=== PATIENT | female | born 1945 | race Caucasian/White ===

== ENCOUNTER → 2016-06-30 | Outpatient (CLI) | payer OTHER ==
[~2016-06-30] MED LIST: ALBU1AER9 INH; ASPCH81 PO; AZIT250T4 PO; BENZ100C18 PO; CLC100X PO; CLTP PO; HYDR25TA4 PO; HYDR5SYP11 PO; LISI10TA PO; MULT-506 PO; OMEG10007 PO; SUMA50TA15 PO; VITA400C15 PO
--- NOTE | 2016-07-01 14:25 | MAMMOGRAPHY REPORT ---
BILATERAL DIGITAL SCREENING MAMMOGRAM TOMOSYNTHESIS WITH CAD: 06/30/2016 CLINICAL HISTORY: Routine screening. Patient has no complaints. TECHNIQUE: Breast tomosynthesis in addition to standard 2D mammography was performed. Current study was also evaluated with a Computer Aided Detection (CAD) system. COMPARISON: Comparison is made to exams dated: 06/18/2015 mammogram, 06/01/2014 mammogram, 05/29/2013 mammogram, 05/23/2012 mammogram, and 05/18/2011 mammogram - [facility]. BREAST COMPOSITION: There are scattered areas of fibroglandular density in both breasts. FINDINGS: The parenchymal pattern is unchanged. There are moderate vascular calcifications in the breasts. No developing mass, architectural distortion or cluster of suspicious microcalcifications is seen. IMPRESSION: ACR BI-RADS CATEGORY 2: BENIGN There is no mammographic evidence of malignancy. A 1 year screening mammogram is recommended. The p atient will receive written notification of the results. Approximately 10% of breast cancers are not detected with mammography. A negative mammographic repor t should not delay biopsy if a clinically suggestive mass is present. Dolly Simon M.D. ay/:06/30/2016 21:54:13 Director Of Physiotherapy Services: Rhett MILLER(R)(M), [facility] letter sent: Normal 1/2 BI-RADS Code: ACR BI-RADS Category 2: Benign
== END | disposition home or self-care (01) ==
LOC: C.MAMM 10:56
PROVIDERS: ATTEND Family Medicine
DX: Z12.31 Encounter for screening mammogram for malignant neoplasm of breast (principal)

== ENCOUNTER 2017-04-08 17:38 | Emergency (ER) | payer OTHER ==
[~2017-04-08] VITALS: Ht 157.5 cm; Wt 65.4 kg
[2017-04-08 17:40] VITALS: TEMP 36.6; Ht 157.5 cm; Wt 65.4 kg
[2017-04-08] MEDS ORDERED: CYCLOBENZAPRINE HCL 10 MG TAB PO STA (17:51)
[2017-04-08] MEDS ORDERED: OXYCODONE HCL IR 5 MG TAB (IMMEDIATE RELEASE) PO STA ×2 (17:51→19:25)
--- NOTE | 2017-04-08 18:37 | DIAGNOSTIC IMAGING REPORT ---
CT THORACIC SPINE WITHOUT CT DOSE: CLINICAL HISTORY: Back pain status post trauma TECHNIQUE: Helical images were acquired in the transverse plane. Sagittal and coronal reformatted images were acquired A dose lowering technique was utilized adhering to the principles of ALARA. COMPARISON STUDY: None. FINDINGS: There is a 7 mm groundglass pulmonary nodule within the right upper lobe as visualized in image #[id number]. There are no pleural effusions. There is acute fracture of the anterior inferior T10 endplate. There are no paraspinal masses. There is a minimal T6 superior endplate deformity. This is felt to be old. There is a minimal superior endplate T4 deformity. This is also felt to be old. There is a densely sclerotic 16 mm lesion within the T2 vertebra. There is mild ectasia of the ascending thoracic aorta which measures 4 cm IMPRESSION: 1. Acute fracture involving the anterior inferior T10 endplate 2. No evidence of retropulsion. No subluxations identified. 3. 16 mm sclerotic lesion within the T2 vertebra 4. 7 mm groundglass right upper lobe pulmonary nodule. 6-[address] follow-up is recommended. Please refer to below summary of Fleischner criteria recommendations for follow-up of incidental CT nodules (Jimmy Lee, Guidelines for management of small pulmonary nodules detected on CT scans: A statement from the Fleischner Society, Radiology 237: [phone].) SOLID NODULES Solitary nodule size: <6 mm * low risk patients: no follow-up needed * high risk patients: optional CT at 12 months Solitary nodule size: 6-8 mm * low risk patients: follow-up at 6-12 months, then consider further follow-up at 18-24 months * high risk patients: initial follow-up CT at 6-12 months and then at 18-24 months if no change Solitary nodule size: >8 mm * either low or high risk patients - consider follow-up CT at 3 months, and/or CT-PET, and/or biopsy Multiple nodules size: <6 mm * low risk patients: no routine follow-up * high risk patients: optional CT at 12 months Multiple nodules size: 6-8 mm * low risk patients: follow-up at 3-6 months, then consider further follow-up at 18-24 months * high risk patients: follow-up at 3-6 months, then at 18-24 months if no change Multiple nodules size: >8 mm * low risk patients: follow-up at 3-6 months, then consider further follow-up at 18-24 months * high risk patients: follow-up at 3-6 months, then at 18-24 months if no change Note: newly detected indeterminate nodule in persons 35 years of age or older. * low risk patients: minimal or absent history of smoking and/or other known risk factors * high risk patients: history of smoking or of other known risk factors (e.g. first degree relative with lung cancer, or exposure to asbestos, radon, uranium) * if a nodule up to 8 mm is partly solid or is ground glass further follow-up is required after 24 months to exclude possible slow growing adenocarcinoma (SHANKAR) SUBSOLID NODULES Solitary pure ground-glass nodule * nodule size <6 mm - no CT follow-up required * nodule size >=6 mm - follow-up CT at 6-12 months, then every 2 years until 5 years Solitary part-solid nodule * nodule size <6 mm - no CT follow-up required * nodule size >=6 mm - follow-up CT at 3-6 months. If unchanged, and solid component remains <6 mm, then annual follow-up for 5 years Multiple subsolid nodules * nodule size <6 mm - follow-up CT at 3-6 months, consider further follow-up at 2 and 4 years if stable * nodule size >=6 mm - follow-up CT at 3-6 months, subsequent management based on the most suspicious nodule(s) Electronically signed by: Neftali Costello M.D. 04/08/2017 6:36 PM Dictated Date/Time: 04/08/2017 6:29 PM
--- NOTE | 2017-04-08 18:42 | DIAGNOSTIC IMAGING REPORT ---
CT LUMBAR SPINE WITHOUT CT DOSE: 889.53 mGy.cm CLINICAL HISTORY: Low back pain status post trauma TECHNIQUE: Helical images were acquired in transverse plane. Reformatted sagittal and coronal images were reviewed. A dose lowering technique was utilized adhering to the principles of ALARA. CONTRAST: No contrast was administered COMPARISON STUDY: None. FINDINGS: L1-2 level: There is no evidence of significant disc bulge or focal herniation. There is no evidence of spinal or foraminal stenosis. L2-3 level: There is no evidence of significant disc bulge or focal herniation. There is no evidence of spinal or foraminal stenosis. L3-4 level: There is a circumferential disc bulge. There is mild spinal stenosis. There is no significant foraminal narrowing L4-5 level: There is a 5 mm triangular bony density located adjacent to the anterior superior L4 endplate. This is age-indeterminate. There is a 7 mm sclerotic lesion within the L4 vertebra. There is a mild circumferential disc bulge. There is mild triangular spinal canal narrowing. L5-S1 level: There is no evidence of significant disc bulge or focal herniation. There is no evidence of spinal or foraminal stenosis. IMPRESSION: 1. 5 mm triangular bony density located adjacent to the anterior superior L4 endplate. Although age-indeterminate, I would favor this being old. No other fractures are visualized. There are no subluxations 2. 7 mm sclerotic lesion within the L4 vertebra 3. Mild degenerative changes as described above. Electronically signed by: Neftali Costello M.D. 04/08/2017 6:41 PM Dictated Date/Time: 04/08/2017 6:36 PM
[2017-04-08] MEDS ORDERED: TRAZ50TA35 PO (18:51)
[2017-04-08] MEDS ORDERED: OXYC1TAB3 PO (19:29)
[2017-04-08] MEDS ORDERED: OXYCODONE IR HOME PACK PO ONE (19:30)
--- NOTE | 2017-04-08 19:31 | EMERGENCY ROOM VISIT NOTE ---
History First contact with patient: 17:44 Chief Complaint: BACK INJURY Stated Complaint: FALL,BACK PAIN History of Present Illness The patient is a 71 year old female who presents to the Emergency Room with complaints of mid to lower back pain. The patient states yesterday she was standing on a stool washing windows and fell backwards landing on her back on the pavement. The patient denies any chest pain or any shortness of breath. The patient denies any loss of consciousness or head injury. The patient denies any headache, neck pain. The patient denies any pain in her arms or legs. The patient denies any loss of bowel or bladder control or any saddle anesthesia. The patient denies any numbness and tingling in her lower extremities. The patient states it hurts worse when she goes from a laying to a sitting position. The patient has been taking Advil with little relief. The patient does admit to history of osteoporosis for which she is on Fosamax and calcium. Review of Systems 10 system review was performed and was negative unless stated otherwise history of present illness. Social History Smoking Status: Never Smoker Marital Status: Housing Status: lives with family Occupation Status: retired Current/Historical Medications Scheduled Aspirin (Aspirin Tab-Chewable *), 81 MG PO DAILY Calcium/Vitamin D (Caltrate 600 Plus *), 1 TAB PO DAILY Docusate Sodium (Colace), 100 MG PO DAILY Fish Oil (Winder-3), 1 CAP PO DAILY Hydrochlorothiazide (Hctz), 25 MG PO DAILY Lisinopril (Prinivil), 10 MG PO DAILY Multivitamin (Multivitamin), 1 TAB PO DAILY Tocopheryl Acet,Dl-Alpha (Vitamin E), 400 INTER.UNIT PO DAILY Scheduled PRN Trazodone Hcl (Trazodone), 50 MG PO HS PRN for Sleep Physical Exam Vital Signs Date Time Temp Pulse Resp B/P (MAP) Pulse Ox O2 Delivery O2 Flow Rate FiO2 04/08/17 17:40 36.6 68 18 177/88 97 Room Air Physical Exam GENERAL: 71-year-old white female appears in no acute distress. MENTAL STATUS: Patient is alert and oriented x3. HEAD: Atraumatic, nontender to palpation throughout. No bony abnormality noted. EYES: PERRLA. EOMs intact. NECK: Supple, no lymphadenopathy noted. No carotid bruits noted. LUNGS: Clear auscultation without wheezes rales or rhonchi. CARDIAC: Regular rate and rhythm without murmur. Pulses is full and equal throughout. CHEST WALL: Patient is nontender to palpation over the chest wall bilaterally. CERVICAL SPINE: Patient is nontender to palpation over the spinous processes in the paravertebral region. The patient has full range of motion. [employer] strength is 5 out of 5 bilateral upper extremities and symmetrical. THORACIC SPINE: Patient has no gross bony deformity noted. The patient has some mild tenderness palpation over the spinous processes of the lower thoracic region. LUMBAR SPINE: No gross bony deformity noted. The patient has mild tenderness palpation over the upper spinous processes of the lumbar region. Full range of motion with pain elicited with extension and bending. SKIN: No ecchymosis, abrasions or laceration noted throughout. Medical Decision & Procedures ER Provider Diagnostic Interpretation: CT THORACIC SPINE WITHOUT CT DOSE: CLINICAL HISTORY: Back pain status post trauma TECHNIQUE: Helical images were acquired in the transverse plane. Sagittal and coronal reformatted images were acquired A dose lowering technique was utilized adhering to the principles of ALARA. COMPARISON STUDY: None. FINDINGS: There is a 7 mm groundglass pulmonary nodule within the right upper lobe as visualized in image #[id number]. There are no pleural effusions. There is acute fracture of the anterior inferior T10 endplate. There are no paraspinal masses. There is a minimal T6 superior endplate deformity. This is felt to be old. There is a minimal superior endplate T4 deformity. This is also felt to be old. There is a densely sclerotic 16 mm lesion within the T2 vertebra. There is mild ectasia of the ascending thoracic aorta which measures 4 cm IMPRESSION: 1. Acute fracture involving the anterior inferior T10 endplate 2. No evidence of retropulsion. No subluxations identified. 3. 16 mm sclerotic lesion within the T2 vertebra 4. 7 mm groundglass right upper lobe pulmonary nodule. 6-[address] follow-up is recommended. Please refer to below summary of Fleischner criteria recommendations for follow-up of incidental CT nodules (Jimmy Lee, Guidelines for management of small pulmonary nodules detected on CT scans: A statement from the Fleischner Society, Radiology 237: [phone].) SOLID NODULES Solitary nodule size: <6 mm * low risk patients: no follow-up needed * high risk patients: optional CT at 12 months Solitary nodule size: 6-8 mm * low risk patients: follow-up at 6-12 months, then consider further follow-up at 18-24 months * high risk patients: initial follow-up CT at 6-12 months and then at 18-24 months if no change Solitary nodule size: >8 mm * either low or high risk patients - consider follow-up CT at 3 months, and/or CT-PET, and/or biopsy Multiple nodules size: <6 mm * low risk patients: no routine follow-up * high risk patients: optional CT at 12 months Multiple nodules size: 6-8 mm * low risk patients: follow-up at 3-6 months, then consider further follow-up at 18-24 months * high risk patients: follow-up at 3-6 months, then at 18-24 months if no change Multiple nodules size: >8 mm * low risk patients: follow-up at 3-6 months, then consider further follow-up at 18-24 months * high risk patients: follow-up at 3-6 months, then at 18-24 months if no change Note: newly detected indeterminate nodule in persons 35 years of age or older. * low risk patients: minimal or absent history of smoking and/or other known risk factors * high risk patients: history of smoking or of other known risk factors (e.g. first degree relative with lung cancer, or exposure to asbestos, radon, uranium) * if a nodule up to 8 mm is partly solid or is ground glass further follow-up is required after 24 months to exclude possible slow growing adenocarcinoma (SHANKAR) SUBSOLID NODULES CT LUMBAR SPINE WITHOUT CT DOSE: 889.53 mGy.cm CLINICAL HISTORY: Low back pain status post trauma TECHNIQUE: Helical images were acquired in transverse plane. Reformatted sagittal and coronal images were reviewed. A dose lowering technique was utilized adhering to the principles of ALARA. CONTRAST: No contrast was administered COMPARISON STUDY: None. FINDINGS: L1-2 level: There is no evidence of significant disc bulge or focal herniation. There is no evidence of spinal or foraminal stenosis. L2-3 level: There is no evidence of significant disc bulge or focal herniation. There is no evidence of spinal or foraminal stenosis. L3-4 level: There is a circumferential disc bulge. There is mild spinal stenosis. There is no significant foraminal narrowing L4-5 level: There is a 5 mm triangular bony density located adjacent to the anterior superior L4 endplate. This is age-indeterminate. There is a 7 mm sclerotic lesion within the L4 vertebra. There is a mild circumferential disc bulge. There is mild triangular spinal canal narrowing. L5-S1 level: There is no evidence of significant disc bulge or focal herniation. There is no evidence of spinal or foraminal stenosis. IMPRESSION: 1. 5 mm triangular bony density located adjacent to the anterior superior L4 endplate. Although age-indeterminate, I would favor this being old. No other fractures are visualized. There are no subluxations 2. 7 mm sclerotic lesion within the L4 vertebra 3. Mild degenerative changes as described above. Electronically signed by: Neftali Costello M.D. 04/08/2017 6:41 PM Medications Administered Medications (Trade) Dose Ordered Sig/Sherly Route Start Time Stop Time Status Last Admin Dose Admin Cyclobenzaprine HCl (Flexeril Tab) 10 mg NOW STAT PO 04/08/17 17:51 04/08/17 17:53 DC 04/08/17 18:05 10 MG Oxycodone HCl (Roxicodone Immediate Rel Tab) 5 mg NOW STAT PO 04/08/17 17:51 04/08/17 17:53 DC 04/08/17 18:05 5 MG ED Course The patient was evaluated. Patient's EMR was reviewed. Patient's medication list was reviewed. The patient was given OxyIR 5 mg by mouth and Flexeril [address] of the thoracic and lumbar spine was ordered interpreted by the radiologist as above with a fracture of T10 endplate. Incidental finding of a right pulmonary nodule. The patient was informed of both findings. The patient was independently evaluated by Dr. Eden who agree with treatment plan. The patient was given additional OxyIR one tablet by mouth before discharge. She was given OxyIR home pack. The patient was discharged home in stable condition. Medical Decision Differential diagnosis include fractures versus contusions versus strains of the thoracic and lumbar spine [place] Drug Monitoring Program Search Results: patient reviewed within database Medication Reconcilliation Current Medication List: was personally reviewed by me Blood Pressure Screening Patient's blood pressure: Elevated blood pressure Blood pressure disposition: Elevated BP felt to be situational Impression Primary Impression: Thoracic spine fracture Additional Impression: Pulmonary nodule, right Departure Information Dispostion Home / Self-Care Condition GOOD Prescriptions Oxycodone Immediate Rel Tab (ROXICODONE IR) 5 Mg Tab 1-2 TAB PO Q6 Y for Pain, #20 TAB Prov: Abby Norris PA-C 04/08/17 Referrals Wilfredo Dumont M.D. (PCP) Forms HOME CARE DOCUMENTATION FORM, IMPORTANT VISIT INFORMATION Patient Instructions Fractures - [facility], [facility] Additional Instructions Tylenol and/or ibuprofen as needed for pain. Take OxyIR as needed for more severe pain. Do not drive while taking the OxyIR. Recommend taking stool softeners while you're taking the OxyIR to prevent constipation. If the pain is uncontrolled on the pain medication, return to ER. Today's CAT scan revealed a pulmonary nodule in the right upper lobe. It is recommended that you follow-up with your family doctor so that he can follow-up with this finding. Problem Qualifiers Primary Impression: Thoracic spine fracture Encounter type: initial encounter Thoracic vertebra fracture level: T10 Fracture type: closed Fracture morphology: other fracture Qualified Codes: S22.078A - Other fracture of t9-t10 vertebra, initial encounter for closed fracture
[2017-04-08 19:39] VITALS: BP 165/74; PULSE 65; O2SAT 97
--- NOTE | 2017-04-16 23:05 | EMERGENCY ROOM VISIT NOTE ---
ED Visit Note First contact with patient: 17:44 I have personally evaluated this patient examined her and reviewed the pertinent labs and data. I have discussed the case with Abby Norris, the physician promotional advertising assistant and agree with the plan. Please refer to the PA note. This patient suffered mechanical fall comes in with lower thoracic back pain. On my exam, she appears comfortable but the pain seems worse with movement. She has no acute neurologic deficits and nothing to suggest cauda equina syndrome. There is no syncope or chest pain or shortness of breath or head injury. CAT scan of the thoracic and lumbar spine does show a T10 compression fracture and there is no retropulsion. She'll be treated with analgesics and follow-up with her regular doctors her encouraged to return to ER if any new problems or concerns.
== END 2017-04-08 19:40 | disposition home or self-care (01) ==
LOC: C.EDB 17:39 → C.EDC 19:40
DX: S22.078A Other fracture of T9-T10 vertebra, initial encounter for closed fracture (principal); R91.1 Solitary pulmonary nodule; W07.XXXA Fall from chair, initial encounter; Y92.9 Unspecified place or not applicable; Y93.89 Activity, other specified; Z79.82 Long term (current) use of aspirin; Z79.899 Other long term (current) drug therapy

== ENCOUNTER → 2017-07-02 | Outpatient (CLI) | payer OTHER ==
[~2017-07-02] MED LIST changes: -ALBU1AER9 INH; -AZIT250T4 PO; -BENZ100C18 PO; -HYDR5SYP11 PO; +OXYC1TAB3 PO; -SUMA50TA15 PO; +TRAZ50TA35 PO
--- NOTE | 2017-07-05 07:43 | MAMMOGRAPHY REPORT ---
BILATERAL DIGITAL SCREENING MAMMOGRAM TOMOSYNTHESIS WITH CAD: 07/02/2017 CLINICAL HISTORY: Routine screening. Patient has no complaints. TECHNIQUE: Breast tomosynthesis in addition to standard 2D mammography was performed. Current study was also evaluated with a Computer Aided Detection (CAD) system. COMPARISON: Comparison is made to exams dated: 06/30/2016 mammogram, 06/18/2015 mammogram, 06/01/2014 m ammogram, 05/29/2013 mammogram, 05/23/2012 mammogram - [facility], and 05/13/2007. BREAST COMPOSITION: There are scattered areas of fibroglandular density in both breasts. FINDINGS: There is a nodular 4 mm asymmetry seen within the left medial breast middle depth on the c c view, likely projecting superiorly on the MLO view, for which spot compression tomosynthesis views and possible breast ultrasound are recommended for further evaluation. The remainder of both breasts are stable compared to prior exams, without suspicious masses, calcific ations, or areas of architectural distortion noted. Bilateral benign vascular calcifications are aga in seen. IMPRESSION: ACR BI-RADS CATEGORY 0: INCOMPLETE EVALUATION: NEED ADDITIONAL IMAGING EVALUATION Left breast asymmetry, for which additional imaging evaluation is recommended. The patient will be c alled to schedule an appointment. Approximately 10% of breast cancers are not detected with mammography. A negative mammographic report should not delay biopsy if a clinically suggestive mass is present. Chaya Arizmendi M.D. /:07/02/2017 16:34:06 Criminal Defense Lawyer: Rosanna DUMONT)(Ariana), [facility] letter sent: Addl Imaging 0 BI-RADS Code: ACR BI-RADS Category 0: Incomplete Evaluation: Need Additional Imaging Evaluation
== END | disposition home or self-care (01) ==
LOC: C.MAMM 10:30
PROVIDERS: ATTEND Family Medicine
DX: Z12.31 Encounter for screening mammogram for malignant neoplasm of breast (principal); N64.89 Other specified disorders of breast

== ENCOUNTER → 2017-07-09 | Outpatient (CLI) | payer OTHER ==
--- NOTE | 2017-07-09 13:25 | MAMMOGRAPHY REPORT ---
UNILATERAL LEFT DIGITAL DIAGNOSTIC MAMMOGRAM TOMOSYNTHESIS AND TARGETED LEFT ULTRASOUND: 07/09/2017 CLINICAL HISTORY: Callback from screening mammogram for left breast asymmetry. TECHNIQUE: Breast tomosynthesis in addition to standard 2D mammography was performed. Spot compress ion left CC and MLO 2-D and tomosynthesis images were obtained. COMPARISON: Comparison is made to exams dated: 07/02/2017 mammogram, 06/30/2016 mammogram, 06/26/2015 m ammogram, 06/26/2015 ultrasound, 06/18/2015 mammogram, and 06/01/2014 mammogram - [facility]. BREAST COMPOSITION: There are scattered areas of fibroglandular density in the left breast. FINDINGS: Spot compression views demonstrate a persistent 5 mm mass with non-circumscribed margins w ith in the left upper inner quadrant. Targeted ultrasound was performed of the left upper inner quad rant in the region of the mammographic mass. In the left breast at 9:30 approximately 5 cm from the nipple, there is an irregular hypoechoic solid mass with non-circumscribed margins and an echogenic h isrrael, measuring 4 x 5 x 4 mm. This corresponds with the new mammographic mass and is suspicious for m alignancy. Recommend ultrasound-guided core needle biopsy for further evaluation. IMPRESSION: ACR BI-RADS CATEGORY 4: SUSPICIOUS, TARGETED ULTRASOUND ACR BI-RADS CATEGORY 4: SUSPICIO US Irregular hypoechoic 5 mm mass in the left 9:30 breast on ultrasound, which corresponds with the new mammographic mass. The mass is suspicious for malignancy and ultrasound-guided core needle biopsy is recommended for further evaluation. A phone call was made to the physician's office to confirm faxed results were received. The patient has been verbally notified of the results. She tentatively scheduled the biopsy before leaving the [facility]. Approximately 10% of breast cancers are not detected with mammography. A negative mammographic report should not delay biopsy if a clinically suggestive mass is present. Chaya Arizmendi M.D. /:07/09/2017 10:28:26 Selling Underwriter: Odalys Roberts, [facility] letter sent: Abnormal 4/5 BI-RADS Code: ACR BI-RADS Category 4: Suspicious Ultrasound BI-RADS: ACR BI-RADS Category 4: Suspici ous
== END | disposition home or self-care (01) ==
LOC: C.MAMM 09:10
PROVIDERS: ATTEND Family Medicine
DX: R92.8 Other abnormal and inconclusive findings on diagnostic imaging of breast (principal); N63.20 Unspecified lump in the left breast, unspecified quadrant

== ENCOUNTER → 2017-07-16 | Outpatient (CLI) | payer OTHER ==
--- NOTE | 2017-07-16 10:42 | Discharge Instructions ---
Discharge Instructions Procedure Procedure Date: Jul 16, 2017. Reason for visit: Left Mass. Discharge Discharge Date: Jul 16, 2017. Discharge Diagnosis: status post breast biopsy Instructions Activity Recommendations: Additional Limitations (see below) Return to School/Work: no limitations Recommended Home Diet: No Limitations Provider Instructions: ACTIVITY RECOMMENDATIONS: * No lifting, pushing, pulling or exercising the affected side for three days. RETURN TO SCHOOL/WORK: * You may return to work/school after the procedure, but do not perform any strenuous activities for 24 to 48 hours. MEDICATIONS: * Tylenol (two 325 mg) every four to six hours if needed for mild pain (if not allergic to Tylenol). DIET: * Resume previous diet. SPECIAL CARE INSTRUCTIONS: * Keep biopsy site dry for 24 hours. May shower after 24 hours, but do not soak (bathe) incision. * May remove Tegaderm (plastic patch) tomorrow AFTER showering. * Leave the steri-strips on for one week. Allow the steri-strips to fall off by themselves. If not off after one week, you may remove them. You may place a Bandaid crosswise over the strips, if desired. * Apply ice 10 minutes on and 10 minutes off as needed. * Wear a bra at bedtime to sleep more comfortably for 2-3 days. * Your referring physician should have the results after approximately 5 to 7 business days. * Call for unusual bleeding, fever, drainage, etc or if you have any questions call during normal business hours or after hours call Dr Arizmendi, . FOLLOW UP VISIT: Follow-up with Referring Physician as scheduled. Allergies Coded Allergies: Sulfa Drugs (Verified Allergy, Mild, 04/08/17) BEE STING (Verified Allergy, Unknown, unknow, 04/08/17) pt Bupropion (Verified Allergy, Unknown, unknown, 04/08/17) pt Cephalexin (Unverified Allergy, Unknown, HIVES, 04/08/17) Uncoded Allergies: PNEUMONIA VACCINE (Allergy, Unknown, unknown, 04/08/17) pt [place] Recommendations: Call your doctor if: * Temperature above 101 degrees * Pain not relieved by pain medicine ordered * There is increased drainage or redness from any incision * You have any unanswered questions or concerns. Your Doctors Instructions noted above were prepared by provider Chaya Arizmendi. Patient Signature Section: Patient Instructions Signature Page Savi Edmonds Patient (or Guardian) Signature/Date: I have read and understand the instructions given to me by my caregivers. Caregiver/RN/Doctor Signature/Date: The above-named patient and/or guardian has received patient instructions on this date. + Original Patient Signature Page (only) stays with chart. Please make copy for patient.
--- NOTE | 2017-07-19 07:38 | MAMMOGRAPHY REPORT ---
ULTRASOUND GUIDED BIOPSY LEFT BREAST: 07/16/2017 CLINICAL HISTORY: Left 9:30 breast mass. PATIENT CONSENT: The procedure, risks and benefits were discussed with the patient and informed writt en consent was obtained. A timeout was performed immediately prior to the procedure. PROCEDURE DESCRIPTION: First, ultrasound was performed of the left axillary region, which shows morph ologically normal left axillary lymph nodes without clear evidence of adenopathy. With ultrasound gu idance, aseptic technique, and lidocaine as the local anesthetic (1% lidocaine to anesthetize the ski n and 1% lidocaine with epinephrine to anesthetize the deeper tissues), the mass of concern in the le ft 9:30 breast was sampled 4 times with a 14-gauge Achieve biopsy needle. Immediately thereafter, w ith ultrasound guidance, aseptic technique, and lidocaine as the local anesthetic, a metallic localiz er clip was placed at the biopsy site. Direct pressure was applied to the site immediately post proc edure and hemostasis was achieved. Postprocedure unilateral mammograms were performed to confirm jeevan cement of the clip in the expected location of the breast mass. The patient tolerated the procedure without complication. She was given wound care instructions. The specimens were sent to pathology fo r analysis. COMPARISON: Comparison is made to exams dated: 07/09/2017 ultrasound, 07/09/2017 mammogram, 07/02/2017 mammogram, 06/30/2016 mammogram, 06/18/2015 mammogram, and 06/01/2014 mammogram - [facility]. IMPRESSION: ULTRASOUND GUIDED BIOPSY 1. Ultrasound guided core needle biopsy of the left 9:30 breast mass, with clip placement. The patie nt will receive pathology results from her referring provider. 2. No evidence of left axillary adenopathy on ultrasound. Chaya Arizmendi M.D. ah/:07/16/2017 10:43:51 Sales And Management Trainee: Rhett MILLER(R)(M), [facility]
--- NOTE | 2017-07-19 07:41 | MAMMOGRAPHY REPORT ---
UNILATERAL LEFT DIGITAL DIAGNOSTIC MAMMOGRAM TOMOSYNTHESIS: 07/16/2017 CLINICAL HISTORY: Status post left breast biopsy. TECHNIQUE: Breast tomosynthesis in addition to standard 2D mammography was performed. Postprocedura l left CC and ML tomosynthesis images including C views were obtained. COMPARISON: Comparison is made to exams dated: 07/09/2017 ultrasound, 07/09/2017 mammogram, 07/02/2017 mammogram, 06/30/2016 mammogram, 06/18/2015 mammogram, and 06/01/2014 mammogram - [facility]. BREAST COMPOSITION: There are scattered areas of fibroglandular density in the left breast. FINDINGS: A new ribbon-shaped biopsy marker clip is seen at the site of the biopsied mass in the lef t upper inner quadrant. No significant postbiopsy hematoma is seen. IMPRESSION: POST PROCEDURE IMAGING FOR MARKER PLACEMENT New biopsy marker clip status post left breast biopsy. Pathology results are pending. Approximately 10% of breast cancers are not detected with mammography. A negative mammographic report should not delay biopsy if a clinically suggestive mass is present. Chaya Arizmendi M.D. ah/:07/16/2017 11:07:21 Lumber Yard Worker: Rhett MILLER(R)(M), [facility] BI-RADS Code: Post Procedure Imaging For Marker Placement
== END | disposition home or self-care (01) ==
LOC: C.MAMM 09:54
PROVIDERS: ATTEND Family Medicine
DX: C50.912 Malignant neoplasm of unspecified site of left female breast (principal)

== ENCOUNTER → 2017-08-19 | Outpatient (CLI) | payer OTHER ==
[~2017-08-19] MED LIST changes: +GADAVIST IV PRN
--- NOTE | 2017-08-20 13:54 | MAMMOGRAPHY REPORT ---
BREAST MRI OF BOTH BREASTS : 08/19/2017 CLINICAL HISTORY: Recent ultrasound-guided biopsy of a left 930 breast mass which yielded malignancy. COMPARISON: Comparison is made to exams dated: 07/16/2017 ultrasound biopsy, 07/16/2017 mammogram, 2017 mammogram, 07/02/2017 mammogram, 06/30/2016 mammogram, and 06/26/2015 mammogram - [facility]. Technique: The patient was placed prone in a dedicated breast imaging coil. Precontrast axial T1-shantel ghted, axial T2-weighted fat saturation, and axial T1-weighted fat saturation images were obtained. After the administration of 6 mL of Gadavist IV contrast, sequential T1-weighted fat saturation image s were obtained. Subtraction images were obtained of the dynamic contrast enhanced sequences, and 3- D reformations were performed. The [employer] software was used for kinetic analysis. Findings: Right breast: There is mild background parenchymal enhancement. There are no suspicious enhancing ma sses or areas of abnormal non-mass enhancement seen within the right breast. There are small foci of enhancement seen scattered throughout the right breast, which are felt to represent background paren chymal enhancement. Left breast: There is mild background parenchymal enhancement. There is an irregular enhancing 5 x 4 mm mass within the left upper inner quadrant middle depth at approximately 10:00, which demonstrates a mixed washout and plateau kinetic pattern and is consistent with the known biopsy-proven malignanc y (series 501 image 52, series 6 image 37). Clip artifact is seen within the mass. There are isreal us small scattered foci of enhancement seen throughout the left breast, which reduces the sensitivity of the exam for the detection of small cancers. However, in the left upper inner quadrant anterior depth, approximately 1.3 cm inferior and 2.4 cm anterior to the known malignancy, there is an enhanci ng 4 mm focus is more prominent compared to the other foci and demonstrates a mixed washout and plate au kinetic pattern similar to the known malignancy (series 501 image 58 and series 6 image 33). The focus is indeterminate and second look ultrasound is recommended for further evaluation. There is no evidence of axillary adenopathy. The chest wall structures are negative. There is cardi omegaly and trace dependent bilateral pleural effusions, right greater than left. IMPRESSION: ACR BI-RADS CATEGORY 0: INCOMPLETE EVALUATION: NEED ADDITIONAL IMAGING EVALUATION 1. Enhancing 5 mm mass in the left 10:00 breast, consistent with the biopsy-proven malignancy. 2. Small 4 mm enhancing focus in the left upper inner quadrant at approximately 9:30, anterior and i nferior to the known malignancy. The focus is indeterminate and second look ultrasound is recommende d for further evaluation. If a corresponding suspicious abnormality is seen on ultrasound, ultrasoun d-guided biopsy could be performed at that time (45 minute time slot). If a corresponding abnormalit y is not seen on ultrasound, MRI guided biopsy may ultimately be needed. 3. No MRI evidence of malignancy in the right breast. 4. Cardiomegaly. Chaya Arizmendi M.D. ah/:08/19/2017 19:11:59 Liner Helper: promotional advertising assistant, [facility] letter sent: [facility] 0 BI-RADS Code: ACR BI-RADS Category 0: Incomplete Evaluation: Need Additional Imaging Evaluation
== END | disposition home or self-care (01) ==
LOC: C.MRI 10:39
PROVIDERS: ATTEND Surgery
DX: Z01.818 Encounter for other preprocedural examination (principal); Z17.0 Estrogen receptor positive status [ER+]; C50.912 Malignant neoplasm of unspecified site of left female breast; I51.7 Cardiomegaly

== ENCOUNTER → 2017-08-31 | Outpatient (CLI) | payer OTHER ==
[~2017-08-31] MED LIST changes: -GADAVIST IV PRN
--- NOTE | 2017-08-31 11:28 | Discharge Instructions ---
Discharge Instructions Procedure Procedure Date: Aug 31, 2017. Reason for visit: Second Look Us, Lt Mass, Poss Core Bx. Discharge Discharge Date: Aug 31, 2017. Discharge Diagnosis: status post breast biopsy Instructions Activity Recommendations: Additional Limitations (see below) Return to School/Work: no limitations Recommended Home Diet: No Limitations Provider Instructions: ACTIVITY RECOMMENDATIONS: * No lifting, pushing, pulling or exercising the affected side for three days. RETURN TO SCHOOL/WORK: * You may return to work/school after the procedure, but do not perform any strenuous activities for 24 to 48 hours. MEDICATIONS: * Tylenol (two 325 mg) every four to six hours if needed for mild pain (if not allergic to Tylenol). DIET: * Resume previous diet. SPECIAL CARE INSTRUCTIONS: * Keep biopsy site dry for 24 hours. May shower after 24 hours, but do not soak (bathe) incision. * May remove Tegaderm (plastic patch) tomorrow AFTER showering. * Leave the steri-strips on for one week. Allow the steri-strips to fall off by themselves. If not off after one week, you may remove them. You may place a Bandaid crosswise over the strips, if desired. * Apply ice 10 minutes on and 10 minutes off as needed. * Wear a bra at bedtime to sleep more comfortably for 2-3 days. * Your referring physician should have the results after approximately 5 to 7 business days. * Call for unusual bleeding, fever, drainage, etc or if you have any questions call during normal business hours or after hours call Dr Arizmendi, . FOLLOW UP VISIT: Follow-up with Referring Physician as scheduled. Allergies Coded Allergies: Sulfa Drugs (Verified Allergy, Mild, 04/08/17) BEE STING (Verified Allergy, Unknown, unknow, 04/08/17) pt Bupropion (Verified Allergy, Unknown, unknown, 04/08/17) pt Cephalexin (Unverified Allergy, Unknown, HIVES, 04/08/17) Uncoded Allergies: PNEUMONIA VACCINE (Allergy, Unknown, unknown, 04/08/17) pt [place] Recommendations: Call your doctor if: * Temperature above 101 degrees * Pain not relieved by pain medicine ordered * There is increased drainage or redness from any incision * You have any unanswered questions or concerns. Your Doctors Instructions noted above were prepared by provider Chaya Arizmendi. Patient Signature Section: Patient Instructions Signature Page Savi Edmonds Patient (or Guardian) Signature/Date: I have read and understand the instructions given to me by my caregivers. Caregiver/RN/Doctor Signature/Date: The above-named patient and/or guardian has received patient instructions on this date. + Original Patient Signature Page (only) stays with chart. Please make copy for patient.
--- NOTE | 2017-08-31 14:58 | MAMMOGRAPHY REPORT ---
ULTRASOUND OF LEFT BREAST: 08/31/2017 CLINICAL HISTORY: Small 4 mm enhancing focus seen within the left 930 breast on recent breast MRI, fo r which second look ultrasound was recommended. COMPARISON: Comparison is made to exams dated: 08/31/2017 ultrasound biopsy, 08/19/2017 breast MRI, 07/16 ultrasound biopsy, 07/16/2017 mammogram, 07/09/2017 ultrasound, and 07/09/2017 mammogram - [facility]. TECHNIQUE: Real-time targeted ultrasound of the left breast was performed. FINDINGS: Real-time, high-resolution targeted ultrasound was performed of the left 9:30 to 10:[address] in the region of the enhancing focus seen on breast MRI. In the left breast at 10:00, approximate ly 3 cm from the nipple, there is an isoechoic non-circumscribed solid-appearing 4 x 2 x 4 mm mass. This is located immediately adjacent to a small 4 mm cyst. This correlates with the shape, size, and location of the enhancing focus seen on breast MRI and therefore is felt to correlate with the MRI f inding. The finding is indeterminate and ultrasound-guided core needle biopsy is recommended for fur ther evaluation. IMPRESSION: ACR BI-RADS CATEGORY 4: SUSPICIOUS - FOLLOW-UP RECOMMENDED Isoechoic 4 mm mass in the left breast at 10:00, which is felt to correspond with the enhancing focus described on the recent breast MRI. The finding is indeterminate and ultrasound-guided core needle biopsy is recommended for further evaluation. The results were reviewed with the patient. The biopsy was performed immediately after the ultrasoun d exam. Chaya Arizmendi M.D. /:08/31/2017 11:55:04 Vibrator Operator: Chaya Arizmendi MD, [facility] BI-RADS Code: ACR BI-RADS Category 4: Suspicious
--- NOTE | 2017-08-31 14:58 | MAMMOGRAPHY REPORT ---
ULTRASOUND GUIDED BIOPSY LEFT BREAST: 08/31/2017 CLINICAL HISTORY: Left 10:00 breast mass, which correlates with an enhancing focus on MRI. PATIENT CONSENT: The procedure, risks and benefits were discussed with the patient and informed writt en consent was obtained. A timeout was performed immediately prior to the procedure. PROCEDURE DESCRIPTION: With ultrasound guidance, aseptic technique, and lidocaine as the local anesth etic (1% lidocaine to anesthetize the skin and 1% lidocaine with epinephrine to anesthetize the deepe r tissues), the mass of concern in the left 10:00 breast was sampled 3 times with a 14-gauge Achieve biopsy needle. Immediately thereafter, with ultrasound guidance, aseptic technique, and lidocaine as the local anesthetic, a metallic localizer clip was placed centrally in the mass. Direct pressure w as applied to the site immediately post procedure and hemostasis was achieved. Postprocedure unilate ral mammograms were performed to confirm clip placement; see separate dictation for details. The pat ient tolerated the procedure without complication. She was given wound care instructions. The specim ens were sent to pathology for analysis. COMPARISON: Comparison is made to exams dated: 08/19/2017 breast MRI, 07/16/2017 ultrasound biopsy, 2017 mammogram, 07/09/2017 ultrasound, 07/09/2017 mammogram, and 07/02/2017 mammogram - [facility]. IMPRESSION: ULTRASOUND GUIDED BIOPSY Ultrasound-guided core needle biopsy of the left 10:00 breast mass, with clip placement. The patient will receive pathology results from her referring provider. Chaya Arizmendi M.D. /:08/31/2017 11:56:39 Tunneller: Odalys Roberts, [facility]
--- NOTE | 2017-08-31 14:58 | MAMMOGRAPHY REPORT ---
UNILATERAL LEFT DIGITAL DIAGNOSTIC MAMMOGRAM TOMOSYNTHESIS: 08/31/2017 CLINICAL HISTORY: Status post left breast biopsy. TECHNIQUE: Breast tomosynthesis in addition to standard 2D mammography was performed. Postprocedura l left CC and ML 2D and tomosynthesis images were obtained. COMPARISON: Comparison is made to exams dated: 08/31/2017 ultrasound biopsy, 08/19/2017 breast MRI, 07/16 ultrasound biopsy, 07/16/2017 mammogram, 07/09/2017 ultrasound, and 07/09/2017 mammogram - [facility]. BREAST COMPOSITION: There are scattered areas of fibroglandular density in the left breast. FINDINGS: A new wing-shaped biopsy marker clip is seen at the site of the recently biopsied mass in t he left upper inner quadrant at approximately 10:00, anterior and inferior to the previously biopsied mass. The previously biopsied known malignancy is denoted by a ribbon-shaped biopsy marker clip in the left upper inner quadrant. The 2 clips are located approximately 2.6 cm apart. IMPRESSION: POST PROCEDURE IMAGING FOR MARKER PLACEMENT New wing-shaped biopsy marker clip status post ultrasound-guided biopsy of the left 10:00 breast mass . Pathology results are pending. Approximately 10% of breast cancers are not detected with mammography. A negative mammographic report should not delay biopsy if a clinically suggestive mass is present. Chaya Arizmendi M.D. /:08/31/2017 12:07:55 Etl Lead: Odalys Roberts [facility] BI-RADS Code: Post Procedure Imaging For Marker Placement
== END | disposition home or self-care (01) ==
LOC: C.MAMM 10:22
PROVIDERS: ATTEND Surgery
DX: N63.20 Unspecified lump in the left breast, unspecified quadrant (principal); N60.92 Unspecified benign mammary dysplasia of left breast

== ENCOUNTER → 2017-12-28 | Outpatient (CLI) | payer OTHER ==
[~2017-12-28] MED LIST changes: +FENT1DIS85 TOP; +FENT25DI10 TD; +OXYC-57 PO; -OXYC1TAB3 PO
--- NOTE | 2017-12-28 09:44 | DIAGNOSTIC IMAGING REPORT ---
CHEST 2 VIEWS ROUTINE CLINICAL HISTORY: S/P INTERCOSTAL NERVE BLOCK R/O PNEUMOTHORAX dyspnea COMPARISON STUDY: 06/26/2012 FINDINGS: No evidence for pneumothorax status post nerve block. The basilar atelectasis. Several compression deformities of the thoracic spine. IMPRESSION: No evidence of pneumothorax post nerve block. Small bilateral pleural effusions. The above report was generated using voice recognition software. It may contain grammatical, syntax or spelling errors. Electronically signed by: David Norris M.D. 12/28/2017 9:43 AM Dictated Date/Time: 12/28/2017 9:42 AM
== END | disposition home or self-care (01) ==
LOC: C.RADBC 08:42
PROVIDERS: ATTEND Anesthesiology
DX: Z98.890 Other specified postprocedural states (principal); J90 Pleural effusion, not elsewhere classified

== ENCOUNTER 2020-06-08 22:29 | Inpatient (IN) ==
[2020-06-08] MEDS ORDERED: ALBUTEROL HFA 8 GM INHALER INH ONE (22:50)
[2020-06-08] MEDS ORDERED: SODIUM CHLORIDE 0.9% 1000ML 500 ML IV ONE (22:56)
--- NOTE | 2020-06-08 22:56 | Emergency Department Note ---
History of Present Illness General Chief complaint: Shortness of Breath/Dyspnea Stated complaint: MUCUS IN THROAT - SOB Time Seen by Provider: 06/08/20 22:40 History of Present Illness This 74-year-old presents to the ER complaining of fever, chills, dyspnea and cough for the past day Location: Generalized Quality: Weak Severity: Moderate Duration: Today Timing: Today Context: Patient had problems breathing and came in Modifying factors: better with rest; worse with activity Patient had a family get together over the weekend. She was diagnosed with pneumonia earlier this month. She states she was feeling better from this until now. Patient complains of fever, chills, cough, congestion and dyspnea. No one else in the family is sick. Home Medications Medication Instructions Recorded Confirmed Type cyanocobalamin (vitamin B-12) 500 mcg PO QAM 06/29/19 06/08/20 History hydrochlorothiazide 25 mg PO QAM 06/29/19 06/08/20 History losartan 25 mg PO QAM 06/29/19 06/08/20 History metoprolol succinate 25 mg PO QAM 06/29/19 06/08/20 History tamoxifen 20 mg PO QAM 06/29/19 06/08/20 History famotidine [Pepcid] 40 mg PO HS #30 tab 05/24/20 06/08/20 Rx fluticasone propionate 2 spray INTRANASAL DAILY 06/08/20 06/08/20 History furosemide 20 mg PO DAILY 06/08/20 06/08/20 History Allergies Allergy/AdvReac Type Severity Reaction Status Date / Time cephalexin Allergy Intermediate HIVES Verified 06/08/20 23:00 Sulfa (Sulfonamide Allergy Mild Unknown Verified 06/08/20 23:00 Antibiotics) bee venom protein (honey bee) Allergy Unknown unknow Verified 06/08/20 23:00 bupropion Allergy Unknown unknown Verified 06/08/20 23:00 pneumococcal vaccine Allergy Unknown Unknown Verified 06/08/20 23:00 [From Pneumovax 23] Past Med/Surg History Medical History (Updated 06/09/20 @ 01:37 by Italia Friedman PA-C) Anemia Breast cancer NO CHEMO/RADIATION Hypertension Migraine HX Peptic ulcer disease HX Surgical History History of cataract surgery right History of colonoscopy History of tonsillectomy History of tooth extraction Hx of lumpectomy LEFT Family History Other No family history of adverse response to anesthesia Social History Smoking Status: Never smoker Second Hand Exposure: No; Hx Alcohol Use: No Hx Substance Use: No Preferred Language: Yemeni Communication Ability: Effective Controls Design Engineer Required: No Beliefs That Will Affect Care: None Current Living Situation: Spouse Feels Safe at Home: Yes Assistive Devices: Glasses Review of Systems A total of 10 systems reviewed and were otherwise negative Physical Exam Vital Signs Vital Signs - 24 hr 06/08/20 22:32 06/08/20 23:03 06/08/20 23:34 Temperature 37.3 C Temperature Source Temporal Artery Scan Pulse Rate 99 H 109 H Pulse Rate [Right Finger] Pulse Rate from SpO2 Sensor 112 H Respiratory Rate 24 39 H Respiratory Effort / Characteristics Labored Respiratory Depth Normal Blood Pressure 138/95 Blood Pressure [Right Arm] Blood Pressure Mean 109 Blood Pressure Mean [Right Arm] Pulse Oximetry 98 96 96 Oxygen Delivery Method Room Air Room Air Oxygen Flow Rate Sepsis Recent Fever Within 48 Hours No Sepsis New/Unexplained Change in Mental Status N/A Sepsis Action Taken by Nursing No Action Required 06/08/20 23:35 06/09/20 00:00 06/09/20 00:54 Temperature Temperature Source Pulse Rate 109 H 110 H Pulse Rate [Right Finger] Pulse Rate from SpO2 Sensor 108 H 110 H 114 H Respiratory Rate 36 H 22 Respiratory Effort / Characteristics Respiratory Depth Blood Pressure 129/101 H Blood Pressure [Right Arm] Blood Pressure Mean 117 Blood Pressure Mean [Right Arm] Pulse Oximetry 95 97 Oxygen Delivery Method Oxygen Flow Rate Sepsis Recent Fever Within 48 Hours Sepsis New/Unexplained Change in Mental Status Sepsis Action Taken by Nursing 06/09/20 00:55 06/09/20 00:57 06/09/20 01:00 Temperature Temperature Source Pulse Rate Pulse Rate [Right Finger] 108 H Pulse Rate from SpO2 Sensor 114 H 105 H Respiratory Rate 24 Respiratory Effort / Characteristics Non-Labored Respiratory Depth Normal Blood Pressure 146/98 H Blood Pressure [Right Arm] 146/98 H Blood Pressure Mean 111 Blood Pressure Mean [Right Arm] 114 Pulse Oximetry 92 96 95 Oxygen Delivery Method Nasal Cannula Oxygen Flow Rate 2 Sepsis Recent Fever Within 48 Hours Sepsis New/Unexplained Change in Mental Status Sepsis Action Taken by Nursing 06/09/20 01:05 06/09/20 01:30 06/09/20 02:00 Temperature Temperature Source Pulse Rate 121 H 117 H Pulse Rate [Right Finger] Pulse Rate from SpO2 Sensor 122 H Respiratory Rate 33 H 33 H Respiratory Effort / Characteristics Respiratory Depth Blood Pressure Blood Pressure [Right Arm] Blood Pressure Mean Blood Pressure Mean [Right Arm] Pulse Oximetry 96 100 Oxygen Delivery Method Room Air Oxygen Flow Rate 88 Sepsis Recent Fever Within 48 Hours Sepsis New/Unexplained Change in Mental Status Sepsis Action Taken by Nursing VITALS: Vitals are noted on the nurse's note and reviewed by myself. Vital signs pulse ox 98%. GENERAL: Elderly female coughing having difficulty speaking in full sentences il l-appearing SKIN: The skin was without rashes, erythema, edema, or bruising. There is no tenting of the skin. Capillary reflex less than 2 seconds. HEAD: Normocephalic atraumatic. EARS: External auditory canals clear, tympanic membranes pearly wylie without erythema or effusion bilaterally. EYES: Pupils equal round and reactive to light and accommodation. Conjunctivae without injection, sclerae without icterus. Extraocular movements intact. NOSE: Patent, turbinates without inflammation or discharge. No sinus tenderness. MOUTH: Mucous membranes mildly dry. Pharynx without erythema or exudate. Uvula midline. Airway patent. Tongue does not deviate. NECK: Supple without nuchal rigidity. No lymphadenopathy. No thyromegaly. Cervical spine is nontender. No JVD. HEART: Regular rate and rhythm LUNGS: Mild diffuse end expiratory wheezes, bibasilar rales, tachypneic. ABDOMEN: Positive bowel sounds x 4. Normal tympanic percussion. Soft, nontender, without masses or organomegaly. Morrison sign negative. No guarding or rebound tenderness. No CVA tenderness MUSCULOSKELETAL: No muscle atrophy, erythema, or edema noted. NEURO: Patient was alert and oriented to person place and time. Normal sensation to light and sharp touch. No focal neurological deficits. Course Administered Medications Discontinued Medications Albuterol (Albuterol Hfa 8 Gm Inhaler) 2 puffs INH NOW ONE Stop: 06/08/20 22:51 Last Admin: 06/08/20 23:46 Dose: 2 puffs Documented by: [id number] Sodium Chloride (Nss 1000ml) 500 mls @ 999 mls/hr IV .Q31M ONE Stop: 06/08/20 23:26 Last Infusion: 06/09/20 00:14 Dose: 0 mls/hr Documented by: [id number] Admin: 06/08/20 23:46 Dose: 999 mls/hr Documented by: [id number] Piperacillin Sod/Tazobactam Sod (Zosyn) 4.5 gm in 120 mls @ 240 mls/hr IV NOW ONE Stop: 06/09/20 00:47 Last Infusion: 06/09/20 02:01 Dose: 0 mls/hr Documented by: [id number] Admin: 06/09/20 01:06 Dose: 240 mls/hr Documented by: [id number] Lorazepam (Ativan) 0.5 mg in 1 mls @ 1 mls/min IV NOW STA Stop: 06/09/20 00:32 Last Admin: 06/09/20 00:57 Dose: 1 mls/min Documented by: [id number] Ioversol (Optiray 320 125ml) 120 ml IV ONCE ONE Stop: 06/09/20 00:57 Last Admin: 06/09/20 00:56 Dose: 120 ml Documented by: [id number] Ondansetron HCl (Ondansetron Inj 2 Mg/Ml 2 Ml Vial) 4 mg IV NOW STA Stop: 06/09/20 00:32 Last Admin: 06/09/20 00:57 Dose: 4 mg Documented by: [id number] Medical Decision Making Medical Records Attestation: I reviewed the patient's medical records. Home Medications Current Medication List: was personally reviewed by ak Laboratory Data Attestation: I reviewed the patient's lab results. Result diagrams: 06/08/20 23:29 06/08/20 23:29 Lab Results 06/08/20 06/08/20 06/08/20 Range/Units 23:25 23:25 23:29 WBC 8.43 (4.8-10.8) K/uL RBC 4.09 L (4.2-5.4) M/uL Hgb 12.7 (12.0-16.0) g/dL Hct 39.5 (37-47) % MCV 96.6 (80-100) fL MCH 31.1 (25-34) pg MCHC 32.2 (32-36) g/dL RDW Std Deviation 50.4 H (36.4-46.3) fL RDW Coeff of Tiffany 14.2 (11.5-14.5) % Plt Count 206 (130-400) K/uL MPV 11.0 H (7.4-10.4) fL Immature Gran % (Auto) 0.1 % Neut % (Auto) 73.5 % Lymph % (Auto) 17.2 % Wilbarger % (Auto) 7.6 % Eos % (Auto) 1.1 % Baso % (Auto) 0.5 % Neut # (Auto) 6.20 (1.4-6.5) K/uL Lymph # (Auto) 1.45 (1.2-3.4) K/uL Wilbarger # (Auto) 0.64 H (0.11-0.59) K/uL Eos # (Auto) 0.09 (0-0.5) K/uL Baso # (Auto) 0.04 (0-0.2) K/uL Immature Gran # (Auto) 0.01 (0.00-0.02) K/uL PT (9.0-12.0) Seconds INR (0.9-1.1) APTT (21.0-31.0) Seconds PTT Ratio D-Dimer (0-500) ug/L FEU Sodium (136-145) mmol/L Potassium (3.5-5.1) mmol/L Chloride (98-107) mmol/L Carbon Dioxide (21-32) mmol/L Anion Gap (3-11) BUN (7-18) mg/dl Creatinine (0.6-1.2) mg/dl Est Cr Clr Drug Dosing Est GFR ( Amer) Est GFR (Non-Af Amer) BUN/Creatinine Ratio (10-20) Glucose (70-99) mg/dl Lactate (0.4-2.0) mmol/L Calcium (8.5-10.1) mg/dl Magnesium (1.8-2.4) mg/dl Total Bilirubin (0.2-1) mg/dl AST (15-37) U/L ALT (12-78) U/L Alkaline Phosphatase (45-117) U/L Troponin I (0-0.045) ng/ml Total Protein (6.4-8.2) gm/dl Albumin (3.4-5.0) gm/dl Globulin (2.5-4.0) gm/dl Albumin/Globulin Ratio (0.9-2) COVID-19 [email or web address] SARS-CoV-2, RNA, NAAT NEGATIVE (NEGATIVE) 06/08/20 06/08/20 06/09/20 Range/Units 23:29 23:29 00:15 WBC (4.8-10.8) K/uL RBC (4.2-5.4) M/uL Hgb (12.0-16.0) g/dL Hct (37-47) % MCV (80-100) fL MCH (25-34) pg MCHC (32-36) g/dL RDW Std Deviation (36.4-46.3) fL RDW Coeff of Tiffany (11.5-14.5) % Plt Count (130-400) K/uL MPV (7.4-10.4) fL Immature Gran % (Auto) % Neut % (Auto) % Lymph % (Auto) % Wilbarger % (Auto) % Eos % (Auto) % Baso % (Auto) % Neut # (Auto) (1.4-6.5) K/uL Lymph # (Auto) (1.2-3.4) K/uL Wilbarger # (Auto) (0.11-0.59) K/uL Eos # (Auto) (0-0.5) K/uL Baso # (Auto) (0-0.2) K/uL Immature Gran # (Auto) (0.00-0.02) K/uL PT 10.7 (9.0-12.0) Seconds INR 1.0 (0.9-1.1) APTT 33.0 H (21.0-31.0) Seconds PTT Ratio 1.2 D-Dimer 1100 H* (0-500) ug/L FEU Sodium 143 (136-145) mmol/L Potassium 3.7 (3.5-5.1) mmol/L Chloride 113 H (98-107) mmol/L Carbon Dioxide 24 (21-32) mmol/L Anion Gap 7.0 (3-11) BUN 17 (7-18) mg/dl Creatinine 0.86 (0.6-1.2) mg/dl Est Cr Clr Drug Dosing Not Reportable Est GFR ( Amer) 76.6 Est GFR (Non-Af Amer) 66.1 BUN/Creatinine Ratio 20.0 (10-20) Glucose 116 H (70-99) mg/dl Lactate 1.1 (0.4-2.0) mmol/L Calcium 7.8 L (8.5-10.1) mg/dl Magnesium 2.2 (1.8-2.4) mg/dl Total Bilirubin 0.3 (0.2-1) mg/dl AST 15 (15-37) U/L ALT 25 (12-78) U/L Alkaline Phosphatase 55 (45-117) U/L Troponin I 0.030 (0-0.045) ng/ml Total Protein 6.0 L (6.4-8.2) gm/dl Albumin 2.9 L (3.4-5.0) gm/dl Globulin 3.1 (2.5-4.0) gm/dl Albumin/Globulin Ratio 0.9 (0.9-2) COVID-19 Eval Order SARS-CoV-2, RNA, NAAT (NEGATIVE) Imaging Data Attestation: I personally reviewed and interpreted this imaging study as follows: MDM Narrative Prior records/ancillary studies reviewed and summarized above. Nursing notes reviewed. The patient's history was concerning for fever, chills, cough, congestion, weakness. Differential diagnosis: Etiologies such as Covid, pneumonia, metabolic, infection, hypo/hyperglycemia, electrolyte abnormalities, cardiac sources, intracerebral event, toxicologic, neurologic, as well as others were entertained. Physical examination: As above. ER treatment provided: IV Lock An order was placed for continuous cardiac monitoring. The monitor shows a rate of 60-1 10 with a sinus rhythm. Albuterol, IV fluids, Zosyn, oxygen On reassessment the patient felt better. Diagnostics interpretation by me: ECG: Ordered for weakness EKG: Normal sinus, occasional PAC, poor baseline. Impression sinus tachycardia with occasional PAC interpreted by myself. I think arrhythmia is unlikely. EKG shows normal sinus rhythm with no interval abnormalities such as QT prolongation or WPW. There are no findings to suggest Brugada syndrome. Cardiac monitoring in the emergency department reveals no tachycardic or bradycardic dysrhythmia. Hypertrophic cardiomyopathy was considered but there are no clear historical elements pointing toward this. EKG is not suggestive. The QRS voltage is not extremely large and there are no suggestive Q waves. The labs revealed negative Covid No worrisome leukocytosis Blood cultures pending Imaging studies: Chest x-ray concerning for possible bilateral pneumonia pleural effusions my interpretation. CTA CHEST: Moderate bilateral pleural effusion. Apical mild interstitial edema. Mild mediastinal and hilar lymph nodes. Moderate to massive cardiomegaly involving the left atrium and enlarged left ventricle. Negative for pulmonary embolism. Left lower lobe pulsation artifact with limited visualization of the lower lobe pulmonary arteries. Multilevel compression deformities of mid to lower thoracic vertebral bodies sclerotic lesions in the upper, lower thoracic vertebral bodies findings are both similar to previous exam. Radiologist: Jeremías Pa MD Consultation: A consultation was placed with the hospitalist, Dr Chan. The case was discussed and diagnostics were reviewed. The patient was evaluated in the ER for further treatment. Exam and history seem consistent with bilateral pleural effusions and enlarged heart. Patient's pulse ox dropped and was placed on oxygen and her pulse ox improved. She is quite short of breath. Medicine was consulted. She will be evaluated for admission. I did attempt to contact the family twice with no response. Family was able to speak with the family. The family was Requesting to Visit with the Patient. I Informed the Family That We Are Currently a NO Visitor Policy. They Were Displeased with This. All questions were answered. They were informed they can call the patient's room and speak to the patient directly. By the evaluation outlined above emergent etiologies such as electrolyte abnormalities, intracerebral event, toxologic, neurologic, abnormalities blood glucose, metabolic, as well as others were deemed relatively unlikely. The pt informed about the findings as listed above. All questions were answered and pleased with the treatment. The chart was completed utilizing [id number] Speech voice recognition software. Grammatical errors, random word insertions, pronoun errors, and incomplete sentences are an occassional consequence of this system due to software limitations, ambient noise, and hardware issues. Any formal questions or concerns about the content, text, or information contained within the body of this dictation should be directly addressed to the physician document control assistant for clarification. Impression & Plan Pleural effusion on left, Pleural effusion on right, Acute dyspnea, Hypoxemia Discharge Plan Visit Data Chief Complaint: Shortness of Breath/Dyspnea Stated Complaint: MUCUS IN THROAT - SOB ED Provider: Tara Stone ED Midlevel Provider: Italia Friedman Discharge Problem: Pleural effusion on left, Pleural effusion on right, Acute dyspnea, Hypoxemia Patient Disposition: Being Evaluated by Hospitalist Condition: Fair Forms Stand Alone Forms: My [facility] Prescriptions Prescriptions: No Action cyanocobalamin (vitamin B-12) 500 mcg Tablet 500 mcg PO QAM RF: 0 losartan 25 mg Tablet 25 mg PO QAM RF: 0 hydrochlorothiazide 25 mg Tablet 25 mg PO QAM RF: 0 metoprolol succinate 25 mg Tablet Extended Release 24 Hr 25 mg PO QAM RF: 0 tamoxifen 20 mg Tablet 20 mg PO QAM RF: 0 famotidine [Pepcid] 40 mg tablet 40 mg PO HS Qty: 30 RF: 0 furosemide 20 mg tablet 20 mg PO DAILY RF: 0 fluticasone propionate 50 mcg/actuation spray,suspension 2 spray INTRANASAL DAILY RF: 0 Referrals Referrals: David Olsen MD [Primary Care Provider] -
[2020-06-08 23:48] LABS: Basophils # (auto) 0.04 K/uL (0-0.2); Basophils % (auto) 0.5 %; Eosinophils # (auto) 0.09 K/uL (0-0.5); Eosinophils % (auto) 1.1 %; Hematocrit (blood only) 39.5 % (37-47); Hemoglobin 12.7 g/dL (12.0-16.0); Immature Granulocytes # (auto) 0.01 K/uL (0.00-0.02); Immature Granulocytes % (auto) 0.1 %; Lymphocytes # (auto) 1.45 K/uL (1.2-3.4); Lymphocytes % (auto) 17.2 %; Mean Corpuscular Hemoglobin 31.1 pg (25-34); Mean Corpuscular Hgb Conc 32.2 g/dL (32-36); Mean Corpuscular Volume 96.6 fL (80-100); Monocytes # (auto) 0.64 K/uL (0.11-0.59); Monocytes % (auto) 7.6 %; Neutrophils % (auto) 73.5 %; Platelet Count 206 K/uL (130-400); RDW Coefficient of Variation 14.2 % (11.5-14.5); RDW Standard Deviation 50.4 fL (36.4-46.3); Red Blood Count 4.09 M/uL (4.2-5.4); White Blood Count 8.43 K/uL (4.8-10.8)
[2020-06-09 00:01] LABS: Partial Thromboplastin Ratio 1.2; Prothrombin Time 10.7 Seconds (9.0-12.0)
[2020-06-09 00:06] LABS: Alanine Aminotransferase 25 U/L (12-78); Albumin Level 2.9 gm/dl (3.4-5.0); Aspartate Aminotransferase 15 U/L (15-37); Blood Urea Nitrogen 17 mg/dl (7-18); Calcium 7.8 mg/dl (8.5-10.1); Carbon Dioxide 24 mmol/L (21-32); Chloride 113 mmol/L (98-107); Est GFR (African American) 76.6; Est GFR (Non-African American) 66.1; Glucose 116 mg/dl (70-99); Magnesium 2.2 mg/dl (1.8-2.4); Potassium 3.7 mmol/L (3.5-5.1); Sodium 143 mmol/L (136-145)
[2020-06-09 00:07] LABS: D Dimer 1100 ug/L FEU (0-500)
[2020-06-09 00:11] LABS: Albumin Globulin Ratio 0.9 (0.9-2); Alkaline Phosphatase 55 U/L (45-117); Bilirubin,Total 0.3 mg/dl (0.2-1); Globulin 3.1 gm/dl (2.5-4.0)
[2020-06-09] MEDS ORDERED: PIPERACILLIN/TAZOBACTAM 4.5 GM/120 ML BAG IV ONE (00:18)
[2020-06-09] MEDS ORDERED: PIPERACILL/TAZOBAC CONSULT ACTIVE PRN (00:18)
[2020-06-09] MEDS ORDERED: LORazepam 0.5 MG/1 ML VIAL IV STA (00:31)
[2020-06-09] MEDS ORDERED: ONDANSETRON INJ 2 MG/ML 2 ML VIAL IV STA (00:31)
[2020-06-09] MEDS ORDERED: OPTIRAY 320 125ml IV ONE (00:56)
--- NOTE | 2020-06-09 01:45 | Emergency Department Note ---
ED Visit Note Pt seen and evaluated after discussion with KRISTI. Please refer to her note for additional details. Pt with increased SOB and b/l pleural effusions. Troponin negative. Pt placed on oxygen for comfort. .
[2020-06-09] MEDS ORDERED: FUROSEMIDE 40 MG/4 ML VIAL IV STA ×2 (02:45→03:04)
[2020-06-09] MEDS ORDERED: LEVALBUTEROL 1.25MG/0.5ML NEB NEB PRN (03:51)
[2020-06-09] MEDS ORDERED: NITROGLYCERIN SL 0.4 MG/TAB TAB SL PRN (03:51)
[2020-06-09 04:05] LABS: Appearance Urine Clear (Clear); Bacteria Urine Automated 2+ (Negative); Bilirubin Urine Negative (Negative); Blood Urine Trace (Negative); Color Urine Yellow; Epithelial Cell Urine Auto >30 /lpf (0-5); Glucose Urine UA Negative (Negative); Ketones Urine Negative (Negative); Leukocyte Esterase Urine 2+ (Negative); Nitrite Urine Positive (Negative); Protein Urine Trace (Negative); Specific Gravity Urine 1.045 (1.000-1.030); Urobilinogen Urine Negative (Negative); pH Urine 5.5 (4.5-7.5)
[2020-06-09 04:25] LABS: RBC Urine Automated 0-4 /hpf (0-4)
[2020-06-09] MEDS ORDERED: ERTAPENEM CONSULT ACTIVE PRN (04:32)
[2020-06-09 05:38] LABS: Basophils # (auto) 0.02 K/uL (0-0.2); Basophils % (auto) 0.3 %; Eosinophils # (auto) 0.05 K/uL (0-0.5); Eosinophils % (auto) 0.6 %; Hematocrit (blood only) 38.4 % (37-47); Hemoglobin 12.6 g/dL (12.0-16.0); Immature Granulocytes # (auto) 0.02 K/uL (0.00-0.02); Immature Granulocytes % (auto) 0.3 %; Lymphocytes # (auto) 1.02 K/uL (1.2-3.4); Lymphocytes % (auto) 13.1 %; Mean Corpuscular Hemoglobin 31.7 pg (25-34); Mean Corpuscular Hgb Conc 32.8 g/dL (32-36); Mean Corpuscular Volume 96.5 fL (80-100); Mean Platelet Volume 10.8 fL (7.4-10.4); Neutrophils # (auto) 5.99 K/uL (1.4-6.5); Neutrophils % (auto) 76.7 %; Platelet Count 209 K/uL (130-400); RDW Coefficient of Variation 14.1 % (11.5-14.5); Red Blood Count 3.98 M/uL (4.2-5.4)
[2020-06-09 05:57] LABS: Calcium 7.3 mg/dl (8.5-10.1); Creatinine Clr Calc Pharmacy 67.6 ml/min; Est GFR (African American) 100.7; Est GFR (Non-African American) 86.8; Magnesium 2.2 mg/dl (1.8-2.4); Potassium 3.5 mmol/L (3.5-5.1)
[2020-06-09 06:08] LABS: Troponin I 0.064 ng/ml (0-0.045)
[2020-06-09] MEDS: ERTAPENEM SODIUM 1,000 MG in SODIUM CHLORIDE 0.9% 50 ML IV SCH (06:39)
--- NOTE | 2020-06-09 07:05 | History and Physical Report ---
DATE OF ADMISSION: 06/09/2020 CHIEF COMPLAINT: Shortness of breath. HISTORY OF PRESENT ILLNESS: This is a 74-year-old female with past medical history significant for hyperlipidemia, history of cardiomyopathy, hypertension, PVCs, history of pericardial effusion, osteoporosis, compression fracture of the spine, migraines, cerebral meningioma, history of malignant neoplasm of the left breast, mild cognitive impairment, history of adenomatous polyp of colon, who presents with ongoing shortness of breath. The patient was here in the ER on 05/24/2020 with shortness of breath and cough. At that time, COVID was negative, but chest x-ray showed some trace pleural effusion. ER physician advised to stay in the hospital for concern for COVID as the patient was exposed to COVID patient four days prior to that, but patient refused to stay and got discharged. When she came into the ER on 05/24/2020, she was having cough for 3 weeks. She also saw cardiology on 04/04/2020. At that time also, she was having cough and she recently saw again family doctor on 06/03/2020 and she was having cough and worse in the nighttime, and getting some thick phlegm. She has some swelling in the legs and as per the Epic notes, her stated that they missed giving her fluid pills for at least a week at PCP office. The patient has mild dementia and states she does not remember taking the Lasix, but states she is having cough for some time and bringing up whitish phlegm, but it was not bad, but it is getting progressively worse and yesterday she could not keep up with her grandkids because of shortness of breath and today it got worse. She was not even able to speak, that is why she came to the ER. She said the last couple of nights she could not sleep because of cough and shortness of breath and she kept waking up with cough and shortness of breath and she is using 1 pillow to sleep. Today, she also felt some chest discomfort. Denies any nausea or vomiting. No abdominal pain, no diarrhea or constipation. Normal bowel and bladder movements. Denies any fever. No headache, no blurred visions, no earache. She had some runny nose today. She denies any loss of sense of smell or taste. Appetite is okay. She says her brother had COVID about 3 weeks ago and he quarantined and she just saw him yesterday on . She was somewhat tachycardic in the ER and D-dimer is elevated at 1100 and CTA of the chest was done which shows bilateral moderate pleural effusions and enlarged left ventricle. Trivial pericardial effusion as per the radiologist station detective. Moderate to massive cardiomegaly. ALLERGIES: CEPHALEXIN, SULFA ANTIBIOTICS, BEE VENOM, BUPROPION, AND PNEUMOCOCCAL VACCINE. PAST MEDICAL HISTORY: As mentioned above. PAST SURGICAL HISTORY: Breast biopsy, left colonoscopy, ligation of the oviducts, left partial mastectomy, tonsillectomy and adenoidectomy, left ultrasound-guided biopsy. MEDICATIONS: The patient is on vitamin B12 500 mcg p.o. daily, famotidine 40 mg at bedtime, Flonase 2 sprays intranasally daily, Lasix seems to be getting 20 mg daily, hydrochlorothiazide, losartan 25 mg p.o. daily, Toprol-XL 25 mg p.o. daily, tramadol 50 mg p.o. t.i.d. p.r.n., tamoxifen 20 mg p.o. daily. FAMILY HISTORY: Significant for mother has COPD; father had colon cancer, eye problems; mother also has hypertension and eye problems; sister has heart disorder; brother has hypertension; maternal grandmother has cancer. SOCIAL HISTORY: , lives with her . No smoking, no alcohol, no drug use. REVIEW OF SYSTEMS: As per HPI. Rest of the review of systems negative. PHYSICAL EXAMINATION: GENERAL: The patient is of moderate build, not in acute distress. VITAL SIGNS: Temperature 37, pulse 72, respiratory rate 20's, blood pressure 147/104, oxygen 93% on room air. HEENT: No pallor, no icterus. Pupils equal, round, reactive to light. Oral mucosa moist. NECK: No neck masses. Supple. CARDIOVASCULAR: S1, S2 heard. Tachycardia. No murmurs, no gallop. RESPIRATORY SYSTEM: Normal AP diameter, mild tachypnea. Mild bibasilar crackles with occasional wheezing. ABDOMEN: Soft, bowel sounds present, nontender. No distention. CENTRAL NERVOUS SYSTEM: Cranial nerves II-XII grossly intact, nonfocal. EXTREMITIES: Bilateral lower extremity pedal edema present, no erythema seen. LABORATORY DATA: WBC of 8.4, hemoglobin 12.7, hematocrit 39.5, platelets 206. PT 10.7, INR 1, APTT 33. D-dimer 1100. Sodium 143, potassium 3.7, chloride 113, CO2 of 24, BUN 17, creatinine 0.8, serum glucose 116, lactate 1.1, calcium 7.8, magnesium 2.2, total bilirubin 0.3, AST 15, ALT 25, alkaline phosphatase 55. Troponin I of 0.03. SARS-CoV-2 RNA negative. IMAGING DATA: Chest x-ray shows pleural effusion, mild congestion. CTA of the chest, preliminary report shows moderate bilateral pleural effusion, moderate to massive cardiomegaly involving the left atrium and enlarged left ventricle, negative for pulmonary embolism, mild trace pericardial effusion as per the radiologist. EKG: Sinus tachycardia with PVCs at a rate of 109, nonspecific T-wave abnormalities, prolonged QTC at 527. ASSESSMENT AND PLAN: This is a 74-year-old female who presents with shortness of breath and cough. 1. Shortness of breath and cough ongoing for several weeks and question of exposure to COVID as brother had COVID. When she was here on 05/24/2020, at that time she was exposed 4 days prior to that. As per patient, now brother is 3 weeks post COVID. The patient has tested two times negative. She lives with her . No one is sick in the family. CAT scan shows no obvious infiltrates. There is no lymphopenia, but because of the exposure, we will do the [employer]. Symptoms look like most likely [id number] congestive heart failure. The patient's previous echocardiogram in April 2018 showed EF of 45% and trivial circumferential pericardial effusion noted. Her cardiomegaly is thought to be due to chemo treatments and at that time she declined stress test for further evaluation. Will start on Lasix IV 40 b.i.d. with 1 dose now and follow the echocardiogram. Monitor in the tele floor. Consult cardiology. Initial troponin negative. We will follow the serial troponins. Closely monitor in the tele floor. 2. History of PVCs, on Toprol-XL. 3. Hypertension: Continue losartan and Toprol. We will monitor the blood pressure. 4. Gastroesophageal reflux disease: Continue Pepcid. 5. Left breast carcinoma, status post partial mastectomy and sentinel node biopsy, status post radiation treatments. Currently on tamoxifen. Follows with hematology/oncology. 6. History of dementia, mild. We will monitor for any delirium. 7. Prolonged Qt. Avoid qt prolonging drugs.Follow labs and repeat ekg. 8. Deep venous thrombosis prophylaxis. Lovenox. DISPOSITION: Closely monitor in the tele floor. Level 1 full code as per my discussion with the patient. PT and OT prior to discharge. Monitor in the tele floor. Expect to discharge home and follow with family doctor. Level 1 full code. Social service to help with discharge planning. MIQUEL
[2020-06-09 07:21] LABS: Adenovirus PCR Not Detected (NotDetected); Bordetella parapertussis PCR Not Detected (NotDetected); Bordetella pertussis PCR Not Detected (NotDetected); Chlamydia pneumoniae PCR Not Detected (NotDetected); Coronavirus 229E PCR Not Detected (NotDetected); Coronavirus CoV-2 (COVID19)PCR Not Detected (NotDetected); Coronavirus HKU1 PCR Not Detected (NotDetected); Coronavirus NL63 PCR Not Detected (NotDetected); Coronavirus OC43PCR Not Detected (NotDetected); Human Metapneumovirus PCR Not Detected (NotDetected); Influenza A PCR Not Detected (NotDetected); Influenza B PCR Not Detected (NotDetected); Mycoplasma pneumoniae PCR Not Detected (NotDetected); Parainfluenza Virus 1 PCR Not Detected (NotDetected); Parainfluenza Virus 2 PCR Not Detected (NotDetected); Parainfluenza Virus 3 PCR Not Detected (NotDetected); Parainfluenza Virus 4 PCR Not Detected (NotDetected); Respiratory Syncytial VirusPCR Not Detected (NotDetected); Rhinovirus/Enterovirus PCR Not Detected (NotDetected)
--- NOTE | 2020-06-09 07:30 | XRay Report ---
XR chest 1V portable CLINICAL HISTORY: SEPSIS COMPARISON STUDY: 05/24/2020 FINDINGS: The heart is enlarged. There is elevation of interstitium. There are small bilateral pleura l effusions with associated basilar airspace opacities, likely atelectatic.[ IMPRESSION: Cardiomegaly and mild pulmonary vascular congestion. Small bilateral pleural effusions wi th associated basilar airspace opacity statistically atelectatic although an infectious/inflammatory process could appear similar ACT 112: Negative or not required by law. Electronically signed by: Neftali Costello M.D. 06/09/2020 7:29 AM
--- NOTE | 2020-06-09 07:41 | CT Scan Report ---
CT ANGIOGRAM OF THE CHEST CLINICAL HISTORY: Cough. Shortness of breath. Possible acute pulmonary embolism. COMPARISON STUDY: Chest x-ray dated 06/08/2020 TECHNIQUE: Following the IV administration of 120 mL of Optiray-320, CT angiogram of the thorax was p erformed from the thoracic inlet to the lung bases utilizing the pulmonary embolus protocol. Images a re reviewed in the axial, sagittal, and coronal planes. IV contrast was administered without complica tion. MIP imaging was performed. A dose lowering technique was utilized adhering to the principles o f ALARA. CT DOSE: 326.78 mGy.cm FINDINGS: There are mildly enlarged mediastinal lymph nodes The ascending thoracic aorta is mildly ectatic measuring 4 cm. There were no pulmonary artery filling defects to indicate acute pulmonary embolism. There are bilateral pleural effusions. The heart is enlarged. There are coronary artery calcification s. There is evidence of elevated right heart pressures with reflux of contrast into the hepatic veins . There is interlobular septal edema. There is dependent atelectasis. There are chronic vertebral body compression fractures. There are sclerotic vertebral body lesions in cluding a 17 mm sclerotic T3 lesion. IMPRESSION: 1. No evidence of acute pulmonary embolism 2. CT evidence of congestive failure with interlobular septal edema, cardiomegaly, and bilateral pleu ral effusions. 3. Mild adenopathy. ACT 112: Negative or not required by law. Electronically signed by: Neftali Costello M.D. 06/09/2020 7:40 AM
[2020-06-09] MEDS: TAMOXIFEN CITRATE 10 MG TABLET PO SCH (08:10)
[2020-06-09] MEDS: FLUTICASONE PROPIONATE NA SPR 16 GM BTL SCH (08:10)
[2020-06-09] MEDS: LOSARTAN POTASSIUM 25 MG TAB PO SCH (08:12)
[2020-06-09] MEDS: FUROSEMIDE 40 MG in SYRINGE 0 ML IV SCH ×2 (08:12→17:07)
[2020-06-09] MEDS: ENOXAPARIN INJ 40 MG/0.4 ML SYR SQ SCH (08:13)
[2020-06-09] MEDS: CYANOCOBALAMIN 500 MCG TABLET (VITAMIN B-12) PO SCH (08:14)
[2020-06-09] MEDS ORDERED: METOPROLOL SUCC 25MG EXT REL TAB PO SCH (09:00)
[2020-06-09] MEDS ORDERED: FUROSEMIDE 40 MG/4 ML VIAL IV SCH (09:00)
--- NOTE | 2020-06-09 10:59 | Cardiology Consultation ---
Date of Consultation June 09, 2020 Assessment & Plan (1) Acute on chronic congestive heart failure: (2) Pleural effusion on left: (3) Pleural effusion on right: (4) PVC (premature ventricular contraction): (5) NICM (nonischemic cardiomyopathy): 74-year-old female presents with progressive dyspnea on exertion and signs/symptoms of volume overload. Suspected noncompliance with outpatient diuretic regiment. Agree with Lasix 40 mg IV twice daily. Follow daily weight, fluid balance, GFR, and electrolytes. Titrate Toprol-XL to 25 mg twice daily. Repeat resting 2D transthoracic echocardiogram pending at this time. Antibiotics as per internal medicine. Cultures pending. History of Present Illness Reason for Consultation: SOB Requesting Physician: Dr. Gambino Attending Physician: Brandi Chaparro MD History of Present Illness 74-year-old female presented to the emergency department for evaluation of shortness of breath. She is a poor historian due to underlying dementia. States "my brought me here". Notes shortness of breath and cough at home. Per review of medical records, chronic cough reported dating back to 04/04/2020. Prescribed furosemide in March due to evidence of pleural effusions on chest x-ray. Patient is unsure whether she has been taking diuretic therapy as prescribed. Orthopnea reported in medical record. Carries history of mild left ventricular systolic dysfunction, trivial circumferential pericardial effusion, frequent PVCs, and hypertension. Currently, patient is resting comfortably. Weight is up 10 pounds when compared to her most recent office visit in March. Fluid balance negative approximate ly 1 L since admission. Telemetry demonstrates sinus rhythm heart rate ranging from 90 to 100 bpm. Allergies Allergy/AdvReac Type Severity Reaction Status Date / Time cephalexin Allergy Intermediate HIVES Verified 06/08/20 23:00 Sulfa (Sulfonamide Allergy Mild Unknown Verified 06/08/20 23:00 Antibiotics) bee venom protein (honey bee) Allergy Unknown unknow Verified 06/08/20 23:00 bupropion Allergy Unknown unknown Verified 06/08/20 23:00 pneumococcal vaccine Allergy Unknown Unknown Verified 06/08/20 23:00 [From Pneumovax 23] Home Medications Medication Instructions Recorded Confirmed Type cyanocobalamin (vitamin B-12) 500 mcg PO QAM 06/29/19 06/08/20 History hydrochlorothiazide 25 mg PO QAM 06/29/19 06/08/20 History losartan 25 mg PO QAM 06/29/19 06/08/20 History metoprolol succinate 25 mg PO QAM 06/29/19 06/08/20 History tamoxifen 20 mg PO QAM 06/29/19 06/08/20 History famotidine [Pepcid] 40 mg PO HS #30 tab 05/24/20 06/08/20 Rx fluticasone propionate 2 spray INTRANASAL DAILY 06/08/20 06/08/20 History furosemide 20 mg PO DAILY 06/08/20 06/08/20 History Patient History Medical History (Updated 06/09/20 @ 11:08 by Yossi Teresa DO) Anemia Breast cancer NO CHEMO/RADIATION Hypertension Migraine HX Peptic ulcer disease HX Surgical History History of cataract surgery right History of colonoscopy History of tonsillectomy History of tooth extraction Hx of lumpectomy LEFT Family History Other No family history of adverse response to anesthesia Social History Smoking Status: Never smoker Second Hand Exposure: No; Do You Dip or Chew Tobacco: No; Tobacco Cessation Education Requested by Patient: No Hx Alcohol Use: No Hx Substance Use: No Preferred Language: Hungarian Communication Ability: Effective [employer] Services Manager Required: No Beliefs That Will Affect Care: None Current Living Situation: Spouse Other Information That Helps Us Care for You: No Feels Safe at Home: Yes Safety Concerns: Feels Safe At This Time Assistive Devices: None Review of Systems Review of Systems: Unobtainable due to cognitive status Physical Exam Constitutional: well developed and well nourished; no acute distress and not ill appearing Respiratory: normal respiratory effort; no respiratory distress, no labored breathing and no retractions Auscultation: + diminished lung sounds (Bases bilaterally) and + rales (Scant Rales at the right base); no rhonchi and no wheezes Cardiovascular: Rate/Rhythm: regular rate and regular rhythm Heart Sounds: normal S1 and normal S2; no murmur Vessels: no JVD and no carotid bruit Gastrointestinal (Abdomen): Inspection/Auscultation: abdomen normal to inspection; abdomen not distended Percussion/Palpation: abdomen soft; abdomen nontender, no guarding and abdomen not rigid Skin: no rashes, warm and dry Neurologic: moves all extremities; no focal motor deficits Psychiatric: Orientation: alert Results & Data ([facility]) Vital Signs (Past 12 Hours) Vital Signs Temp Pulse Pulse Resp BP BP BP 06/09/20 10:38 108 H 06/09/20 08:08 37.0 C 100 H 18 117/73 06/09/20 08:00 108 H 06/09/20 05:57 36.6 C 73 110 H 20 136/79 06/09/20 03:55 06/09/20 03:06 111 H 22 147/104 H 06/09/20 02:37 104 H 20 149/98 H 06/09/20 02:00 117 H 33 H 06/09/20 01:30 121 H 33 H 06/09/20 01:05 06/09/20 01:00 06/09/20 00:57 108 H 24 146/98 H 06/09/20 00:55 146/98 H 06/09/20 00:00 110 H 22 06/08/20 23:35 109 H 36 H 129/101 H 06/08/20 23:34 109 H 39 H 06/08/20 23:03 Pulse Ox Pulse Ox 06/09/20 10:38 06/09/20 08:08 92 06/09/20 08:00 92 06/09/20 05:57 96 06/09/20 03:55 93 06/09/20 03:06 93 06/09/20 02:37 98 06/09/20 02:00 06/09/20 01:30 100 06/09/20 01:05 96 06/09/20 01:00 95 06/09/20 00:57 96 06/09/20 00:55 92 06/09/20 00:00 97 06/08/20 23:35 95 06/08/20 23:34 96 06/08/20 23:03 96 (1) Acute on chronic congestive heart failure Heart failure type: systolic Qualified Code(s): I50.23 - Acute on chronic systolic (congestive) heart failure
--- NOTE | 2020-06-09 12:58 | Electrocardiogram Report ---
Test Reason : Blood Pressure : / mmHG Vent. Rate : 109 BPM Atrial Rate : 109 BPM P-R Int : 176 ms QRS Dur : 080 ms QT Int : 392 ms P-R-T Axes : 057 -31 077 degrees QTc Int : 527 ms Poor data quality, interpretation may be adversely affected Sinus tachycardia with Premature supraventricular complexes Left axis deviation Left ventricular hypertrophy with repolarization abnormality Nonspecific T wave abnormality Prolonged QT Abnormal ECG When compared with ECG of 24-MAY-2020 18:00, Premature ventricular complexes are no longer Present Premature supraventricular complexes are now Present Non-specific change in ST segment in Lateral leads Nonspecific T wave abnormality has replaced inverted T waves in Lateral leads Confirmed by Gene Torres ([id number]) on 06/09/2020 12:57:29 PM Referred By: REFERRED SELF Confirmed By:Gene Torres
--- NOTE | 2020-06-09 18:43 | Hospitalist Progress Note ---
Date of Service June 09, 2020 Assessment & Plan (1) Acute on chronic congestive heart failure: 1) Acute on chronic congestive heart failure: presented with vol overload , JETT started on IV lasix 40 mg BID appreciate input from Cardiology (2) Pleural effusion : due to decompensation CHF cont diuresis (4) PVC (premature ventricular contraction): (5) NICM (nonischemic cardiomyopathy): increased Toprol-XL to 25 mg twice daily. 6 . community acquired pneumonia : CT chest shows bibasilar infiltrate on broad septum abx follow blood and sputum culture Admission and Anticipated Discharge Date Admission Date: June 09, 2020 Subjective follow up visit for shortness of breath /deconditioned CHF : pt reports of feeling a bit better SOB and cough has improved no fever or chills Review of Systems Review of Systems: All systems reviewed & are unremarkable except as noted in HPI & below Physical Exam Constitutional: WD/WN, vitals as above Eyes: PERRL, conjunctivae normal, anicteric sclerae ENMT: external ear and nose normal, oropharynx normal Neck: trachea midline, no thyromegaly Respiratory: + cough; no labored breathing Auscultation: + diminished lung sounds Cardiovascular: Rate/Rhythm: regular rate and regular rhythm Extremities: + edema Gastrointestinal (Abdomen): Percussion/Palpation: abdomen soft; abdomen nontender Musculoskeletal: no cyanosis or clubbing, extremities motor strength 5/5 Skin: no rashes, warm and dry Neurologic: PERRL, EOMI, accommodation nl, no face palsy, no dysarthria Psychiatric: A+Ox3, euthymic affect Results & Data Results & Data ([facility]) Vital Signs (Past 12 Hours) Vital Signs Temp Pulse Pulse Resp BP Pulse Ox Pulse Ox 06/09/20 15:34 37.1 C 67 16 102/66 91 06/09/20 12:10 83 22 110/96 94 06/09/20 10:38 108 H 06/09/20 08:08 37.0 C 100 H 18 117/73 92 06/09/20 08:00 108 H 92 (1) Acute on chronic congestive heart failure Heart failure type: systolic Qualified Code(s): I50.23 - Acute on chronic systolic (congestive) heart failure
[2020-06-09] MEDS: FAMOTIDINE 40 MG TABLET PO SCH (20:11)
[2020-06-09] MEDS: METOPROLOL SUCC 25MG EXT REL TAB PO SCH (20:12)
[2020-06-09] MEDS ORDERED: MELATONIN 3 MG TAB PO PRN (20:23)
--- NOTE | 2020-06-09 20:35 | Communication Note ---
Date of Service: June 09, 2020 Attending Addendum : update given to Pt's Sister in Law Dr Monica Yun phone # [phone]. Brandi Chaparro MD
[2020-06-09] MEDS ORDERED: MELATONIN 3 MG TAB PO SCH (21:00)
[2020-06-10] MEDS: ERTAPENEM SODIUM 1,000 MG in SODIUM CHLORIDE 0.9% 50 ML IV SCH (05:23)
[2020-06-10 07:15] LABS: Calcium 7.3 mg/dl (8.5-10.1); Creatinine Clr Calc Pharmacy 65.3 ml/min; Est GFR (African American) 100.7; Est GFR (Non-African American) 86.8; Magnesium 2.1 mg/dl (1.8-2.4); Potassium 3.3 mmol/L (3.5-5.1)
[2020-06-10] MEDS: FUROSEMIDE 40 MG in SYRINGE 0 ML IV SCH ×2 (07:37→16:03)
[2020-06-10] MEDS: ENOXAPARIN INJ 40 MG/0.4 ML SYR SQ SCH (07:39)
[2020-06-10] MEDS: TAMOXIFEN CITRATE 10 MG TABLET PO SCH (07:40)
[2020-06-10] MEDS: CYANOCOBALAMIN 500 MCG TABLET (VITAMIN B-12) PO SCH (07:40)
[2020-06-10] MEDS: LOSARTAN POTASSIUM 25 MG TAB PO SCH (07:41)
[2020-06-10] MEDS: FLUTICASONE PROPIONATE NA SPR 16 GM BTL SCH (07:41)
[2020-06-10] MEDS: METOPROLOL SUCC 25MG EXT REL TAB PO SCH ×2 (07:42→20:05)
--- NOTE | 2020-06-10 10:48 | Cardiology Progress Note ---
Date of Service June 10, 2020 Assessment & Plan (1) NICM (nonischemic cardiomyopathy): (2) PVC (premature ventricular contraction): (3) Acute on chronic congestive heart failure: (4) Pleural effusion on left: (5) Pleural effusion on right: (6) Acute dyspnea: RECOMMENDATIONS: Continue IV diuretic therapy. Supplement potassium orally. Follow daily weights, fluid balance, GFR, and electrolytes. Consider switching Losartan to Entresto as an outpatient Consider outpatient nuclear stress testing Admission and Anticipated Discharge Date Admission Date: June 09, 2020 Supervising Physician Co-Signing Physician Notes Patient seen and examined the bedside. Poor historian due to underlying dementia. Denies chest pain or shortness of breath. Tolerating diet and medications. Mildly negative fluid balance noted overnight. Renal function remained stable. PE: VSS. NAD, awake and alert. Oriented to person. Lungs: Diminished breath sounds at the bases bilaterally. No rhonchi or wheeze. Heart: Regular with ectopy. Normal S1 and S2. No murmur. Extremities: Trace pedal edema bilaterally. Neuro: Moves all extremities. No focal neuro deficit. A/P: Agree with PA-C history, physical exam, assessment and plan. Continue IV diuretic therapy. Follow daily weight, GFR, and electrolytes. Replace potassium orally today. Further ischemic evaluation with outpatient nuclear stress testing if patient agreeable. Patient will likely need additional 24 to 48 hours of diuretic therapy prior to discharge. Subjective Patient seen and examined. Chart, medications, and telemetry reviewed. She denies chest pain, palpitations, shortness of breath, cough, chest congestion, orthopnea, PND, or peripheral edema. Short term memory impairment observed. She does not appear to be a reliable source of information. She does not know why she is here. She states "my brought me here." I/O's negative 1,285 mL's overall Telemetry: Sinus in the 80's with PVC's and a short run of atrial tachycardia. June 09, 2020 TTE Interpretation Summary ([facility], Dr. Teresa): Mildly dila darshana LV. Moderate to severely reduced LV systolic function. EF 30-35%. Mild AI. Mild aortic sclerosis. No significant aortic stenosis. Moderate mitral regurgitation, posteriorly directed, consisent with anterior leaflet pathology. Mild TR. Doppler findings do not suggest pulmonary hypertension. Review of Systems Review of Systems: Unobtainable due to cognitive status Physical Exam Physical Exam: General: Short term memory impairment noted. Alert to person and place. NAD. HEENT: Normocephalic. Atraumatic. PER. Conjunctiva pink, sclera clear. No carotid bruits. + JVD. Heart: Regular at 90 bpm. Soft apical systolic murmur. No rub. Lungs: Absent breaths sounds at the bases, left greater than right. Otherwise, clear to auscultation. Abdomen: +BS. Soft. Nontender. No masses or organomegaly. Extremities: Minimal edema. No clubbing. No cyanosis. Pulses: radial=2/4, posterior tibial=1/4. Results & Data ([facility]) Vital Signs (Past 12 Hours) Vital Signs Temp Pulse Pulse Resp BP BP Pulse Ox 06/10/20 09:00 78 06/10/20 08:06 36.8 C 91 H 18 117/81 93 06/10/20 08:00 79 06/10/20 00:21 37.1 C 82 18 104/64 90 06/09/20 23:40 73 Pulse Ox 06/10/20 09:00 06/10/20 08:06 06/10/20 08:00 94 06/10/20 00:21 06/09/20 23:40 Laboratory Results Laboratory Results - last 24 hr 06/09/20 06/10/20 11:07 06:14 Sodium 144 Potassium 3.3 L Chloride 110 H Carbon Dioxide 27 Anion Gap 7.0 BUN 16 Creatinine 0.65 Est Cr Clr Drug Dosing 65.3 Est GFR ( Amer) 100.7 Est GFR (Non-Af Amer) 86.8 BUN/Creatinine Ratio 24.0 H Glucose 105 H Calcium 7.3 L Magnesium 2.1 Troponin I 0.051 H* (1) Acute on chronic congestive heart failure Heart failure type: systolic Qualified Code(s): I50.23 - Acute on chronic systolic (congestive) heart failure
[2020-06-10] MEDS: ACETAMINOPHEN 325 MG TAB PO PRN (16:02)
--- NOTE | 2020-06-10 18:31 | Hospitalist Progress Note ---
Date of Service June 10, 2020 Assessment & Plan (1) Acute on chronic congestive heart failure: 1) Acute on chronic congestive heart failure: bi ventricular CHF /both combined systolic and diastolic dysfunction ECHO : ef 35% with grade 2 diastolic dysfunction presented with vol overload , JETT symptoms has improved after diuresis on IV lasix 40 mg BID , remains in negative balance appreciate input from Cardiology (2) Pleural effusion : due to decompensation CHF cont diuresis Mild elevation of troponin : due to demand ischemia in setting of decompensated CHF /type 2 NSTEMI no angina symptoms management of CHF as outlined above (4) PVC (premature ventricular contraction): (5) NICM (nonischemic cardiomyopathy): increased Toprol-XL to 25 mg twice daily. UTI : urine culture gram negative bacilli /harman on Abx already 6 . community acquired pneumonia : CT chest shows bibasilar infiltrate on broad septum abx follow blood and sputum culture update given to Daughter in law over phone , all questions answered Admission and Anticipated Discharge Date Admission Date: June 09, 2020 Subjective follow up visit for shortness of breath /deconditioned CHF : Physical Exam Constitutional: WD/WN, vitals as above Eyes: PERRL, conjunctivae normal, anicteric sclerae ENMT: external ear and nose normal, oropharynx normal Neck: trachea midline, no thyromegaly Respiratory: Auscultation: + diminished lung sounds Cardiovascular: Rate/Rhythm: regular rate and regular rhythm Gastrointestinal (Abdomen): Percussion/Palpation: abdomen soft; abdomen nontender Musculoskeletal: no cyanosis or clubbing, extremities motor strength 5/5 Skin: no rashes, warm and dry Neurologic: PERRL, EOMI, accommodation nl, no face palsy, no dysarthria Psychiatric: A+Ox3, euthymic affect Results & Data Results & Data ([facility]) Vital Signs (Past 12 Hours) Vital Signs Temp Pulse Pulse Resp BP Pulse Ox Pulse Ox 06/10/20 16:03 36.3 C L 89 18 141/93 H 96 06/10/20 16:00 72 06/10/20 11:41 36.4 C L 90 18 113/82 95 06/10/20 09:00 78 06/10/20 08:06 36.8 C 91 H 18 117/81 93 06/10/20 08:00 79 94 (1) Acute on chronic congestive heart failure Heart failure type: systolic Qualified Code(s): I50.23 - Acute on chronic systolic (congestive) heart failure
--- NOTE | 2020-06-10 18:31 | Electrocardiogram Report ---
Test Reason : Blood Pressure : / mmHG Vent. Rate : 083 BPM Atrial Rate : 083 BPM P-R Int : 134 ms QRS Dur : 078 ms QT Int : 396 ms P-R-T Axes : -88 -34 -14 degrees QTc Int : 465 ms Unusual P axis and short VT, probable junctional tachycardia vs ectopic atrial rhythm Left axis deviation T wave abnormality, consider lateral ischemia Abnormal ECG When compared with ECG of 08-JUN-2020 23:03, T wave inversion now evident in Lateral leads QT has shortened Confirmed by Kurt Kam ([id number]) on 06/10/2020 6:30:43 PM Referred By: REFERRED SELF Confirmed By:Shawn Kam
[2020-06-10] MEDS: FAMOTIDINE 40 MG TABLET PO SCH (20:05)
[2020-06-11] MEDS: ERTAPENEM SODIUM 1,000 MG in SODIUM CHLORIDE 0.9% 50 ML IV SCH (05:55)
[2020-06-11] MEDS: ACETAMINOPHEN 325 MG TAB PO PRN ×3 (06:45→18:40)
[2020-06-11 08:19] LABS: BUN Creatinine Ratio 38.7 (10-20); Calcium 7.8 mg/dl (8.5-10.1); Creatinine Clr Calc Pharmacy 72.5 ml/min; Est GFR (African American) 104.5; Est GFR (Non-African American) 90.2
[2020-06-11] MEDS: FUROSEMIDE 40 MG in SYRINGE 0 ML IV SCH ×2 (08:43→17:36)
[2020-06-11] MEDS: TAMOXIFEN CITRATE 10 MG TABLET PO SCH (08:43)
[2020-06-11] MEDS: METOPROLOL SUCC 25MG EXT REL TAB PO SCH ×2 (08:43→20:27)
[2020-06-11] MEDS: LOSARTAN POTASSIUM 25 MG TAB PO SCH (08:44)
[2020-06-11] MEDS: CYANOCOBALAMIN 500 MCG TABLET (VITAMIN B-12) PO SCH (08:44)
[2020-06-11] MEDS: FLUTICASONE PROPIONATE NA SPR 16 GM BTL SCH (08:44)
[2020-06-11] MEDS: ENOXAPARIN INJ 40 MG/0.4 ML SYR SQ SCH (08:45)
[2020-06-11] MEDS ORDERED: POTASSIUM CHLORIDE CRTAB 20 MEQ TABCR PO ONE (09:45)
--- NOTE | 2020-06-11 10:45 | Cardiology Progress Note ---
Date of Service June 11, 2020 Assessment & Plan (1) NICM (nonischemic cardiomyopathy): (2) PVC (premature ventricular contraction): (3) Acute on chronic congestive heart failure: (4) Pleural effusion on left: (5) Pleural effusion on right: (6) Acute dyspnea: RECOMMENDATIONS: Continue IV diuretic therapy today. Supplement Potassium 40 meq x 1 dose now. Recheck potassium levels later today. Plan to transition to oral furosemide 40 mg upon discharge with potassium 20 meq. (Prior home dose was furosemide 20 mg daily) Follow daily weights, fluid balance, GFR, and electrolytes. Consider switching Losartan to Entresto as an outpatient Consider outpatient nuclear stress testing Case discussed with Dr. Teresa Admission and Anticipated Discharge Date Admission Date: June 09, 2020 Supervising Physician Co-Signing Physician Notes Patient seen and examined the bedside. Poor historian due to underlying dementia. Denies chest pain or shortness of breath. Tolerating diet and medications. Mildly negative fluid balance noted overnight. Renal function remained stable. PE: VSS. NAD, awake and alert. Oriented to person. Lungs: Diminished breath sounds at the bases bilaterally. No rhonchi or wheeze. Heart: Regular with ectopy. Normal S1 and S2. No murmur. Extremities: Trace pedal edema bilaterally. Neuro: Moves all extremities. No focal neuro deficit. A/P: Agree with PA-C history, physical exam, assessment and plan. Continue IV diuretic therapy for an additional 24 hours. Follow daily weight, GFR, and electrolytes. Replace potassium orally today. Further ischemic evaluation with outpatient nuclear stress testing if patient agreeable. Plan for discharge in 24 to 48 hours. Subjective Patient resting comfortably this morning. Full review of systems unreliable given short term memory impairment/dementia. She reports her SOB has greatly i mproved. Notes mild dyspnea when ambulating to restroom, but improved from admission. no dizziness. No palpitations. No tachypalpitations. No orthopnea, PND or edema. Review of Systems Review of Systems: Other (Limited due to dementia/short term memory impairment. ) Physical Exam Constitutional: WD/WN, vitals as above well developed; no acute distress Eyes: PERRL, conjunctivae normal, anicteric sclerae Respiratory: normal respiratory effort, lungs clear to auscultation Cardiovascular: RRR, no murmur, no edema Vessels: no JVD Gastrointestinal (Abdomen): normal bowel sounds, soft, nontender, no hepatosplenomegaly Musculoskeletal: no cyanosis or clubbing, extremities motor strength 5/5 Neurologic: PERRL, EOMI, accommodation nl, no face palsy, no dysarthria Psychiatric: Orientation: alert, oriented to person and oriented to place Results & Data ([facility]) Vital Signs (Past 12 Hours) Vital Signs Temp Pulse Pulse Resp BP BP Pulse Ox 06/11/20 08:07 36.6 C 85 18 138/77 94 06/11/20 03:43 36.7 C 78 20 121/80 92 06/11/20 00:20 36.5 C 60 18 115/78 98 06/10/20 23:57 90 Laboratory Results 06/11/20 Range/Units 07:11 Sodium 144 (136-145) mmol/L Potassium 3.0 L (3.5-5.1) mmol/L Chloride 109 H (98-107) mmol/L Carbon Dioxide 28 (21-32) mmol/L Anion Gap 7.0 (3-11) BUN 22 H (7-18) mg/dl Creatinine 0.58 L (0.6-1.2) mg/dl Est Cr Clr Drug Dosing 72.5 ml/min Est GFR ( Amer) 104.5 Est GFR (Non-Af Amer) 90.2 BUN/Creatinine Ratio 38.7 H (10-20) Glucose 93 (70-99) mg/dl Calcium 7.8 L (8.5-10.1) mg/dl Magnesium 2.0 (1.8-2.4) mg/dl Diagnostic Findings Telemetry reviewed - NSR with PVC's. no sustained arrhyhtmias Medications Administered Current Inpatient Medications Acetaminophen (Acetaminophen 325 Mg Tab) 650 mg PO Q4H PRN PRN Reason: Pain or Fever Stop: 07/09/20 03:50 Last Admin: 06/11/20 06:45 Dose: 650 mg Documented by: Cyanocobalamin (Cyanocobalamin 500 Mcg Tablet (Vitamin B-12)) 500 mcg PO QAM [facility] Stop: 07/09/20 08:59 Last Admin: 06/11/20 08:44 Dose: 500 mcg Documented by: Enoxaparin Sodium (Enoxaparin Inj 40 Mg/0.4 Ml Syr) 40 mg SQ Q24H [facility] Stop: 07/09/20 08:59 Last Admin: 06/11/20 08:45 Dose: 40 mg Documented by: Ertapenem (Ertapenem Consult Active) 1 ea N/A UD PRN PRN Reason: Consult Stop: 07/09/20 04:31 Famotidine (Famotidine 40 Mg Tablet) 40 mg PO HS [facility] Stop: 07/09/20 20:59 Last Admin: 06/10/20 20:05 Dose: 40 mg Documented by: Fluticasone Propionate (Fluticasone Propionate Na Spr 16 Gm Btl) 2 sprays NA DAILY [facility] Stop: 07/09/20 08:59 Last Admin: 06/11/20 08:44 Dose: 2 sprays Documented by: Furosemide 40 mg/ Syringe 4 mls @ 4 mls/min IV [id number] [facility] Stop: 07/09/20 08:59 Last Admin: 06/11/20 08:43 Dose: 4 mls/min Documented by: Ertapenem 1,000 mg/ Sodium (Chloride) 60 mls @ 100 mls/hr IV Q24H [facility] Stop: 06/19/20 05:59 Last Infusion: 06/11/20 06:38 Dose: Infused Documented by: Levalbuterol HCl (Levalbuterol 1.25mg/0.5ml Neb) 1.25 mg NEB Q4H PRN PRN Reason: Shortness Of Breath Or Wheezing Stop: 07/09/20 03:50 Losartan Potassium (Losartan Potassium 25 Mg Tab) 25 mg PO QAM [facility] Stop: 07/09/20 08:59 Last Admin: 06/11/20 08:44 Dose: 25 mg Documented by: Melatonin (Melatonin 3 Mg Tab) 3 mg PO HS PRN PRN Reason: sleep Stop: 07/09/20 20:59 Last Admin: 06/10/20 23:19 Dose: 3 mg Documented by: Metoprolol Succinate (Metoprolol Succ 25mg Ext Rel Tab) 25 mg PO BID [facility] Stop: 07/09/20 20:59 Last Admin: 06/11/20 08:43 Dose: 25 mg Documented by: Nitroglycerin (Nitroglycerin Sl 0.4 Mg/Tab Tab) 0.4 mg SL UD PRN PRN Reason: Chest Pain Stop: 07/09/20 03:50 Tamoxifen Citrate (Tamoxifen Citrate 10 Mg Tablet) 20 mg PO QAM [facility] Stop: 07/09/20 08:59 Last Admin: 06/11/20 08:43 Dose: 20 mg Documented by: (1) Acute on chronic congestive heart failure Heart failure type: systolic Qualified Code(s): I50.23 - Acute on chronic sy stolic (congestive) heart failure
--- NOTE | 2020-06-11 15:03 | Electrocardiogram Report ---
Test Reason : Blood Pressure : / mmHG Vent. Rate : 083 BPM Atrial Rate : 083 BPM P-R Int : 146 ms QRS Dur : 086 ms QT Int : 398 ms P-R-T Axes : 058 -38 038 degrees QTc Int : 467 ms Normal sinus rhythm Possible Left atrial enlargement Left axis deviation Left ventricular hypertrophy Nonspecific T wave abnormality Abnormal ECG When compared with ECG of 10-JUN-2020 06:26, T wave inversion no longer evident in Anterior leads Confirmed by Kurt Kam ([id number]) on 06/11/2020 3:02:59 PM Referred By: REFERRED SELF Confirmed By:Shawn Kam
--- NOTE | 2020-06-11 16:26 | Hospitalist Progress Note ---
Date of Service June 11, 2020 Assessment & Plan (1) Acute on chronic congestive heart failure: 1) Acute on chronic congestive heart failure: bi ventricular CHF /both combined systolic and diastolic dysfunction ECHO : ef 35% with grade 2 diastolic dysfunction presented with vol overload , JETT symptoms has improved after diuresis on IV lasix 40 mg BID , remains in negative balance appreciate input from Cardiology (2) Pleural effusion : due to decompensation CHF cont diuresis Mild elevation of troponin : due to demand ischemia in setting of decompensated CHF /type 2 NSTEMI no angina symptoms management of CHF as outlined above (4) PVC (premature ventricular contraction): (5) NICM (nonischemic cardiomyopathy): increased Toprol-XL to 25 mg twice daily. UTI : urine culture gram negative bacilli /harman on Abx already 6 . community acquired pneumonia : CT chest shows bibasilar infiltrate on broad septum abx follow blood and sputum culture update given to Daughter in law over phone , all questions answered Admission and Anticipated Discharge Date Admission Date: June 09, 2020 Subjective Patient resting comfortably this morning. Full review of systems unreliable given short term memory impairment/dementia. She reports her SOB has greatly improved. Notes mild dyspnea when ambulating to restroom, but improved from admission. no dizziness. No palpitations. No tachypalpitations. No orthopnea, PND or edema. Physical Exam Constitutional: WD/WN, vitals as above Eyes: PERRL, conjunctivae normal, anicteric sclerae ENMT: external ear and nose normal, oropharynx normal Neck: trachea midline, no thyromegaly Respiratory: + cough; no labored breathing Auscultation: + diminished lung sounds Cardiovascular: Rate/Rhythm: regular rate and regular rhythm Extremities: + edema Gastrointestinal (Abdomen): Percussion/Palpation: abdomen soft; abdomen nontender Musculoskeletal: no cyanosis or clubbing, extremities motor strength 5/5 Skin: no rashes, warm and dry Neurologic: PERRL, EOMI, accommodation nl, no face palsy, no dysarthria Psychiatric: A+Ox3, euthymic affect Results & Data Results & Data ([facility]) Vital Signs (Past 12 Hours) Vital Signs Temp Pulse Pulse Resp BP BP Pulse Ox 06/11/20 15:35 36.3 C L 75 20 114/79 95 06/11/20 15:01 106 H 12/29/20 11:41 36.4 C L 92 H 18 131/87 95 06/11/20 08:07 36.6 C 85 18 138/77 94 06/11/20 08:00 98 H (1) Acute on chronic congestive heart failure Heart failure type: systolic Qualified Code(s): I50.23 - Acute on chronic systolic (congestive) heart failure
[2020-06-11] MEDS: FAMOTIDINE 40 MG TABLET PO SCH (20:27)
[2020-06-11] MEDS ORDERED: ONDANSETRON INJ 2 MG/ML 2 ML VIAL IV STA (22:34)
[2020-06-12] MEDS ORDERED: cefTRIAXone SODIUM 2,000 MG in DEXTROSE 5% 50 ML IV SCH (06:00)
[2020-06-12 07:13] LABS: BUN Creatinine Ratio 35.8 (10-20); Creatinine Clr Calc Pharmacy 80.1 ml/min; Est GFR (African American) 108.3; Est GFR (Non-African American) 93.5; Magnesium 2.3 mg/dl (1.8-2.4); Potassium 3.2 mmol/L (3.5-5.1)
[2020-06-12] MEDS ORDERED: POTASSIUM CHLORIDE CRTAB 20 MEQ TABCR PO STA (07:45)
[2020-06-12] MEDS: POTASSIUM CHLORIDE / WTR 10 MEQ/100 ML PLCT IV SCH ×2 (08:16→09:08)
[2020-06-12] MEDS: FLUTICASONE PROPIONATE NA SPR 16 GM BTL SCH (08:39)
[2020-06-12] MEDS: FUROSEMIDE 40 MG in SYRINGE 0 ML IV SCH (08:40)
[2020-06-12] MEDS: METOPROLOL SUCC 25MG EXT REL TAB PO SCH (08:40)
[2020-06-12] MEDS: CYANOCOBALAMIN 500 MCG TABLET (VITAMIN B-12) PO SCH (08:40)
[2020-06-12] MEDS: TAMOXIFEN CITRATE 10 MG TABLET PO SCH (08:40)
[2020-06-12] MEDS: LOSARTAN POTASSIUM 25 MG TAB PO SCH (08:40)
[2020-06-12] MEDS: ENOXAPARIN INJ 40 MG/0.4 ML SYR SQ SCH (08:41)
--- NOTE | 2020-06-12 10:53 | Cardiology Progress Note ---
Date of Service June 12, 2020 Assessment & Plan (1) NICM (nonischemic cardiomyopathy): (2) PVC (premature ventricular contraction): (3) Acute on chronic congestive heart failure: (4) Pleural effusion on left: (5) Pleural effusion on right: Discontinue IV furosemide. Titrate outpatient dose of furosemide to 40 mg daily. Hypokalemia noted per a.m. labs. 60 mEq of both oral and IV potassium chloride ordered. Continue other cardiovascular medications as previously ordered. Outpatient nuclear stress test will be considered during follow-up. No further inpatient cardiac testing at this time. Patient may be discharged from a cardiovascular perspective. Outpatient follow-up in 1 week. Thank you for allow me to participate in the care of your patient. Admission and Anticipated Discharge Date Admission Date: June 09, 2020 Subjective Patient seen exam at the bedside. Feeling well from a cardiovascular perspective. Positive fluid balance recorded, however, weight is down 8 kg since admission. She is a poor historian. Offers no complaints at this time. Telemetry reveals sinus rhythm with premature ventricular complexes. Lab studies demonstrate hypokalemia. Review of Systems Review of Systems: Unobtainable due to cognitive status Physical Exam Constitutional: well developed and well nourished; no acute distress and not ill appearing Respiratory: normal respiratory effort; no respiratory distress, no labored breathing and no retractions Auscultation: no rales (Scant Rales at the right base), no rhonchi and no wheezes Cardiovascular: Rate/Rhythm: regular rate and regular rhythm Heart Sounds: normal S1 and normal S2; no murmur Vessels: no JVD and no carotid bruit Extremities: no edema Gastrointestinal (Abdomen): Inspection/Auscultation: abdomen normal to inspection; abdomen not distended Percussion/Palpation: abdomen soft; abdomen nontender, no guarding and abdomen not rigid Skin: no rashes, warm and dry Neurologic: moves all extremities; no focal motor deficits Psychiatric: Orientation: alert Results & Data ([facility]) Vital Signs (Past 12 Hours) Vital Signs Temp Pulse Pulse Resp BP Pulse Ox 06/12/20 08:13 36.5 C 79 18 112/74 92 06/12/20 07:00 69 06/12/20 04:47 36.8 C 82 18 118/80 95 (1) Acute on chronic congestive heart failure Heart failure type: systolic Qualified Code(s): I50.23 - Acute on chronic systolic (congestive) heart failure
--- NOTE | 2020-06-12 12:32 | Communication Note ---
Date of Service: June 12, 2020 pt will be seen by Dr Dle Valle today Discharge medications updated : Lasix dose increased to 40 mg daily Potassium 20 meq daily ( repeat BMP in a week or with next clinic visit ) metoprolol increased 25 mg BID ( from 25 mg daily ) cardiology follow up in clinic in a week out pt nc cardiac stress test for ischemic cardiac work up cardiology will consider changing Losartan to Entresto in clinic visit will benefit with referral to Health failure clinic E coli UTI: Cefdinir 300 mg twice daily to complete the 3 more days course . Brandi Chaparro MD
--- NOTE | 2020-06-12 12:33 | Discharge Summary ---
Date of Service June 12, 2020 Admission HPI Per Admitting Provider CHIEF COMPLAINT: Shortness of breath. HISTORY OF PRESENT ILLNESS: This is a 74-year-old female with past medical history significant for hyperlipidemia, history of cardiomyopathy, hypertension, PVCs, history of pericardial effusion, osteoporosis, compression fracture of the spine, migraines, cerebral meningioma, history of malignant neoplasm of the left breast, mild cognitive impairment, history of adenomatous polyp of colon, who presents with ongoing shortness of breath. The patient was here in the ER on 05/24/2020 with shortness of breath and cough. At that time, COVID was negative, but chest x-ray showed some trace pleural effusion. ER physician advised to stay in the hospital for concern for COVID as the patient was exposed to COVID patient four days prior to that, but patient refused to stay and got discharged. When she came into the ER on 05/24/2020, she was having cough for 3 weeks. She also saw cardiology on 04/04/2020. At that time also, she was having cough and she recently saw again family doctor on 06/03/2020 and she was having cough and worse in the nighttime, and getting some thick phlegm. She has some swelling in the legs and as per the Epic notes, her stated that they missed giving her fluid pills for at least a week at PCP office. The patient has mild dementia and states she does not remember taking the Lasix, but states she is having cough for some time and bringing up whitish phlegm, but it was not bad, but it is getting progressively worse and yesterday she could not keep up with her grandkids because of shortness of breath and today it got worse. She was not even able to speak, that is why she came to the ER. She said the last couple of nights she could not sleep because of cough and shortness of breath and she kept waking up with cough and shortness of breath and she is using 1 pillow to sleep. Today, she also felt some chest discomfort. Denies any nausea or vomiting. No abdominal pain, no diarrhea or constipation. Normal bowel and bladder movements. Denies any fever. No headache, no blurred visions, no earache. She had some runny nose today. She denies any loss of sense of smell or taste. Appetite is okay. She says her brother had COVID about 3 weeks ago and he quarantined and she just saw him yesterday on . She was somewhat tachycardic in the ER and D-dimer is elevated at 1100 and CTA of the chest was done which shows bilateral moderate pleural effusions and enlarged left ventricle. Trivial pericardial effusion as per the radiologist production engineer. Moderate to massive cardiomegaly. Admission Exam Per Admitting Provider GENERAL: The patient is of moderate build, not in acute distress. VITAL SIGNS: Temperature 37, pulse 72, respiratory rate 20's, blood pressure 147/104, oxygen 93% on room air. HEENT: No pallor, no icterus. Pupils equal, round, reactive to light. Oral mucosa moist. NECK: No neck masses. Supple. CARDIOVASCULAR: S1, S2 heard. Tachycardia. No murmurs, no gallop. RESPIRATORY SYSTEM: Normal AP diameter, mild tachypnea. Mild bibasilar crackles with occasional wheezing. ABDOMEN: Soft, bowel sounds present, nontender. No distention. CENTRAL NERVOUS SYSTEM: Cranial nerves II-XII grossly intact, nonfocal. EXTREMITIES: Bilateral lower extremity pedal edema present, no erythema seen. Principal Diagnosis Decompensated CHF Biventricular combined systolic and diastolic heart failure Non ishcemic cardiomyopathy UTI-E coli Discharge Exam Constitutional: WD/WN, vitals as above Eyes: PERRL, conjunctivae normal, anicteric sclerae ENMT: external ear and nose normal, oropharynx normal Neck: trachea midline, no thyromegaly Respiratory: + cough; no labored breathing Auscultation: + diminished lung sounds Cardiovascular: regular rate and regular rhythm Extremities: + edema Gastrointestinal: Percussion/Palpation: abdomen soft; abdomen nontender Musculoskeletal: no cyanosis or clubbing, extremities motor strength 5/5 Skin: no rashes, warm and dry Neurologic: PERRL, EOMI, accommodation nl, no face palsy, no dysarthria Psychiatric: A+Ox3, euthymic affect Discharge Data Allergies Allergy/AdvReac Type Severity Reaction Status Date / Time Sulfa (Sulfonamide Allergy Mild Unknown Verified 06/08/20 23:00 Antibiotics) bee venom protein (honey bee) Allergy Unknown unknow Verified 06/08/20 23:00 bupropion Allergy Unknown unknown Verified 06/08/20 23:00 pneumococcal vaccine Allergy Unknown Unknown Verified 06/08/20 23:00 [From Pneumovax 23] Consultations 06/09/20 01:28 ED Decision to Admit Stat 06/09/20 03:51 Consult Case Management - Discharge Planning Routine 06/09/20 08:00 Consult Cardiology Routine Ordered Studies 06/09/20 00:08 CT angio chest PE protocol Urgent CT DOSE: 326.78 mGy.cm FINDINGS: There are mildly enlarged mediastinal lymph nodes The ascending thoracic aorta is mildly ectatic measuring 4 cm. There were no pulmonary artery filling defects to indicate acute pulmonary embolism. There are bilateral pleural effusions. The heart is enlarged. There are coronary artery calcifications. There is evidence of elevated right heart pressures with reflux of contrast into the hepatic veins. There is interlobular septal edema. There is dependent atelectasis. There are chronic vertebral body compression fractures. There are sclerotic vertebral body lesions including a 17 mm sclerotic T3 lesion. IMPRESSION: 1. No evidence of acute pulmonary embolism 2. CT evidence of congestive failure with interlobular septal edema, cardiomegaly, and bilateral pleural effusions. 3. Mild adenopathy. ACT 112: Negative or not required by law. Electronically signed by: Neftali Costello M.D. 06/09/2020 7:40 AM Dictated: 06/09/20729Transcribed: 06/09/20729 XR chest 1V portable CLINICAL HISTORY: SEPSIS COMPARISON STUDY: 05/24/2020 FINDINGS: The heart is enlarged. There is elevation of interstitium. There are small bilateral pleural effusions with associated basilar airspace opacities, likely atelectatic.[ IMPRESSION: Cardiomegaly and mild pulmonary vascular congestion. Small bilateral pleural effusions with associated basilar airspace opacity statistically atelectatic although an infectious/inflammatory process could appear similar ACT 112: Negative or not required by law. Electronically signed by: Neftali Costello M.D. 06/09/2020 7:29 AM Dictated: 06/09/2028Transcribed: 06/09/20727 Hospital Course (1) Acute on chronic congestive heart failure: 1) Acute on chronic congestive heart failure: bi ventricular CHF /both combined systolic and diastolic dysfunction ECHO : ef 35% with grade 2 diastolic dysfunction presented with vol overload , JETT symptoms has improved after diuresis on IV lasix 40 mg BID , remains in negative balance appreciate input from Cardiology (2) Pleural effusion : due to decompensation CHF cont diuresis Mild elevation of troponin : due to demand ischemia in setting of decompensated CHF /type 2 NSTEMI no angina symptoms management of CHF as outlined above (4) PVC (premature ventricular contraction): (5) NICM (nonischemic cardiomyopathy): increased Toprol-XL to 25 mg twice daily. UTI : urine culture gram negative bacilli /harman on Abx already 6 . community acquired pneumonia : CT chest shows bibasilar infiltrate on broad septum abx follow blood and sputum culture update given to Daughter in law over phone , all questions answered Total Time Total Time Spent Total Time Spent (In Minutes): 35 minutes Total Time Includes: Examination of the Patient, Discharge Planning, Medication Reconciliation, Communication With Other Providers and Other Discharge Plan Discharge Items Patient Disposition: Home - Home Health Services Reason For Visit: SOB Discharge Diagnosis: decompensated CHF biventricular combined systolic and diastolic heart failure non ishcemic cardiomyopathy UTI-E coli Condition on Discharge: Fair Activity: Resume your previous activity Non-emergency contact: Primary Care Provider Call non-emergency contact if: you have any medication questions Follow-up/Referrals: Yossi Teresa DO [Receiving Coordinator] - (cardiology follow up in 1 week for cardiac stress test ) David Olsen MD [Primary Care Provider] - (Date & Time 06/17/2020 3:00 PM Provider David Olsen MD Department [facility] ) Diet: Heart Healthy Ambulatory Orders: Basic Metabolic Panel (Routine) Timeframe: 1 Week Location: Determined by Patient Ordered By: Brandi Garcia Attending Provider Instructions: Change of medications: Lasix ( water pill ) dose increased from 20 mg daily to 40 mg 1 tablet daily you can utilize your 20 mg tables by taking 2 tables ( 40 mg ) daily new prescription for 40 mg tablet sent to your pharmacy antibiotic Cefdenir 300 mg daily for 3 more days -for Urinary tract infection please drink plenty of fluid Metoprolol dose increased from 25 mg 1 tablet daily to 1 tablet twice daily Cardiology follow up in a week in [facility] you will need Nuclear cardiac stress test -to assess your heart function potassium supplement tablet sent to you pharmacy please take fruits and vegetables enriched in potassium -apples /banana/spinach- etc Call your Primary Care doctor if any of the following symptoms or problems start or get worse: * Shortness of breath or difficulty breathing * Wake up at night short of breath * Chest pain * Cough * Swelling of your hands, feet, or legs * More fatigued or tired with your normal activity * Palpitations - sudden fast heart beats WEIGHT * Weigh yourself every morning after using the bathroom. * Use the same scale. * Wear the same amount of clothing. * Write your weight down on a chart. * Call your Primary Care doctor if you gain more than 2-3 pounds in 1-2 days. MEDICATIONS * Use this discharge instruction sheet for medication instructions. * Take your medications at the time your doctor ordered. * Do not skip a dose of your medicines. * If you miss a dose of medicine, take it as soon as possible, but DO NOT DOUBLE A DOSE. * Read your medicine information when you get home. * Know all of the side effects of your medicine. If in doubt, ask your pharmacist * Call your Primary Care doctor's office if you have any side effects. * Be sure all of your doctors know what medicine and herbs you take (including cold, flu, and herbal medicine). Take the following with you to your follow-up doctor appointments: * Weight Chart * Medication List * List of questions Do not drink excessive alcohol, beer or wine. Pending Studies at Discharge: Yes Studies:: Basic Metabolic panel in 1 week -for low potassium level Stand-Alone Forms: [facility], Smoking Cessation Medications and DC Order Prescriptions: New potassium chloride 20 mEq tablet extended release 20 meq PO DAILY Qty: 30 RF: 0 metoprolol succinate 25 mg Tablet Extended Release 24 Hr 25 mg PO BID 30 Days Qty: 60 RF: 0 furosemide [Lasix] 40 mg tablet 40 mg PO DAILY 30 Days Qty: 30 RF: 0 cefdinir 300 mg Capsule 300 mg PO BID 3 Days Qty: 6 RF: 0 Continued cyanocobalamin (vitamin B-12) 500 mcg Tablet 500 mcg PO QAM RF: 0 losartan 25 mg Tablet 25 mg PO QAM RF: 0 tamoxifen 20 mg Tablet 20 mg PO QAM RF: 0 famotidine [Pepcid] 40 mg tablet 40 mg PO HS Qty: 30 RF: 0 fluticasone propionate 50 mcg/actuation spray,suspension 2 spray INTRANASAL DAILY RF: 0 Discontinued hydrochlorothiazide 25 mg Tablet 25 mg PO QAM RF: 0 metoprolol succinate 25 mg Tablet Extended Release 24 Hr 25 mg PO QAM RF: 0 furosemide 20 mg tablet 20 mg PO DAILY RF: 0 Discharge Orders: Discharge Order (Routine); Ordered 06/12/20 Ordered By: Jorge Alberto Clark/Other Patient Handouts: Controlling High Blood Pressure Admission Data Admit Date/Time: 06/09/20 02:26 Attending Provider: Jorge Alberto Benito Admit Provider: Dell Gambino Primary Care Provider: David Olsen Other Providers: Dell Gambino ; Abel Vivas ; Mihai Davila ; Jerome Scott ; Yossi Teresa ; Eduin Merchant ; David Riley ; Sabrina Lynn ; Yadira Goss ; Leo Orellana ; Brandi Chaparro. Other Interventions: Discharge Summary Assessment (RN) Last Done: 06/12/20 12:57
[2020-06-12] MEDS ORDERED: CEFDINIR 300 MG CAP PO SCH (21:00)
== END 2020-06-12 13:43 | disposition home health service (06) | DRG 280 ==
LOC: ED 22:29 → EDINP 06-09 02:26 → SUATTDRO 06-09 02:26 → 2S 06-09 05:07
DX: I42.8 Other cardiomyopathies; I21.4 Non-ST elevation (NSTEMI) myocardial infarction; J90 Pleural effusion, not elsewhere classified; N39.0 Urinary tract infection, site not specified; F03.90 Unspecified dementia, unspecified severity, without behavioral disturbance, psychotic disturbance, mood disturbance, and anxiety; K21.9 Gastro-esophageal reflux disease without esophagitis; E78.5 Hyperlipidemia, unspecified; B96.20 Unspecified Escherichia coli [E. coli] as the cause of diseases classified elsewhere; I11.0 Hypertensive heart disease with heart failure; I50.43 Acute on chronic combined systolic (congestive) and diastolic (congestive) heart failure; J18.9 Pneumonia, unspecified organism; I24.8 Other forms of acute ischemic heart disease; I49.3 Ventricular premature depolarization

== ENCOUNTER 2020-10-18 19:43 | Inpatient (IN) ==
[2020-10-18] MEDS ORDERED: ASPIRIN CHEW 324 MG PO STA (20:18)
--- NOTE | 2020-10-18 20:31 | XRay Report ---
SINGLE VIEW CHEST CLINICAL HISTORY: Atypical chest pain. Generalized weakness. FINDINGS: An AP, portable, upright chest radiograph is compared to chest x-ray and chest CT dated 09/12. The examination is degraded by portable technique and patient rotation. The heart is enlarge d noting atherosclerotic calcification of the thoracic aorta. The pulmonary vasculature is noncongest ed. Chronic additional thickening is similar to previous. There is a small left pleural effusion with left basilar consolidation. Right lung is clear noting basilar atelectasis. No pneumothorax is seen. The skeletal structures are osteopenic. The bony thorax is grossly intact. A large bone wound is aga in noted in the upper thoracic spine. IMPRESSION: 1. Cardiomegaly without radiographic evidence of congestive failure. 2. A small left pleural effusion with left basilar consolidation is unchanged to slightly decreased a s compared to 09/21/2020. ACT 112: Negative or not required by law. Electronically signed by: Frandy Sawyer M.D. 10/18/2020 8:29 PM
[2020-10-18 20:42] LABS: Basophils # (auto) 0.02 K/uL (0-0.2); Basophils % (auto) 0.3 %; Eosinophils # (auto) 0.01 K/uL (0-0.5); Eosinophils % (auto) 0.1 %; Hematocrit (blood only) 38.3 % (37-47); Hemoglobin 12.7 g/dL (12.0-16.0); Immature Granulocytes # (auto) 0.01 K/uL (0.00-0.02); Immature Granulocytes % (auto) 0.1 %; Lymphocytes # (auto) 1.31 K/uL (1.2-3.4); Mean Corpuscular Hemoglobin 31.5 pg (25-34); Mean Corpuscular Hgb Conc 33.2 g/dL (32-36); Mean Platelet Volume 10.4 fL (7.4-10.4); Monocytes # (auto) 0.78 K/uL (0.11-0.59); Monocytes % (auto) 10.7 %; Neutrophils # (auto) 5.16 K/uL (1.4-6.5); Neutrophils % (auto) 70.8 %; Platelet Count 231 K/uL (130-400); RDW Coefficient of Variation 14.9 % (11.5-14.5); RDW Standard Deviation 51.9 fL (36.4-46.3); Red Blood Count 4.03 M/uL (4.2-5.4); White Blood Count 7.29 K/uL (4.8-10.8)
--- NOTE | 2020-10-18 20:45 | Emergency Department Note ---
Impression & Plan Chest pain, Effusion, pericardium, Pleural effusion ED Provider Note NAME: STEFFANY MORAN AGE: 75 SEX: F : 1945 ARRIVES VIA: Walk-In INFORMANT: Patient, the patient's daughter ED PROVIDER(S): Gene Walker DO CHIEF COMPLAINT: Difficulty breathing and chest pain HPI: The patient is a 75-year-old female who presented to the emergency department for an evaluation of difficulty breathing and chest pain. The patient is on ongoing symptoms since this morning. Apparently the patient has had similar symptoms in the past. She presented to our emergency department previously for similar complaints but no definite cause for her shortness of breath could be found. The patient has been noticing that she has been having chest discomfort throughout the day. According to her family member it is intermittent. The patient denies having any cough or fever. She states that the shortness of breath is sometimes worsened with lying flat. She has no abdominal pain. She denies having any lower extremity swelling. The patient has not been compliant with her outpatient medication regimen today. She is currently taking a blood thinner for an upper extremity DVT. The patient denies having any swelling in the upper extremities compared to previous. She is not been seen recently by her primary care physician for these complaints. ROS: See above HPI for pertinent positives & negatives. A total of 10 systems reviewed and were otherwise negative. PAST MEDICAL HISTORY: See Below PAST SURGICAL HISTORY: See Below FAMILY HISTORY: See Below SOCIAL HISTORY: See Below HOME MEDICATIONS: See Below ALLERGIES: See Below VITALS: See Below PHYSICAL EXAMINATION: GENERAL: The patient is awake and alert. The patient is nonanxious appearing. EYES: The conjunctivae are clear. The pupils are round and reactive. EARS, NOSE, MOUTH AND THROAT: The nose is without any evidence of any deformity. NECK: The neck is nontender and supple. RESPIRATORY: Normal respiratory effort is noted there is no evidence of wheezing rhonchi or rales CARDIOVASCULAR: Tachycardic rate with regular rhythm was noted. There was no definite murmur. GASTROINTESTINAL: The abdomen is soft. Abdomen is nontender. PELVIS: The Pelvis is stable. No tenderness to palpation is noted. BACK: No midline tenderness or or step-off noted range of motion in flexion extension as well as rotation no signs of muscle spasm noted MUSCULOSKELETAL/EXTREMITIES: There is no evidence of gross deformity full range of motion is noted in the hips and shoulders. SKIN: No significant pedal edema was noted. Skin is warm and dry. Pulses are symmetric. NEUROLOGIC: Patient is awake alert and oriented to person place and situation. MEDICAL DECISION MAKING: The patient is a 75-year-old female who presented to the emergency department with a family member for an evaluation of chest pain. The patient has somewhat reproducible and positional chest pain. She has an abnormal EKG but this does not appear to be change compared to previous. I discussed patient's laboratory and radiographic studies with her. She was found to have a pericardial effusion which is not a new finding however it is increased compared to previous. The patient did not have tamponade physiology but was treated with a small IV fluid bolus. Because of the elevated D-dimer CT of the chest was obtained. This did not appear to be consistent with pulmonary embolism. I discussed her case with the on-call [facility]. They have agreed to evaluate the patient in the emergency department for further management and disposition. Triage Nursing notes reviewed. Prior medical records reviewed Vital Signs: reviewed and remarkable for tachycardia. Differential diagnosis: Cardiac ischemia, aortic dissection, pulmonary embolism, pneumothorax, pneumonia, pericarditis, myocarditis, esophageal rupture, GERD, cholecystitis, pancreatitis, musculoskeletal, as well as other pathologies. ER treatment provided: See below Diagnostics interpreted by me: ECG: EKG was obtained in the emergency department. My interpretation is sinus tachycardia at 109 bpm. There was no ectopy. LVH was noted by voltage criteria. Lateral T wave versions were also noted. This was compared to a tracing from September 212020. No significant changes were noted. Cardiac Monitoring: An order was placed for continuous cardiac monitoring. The monitor shows a rate of 115 bpm with sinus rhythm. Laboratory studies: As stated above and show below. Imaging studies: See below Consultation(s): I discussed this case with Dr. Duke who is on-call for the [facility]. Past Med/Surg History Medical History Acute dyspnea Acute on chronic congestive heart failure Anemia Breast cancer NO CHEMO/RADIATION Hypertension Hypokalemia Hypoxemia Migraine HX NICM (nonischemic cardiomyopathy) Peptic ulcer disease HX Pleural effusion on left Pleural effusion on right PVC (premature ventricular contraction) Surgical History History of cataract surgery right History of colonoscopy History of tonsillectomy History of tooth extraction Hx of lumpectomy LEFT Family History Other No family history of adverse response to anesthesia Social History Smoking Status: Never smoker Second Hand Exposure: No; Hx Alcohol Use: No Hx Substance Use: No Preferred Language: Belgian Communication Ability: Effective [employer] Attendant Required: No Beliefs That Will Affect Care: None Current Living Situation: Spouse Feels Safe at Home: Yes Assistive Devices: None Allergies Allergies Allergy/AdvReac Type Severity Reaction Status Date / Time bee venom protein (honey bee) Allergy Intermediate EXTRA Verified 10/18/20 20:45 SWELLING AT SITE Sulfa (Sulfonamide Allergy Mild Unknown Verified 10/18/20 20:45 Antibiotics) bupropion Allergy Unknown unknown Verified 10/18/20 20:45 pneumococcal vaccine Allergy Unknown FEVER, Verified 10/18/20 20:45 [From Pneumovax 23] CHILLS, BODY ACHES, VOMITING Home Meds Home Medications Medication Instructions Recorded Confirmed cyanocobalamin (vitamin B-12) 500 mcg PO QAM 06/29/19 10/18/20 losartan 25 mg PO QAM 06/29/19 10/18/20 tamoxifen 20 mg PO QAM 06/29/19 10/18/20 furosemide 20 mg tablet 20 mg PO QAM 09/04/20 10/18/20 tramadol 50 mg tablet 50 mg PO BID PRN 09/04/20 10/18/20 calcium carbonate [Calcium 600] 600 mg PO BID 09/21/20 10/18/20 famotidine 20 mg PO DAILY 10/18/20 10/18/20 metoprolol succinate 25 mg PO QAM 10/18/20 10/18/20 montelukast [Singulair] 10 mg PO DAILY 10/18/20 10/18/20 potassium chloride 10 meq PO QAM 10/18/20 10/18/20 Results & Data (ED) Vital Signs Vital Signs - 24 hr 10/18/20 19:44 10/18/20 20:03 10/18/20 20:18 Temperature 36.5 C Temperature Source Temporal Artery Scan Pulse Rate 123 H 110 H 110 H Pulse Rate [Apical] 114 H Pulse Rate from SpO2 Sensor 110 H Pulse Rhythm Regular Pulse Rhythm [Apical] Regular Respiratory Rate 18 22 18 Respiratory Effort / Characteristics Non-Labored Spontaneous Non-Labored Spontaneous Respiratory Depth Normal Normal Respiratory Pattern Regular Blood Pressure 154/74 H 139/92 Blood Pressure [Left Arm] 139/92 Blood Pressure Mean 100 107 Blood Pressure Mean [Left Arm] 107 Blood Pressure Position Sitting Blood Pressure Position [Left Arm] Semi-fowlers Pulse Oximetry 96 97 97 Oxygen Delivery Method Room Air Room Air Sepsis Recent Fever Within 48 Hours No Sepsis New/Unexplained Change in Mental Status No Sepsis Action Taken by Nursing No Action Required 10/18/20 21:00 10/18/20 22:20 10/18/20 22:30 Temperature Temperature Source Pulse Rate 106 H 107 H 103 H Pulse Rate [Apical] 100 H Pulse Rate from SpO2 Sensor 105 H 106 H 102 H Pulse Rhythm Pulse Rhythm [Apical] Regular Respiratory Rate 22 21 35 H Respiratory Effort / Characteristics Respiratory Depth Respiratory Pattern Blood Pressure 139/80 145/84 H 129/84 Blood Pressure [Left Arm] 139/80 Blood Pressure Mean 99 104 99 Blood Pressure Mean [Left Arm] 99 Blood Pressure Position Blood Pressure Position [Left Arm] Pulse Oximetry 96 95 94 Oxygen Delivery Method Room Air Sepsis Recent Fever Within 48 Hours Sepsis New/Unexplained Change in Mental Status Sepsis Action Taken by Nursing 10/18/20 22:31 10/18/20 23:00 10/18/20 23:30 Temperature Temperature Source Pulse Rate 104 H 99 H 97 H Pulse Rate [Apical] Pulse Rate from SpO2 Sensor 104 H 99 H 95 H Pulse Rhythm Pulse Rhythm [Apical] Respiratory Rate 39 H 22 22 Respiratory Effort / Characteristics Respiratory Depth Respiratory Pattern Blood Pressure 141/82 H 156/93 H Blood Pressure [Left Arm] Blood Pressure Mean 101 114 Blood Pressure Mean [Left Arm] Blood Pressure Position Blood Pressure Position [Left Arm] Pulse Oximetry 93 95 98 Oxygen Delivery Method Sepsis Recent Fever Within 48 Hours Sepsis New/Unexplained Change in Mental Status Sepsis Action Taken by Prison Medications Current Medication List: was personally reviewed by me Laboratory Data Attestation: I reviewed the patient's lab results. Result diagrams: 10/18/20 Unknown 10/18/20 Unknown Administered Medications Discontinued Medications Aspirin (Aspirin Chew 324 Mg) 324 mg PO NOW STA Stop: 10/18/20 20:19 Last Admin: 10/18/20 20:41 Dose: 324 mg Documented by: [id number] Sodium Chloride (Nss 1000ml) 500 mls @ 999 mls/hr IV .Q31M ONE Stop: 10/18/20 22:38 Last Infusion: 10/19/20 00:26 Dose: 0 mls/hr Documented by: [id number] Admin: 10/18/20 22:34 Dose: 999 mls/hr Documented by: [id number] Ioversol (Optiray 350 500ml) 111 ml IV ONCE ONE Stop: 10/18/20 21:39 Last Admin: 10/18/20 21:38 Dose: 111 ml Documented by: [id number] Ketorolac Tromethamine (Ketorolac Tromethamine 15 Mg/Ml Vial) 15 mg IV NOW STA Stop: 10/18/20 23:15 Last Admin: 10/19/20 00:32 Dose: 15 mg Documented by: [id number] Imaging Data Radiologist's Impression: Chest X-Ray 10/18/20 20:18 SINGLE VIEW CHEST CLINICAL HISTORY: Atypical chest pain. Generalized weakness. FINDINGS: An AP, portable, upright chest radiograph is compared to chest x-ray and chest CT dated 09/21/2020. The examination is degraded by portable technique and patient rotation. The heart is enlarged noting atherosclerotic calcification of the thoracic aorta. The pulmonary vasculature is noncongested. Chronic additional thickening is similar to previous. There is a small left pleural effusion with left basilar consolidation. Right lung is clear noting basilar atelectasis. No pneumothorax is seen. The skeletal structures are osteopenic. The bony thorax is grossly intact. A large bone wound is again noted in the upper thoracic spine. IMPRESSION: 1. Cardiomegaly without radiographic evidence of congestive failure. 2. A small left pleural effusion with left basilar consolidation is unchanged to slightly decreased as compared to 09/21/2020. ACT 112: Negative or not required by law. Electronically signed by: Frandy Sawyer M.D. 10/18/2020 8:29 PM Chest CTA 10/18/20 21:13 CT ANGIOGRAM OF THE CHEST CLINICAL HISTORY: Atypical chest pain. COMPARISON STUDY: Chest x-ray dated 10/18/2020. Chest CT dated 09/21/2020 and 06/09/2020. TECHNIQUE: Following the IV administration of 111 cc of Optiray 350, CT angiogram of the chest was performed from the upper abdomen to the thoracic inlet utilizing the pulmonary embolus protocol. Images are reviewed in the axial, sagittal, and coronal planes. 3-D MIPS images are created and assessed. IV contrast was administered without complication. A dose lowering technique was utilized adhering to the principles of ALARA. CT DOSE: 230.49 mGy.cm FINDINGS: Thyroid: Imaged portions of the thyroid gland are normal in size and attenuation. Thoracic aorta: There is atherosclerotic calcification of the thoracic aorta. There is mild ectasia of the ascending thoracic aorta which measures up to 3.7 cm in diameter. The remainder of the thoracic aorta is normal in caliber, and the arch demonstrates standard 3-vessel anatomy. No dissection is seen. Pulmonary vasculature: The pulmonary trunk is normal in caliber. There are no filling defects identified in main, lobar, or segmental pulmonary branches to suggest pulmonary embolus. Heart: The heart is enlarged noting a moderate pericardial effusion. The coronary arteries are densely calcified. Lungs and pleural spaces: There are small pleural effusions, left larger than right with bibasilar scarring/atelectasis. No airspace consolidation is identified typical for pneumonia. The trachea and central airways are clear. An 8 mm groundglass nodule is again seen in the right upper lobe on image #175. There are scattered calcified granulomas. Mediastinum: There is no mediastinal lymphadenopathy. Shahana: Clear. Axillae: There is no axillary lymphadenopathy. Upper abdomen: Partially visualized upper abdominal viscera is within normal limits. Skeletal structures: The skeletal structures are osteopenic. A large bone island is again seen in the body of T3. There are moderate to severe compression deformities of T7 and T10, as well as minimal superior endplate compression deformities of T3 and T4. These are unchanged from previous. A hemangioma is noted in the body of T12. No lytic or blastic bony lesions are seen. IMPRESSION: 1. There is no evidence of pulmonary embolus in the main, lobar, or segmental pulmonary arteries. 2. Cardiomegaly and moderate pericardial effusion. The pericardial effusion is nonspecific but has increased in size as compared to 09/21/2020. Correlate clinically for evidence of pericarditis. 3. Left larger than right pleural effusions are similar to previous. 4. There is no airspace consolidation typical for pneumonia. 5. An 8 mm groundglass nodule in the right upper lobe is unchanged dating back to 06/09/2020. This is pathologically indeterminant, and a low-grade pulmonary neoplasm could have this appearance. Nonemergent pulmonology follow-up is recommended. 6. Additional findings as above. Please refer to below summary of Fleischner criteria recommendations for follow- up of incidental CT nodules (Jimmy Lee, Guidelines for management of small pulmonary nodules detected on CT scans: A statement from the Fleischner Society, Radiology 237: [phone].) SOLID NODULES Solitary nodule size: <6 mm * low risk patients: no follow-up needed * high risk patients: optional CT at 12 months Solitary nodule size: 6-8 mm * low risk patients: follow-up at 6-12 months, then consider further follow-up at 18-24 months * high risk patients: initial follow-up CT at 6-12 months and then at 18-24 months if no change Solitary nodule size: >8 mm * either low or high risk patients - consider follow-up CT at 3 months, and/or CT-PET, and/or biopsy Multiple nodules size: <6 mm * low risk patients: no routine follow-up * high risk patients: optional CT at 12 months Multiple nodules size: 6-8 mm * low risk patients: follow-up at 3-6 months, then consider further follow-up at 18-24 months * high risk patients: follow-up at 3-6 months, then at 18-24 months if no c hange Multiple nodules size: >8 mm * low risk patients: follow-up at 3-6 months, then consider further follow-up at 18-24 months * high risk patients: follow-up at 3-6 months, then at 18-24 months if no change Note: newly detected indeterminate nodule in persons 35 years of age or older. * low risk patients: minimal or absent history of smoking and/or other known risk factors * high risk patients: history of smoking or of other known risk factors (e.g. first degree relative with lung cancer, or exposure to asbestos, radon, uranium) * if a nodule up to 8 mm is partly solid or is ground glass further follow-up is required after 24 months to exclude possible slow growing adenocarcinoma (SHANKAR) SUBSOLID NODULES Solitary pure ground-glass nodule * nodule size <6 mm - no CT follow-up required * nodule size >=6 mm - follow-up CT at 6-12 months, then every 2 years until 5 years Solitary part-solid nodule * nodule size <6 mm - no CT follow-up required * nodule size >=6 mm - follow-up CT at 3-6 months. If unchanged, and solid component remains <6 mm, then annual follow-up for 5 years Multiple subsolid nodules * nodule size <6 mm - follow-up CT at 3-6 months, consider further follow-up at 2 and 4 years if stable * nodule size >=6 mm - follow-up CT at 3-6 months, subsequent management based on the most suspicious nodule(s) ACT 112: Negative or not required by law. Electronically signed by: Frandy Sawyer M.D. 10/18/2020 10:03 PM Discharge Plan Visit Data Chief Complaint: Chest Pain Stated Complaint: CHEST PAIN NEAR HEART ED Provider: Gene Walker Discharge Problem: Chest pain, Effusion, pericardium, Pleural effusion Patient Disposition: Admitted As Inpatient Condition: Good Discharge Instructions Interventions: ED Discharge Assessment Last Done: 10/19/20 00:26 Discharge Problem: Chest pain Qualifiers: Chest pain type: unspecified Qualified Code(s): R07.9 - Chest pain, unspecified
[2020-10-18 20:55] LABS: Partial Thromboplastin Time 27.6 Seconds (21.0-31.0); Prothrombin Time 10.1 Seconds (9.0-12.0)
[2020-10-18 21:01] LABS: Alanine Aminotransferase 14 U/L (12-78); Albumin Level 2.9 gm/dl (3.4-5.0); BUN Creatinine Ratio 21.7 (10-20); Blood Urea Nitrogen 10 mg/dl (7-18); Calcium 8.2 mg/dl (8.5-10.1); Carbon Dioxide 25 mmol/L (21-32); Chloride 109 mmol/L (98-107); Creatinine Clr Calc Pharmacy 86.9 ml/min; Est GFR (African American) 110.4; Est GFR (Non-African American) 95.3; Glucose 98 mg/dl (70-99); Lipase 67 U/L (73-393); Sodium 140 mmol/L (136-145)
[2020-10-18 21:06] LABS: Albumin Globulin Ratio 0.9 (0.9-2); Alkaline Phosphatase 37 U/L (45-117); Bilirubin,Total 0.8 mg/dl (0.2-1); Globulin 3.2 gm/dl (2.5-4.0); Total Protein 6.1 gm/dl (6.4-8.2); Troponin I < 0.015 ng/ml (0-0.045)
[2020-10-18 21:11] LABS: Potassium 3.6 mmol/L (3.5-5.1)
[2020-10-18 21:13] LABS: D Dimer 1160 ug/L FEU (0-500)
[2020-10-18 21:20] LABS: Aspartate Aminotransferase 7 U/L (15-37)
[2020-10-18] MEDS ORDERED: OPTIRAY 350 500ml IV ONE (21:38)
--- NOTE | 2020-10-18 22:04 | CT Scan Report ---
CT ANGIOGRAM OF THE CHEST CLINICAL HISTORY: Atypical chest pain. COMPARISON STUDY: Chest x-ray dated 10/18/2020. Chest CT dated 09/21/2020 and 06/09/2020. TECHNIQUE: Following the IV administration of 111 cc of Optiray 350, CT angiogram of the chest was pe rformed from the upper abdomen to the thoracic inlet utilizing the pulmonary embolus protocol. Images are reviewed in the axial, sagittal, and coronal planes. 3-D MIPS images are created and assessed. I V contrast was administered without complication. A dose lowering technique was utilized adhering to the principles of ALARA. CT DOSE: 230.49 mGy.cm FINDINGS: Thyroid: Imaged portions of the thyroid gland are normal in size and attenuation. Thoracic aorta: There is atherosclerotic calcification of the thoracic aorta. There is mild ectasia o f the ascending thoracic aorta which measures up to 3.7 cm in diameter. The remainder of the thoracic aorta is normal in caliber, and the arch demonstrates standard 3-vessel anatomy. No dissection is se en. Pulmonary vasculature: The pulmonary trunk is normal in caliber. There are no filling defects identif ied in main, lobar, or segmental pulmonary branches to suggest pulmonary embolus. Heart: The heart is enlarged noting a moderate pericardial effusion. The coronary arteries are densel y calcified. Lungs and pleural spaces: There are small pleural effusions, left larger than right with bibasilar sc arring/atelectasis. No airspace consolidation is identified typical for pneumonia. The trachea and ce ntral airways are clear. An 8 mm groundglass nodule is again seen in the right upper lobe on image #1 [id number]. There are scattered calcified granulomas. Mediastinum: There is no mediastinal lymphadenopathy. Shahana: Clear. Axillae: There is no axillary lymphadenopathy. Upper abdomen: Partially visualized upper abdominal viscera is within normal limits. Skeletal structures: The skeletal structures are osteopenic. A large bone island is again seen in the body of T3. There are moderate to severe compression deformities of T7 and T10, as well as minimal s uperior endplate compression deformities of T3 and T4. These are unchanged from previous. A hemangiom a is noted in the body of T12. No lytic or blastic bony lesions are seen. IMPRESSION: 1. There is no evidence of pulmonary embolus in the main, lobar, or segmental pulmonary arteries. 2. Cardiomegaly and moderate pericardial effusion. The pericardial effusion is nonspecific but has in creased in size as compared to 09/21/2020. Correlate clinically for evidence of pericarditis. 3. Left larger than right pleural effusions are similar to previous. 4. There is no airspace consolidation typical for pneumonia. 5. An 8 mm groundglass nodule in the right upper lobe is unchanged dating back to 06/09/2020. This is pathologically indeterminant, and a low-grade pulmonary neoplasm could have this appearance. [facility]-up is recommended. 6. Additional findings as above. Please refer to below summary of Fleischner criteria recommendations for follow-up of incidental CT n odules (Jimmy Lee, Guidelines for management of small pulmonary nodules detected on CT scans: A sta tement from the Fleischner Society, Radiology 237: [phone].) SOLID NODULES Solitary nodule size: <6 mm * low risk patients: no follow-up needed * high risk patients: optional CT at 12 months Solitary nodule size: 6-8 mm * low risk patients: follow-up at 6-12 months, then consider further follow-up at 18-24 months * high risk patients: initial follow-up CT at 6-12 months and then at 18-24 months if no change Solitary nodule size: >8 mm * either low or high risk patients - consider follow-up CT at 3 months, and/or CT-PET, and/or biopsy Multiple nodules size: <6 mm * low risk patients: no routine follow-up * high risk patients: optional CT at 12 months Multiple nodules size: 6-8 mm * low risk patients: follow-up at 3-6 months, then consider further follow-up at 18-24 months * high risk patients: follow-up at 3-6 months, then at 18-24 months if no change Multiple nodules size: >8 mm * low risk patients: follow-up at 3-6 months, then consider further follow-up at 18-24 months * high risk patients: follow-up at 3-6 months, then at 18-24 months if no change Note: newly detected indeterminate nodule in persons 35 years of age or older. * low risk patients: minimal or absent history of smoking and/or other known risk factors * high risk patients: history of smoking or of other known risk factors (e.g. first degree relative with lung cancer, or exposure to asbestos, radon, uranium) * if a nodule up to 8 mm is partly solid or is ground glass further follow-up is required after 24 m onths to exclude possible slow growing adenocarcinoma (SHANKAR) SUBSOLID NODULES Solitary pure ground-glass nodule * nodule size <6 mm - no CT follow-up required * nodule size >=6 mm - follow-up CT at 6-12 months, then every 2 years until 5 years Solitary part-solid nodule * nodule size <6 mm - no CT follow-up required * nodule size >=6 mm - follow-up CT at 3-6 months. If unchanged, and solid component remains <6 mm, then annual follow-up for 5 years Multiple subsolid nodules * nodule size <6 mm - follow-up CT at 3-6 months, consider further follow-up at 2 and 4 years if sta ble * nodule size >=6 mm - follow-up CT at 3-6 months, subsequent management based on the most suspiciou s nodule(s) ACT 112: Negative or not required by law. Electronically signed by: Frandy Sawyer M.D. 10/18/2020 10:03 PM
[2020-10-18] MEDS ORDERED: SODIUM CHLORIDE 0.9% 1000ML 500 ML IV ONE (22:08)
[2020-10-18] MEDS ORDERED: KETOROLAC TROMETHAMINE 15 MG/ML VIAL IV STA (23:14)
[2020-10-18 23:23] LABS: Influenza A virus by PCR Negative (Neg); Influenza B virus by PCR Negative (Neg); RSV by PCR Negative (Neg); SARS CoV2 RNA(COVID-19) InHosp NEGATIVE (Negative)
--- NOTE | 2020-10-18 23:32 | History & Physical Report ---
Date of Service October 18, 2020 Assessment & Plan (1) Effusion, pericardium: Patient presenting with recurrent bouts pericarditis pain since last month. Increase in pericardial effusion from last month's CT imaging. Etiology to be determined especially with malignancy history chronic systolic heart failure (EF 30 to 35%, TTE 2019), baseline volume status hypertension, slightly elevated L breast cancer status post surgery incomplete radiation on tamoxifen Rx, doing well as per last outpatient [facility] Oncology note from January 2020 dementia, at baseline as per PCU NSAID trial TTE, Cardiology consult Re: Pericardial effusion Continue daily outpatient diuretic regimen for now. DVT prophylaxis. Lovenox subcu Full code Patient requesting updates for providers. Mr. Gt Edmonds, contact #[phone]. Text document was generated using [employer] voice recognition software. It may contain grammatical or spelling errors. Kindly contact undersigned for clarification of any documentation item in question. History of Present Illness Chief Complaint: Chest pain Primary Care Provider: David Olsen MD History obtained from patient, family, and records. Patient is a fair historian. Medical history significant for chronic systolic heart failure (EF 30 to 35%, TTE 2019), hypertension, hyperlipidemia, cerebral meningioma as per records, left breast cancer status post surgery, incomplete radiation on tamoxifen Rx, dementia. Last confinement May 2020 for decompensated heart failure. TTE showed EF 30 to 35%, mild AR/mild TR, moderate MR. No pericardial effusion. Moderate-sized left pleural effusion. Diastolic dysfunction. Patient seen at the ER last month for retrosternal chest pain. CT chest did not show pulmonary embolus. Decreased size small left and trace right pleural effusions. Small pericardial effusion has increased in size. Patient discharged home from the ER after declining admission as per documentation. Pleuritic chest pain recurred 2 weeks ago with some shortness of breath. No fluid retention, no cough, no fever, no chills. Discomfort relieved by antacid intake by patient. No consultations done. Patient woke up with more severe pleuritic substernal chest pain this morning. No other associated symptoms as per patient. Patient brought to the ER by . Medical History as above Surgical History : Tonsillectomy/adenoidectomy, partial mastectomy left, BTL, axillary lymph node biopsy Family History : Asthma, dementia, colon cancer, heart disease Personal/Social history : Non-smoker, no EtOH intake, retired payroll tax analyst Allergies Allergy/AdvReac Type Severity Reaction Status Date / Time bee venom protein (honey bee) Allergy Intermediate EXTRA Verified 10/18/20 20:45 SWELLING AT SITE Sulfa (Sulfonamide Allergy Mild Unknown Verified 10/18/20 20:45 Antibiotics) bupropion Allergy Unknown unknown Verified 10/18/20 20:45 pneumococcal vaccine Allergy Unknown FEVER, Verified 10/18/20 20:45 [From Pneumovax 23] CHILLS, BODY ACHES, VOMITING Home Medications Medication Instructions Recorded Confirmed Type cyanocobalamin (vitamin B-12) 500 mcg PO QAM 06/29/19 10/18/20 History losartan 25 mg PO QAM 06/29/19 10/18/20 History tamoxifen 20 mg PO QAM 06/29/19 10/18/20 History furosemide 20 mg tablet 20 mg PO QAM 09/04/20 10/18/20 History tramadol 50 mg tablet 50 mg PO BID PRN 09/04/20 10/18/20 History calcium carbonate [Calcium 600] 600 mg PO BID 09/21/20 10/18/20 History famotidine 20 mg PO DAILY 10/18/20 10/18/20 History metoprolol succinate 25 mg PO QAM 10/18/20 10/18/20 History montelukast [Singulair] 10 mg PO DAILY 10/18/20 10/18/20 History potassium chloride 10 meq PO QAM 10/18/20 10/18/20 History Past Med/Surg History Medical History Acute dyspnea Acute on chronic congestive heart failure Anemia Breast cancer NO CHEMO/RADIATION Hypertension Hypokalemia Hypoxemia Migraine HX NICM (nonischemic cardiomyopathy) Peptic ulcer disease HX Pleural effusion on left Pleural effusion on right PVC (premature ventricular contraction) Surgical History History of cataract surgery right History of colonoscopy History of tonsillectomy History of tooth extraction Hx of lumpectomy LEFT Family History Other No family history of adverse response to anesthesia Social History Smoking Status: Never smoker Second Hand Exposure: No; Hx Alcohol Use: No Hx Substance Use: No Preferred Language: Wolof Communication Ability: Effective Product Consultant Required: No Beliefs That Will Affect Care: None Current Living Situation: Spouse Feels Safe at Home: Yes Safety Concerns: Feels Safe At This Time Assistive Devices: None Review of Systems Review of Systems: As per HPI, all 10 systems reviewed, all other ROS negative Physical Exam Physical Exam: GENERAL: uncomfortable, anxious, oriented to place, no respiratory distress SKIN: Normal color, warm HEENT: [place] palpebral conjunctivae, no ptosis, dry buccal mucosa NECK : Supple, no tenderness CHEST : Decreased breath sounds, no tenderness HEART : Tachycardic, diminished S1-S2 ABDOMEN: no distention, nontender EXTREMITIES : No LE swelling/tenderness, no other conspicuous deformities noted NEUROLOGIC : Coherent, no facial asymmetry, no other gross focality Results & Data Results & Data ([facility]) Vital Signs (Past 12 Hours) Vital Signs Temp Pulse Pulse Resp BP BP Pulse Ox 10/18/20 21:00 100 H 20 139/80 98 10/18/20 20:18 110 H 114 H 18 139/92 97 10/18/20 19:44 36.5 C 123 H 18 154/74 H 96 Laboratory Results Laboratory Results WBC 7.29 K/uL (4.8-10.8) 10/18/20 Unknown RBC 4.03 M/uL (4.2-5.4) L 10/18/20 Unknown Hgb 12.7 g/dL (12.0-16.0) 10/18/20 Unknown Hct 38.3 % (37-47) 10/18/20 Unknown MCV 95.0 fL (80-100) 10/18/20 Unknown MCH 31.5 pg (25-34) 10/18/20 Unknown MCHC 33.2 g/dL (32-36) 10/18/20 Unknown RDW Std Deviation 51.9 fL (36.4-46.3) H 10/18/20 Unknown RDW Coeff of Tiffany 14.9 % (11.5-14.5) H 10/18/20 Unknown Plt Count 231 K/uL (130-400) 10/18/20 Unknown MPV 10.4 fL (7.4-10.4) 10/18/20 Unknown Immature Gran % (Auto) 0.1 % 10/18/20 Unknown Neut % (Auto) 70.8 % 10/18/20 Unknown Lymph % (Auto) 18.0 % 10/18/20 Unknown Kerr % (Auto) 10.7 % 10/18/20 Unknown Eos % (Auto) 0.1 % 10/18/20 Unknown Baso % (Auto) 0.3 % 10/18/20 Unknown Neut # (Auto) 5.16 K/uL (1.4-6.5) 10/18/20 Unknown Lymph # (Auto) 1.31 K/uL (1.2-3.4) 10/18/20 Unknown Kerr # (Auto) 0.78 K/uL (0.11-0.59) H 10/18/20 Unknown Eos # (Auto) 0.01 K/uL (0-0.5) 10/18/20 Unknown Baso # (Auto) 0.02 K/uL (0-0.2) 10/18/20 Unknown Immature Gran # (Auto) 0.01 K/uL (0.00-0.02) 10/18/20 Unknown PT 10.1 Seconds (9.0-12.0) 10/18/20 Unknown INR 1.0 (0.9-1.1) 10/18/20 Unknown APTT 27.6 Seconds (21.0-31.0) 10/18/20 Unknown PTT Ratio 1.0 10/18/20 Unknown D-Dimer 1160 ug/L FEU (0-500) H* 10/18/20 Unknown Sodium 140 mmol/L (136-145) 10/18/20 Unknown Potassium 3.6 mmol/L (3.5-5.1) 10/18/20 Unknown Chloride 109 mmol/L (98-107) H 10/18/20 Unknown Carbon Dioxide 25 mmol/L (21-32) 10/18/20 Unknown Anion Gap 6.0 (3-11) 10/18/20 Unknown BUN 10 mg/dl (7-18) 10/18/20 Unknown Creatinine 0.48 mg/dl (0.6-1.2) L 10/18/20 Unknown Est Cr Clr Drug Dosing 86.9 ml/min 10/18/20 Unknown Est GFR ( Amer) 110.4 10/18/20 Unknown Est GFR (Non-Af Amer) 95.3 10/18/20 Unknown BUN/Creatinine Ratio 21.7 (10-20) H 10/18/20 Unknown Glucose 98 mg/dl (70-99) 10/18/20 Unknown Calcium 8.2 mg/dl (8.5-10.1) L 10/18/20 Unknown Magnesium Cancelled 10/18/20 Unknown Total Bilirubin 0.8 mg/dl (0.2-1) 10/18/20 Unknown AST 7 U/L (15-37) L 10/18/20 Unknown ALT 14 U/L (12-78) 10/18/20 Unknown Alkaline Phosphatase 37 U/L (45-117) L 10/18/20 Unknown Troponin I < 0.015 ng/ml (0-0.045) 10/18/20 Unknown C-Reactive Protein Cancelled 10/18/20 Unknown Total Protein 6.1 gm/dl (6.4-8.2) L 10/18/20 Unknown Albumin 2.9 gm/dl (3.4-5.0) L 10/18/20 Unknown Globulin 3.2 gm/dl (2.5-4.0) 10/18/20 Unknown Albumin/Globulin Ratio 0.9 (0.9-2) 10/18/20 Unknown Lipase 67 U/L (73-393) L 10/18/20 Unknown TSH Cancelled 10/18/20 Unknown COVID-19 Eval Order CovFluRsv at [facility] 10/18/20 Unknown SARS-CoV-2 (PCR) NEGATIVE (Negative) 10/18/20 Unknown Influenza Type A (PCR) Negative (Neg) 10/18/20 Unknown Influenza Type B (PCR) Negative (Neg) 10/18/20 Unknown RSV (RT-PCR) Negative (Neg) 10/18/20 Unknown Impressions Chest X-Ray 10/18/20 20:18 SINGLE VIEW CHEST CLINICAL HISTORY: Atypical chest pain. Generalized weakness. FINDINGS: An AP, portable, upright chest radiograph is compared to chest x-ray and chest CT dated 09/21/2020. The examination is degraded by portable technique and patient rotation. The heart is enlarged noting atherosclerotic calcification of the thoracic aorta. The pulmonary vasculature is noncongested. Chronic additional thickening is similar to previous. There is a small left pleural effusion with left basilar consolidation. Right lung is clear noting basilar atelectasis. No pneumothorax is seen. The skeletal structures are osteopenic. The bony thorax is grossly intact. A large bone wound is again noted in the upper thoracic spine. IMPRESSION: 1. Cardiomegaly without radiographic evidence of congestive failure. 2. A small left pleural effusion with left basilar consolidation is unchanged to slightly decreased as compared to 09/21/2020. ACT 112: Negative or not required by law. Electronically signed by: Frandy Sawyer M.D. 10/18/2020 8:29 PM Chest CTA 10/18/20 21:13 CT ANGIOGRAM OF THE CHEST CLINICAL HISTORY: Atypical chest pain. COMPARISON STUDY: Chest x-ray dated 10/18/2020. Chest CT dated 09/21/2020 and 06/09/2020. TECHNIQUE: Following the IV administration of 111 cc of Optiray 350, CT angiogram of the chest was performed from the upper abdomen to the thoracic inlet utilizing the pulmonary embolus protocol. Images are reviewed in the axial, sagittal, and coronal planes. 3-D MIPS images are created and assessed. IV contrast was administered without complication. A dose lowering technique was utilized adhering to the principles of ALARA. CT DOSE: 230.49 mGy.cm FINDINGS: Thyroid: Imaged portions of the thyroid gland are normal in size and attenuation. Thoracic aorta: There is atherosclerotic calcification of the thoracic aorta. There is mild ectasia of the ascending thoracic aorta which measures up to 3.7 cm in diameter. The remainder of the thoracic aorta is normal in caliber, and the arch demonstrates standard 3-vessel anatomy. No dissection is seen. Pulmonary vasculature: The pulmonary trunk is normal in caliber. There are no filling defects identified in main, lobar, or segmental pulmonary branches to suggest pulmonary embolus. Heart: The heart is enlarged noting a moderate pericardial effusion. The coronary arteries are densely calcified. Lungs and pleural spaces: There are small pleural effusions, left larger than right with bibasilar scarring/atelectasis. No airspace consolidation is identified typical for pneumonia. The trachea and central airways are clear. An 8 mm groundglass nodule is again seen in the right upper lobe on image #175. There are scattered calcified granulomas. Mediastinum: There is no mediastinal lymphadenopathy. Shahana: Clear. Axillae: There is no axillary lymphadenopathy. Upper abdomen: Partially visualized upper abdominal viscera is within normal limits. Skeletal structures: The skeletal structures are osteopenic. A large bone island is again seen in the body of T3. There are moderate to severe compression deformities of T7 and T10, as well as minimal superior endplate compression deformities of T3 and T4. These are unchanged from previous. A hemangioma is noted in the body of T12. No lytic or blastic bony lesions are seen. IMPRESSION: 1. There is no evidence of pulmonary embolus in the main, lobar, or segmental pulmonary arteries. 2. Cardiomegaly and moderate pericardial effusion. The pericardial effusion is nonspecific but has increased in size as compared to 09/21/2020. Correlate clinically for evidence of pericarditis. 3. Left larger than right pleural effusions are similar to previous. 4. There is no airspace consolidation typical for pneumonia. 5. An 8 mm groundglass nodule in the right upper lobe is unchanged dating back to 06/09/2020. This is pathologically indeterminant, and a low-grade pulmonary neoplasm could have this appearance. Nonemergent pulmonology follow-up is recommended. 6. Additional findings as above. Please refer to below summary of Fleischner criteria recommendations for follow- up of incidental CT nodules (Jimmy Lee, Guidelines for management of small pulmonary nodules detected on CT scans: A statement from the Fleischner Society, Radiology 237: [phone].) SOLID NODULES Solitary nodule size: <6 mm * low risk patients: no follow-up needed * high risk patients: optional CT at 12 months Solitary nodule size: 6-8 mm * low risk patients: follow-up at 6-12 months, then consider further follow-up at 18-24 months * high risk patients: initial follow-up CT at 6-12 months and then at 18-24 months if no change Solitary nodule size: >8 mm * either low or high risk patients - consider follow-up CT at 3 months, and/or CT-PET, and/or biopsy Multiple nodules size: <6 mm * low risk patients: no routine follow-up * high risk patients: optional CT at 12 months Multiple nodules size: 6-8 mm * low risk patients: follow-up at 3-6 months, then consider further follow-up at 18-24 months * high risk patients: follow-up at 3-6 months, then at 18-24 months if no change Multiple nodules size: >8 mm * low risk patients: follow-up at 3-6 months, then consider further follow-up at 18-24 months * high risk patients: follow-up at 3-6 months, then at 18-24 months if no change Note: newly detected indeterminate nodule in persons 35 years of age or older. * low risk patients: minimal or absent history of smoking and/or other known risk factors * high risk patients: history of smoking or of other known risk factors (e.g. first degree relative with lung cancer, or exposure to asbestos, radon, uranium) * if a nodule up to 8 mm is partly solid or is ground glass further follow-up is required after 24 months to exclude possible slow growing adenocarcinoma (SHANKAR) SUBSOLID NODULES Solitary pure ground-glass nodule * nodule size <6 mm - no CT follow-up required * nodule size >=6 mm - follow-up CT at 6-12 months, then every 2 years until 5 years Solitary part-solid nodule * nodule size <6 mm - no CT follow-up required * nodule size >=6 mm - follow-up CT at 3-6 months. If unchanged, and solid component remains <6 mm, then annual follow-up for 5 years Multiple subsolid nodules * nodule size <6 mm - follow-up CT at 3-6 months, consider further follow-up at 2 and 4 years if stable * nodule size >=6 mm - follow-up CT at 3-6 months, subsequent management based on the most suspicious nodule(s) ACT 112: Negative or not required by law. Electronically signed by: Frandy Sawyer M.D. 10/18/2020 10:03 PM Diagnostic Findings EKG as per my interpretation: Rate 110, sinus tachycardia, LAD, LAFB, T wave abnormalities lateral leads, LVH
[2020-10-18 23:56] LABS: C Reactive Protein 9.44 mg/dl (0-0.29)
[2020-10-18 23:57] LABS: NT Pro B Type Natriuretic Pept 7059 pg/ml (0-1800)
[2020-10-19 00:19] LABS: Lyme Ab IgG w/WB Rflx Negative (Negative); Lyme Ab IgM w/WB Rflx Negative (Negative)
[2020-10-19] MEDS ORDERED: PROMETHAZINE HCL 12.5 MG in SODIUM CHLORIDE 0.9% 50 ML IV PRN (01:38)
[2020-10-19] MEDS ORDERED: MoRPHine SULFATE 4 MG/ML 1 ML CARP\\VIAL IV PRN (01:38)
[2020-10-19] MEDS ORDERED: IBUPROFEN 200 MG TAB PO PRN (01:38)
[2020-10-19] MEDS ORDERED: traMADol HCL 50 MG TABLET PO PRN (01:38)
[2020-10-19] MEDS ORDERED: ACETAMINOPHEN 325 MG TAB PO PRN (01:38)
[2020-10-19 07:21] LABS: Basophils # (auto) 0.02 K/uL (0-0.2); Basophils % (auto) 0.4 %; Eosinophils # (auto) 0.02 K/uL (0-0.5); Eosinophils % (auto) 0.4 %; Hematocrit (blood only) 34.2 % (37-47); Hemoglobin 11.2 g/dL (12.0-16.0); Lymphocytes # (auto) 1.36 K/uL (1.2-3.4); Lymphocytes % (auto) 26.6 %; Mean Corpuscular Hgb Conc 32.7 g/dL (32-36); Mean Corpuscular Volume 94.7 fL (80-100); Mean Platelet Volume 9.8 fL (7.4-10.4); Monocytes # (auto) 0.51 K/uL (0.11-0.59); Neutrophils # (auto) 3.21 K/uL (1.4-6.5); Neutrophils % (auto) 62.6 %; Platelet Count 198 K/uL (130-400); RDW Coefficient of Variation 14.8 % (11.5-14.5); RDW Standard Deviation 51.5 fL (36.4-46.3); Red Blood Count 3.61 M/uL (4.2-5.4); White Blood Count 5.12 K/uL (4.8-10.8)
[2020-10-19 07:59] LABS: BUN Creatinine Ratio 25.3 (10-20); Calcium 7.6 mg/dl (8.5-10.1); Creatinine Clr Calc Pharmacy 104.3 ml/min; Est GFR (African American) 117.3; Est GFR (Non-African American) 101.2; Potassium 3.6 mmol/L (3.5-5.1)
[2020-10-19] MEDS: ENOXAPARIN INJ 30 MG/0.3 ML SYR SQ SCH (08:44)
[2020-10-19] MEDS: FAMOTIDINE 20 MG TAB PO SCH (08:45)
[2020-10-19] MEDS: FUROSEMIDE 20 MG TAB PO SCH (08:45)
[2020-10-19] MEDS: LOSARTAN POTASSIUM 25 MG TAB PO SCH (08:46)
[2020-10-19] MEDS: CYANOCOBALAMIN 500 MCG TABLET (VITAMIN B-12) PO SCH (08:46)
[2020-10-19] MEDS: MONTELUKAST SODIUM 10 MG TABLET PO SCH (08:46)
[2020-10-19] MEDS: TAMOXIFEN CITRATE 10 MG TABLET PO SCH (08:46)
[2020-10-19] MEDS ORDERED: METOPROLOL SUCC 25MG EXT REL TAB PO SCH (09:00)
[2020-10-19 09:33] LABS: C Reactive Protein 8.61 mg/dl (0-0.29); Troponin I < 0.015 ng/ml (0-0.045)
--- NOTE | 2020-10-19 12:13 | Cardiology Consultation ---
Date of Consultation October 19, 2020 Assessment & Plan (1) Chest pain: (2) Acute on chronic congestive heart failure: (3) Breast cancer: Chest discomfort: Patient with small circumferential pericardial effusion, troponin negative x2, erythrocyte sedimentation rate within normal limits, C-reactive protein mildly elevated at 9.44 mg/dL. There are EKG abnormalities to suggest pericarditis, and is difficult to obtain history from the patient given her cognitive impairment as to whether or not her chest pain is chest wall pain, or consistent with pericarditis. Negative troponin levels and negative EKG, if an acute coronary syndrome is low. She has received a dose of Toradol x1 overnight. Given her comorbidities, she is a poor candidate for ongoing nonsteroidal anti- inflammatory treatment, and I would recommend starting colchicine and low-dose prednisone. Acute on chronic congestive heart failure, moderate left ventricular systolic dysfunction: Echocardiogram reveals perhaps a very subtle improvement in her LVEF compared to May,, however it is still diminished at 35 to 39%. Conservative treatment pursued previously due to her cognitive impairment. Continue prior to hospital treatment with metoprolol, furosemide, losartan. History of breast carcinoma: Outpatient medical oncology notes, she was diagnosed in 2017 and underwent partial left mastectomy and sentinel lymph node biopsy 09/08/2017, she also received radiation therapy. Her most recent mammogram took place in November,, and a repeat study was recommended a 1 year interval which will be due in November, DVT prophylaxis: Subcutaneous Lovenox 30 mg daily. History of Present Illness Attending Physician: Chinmay Ramachandran MD History of Present Illness Savi Edmonds is a 75-year-old female seen in cardiology consultation per the request of Dr. De Anda for the evaluation of chest discomfort and pericardial effusion. The patient was most recently seen in outpatient cardiology follow-up by Sabrina Cody PA-C of our practice on 08/05/2020. Per review of that progress note, the patient has a history of dementia with resultant cognitive impairment. Her cardiac history is notable for mild left ventricular systolic dysfunction noted after past treatment for breast carcinoma. In May,, she was admitted to [facility] for shortness of breath with development of moderate left ventricular systolic dysfunction, LVEF in the range of 30-35% at that time. She presented overnight for chest discomfort. Interview is limited due to her cognitive impairment. She does describe a chest discomfort sensation when she takes a deep breath. There is also however of chest discomfort which is exquisi tely painful light palpation of the sternal costal margin on the left side. Work-up thus far is notable for a CT of the chest that revealed a moderate sized pericardial effusion, increased by CT criteria compared to the previous study dating back to 09/21/2020 when a trace pericardial effusion was noted. By the undersigned today a small circumferential pericardial effusion with most notable fluid collection adjacent to the anterior wall, and the right lateral wall with some degree chronicity moderate left ventricular systolic dysfunction was noted with ejection fraction in the range of 35-39%. Allergies Allergy/AdvReac Type Severity Reaction Status Date / Time bee venom protein (honey bee) Allergy Intermediate EXTRA Verified 10/18/20 20:45 SWELLING AT SITE Sulfa (Sulfonamide Allergy Mild Unknown Verified 10/18/20 20:45 Antibiotics) bupropion Allergy Unknown unknown Verified 10/18/20 20:45 pneumococcal vaccine Allergy Unknown FEVER, Verified 10/18/20 20:45 [From Pneumovax 23] CHILLS, BODY ACHES, VOMITING Home Medications Medication Instructions Recorded Confirmed Type cyanocobalamin (vitamin B-12) 500 mcg PO QAM 06/29/19 10/18/20 History losartan 25 mg PO QAM 06/29/19 10/18/20 History tamoxifen 20 mg PO QAM 06/29/19 10/18/20 History furosemide 20 mg tablet 20 mg PO QAM 09/04/20 10/18/20 History tramadol 50 mg tablet 50 mg PO BID PRN 09/04/20 10/18/20 History calcium carbonate [Calcium 600] 600 mg PO BID 09/21/20 10/18/20 History famotidine 20 mg PO DAILY 10/18/20 10/18/20 History metoprolol succinate 25 mg PO QAM 10/18/20 10/18/20 History montelukast [Singulair] 10 mg PO DAILY 10/18/20 10/18/20 History potassium chloride 10 meq PO QAM 10/18/20 10/18/20 History Patient History Medical History Acute dyspnea Acute on chronic congestive heart failure Anemia Breast cancer NO CHEMO/RADIATION Hypertension Hypokalemia Hypoxemia Migraine HX NICM (nonischemic cardiomyopathy) Peptic ulcer disease HX Pleural effusion on left Pleural effusion on right PVC (premature ventricular contraction) Surgical History History of cataract surgery right History of colonoscopy History of tonsillectomy History of tooth extraction Hx of lumpectomy LEFT Family History Other No family history of adverse response to anesthesia Social History Smoking Status: Never smoker Second Hand Exposure: No; Hx Alcohol Use: No Hx Substance Use: No Preferred Language: Swiss Communication Ability: Effective Binder Fixer Required: No Beliefs That Will Affect Care: None Current Living Situation: Spouse Feels Safe at Home: Yes Safety Concerns: Feels Safe At This Time Assistive Devices: None Review of Systems Review of Systems: Unobtainable due to cognitive status Physical Exam Physical Exam: Temp Pulse Resp BP Pulse Ox 36.7 C 103 H 18 145/83 H 97 10/19/20 07:54 10/19/20 07:54 10/19/20 07:54 10/19/20 07:54 10/19/20 07:54 Constitutional: no acute distress Respiratory: normal respiratory effort, lungs clear to auscultation Cardiovascular: RRR, no murmur, no edema Chest (Breasts): Additional Comments: Focal tenderness on light palpation of the left costal sternal margin Gastrointestinal (Abdomen): normal bowel sounds, soft, nontender, no h epatosplenomegaly Neurologic: Follows commands, cognitive impairment noted in terms of being able to provide history Results & Data ([facility]) Vital Signs (Past 12 Hours) Vital Signs Temp Pulse Pulse Resp BP BP BP 10/19/20 07:54 36.7 C 103 H 18 145/83 H 10/19/20 04:41 36.6 C 91 H 19 134/81 10/19/20 00:36 36.7 C 97 H 16 134/86 10/19/20 00:00 95 H 24 131/72 Pulse Ox 10/19/20 07:54 97 10/19/20 04:41 94 10/19/20 00:36 94 10/19/20 00:00 95 Laboratory Results Cardiac Enzymes 10/18/20 10/19/20 Range/Units Unknown 07:10 AST 7 L (15-37) U/L Troponin I < 0.015 < 0.015 (0-0.045) ng/ml SARS-CoV-2 screen 26/12/20 was negative Coagulation 10/18/20 Range/Units Unknown PT 10.1 (9.0-12.0) Seconds APTT 27.6 (21.0-31.0) Seconds CBC 10/18/20 10/19/20 Range/Units Unknown 07:10 WBC 7.29 5.12 (4.8-10.8) K/uL RBC 4.03 L 3.61 L (4.2-5.4) M/uL Hgb 12.7 11.2 L (12.0-16.0) g/dL Hct 38.3 34.2 L (37-47) % Plt Count 231 198 (130-400) K/uL Neut # (Auto) 5.16 3.21 (1.4-6.5) K/uL Lymph # (Auto) 1.31 1.36 (1.2-3.4) K/uL Bell # (Auto) 0.78 H 0.51 (0.11-0.59) K/uL Eos # (Auto) 0.01 0.02 (0-0.5) K/uL Baso # (Auto) 0.02 0.02 (0-0.2) K/uL Comprehensive Metabolic Panel 10/18/20 10/19/20 Range/Units Unknown 07:10 Sodium 140 143 (136-145) mmol/L Potassium 3.6 3.6 (3.5-5.1) mmol/L Chloride 109 H 113 H (98-107) mmol/L Carbon Dioxide 25 26 (21-32) mmol/L BUN 10 10 (7-18) mg/dl Creatinine 0.48 L 0.40 L (0.6-1.2) mg/dl Glucose 98 83 (70-99) mg/dl Calcium 8.2 L 7.6 L (8.5-10.1) mg/dl AST 7 L (15-37) U/L ALT 14 (12-78) U/L Alkaline Phosphatase 37 L (45-117) U/L Total Protein 6.1 L (6.4-8.2) gm/dl Albumin 2.9 L (3.4-5.0) gm/dl Intake and Output 10/18/20 10/19/20 10/19/20 22:59 06:59 14:59 Intake Total 500 / 500 Balance 500 / 500 Intake: IV 500 / 500 Sodium Chloride 0.9% 1000ML 500 500 / 500 ml @ 999 mls/hr IV .Q31M ONE Rx#:[id number] Other: Weight 62.8 kg 62.9 kg Weight Measurement Method Chair Scale Standing Scale Diagnostic Findings EKG performed 10/18/2020, 2002 hrs. reviewed independently revealed sinus tachycardia at 109 bpm, evaluation the lateral leads is technically limited due to artifact, but mild nonspecific repolarization abnormality noted Repeat tracing this morning 10/19/2020 reveals sinus rhythm at 94 bpm, mild nonspecific repolarization changes without significant ST depression. Compared to prior tracings dating back to May 2020, in September,, nonspecific lateral repolarization changes are chronic findings. (1) Chest pain Chest pain type: unspecified Qualified Code(s): R07.9 - Chest pain, unspecified (2) Acute on chronic congestive heart failure Heart failure type: systolic Qualified Code(s): I50.23 - Acute on chronic systolic (congestive) heart failure
[2020-10-19] MEDS ORDERED: POTASSIUM CHLORIDE CRTAB 20 MEQ TABCR PO STA (12:19)
[2020-10-19] MEDS ORDERED: METOPROLOL TARTRATE 25 MG TAB PO ONE (12:30)
[2020-10-19] MEDS: COLCHICINE 0.6 MG TAB PO SCH ×2 (12:44→20:24)
[2020-10-19] MEDS: predniSONE 20 MG TAB PO SCH (12:44)
--- NOTE | 2020-10-19 13:02 | Communication Note ---
Date of Service: October 19, 2020 I called and discussed case with patient's sister, Dr Jolly Kolb, internal medicine and Rheumatology, [place]. . I provided updates.
--- NOTE | 2020-10-19 15:23 | Hospitalist Progress Note ---
Date of Service October 19, 2020 Assessment & Plan (1) Effusion, pericardium: Chest pain Small pericardial effusion Likely pericarditis -CTA:No evidence of pulmonary embolus in the main, lobar, or segmental pulmonary arteries. Cardiomegaly and moderate pericardial effusion. The pericardial effus ion is nonspecific but has increased in size as compared to 09/21/2020. Correlate clinically for evidence of pericarditis. Left larger than right pleural effusions are similar to previous. There is no airspace consolidation typical for pneumonia. -ECHO: Mild concentric LVH. Moderate diffuse left ventricular hypokinesis present. EF 35 to 39%. Left atrium moderately dilated. Small circumferential pericardial effusion. No tamponade. Significant fibrinous strands suggesting some degree of chronicity. -Normal ESR, elevated CRP -Started on colchicine, prednisone -Appreciate cardiology input NSVT Monitor electrolytes and replace as needed Metoprolol increased to 25 mg twice a day Acute on chronic systolic heart failure Echo as above Continue furosemide, metoprolol, losartan Monitor volume status Hypertension Mildly elevated Continue losartan, metoprolol Monitor Left breast cancer S/P surgery,radiation on tamoxifen Follows with [facility] oncology Dementia Reorient frequently to minimize delirium Monitor DVT Px: Lovenox SQ Code Status Full code Admission and Anticipated Discharge Date Admission Date: October 18, 2020 Subjective Patient is seen and examined at bedside Patient complained of chest discomfort earlier today with later resolved Currently denies chest pain, dyspnea, dizziness, nausea, abdominal pain 5 beats of nonsustained ventricular tachycardia on monitor Discussed with cardiology today Offers no other complaints Review of Systems Review of Systems: All systems reviewed & are unremarkable except as noted in HPI & below Physical Exam Physical Exam: Physical Exam: Vitals signs as noted above General Appearance:Moderately built and nourished, no apparent distress Head: normocephalic, Atraumatic Eyes: normal inspection, EOMI Neck: supple, Trachea midline Respiratory/Chest: Decreased breath sounds, CTA Cardiovascular: S1, S2, No murmur,+Left chest tender Abdomen/GI:Soft, Non tender, Bowel sounds present Extremities/Musculoskeletal:normal inspection, no edema Neurologic/Psych:AAOX3, grossly no focal neurological deficits Skin: normal color, warm Results & Data Results & Data ([facility] [place]) Vital Signs (Past 12 Hours) Vital Signs Temp Pulse Pulse Resp BP BP Pulse Ox 10/19/20 12:42 112 H 10/19/20 12:07 37.0 C 101 H 18 146/85 H 94 10/19/20 07:54 36.7 C 103 H 18 145/83 H 97 10/19/20 04:41 36.6 C 91 H 19 134/81 94 Laboratory Results Short CBC 10/18/20 10/19/20 Range/Units Unknown 07:10 WBC 7.29 5.12 (4.8-10.8) K/uL Hgb 12.7 11.2 L (12.0-16.0) g/dL Hct 38.3 34.2 L (37-47) % Plt Count 231 198 (130-400) K/uL BMP 10/18/20 10/19/20 Unknown 07:10 Sodium 140 143 Potassium 3.6 3.6 Chloride 109 H 113 H Carbon Dioxide 25 26 BUN 10 10 Creatinine 0.48 L 0.40 L Glucose 98 83 Calcium 8.2 L 7.6 L Cardiac Enzymes 10/18/20 10/19/20 Range/Units Unknown 07:10 Troponin I < 0.015 < 0.015 (0-0.045) ng/ml Liver Function 10/18/20 Range/Units Unknown Total Bilirubin 0.8 (0.2-1) mg/dl AST 7 L (15-37) U/L ALT 14 (12-78) U/L Alkaline Phosphatase 37 L (45-117) U/L Albumin 2.9 L (3.4-5.0) gm/dl
--- NOTE | 2020-10-19 15:27 | Electrocardiogram Report ---
Test Reason : Blood Pressure : / mmHG Vent. Rate : 109 BPM Atrial Rate : 109 BPM P-R Int : 146 ms QRS Dur : 082 ms QT Int : 324 ms P-R-T Axes : 028 -41 103 degrees QTc Int : 436 ms Poor data quality, interpretation may be adversely affected Sinus tachycardia Possible Left atrial enlargement Left axis deviation Left ventricular hypertrophy with repolarization abnormality Abnormal ECG When compared with ECG of 21-SEP-2020 15:05, No significant change was found Confirmed by Gene Torres ([id number]) on 10/19/2020 3:27:10 PM Referred By: REFERRED SELF Confirmed By:Gene Torres
--- NOTE | 2020-10-19 15:35 | Electrocardiogram Report ---
Test Reason : Blood Pressure : / mmHG Vent. Rate : 094 BPM Atrial Rate : 094 BPM P-R Int : 160 ms QRS Dur : 088 ms QT Int : 378 ms P-R-T Axes : 042 -38 097 degrees QTc Int : 472 ms Normal sinus rhythm Possible Left atrial enlargement Left axis deviation Left ventricular hypertrophy with repolarization abnormality Prolonged QT Abnormal ECG When compared with ECG of 18-OCT-2020 20:02, (unconfirmed) No significant change was found Confirmed by Gene Torres ([id number]) on 10/19/2020 3:34:41 PM Referred By: REFERRED SELF Confirmed By:Gene Torres
[2020-10-19] MEDS: METOPROLOL SUCC 25MG EXT REL TAB PO SCH (20:23)
[2020-10-20 06:44] LABS: Hematocrit (blood only) 34.1 % (37-47); Hemoglobin 11.2 g/dL (12.0-16.0); Mean Corpuscular Hemoglobin 30.6 pg (25-34); Mean Corpuscular Hgb Conc 32.8 g/dL (32-36); Mean Corpuscular Volume 93.2 fL (80-100); Mean Platelet Volume 9.7 fL (7.4-10.4); Platelet Count 214 K/uL (130-400); RDW Coefficient of Variation 14.5 % (11.5-14.5); RDW Standard Deviation 49.4 fL (36.4-46.3); Red Blood Count 3.66 M/uL (4.2-5.4); White Blood Count 5.82 K/uL (4.8-10.8)
[2020-10-20 07:18] LABS: Calcium 7.8 mg/dl (8.5-10.1); Creatinine Clr Calc Pharmacy 102.1 ml/min; Est GFR (African American) 116.3; Est GFR (Non-African American) 100.4; Magnesium 2.3 mg/dl (1.8-2.4); Potassium 4.2 mmol/L (3.5-5.1)
[2020-10-20] MEDS: ENOXAPARIN INJ 30 MG/0.3 ML SYR SQ SCH (09:16)
[2020-10-20] MEDS: CYANOCOBALAMIN 500 MCG TABLET (VITAMIN B-12) PO SCH (09:16)
[2020-10-20] MEDS: COLCHICINE 0.6 MG TAB PO SCH (09:16)
[2020-10-20] MEDS: FAMOTIDINE 20 MG TAB PO SCH (09:17)
[2020-10-20] MEDS: FUROSEMIDE 20 MG TAB PO SCH (09:17)
[2020-10-20] MEDS: METOPROLOL SUCC 25MG EXT REL TAB PO SCH (09:18)
[2020-10-20] MEDS: LOSARTAN POTASSIUM 25 MG TAB PO SCH (09:18)
[2020-10-20] MEDS: MONTELUKAST SODIUM 10 MG TABLET PO SCH (09:18)
[2020-10-20] MEDS: predniSONE 20 MG TAB PO SCH (09:19)
[2020-10-20] MEDS: TAMOXIFEN CITRATE 10 MG TABLET PO SCH (09:19)
--- NOTE | 2020-10-20 14:33 | Cardiology Progress Note ---
Date of Service October 20, 2020 Assessment & Plan (1) Chest pain: (2) Acute on chronic congestive heart failure: (3) Breast cancer: Chest discomfort: Patient with small circumferential pericardial effusion, troponin negative x2, erythrocyte sedimentation rate within normal limits, C-reactive protein mildly elevated at 9.44 mg/dL. There are EKG abnormalities to suggest pericarditis, and is difficult to obtain history from the patient given her cognitive impairment as to whether or not her chest pain is chest wall pain, or consistent with pericarditis. Negative troponin levels and negative EKG, if an acute coronary syndrome is low. Given her comorbidities, she is a poor candidate for ongoing nonsteroidal anti- inflammatory treatment, and I would recommend starting colchicine and low-dose prednisone. Would recommend discharge on colchicine 0.6 mg daily and prednisone 20 mg daily x7 days, 10 milligrams daily x7 days, 5 milligrams daily x 7 days, 2.5 mg daily x 7 days. Repeat echo as outpatient in 2 months. Follow up after echo Cardiomyopathy, moderate LV systolic function: Patient with a brief episode of nonsustained VT noted yesterday afternoon, without recurrence. With noted supplementation of potassium, and metoprolol succinate increased from 25 mg daily to 25 mg twice daily. LVEF 35 to 39% on echocardiogram this admission, subtle improvement compared to prior. Patient is not had ischemic work-up due to her dementia. Continue Medical therapy including metoprolol, furosemide, losartan. Most recent blood pressure a little bit above goal at 157/90, but most of her blood pressures have been relatively well controlled. History of breast carcinoma: Outpatient medical oncology notes, she was diagnosed in 2018 and underwent partial left mastectomy and sentinel lymph node biopsy 09/08/2017, she also received radiation therapy. Her most recent mammogram took place in November,, and a repeat study was recommended a 1 year interval which will be due in November, DVT prophylaxis: Subcutaneous Lovenox 30 mg daily. Admission and Anticipated Discharge Date Admission Date: October 18, 2020 Subjective Patient denies complaints. Denies chest discomfort deep inspiration or with palpating the left sternal costal margin. Telemetry reveals sinus rhythm in the range of 70 to 100 bpm with occasional PVCs. Review of Systems Review of Systems: Unobtainable due to cognitive status Physical Exam Physical Exam: Temp Pulse Resp BP Pulse Ox 36.6 C 95 H 21 157/90 H 96 10/20/20 11:59 10/20/20 11:59 10/20/20 11:59 10/20/20 11:59 10/20/20 11:59 Constitutional: Cognitive status limited in terms of history, recent memory Respiratory: normal respiratory effort, lungs clear to auscultation Cardiovascular: RRR, no murmur, no edema Neurologic: Moves all 4 extremities, follows commands. Results & Data ([facility]) Vital Signs (Past 12 Hours) Vital Signs Temp Pulse Resp BP Pulse Ox 10/20/20 11:59 36.6 C 95 H 21 157/90 H 96 10/20/20 07:45 36.4 C L 87 20 149/86 H 93 Laboratory Results CBC 10/20/20 Range/Units 06:27 WBC 5.82 (4.8-10.8) K/uL RBC 3.66 L (4.2-5.4) M/uL Hgb 11.2 L (12.0-16.0) g/dL Hct 34.1 L (37-47) % Plt Count 214 (130-400) K/uL Comprehensive Metabolic Panel 10/20/20 Range/Units 06:27 Sodium 143 (136-145) mmol/L Potassium 4.2 D (3.5-5.1) mmol/L Chloride 114 H (98-107) mmol/L Carbon Dioxide 24 (21-32) mmol/L BUN 14 (7-18) mg/dl Creatinine 0.41 L (0.6-1.2) mg/dl Glucose 94 (70-99) mg/dl Calcium 7.8 L (8.5-10.1) mg/dl Intake and Output 10/19/20 10/20/20 10/20/20 22:59 06:59 14:59 Intake Total 50 / 350 300 / 350 Output Total 550 / 1850 800 / 1850 300 / 300 Balance -500 / -1500 -500 / -1500 -300 / -300 Intake: Oral 50 / 350 300 / 350 Output: Urine 550 / 1850 800 / 1850 300 / 300 Other: # Unmeasured Voids 1 Weight 63.3 kg Weight Measurement Method Built in [facility] (1) Chest pain Chest pain type: unspecified Qualified Code(s): R07.9 - Chest pain, unspecified (2) Acute on chronic congestive heart failure Heart failure type: systolic Qualified Code(s): I50.23 - Acute on chronic systolic (congestive) heart failure
--- NOTE | 2020-10-20 14:52 | Communication Note ---
Date of Service: October 20, 2020 I called and updated pt's sister in law, Jolly, and patient's .
--- NOTE | 2020-10-20 14:59 | Hospitalist Progress Note ---
Date of Service October 20, 2020 Assessment & Plan (1) Effusion, pericardium: Chest pain Small pericardial effusion Likely pericarditis -CTA:No evidence of pulmonary embolus in the main, lobar, or segmental pulmonary arteries. Cardiomegaly and moderate pericardial effusion. The pericardial effus ion is nonspecific but has increased in size as compared to 09/21/2020. Correlate clinically for evidence of pericarditis. Left larger than right pleural effusions are similar to previous. There is no airspace consolidation typical for pneumonia. -ECHO: Mild concentric LVH. Moderate diffuse left ventricular hypokinesis present. EF 35 to 39%. Left atrium moderately dilated. Small circumferential pericardial effusion. No tamponade. Significant fibrinous strands suggesting some degree of chronicity. -Normal ESR, elevated CRP -Continue colchicine, prednisone -Appreciate cardiology input -Plan to taper prednisone--200 mg for 7 days, 10 mg for 7 days, 5 mg for 7 days, 2.5 mg for 7 days. -Needs repeat echocardiogram in 2 months and follow-up with cardiology as outpatient NSVT Monitor electrolytes and replace as needed Metoprolol increased to 25 mg twice a day Acute on chronic systolic heart failure Echo as above Continue furosemide, metoprolol, losartan Monitor volume status Hypertension Mildly elevated Continue losartan, metoprolol Monitor Left breast cancer S/P surgery,radiation on tamoxifen Follows with [facility] oncology Dementia Reorient frequently to minimize delirium Monitor DVT Px: Lovenox SQ Code Status Full code Admission and Anticipated Discharge Date Admission Date: October 18, 2020 Subjective Patient is seen and examined at bedside States feeling well today Offers no complaints Chest pain resolved Discussed with cardiology today Denies dyspnea, dizziness, nausea, abdominal pain Review of Systems Review of Systems: All systems reviewed & are unremarkable except as noted in HPI & below Physical Exam Physical Exam: Physical Exam: Vitals signs as noted above General Appearance:Moderately built and nourished, no apparent distress Head: normocephalic, Atraumatic Eyes: normal inspection, EOMI Neck: supple, Trachea midline Respiratory/Chest: Decreased breath sounds, CTA Cardiovascular: S1, S2, No murmur Abdomen/GI:Soft, Non tender, Bowel sounds present Extremities/Musculoskeletal:normal inspection, no edema Neurologic/Psych:AAOX3, grossly no focal neurological deficits Skin: normal color, warm Results & Data Results & Data ([facility]) Vital Signs (Past 12 Hours) Vital Signs Temp Pulse Resp BP Pulse Ox 05/09/21 11:59 36.6 C 95 H 21 157/90 H 96 10/20/20 07:45 36.4 C L 87 20 149/86 H 93 Laboratory Results Short CBC 10/20/20 Range/Units 06:27 WBC 5.82 (4.8-10.8) K/uL Hgb 11.2 L (12.0-16.0) g/dL Hct 34.1 L (37-47) % Plt Count 214 (130-400) K/uL BMP 10/20/20 06:27 Sodium 143 Potassium 4.2 D Chloride 114 H Carbon Dioxide 24 BUN 14 Creatinine 0.41 L Glucose 94 Calcium 7.8 L
--- NOTE | 2020-10-20 15:25 | Discharge Summary ---
Date of Service October 20, 2020 Admission HPI Per Admitting Provider History obtained from patient, family, and records. Patient is a fair historian. Medical history significant for chronic systolic heart failure (EF 30 to 35%, TTE 2019), hypertension, hyperlipidemia, cerebral meningioma as per records, left breast cancer status post surgery, incomplete radiation on tamoxifen Rx, dementia. Last confinement May 2020 for decompensated heart failure. TTE showed EF 30 to 35%, mild AR/mild TR, moderate MR. No pericardial effusion. Moderate-sized left pleural effusion. Diastolic dysfunction. Patient seen at the ER last month for retrosternal chest pain. CT chest did not show pulmonary embolus. Decreased size small left and trace right pleural effusions. Small pericardial effusion has increased in size. Patient discharged home from the ER after declining admission as per do cumentation. Pleuritic chest pain recurred 2 weeks ago with some shortness of breath. No fluid retention, no cough, no fever, no chills. Discomfort relieved by antacid intake by patient. No consultations done. Patient woke up with more severe pleuritic substernal chest pain this morning. No other associated symptoms as per patient. Patient brought to the ER by . Medical History as above Surgical History : Tonsillectomy/adenoidectomy, partial mastectomy left, BTL, axillary lymph node biopsy Family History : Asthma, dementia, colon cancer, heart disease Personal/Social history : Non-smoker, no EtOH intake, retired income tax return preparer Admission Exam Per Admitting Provider Physical Exam Physical Exam: GENERAL: uncomfortable, anxious, oriented to place, no respiratory distress SKIN: Normal color, warm HEENT: [place] palpebral conjunctivae, no ptosis, dry buccal mucosa NECK : Supple, no tenderness CHEST : Decreased breath sounds, no tenderness HEART : Tachycardic, diminished S1-S2 ABDOMEN: no distention, nontender EXTREMITIES : No LE swelling/tenderness, no other conspicuous deformities noted NEUROLOGIC : Coherent, no facial asymmetry, no other gross focality Principal Diagnosis Chest pain Small pericardial effusion Likely pericarditis Nonsustained ventricular tachycardia Acute on chronic systolic heart failure Discharge Data Allergies Allergy/AdvReac Type Severity Reaction Status Date / Time bee venom protein (honey bee) Allergy Intermediate EXTRA Verified 10/18/20 20:45 SWELLING AT SITE Sulfa (Sulfonamide Allergy Mild Unknown Verified 10/18/20 20:45 Antibiotics) bupropion Allergy Unknown unknown Verified 10/18/20 20:45 pneumococcal vaccine Allergy Unknown FEVER, Verified 10/18/20 20:45 [From Pneumovax 23] CHILLS, BODY ACHES, VOMITING Consultations 10/18/20 22:29 ED Decision to Admit Stat 10/19/20 01:38 Consult Cardiology Routine Procedures Performed -CTA:No evidence of pulmonary embolus in the main, lobar, or segmental pulmonary arteries. Cardiomegaly and moderate pericardial effusion. The pericardial effusion is nonspecific but has increased in size as compared to 09/21/2020. Correlate clinically for evidence of pericarditis. Left larger than right pleural effusions are similar to previous. There is no airspace consolidation typical for pneumonia. -ECHO: Mild concentric LVH. Moderate diffuse left ventricular hypokinesis p resent. EF 35 to 39%. Left atrium moderately dilated. Small circumferential pericardial effusion. No tamponade. Significant fibrinous strands suggesting some degree of chronicity. Ordered Studies 10/18/20 21:13 CT angio chest PE protocol Stat Hospital Course (1) Effusion, pericardium: Chest pain Small pericardial effusion Likely pericarditis -CTA:No evidence of pulmonary embolus in the main, lobar, or segmental pulmonary arteries. Cardiomegaly and moderate pericardial effusion. The pericardial effusion is nonspecific but has increased in size as compared to 09/21/2020. Correlate clinically for evidence of pericarditis. Left larger than right pleura l effusions are similar to previous. There is no airspace consolidation typical for pneumonia. -ECHO: Mild concentric LVH. Moderate diffuse left ventricular hypokinesis present. EF 35 to 39%. Left atrium moderately dilated. Small circumferential pericardial effusion. No tamponade. Significant fibrinous strands suggesting some degree of chronicity. -Normal ESR, elevated CRP -Continue colchicine, prednisone -Appreciate cardiology input -Plan to taper prednisone--200 mg for 7 days, 10 mg for 7 days, 5 mg for 7 days, 2.5 mg for 7 days. -Needs repeat echocardiogram in 2 months and follow-up with cardiology as outpatient NSVT Monitor electrolytes and replace as needed Metoprolol increased to 25 mg twice a day Acute on chronic systolic heart failure Echo as above Continue furosemide, metoprolol, losartan Monitor volume status Hypertension Mildly elevated Continue losartan, metoprolol Monitor Left breast cancer S/P surgery,radiation on tamoxifen Follows with [facility] oncology Dementia Reorient frequently to minimize delirium Monitor DVT Px: Lovenox SQ Code Status Full code Total Time Total Time Spent Total Time Spent (In Minutes): 43 minutes Total Time Includes: Examination of the Patient, Discharge Planning, Medication Reconciliation, Communication With Other Providers and Other Discharge Plan Discharge Items Patient Disposition: Home - Self-Care Reason For Visit: PERICARDIAL EFFUSION Discharge Diagnosis: Chest pain Small pericardial effusion Likely pericarditis Nonsustained ventricular tachycardia Acute on chronic systolic heart failure Condition on Discharge: Good Activity: Per Instructions section Exercise/Sports: Gradually increase as tolerated Non-emergency contact: Primary Care Provider and Heat And Frost Insulator Helper Call non-emergency contact if: you have any medication questions, your symptoms worsen, your pain is not controlled, your pain is concerning for you and you have a fever Follow-up/Referrals: David Olsen MD [Primary Care Provider] - Diet: Heart Healthy Addtl Attending Provider Instructions: Follow-up with your primary care physician Dr. Olsen in 1 week Follow-up with your master rigger Dr. Davila in 3-4 weeks as recommended Prednisone Taper course Start taking Prednisone 20 mg for 7 days, then 10 mg for 7 days, then 5 mg for 7 days, then 2.5 mg for 7 days and STOP. Start taking colchicine 0.6 mg daily until follow-up with your master rigger. Further recommendations as per your master rigger. Call your Primary Care doctor if any of the following symptoms or problems start or get worse: * Shortness of breath or difficulty breathing * Wake up at night short of breath * Chest pain * Cough * Swelling of your hands, feet, or legs * More fatigued or tired with your normal activity * Palpitations - sudden fast heart beats WEIGHT * Weigh yourself every morning after using the bathroom. * Use the same scale. * Wear the same amount of clothing. * Write your weight down on a chart. * Call your Primary Care doctor if you gain more than 2-3 pounds in 1-2 days. MEDICATIONS * Use this discharge instruction sheet for medication instructions. * Take your medications at the time your doctor ordered. * Do not skip a dose of your medicines. * If you miss a dose of medicine, take it as soon as possible, but DO NOT DOUBLE A DOSE. * Read your medicine information when you get home. * Know all of the side effects of your medicine. If in doubt, ask your pharmacist * Call your Primary Care doctor's office if you have any side effects. * Be sure all of your doctors know what medicine and herbs you take (including cold, flu, and herbal medicine). Take the following with you to your follow-up doctor appointments: * Weight Chart * Medication List * List of questions Do not drink excessive alcohol, beer or wine. Seek immediate medical attention if your symptoms reoccur or worsen Please take all medications as instructed on discharge list below. Please call if you have any questions or problems. You can reach a [facility] hospitalist on duty at [facility] 24 hours a day by calling [phone] Pending Studies at Discharge: No Stand-Alone Forms: My [facility] Angel Alerts, Smoking Cessation Medications and DC Order Prescriptions: New colchicine [Colcrys] 0.6 mg Tablet 0.6 mg PO DAILY 30 Days Qty: 30 RF: 1 prednisone 10 mg tablet 10 mg PO UD Qty: 21 RF: 0 prednisone 5 mg tablet 5 mg PO UD Qty: 11 RF: 0 Continued tramadol 50 mg tablet 50 mg PO BID PRN (Reason: Pain) RF: 0 furosemide 20 mg tablet 20 mg PO QAM RF: 0 cyanocobalamin (vitamin B-12) 500 mcg Tablet 500 mcg PO QAM RF: 0 losartan 25 mg Tablet 25 mg PO QAM RF: 0 tamoxifen 20 mg Tablet 20 mg PO QAM RF: 0 calcium carbonate [Calcium 600] 600 mg calcium (1,500 mg) Tablet 600 mg PO BID RF: 0 potassium chloride 10 mEq capsule, extended release 10 meq PO QAM RF: 0 famotidine 20 mg tablet 20 mg PO DAILY RF: 0 montelukast [Singulair] 10 mg Tablet 10 mg PO DAILY RF: 0 Changed metoprolol succinate 25 mg tablet extended release 24 hr 25 mg PO BID 30 Days Qty: 60 RF: 1 Discharge Orders: Discharge Order (Routine); Ordered 10/20/20 Ordered By: Chinmay Ramachandran Admission Data Admit Date/Time: 10/18/20 23:34 Attending Provider: Chinmay Ramachandran Admit Provider: Antonio De Anda Primary Care Provider: David Olsen Other Providers: Antonio De Anda ; Abel Vivas ; Mihai Davila ; Jerome Scott ; Yossi Teresa ; Eduin Merchant ; David Riley ; Sabrina Cody ; Yadira Goss ; Lanette Cohn. ; Leo Orellana Other Interventions: Discharge Summary Assessment (RN) Last Done: 10/20/20 08:00
== END 2020-10-20 17:45 | disposition home or self-care (01) | DRG 314 ==
LOC: ED 19:43 → 2S 23:34

== ENCOUNTER 2023-04-22 23:29 | Inpatient (IN) ==
[2023-04-23 00:36] LABS: Alanine Aminotransferase 32 U/L (7-52); Albumin Globulin Ratio 1.8 (0.9-2); Albumin Level 3.9 gm/dl (3.4-5.0); Alkaline Phosphatase 61 U/L (34-104); Anion Gap 8 (3-11); Aspartate Aminotransferase 32 U/L (13-39); BUN Creatinine Ratio 28.9 (10-20); Bilirubin,Total 0.5 mg/dl (0.2-1.0); Blood Urea Nitrogen 24 mg/dl (6-23); Calcium 9.1 mg/dl (8.6-10.3); Carbon Dioxide 21 mmol/L (21-32); Chloride 109 mmol/L (98-107); Est GFR (African American) 78.3 ml/min; Est GFR (Non-African American) 67.5 ml/min; Globulin 2.2 gm/dl (2.5-4.0); Glucose 139 mg/dl (70-99(Fasting)); Potassium 4.4 mmol/L (3.5-5.1); Sodium 138 mmol/L (136-145); Total Protein 6.1 gm/dl (6.0-8.3)
[2023-04-23 00:43] LABS: Troponin I High Sensitivity 28.3 pg/ml (0-14)
[2023-04-23 00:50] LABS: Basophils # (auto) 0.09 K/uL (0.00-0.20); Eosinophils % (auto) 1.1 %; Hematocrit (blood only) 40.4 % (37.0-47.0); Hemoglobin 13.4 g/dl (12.0-16.0); Immature Granulocytes # (auto) 0.03 K/uL (0.01-0.20); Immature Granulocytes % (auto) 0.3 %; Lymphocytes % (auto) 19.7 %; Mean Corpuscular Hemoglobin 30.3 pg (25.0-34.0); Mean Corpuscular Hgb Conc 33.2 g/dL (32.0-36.0); Mean Corpuscular Volume 91.4 fL (80.0-100.0); Mean Platelet Volume 12.5 fL (9.4-12.4); Monocytes % (auto) 7.6 %; Neutrophils # (auto) 6.44 K/uL (1.40-6.50); Neutrophils % (auto) 70.3 %; Platelet Count 177 K/uL (130-400); RDW Coefficient of Variation 13.9 % (11.5-14.5); RDW Standard Deviation 46.8 fL (36.4-46.3); Red Blood Count 4.42 M/uL (4.20-5.40); White Blood Count 9.16 K/ul (4.8-10.8)
[2023-04-23] MEDS ORDERED: OPTIRAY 320 100ml IV ONE (01:48)
--- NOTE | 2023-04-23 01:51 | Emergency Department Note ---
Impression & Plan Acute dyspnea, Pulmonary edema, Failure of outpatient treatment, Elevated troponin ED Provider Note ED Provider Note NAME: STEFFANY MORAN AGE:77 SEX: Female : 1945 ARRIVES VIA: private vehicle INFORMANT: Patient ED PROVIDER(s): Tara Stone DO CHIEF COMPLAINT: dyspnea HPI: This is a 77 yo female who presents with at bedside due to concern for increasing dyspnea. Patient first began having symptoms 2 to 3 weeks ago per his report. Patient does have mild dementia and helps provide additional history. He states due to her past medical history he did take her to their PCP, Dr. Olsen. He states however they saw in the office advised them to increase her usual daily Lasix and did give them a course of doxycycline also. states she did finish the entire 10-day course of doxycycline and has been using the increased dose of Lasix without any improvement of her symptoms. He states she has not had hardly any sleep in the last 2-3 nights as she cannot lay flat. He is also noticed increased lower extremity edema. PAST MEDICAL HISTORY:See Below PAST SURGICAL HISTORY:See Below FAMILY HISTORY:See Below SOCIAL HISTORY:See Below HOME MEDICATIONS:See Below ALLERGIES:See Below VITALS:See Below PHYSICAL EXAMINATION: GENERAL: alert, well appearing, well nourished, no distress, non-toxic EYE EXAM: normal conjunctiva, PERRL and EOM's grossly intact OROPHARYNX: no exudate, no erythema, lips, buccal mucosa, and tongue normal and mucous membranes are moist NECK: supple, no nuchal rigidity, no adenopathy, non-tender LUNGS: Clear to auscultation. Normal chest wall mechanics, no w/r/r, increased WOB noted, tachypnea noted HEART: no murmurs, S1 normal and S2 normal ABDOMEN: abdomen soft, non-tender, normo-active bowel sounds, no masses, no rebound or guarding. BACK: Back is symmetrical on inspection and there is no deformity, no midline tenderness, no CVA tenderness. SKIN: no rashes, petechiae, orbruising UPPER EXTREMITIES: upper extremities are grossly normal. FROM, nml pulses b/l. LOWER EXTREMITIES: No pitting edema. FROM, nml pulses b/l. NEURO EXAM: Normal sensorium, cranial nerves II-XII grossly intact, normal speech, no facial droop,nogross weakness of arms, no gross weakness of legs. Gross sensation intact. No ataxia. Vital Signs: reviewed and remarkable Differential Diagnosis: pneumonia, bronchitis, COPD/Asthma exacerbation, pneumothorax, pulmonary embolism, congestive heart failure, acute coronary syndrome, pleural effusions, viral syndrome, as well as others were considered MEDICAL DECISION MAKING: This is a 77-year-old female presents emergency department due to concern for increased shortness of breath. Patient with recent illness, course of antibiotics, increased diuretic dosing, and yet persistent symptoms according to . She was afebrile and vital signs stable although noted to be mildly hypoxic so was placed on oxygen via nasal cannula with improvement in her saturation although no improvement in her work of breathing or tachypnea. Labs drawn and sent, IV established, EKG and chest x-ray performed bedside interpreted by me and patient monitored on telemetry. Patient was transition to high flow nasal cannula which did help with her tachypnea and increased work of breathing. After discussion of initial results with patient and family, we opted to perform additional imaging for further evaluation of her respiratory distress. Patient sent for CT of the chest. Case discussed with [facility] hospitalist team for additional evaluation. Patient noted to have elevated BNP consistent with her presentation and history of CHF. Troponin likely elevated secondary to her CHF and increased demand. Consultation(s): 0300: Discussed with Dr. Gambino, [facility] hospitalist team, for additional evaluation. CT chest pending at this time. ER Treatment Provided: See below Diagnostics Interpreted By Me: -ECG: Sinus tachycardia at 114, left axis, normal QRS and QTc, PVC noted, nonspecific ST/T wave changes -Cardiac Monitoring: An order was placed for continuous cardiac monitoring. The monitor shows a rate of 80 with normal sinus rhythm. -Laboratory studies: As stated above and show below. -Imaging studies: Chest x-ray: Bilateral pleural effusions, increased interstitial markings bilaterally worse on the right than the left, mild cardiomegaly, no wide mediastinum Triage Nursing Note Reviewed Prior/Outside Records Reviewed - prior cardiology notes Past Med/Surg History Medical History Acute dyspnea Acute on chronic congestive heart failure Anemia Breast cancer NO CHEMO/RADIATION Hypertension Hypokalemia Hypoxemia Migraine HX NICM (nonischemic cardiomyopathy) Peptic ulcer disease HX Pleural effusion on left Pleural effusion on right PVC (premature ventricular contraction) Surgical History History of cataract surgery right History of colonoscopy History of tonsillectomy History of tooth extraction Hx of lumpectomy LEFT Family History Other No family history of adverse response to anesthesia Social History Smoking Status: Never smoker Second Hand Exposure: No; Do You Dip or Chew Tobacco: No; Hx Alcohol Use: No Hx Substance Use: No Preferred Language: Filipino Communication Ability: Impaired Air Launch Weapons Technician Required: No Beliefs That Will Affect Care: None Current Living Situation: Spouse Feels Safe at Home: Yes Assistive Devices: None Assistive Devices Comment: glasses not with patient Allergies Allergies Allergy/AdvReac Type Severity Reaction Status Date / Time bee venom protein (honey bee) Allergy Intermediate EXTRA Verified 10/18/20 20:45 SWELLING AT SITE Sulfa (Sulfonamide Allergy Mild Unknown Verified 10/18/20 20:45 Antibiotics) bupropion Allergy Unknown unknown Verified 10/18/20 20:45 pneumococcal vaccine Allergy Unknown FEVER, Verified 10/18/20 20:45 [From Pneumovax 23] CHILLS, BODY ACHES, VOMITING Home Meds Home Medications Medication Instructions Recorded Confirmed losartan 25 mg tablet 25 mg PO QAM 06/29/19 04/23/23 tamoxifen 20 mg tablet 20 mg PO QAM 06/29/19 04/23/23 furosemide 20 mg tablet 20 mg PO QPM 09/04/20 04/23/23 tramadol 50 mg tablet 50 mg PO TID PRN Pain 09/04/20 04/23/23 calcium carbonate 600 mg calcium 600 mg PO BID 09/21/20 04/23/23 (1,500 mg) tablet (Calcium) montelukast 10 mg tablet 10 mg PO QAM 10/18/20 04/23/23 (Singulair) benzonatate 100 mg capsule 100 mg PO HS PRN Cough 04/23/23 04/23/23 cholecalciferol (vitamin D3) 125 125 mcg PO QAM 04/23/23 04/23/23 mcg (5,000 unit) tablet (Vitamin D3) cyanocobalamin (vitamin B-12) 500 500 mcg PO DAILY 04/23/23 04/23/23 mcg lozenges (Vitamin B-12) fluticasone propionate 50 2 spray intranasal DAILY 04/23/23 04/23/23 mcg/actuation nasal spray,suspension metoprolol succinate 25 mg 25 mg PO UD 04/23/23 04/23/23 tablet,extended release 24 hr multivitamin 1 tab PO DAILY 04/23/23 04/23/23 potassium chloride 20 mEq 20 meq PO QAM 04/23/23 04/23/23 tablet,extended release(part/cryst) Results & Data (ED) Vital Signs Vital Signs - 24 hr 04/22/23 23:35 04/23/23 00:01 04/23/23 00:01 Temperature 36.4 C L Temperature Source Oral Pulse Rate 116 H Pulse Rate [Apical] Pulse Rate from SpO2 Sensor Respiratory Rate 24 Respiratory Effort / Characteristics Labored Spontaneous Labored Respiratory Depth Respiratory Pattern Tachypnea Blood Pressure 152/103 H Blood Pressure [Right Arm] Blood Pressure Mean 119 Blood Pressure Mean [Right Arm] Pulse Oximetry 93 93 Oxygen Delivery Method Room Air Room Air Oxygen Flow Rate Fraction of Inspired Oxygen Sepsis Recent Fever Within 48 Hours No Sepsis New/Unexplained Change in Mental Status N/A Sepsis Action Taken by Nursing No Action Required Oxygen Flow Rate - Titration 2 Pulse Oximetry Post Tiitration 95 04/23/23 00:01 04/23/23 00:17 04/23/23 00:33 Temperature Temperature Source Pulse Rate 107 H Pulse Rate [Apical] 121 H Pulse Rate from SpO2 Sensor Respiratory Rate 30 H Respiratory Effort / Characteristics Non-Labored Spontaneous Respiratory Depth Normal Respiratory Pattern Blood Pressure Blood Pressure [Right Arm] 134/105 H Blood Pressure Mean Blood Pressure Mean [Right Arm] 114 Pulse Oximetry 98 98 Oxygen Delivery Method Nasal Cannula Nasal Cannula Oxygen Flow Rate 2 2 Fraction of Inspired Oxygen Sepsis Recent Fever Within 48 Hours Sepsis New/Unexplained Change in Mental Status Sepsis Action Taken by Nursing Oxygen Flow Rate - Titration Pulse Oximetry Post Tiitration 04/23/23 01:10 04/23/23 01:14 04/23/23 01:20 Temperature Temperature Source Pulse Rate 108 H 106 H 98 H Pulse Rate [Apical] Pulse Rate from SpO2 Sensor 108 H 106 H 96 H Respiratory Rate 36 H 33 H 29 H Respiratory Effort / Characteristics Respiratory Depth Respiratory Pattern Blood Pressure 144/96 H Blood Pressure [Right Arm] Blood Pressure Mean 112 Blood Pressure Mean [Right Arm] Pulse Oximetry 98 97 98 Oxygen Delivery Method Oxygen Flow Rate Fraction of Inspired Oxygen Sepsis Recent Fever Within 48 Hours Sepsis New/Unexplained Change in Mental Status Sepsis Action Taken by Nursing Oxygen Flow Rate - Titration Pulse Oximetry Post Tiitration 04/23/23 01:30 04/23/23 01:50 04/23/23 02:27 Temperature Temperature Source Pulse Rate 101 H 94 H Pulse Rate [Apical] Pulse Rate from SpO2 Sensor 101 H 108 H 95 H Respiratory Rate 29 H 24 Respiratory Effort / Characteristics Respiratory Depth Respiratory Pattern Blood Pressure 139/99 128/103 H Blood Pressure [Right Arm] Blood Pressure Mean 112 111 Blood Pressure Mean [Right Arm] Pulse Oximetry 97 94 95 Oxygen Delivery Method Oxygen Flow Rate Fraction of Inspired Oxygen Sepsis Recent Fever Within 48 Hours Sepsis New/Unexplained Change in Mental Status Sepsis Action Taken by Nursing Oxygen Flow Rate - Titration Pulse Oximetry Post Tiitration 04/23/23 02:32 04/23/23 02:40 04/23/23 02:52 Temperature Temperature Source Pulse Rate 101 H 96 H 117 H Pulse Rate [Apical] Pulse Rate from SpO2 Sensor 97 H 97 H Respiratory Rate 22 26 H 35 H Respiratory Effort / Characteristics Respiratory Depth Respiratory Pattern Blood Pressure 143/96 H Blood Pressure [Right Arm] Blood Pressure Mean 111 Blood Pressure Mean [Right Arm] Pulse Oximetry 96 96 Oxygen Delivery Method Oxygen Flow Rate Fraction of Inspired Oxygen Sepsis Recent Fever Within 48 Hours Sepsis New/Unexplained Change in Mental Status Sepsis Action Taken by Nursing Oxygen Flow Rate - Titration Pulse Oximetry Post Tiitration 04/23/23 03:00 04/23/23 03:01 04/23/23 03:03 Temperature Temperature Source Pulse Rate 105 H 106 H Pulse Rate [Apical] 86 Pulse Rate from SpO2 Sensor 101 H 106 H Respiratory Rate 31 H 23 28 H Respiratory Effort / Characteristics Spontaneous Respiratory Depth Respiratory Pattern Blood Pressure Blood Pressure [Right Arm] Blood Pressure Mean Blood Pressure Mean [Right Arm] Pulse Oximetry 95 97 95 Oxygen Delivery Method High Flow Nasal Cannula Oxygen Flow Rate 30 Fraction of Inspired Oxygen 30 Sepsis Recent Fever Within 48 Hours Sepsis New/Unexplained Change in Mental Status Sepsis Action Taken by Nursing Oxygen Flow Rate - Titration Pulse Oximetry Post Tiitration 04/23/23 03:10 04/23/23 03:20 04/23/23 03:30 Temperature Temperature Source Pulse Rate 109 H 107 H 109 H Pulse Rate [Apical] Pulse Rate from SpO2 Sensor 108 H 108 H 108 H Respiratory Rate 30 H 31 H 24 Respiratory Effort / Characteristics Respiratory Depth Respiratory Pattern Blood Pressure Blood Pressure [Right Arm] Blood Pressure Mean Blood Pressure Mean [Right Arm] Pulse Oximetry 96 96 96 Oxygen Delivery Method Oxygen Flow Rate Fraction of Inspired Oxygen Sepsis Recent Fever Within 48 Hours Sepsis New/Unexplained Change in Mental Status Sepsis Action Taken by Nursing Oxygen Flow Rate - Titration Pulse Oximetry Post Tiitration 04/23/23 03:31 04/23/23 03:40 04/23/23 03:50 Temperature Temperature Source Pulse Rate 108 H 105 H 106 H Pulse Rate [Apical] Pulse Rate from SpO2 Sensor 107 H 107 H 107 H Respiratory Rate 30 H 39 H 37 H Respiratory Effort / Characteristics Respiratory Depth Respiratory Pattern Blood Pressure Blood Pressure [Right Arm] Blood Pressure Mean Blood Pressure Mean [Right Arm] Pulse Oximetry 97 97 98 Oxygen Delivery Method Oxygen Flow Rate Fraction of Inspired Oxygen Sepsis Recent Fever Within 48 Hours Sepsis New/Unexplained Change in Mental Status Sepsis Action Taken by Nursing Oxygen Flow Rate - Titration Pulse Oximetry Post Tiitration 04/23/23 04:00 04/23/23 04:00 Temperature Temperature Source Pulse Rate 97 H 99 H Pulse Rate [Apical] Pulse Rate from SpO2 Sensor 99 H Respiratory Rate 27 H Respiratory Effort / Characteristics Respiratory Depth Respiratory Pattern Blood Pressure 145/100 H Blood Pressure [Right Arm] Blood Pressure Mean 115 Blood Pressure Mean [Right Arm] Pulse Oximetry 96 Oxygen Delivery Method Oxygen Flow Rate Fraction of Inspired Oxygen Sepsis Recent Fever Within 48 Hours Sepsis New/Unexplained Change in Mental Status Sepsis Action Taken by Nursing Oxygen Flow Rate - Titration Pulse Oximetry Post Tiitration Laboratory Data 04/23/23 07:15 04/23/23 07:15 Lab Results 04/22/23 04/23/23 04/23/23 Range/Units 23:59 00:30 01:58 WBC 9.16 (4.8-10.8) K/ul RBC 4.42 (4.20-5.40) M/uL Hgb 13.4 (12.0-16.0) g/dl Hct 40.4 (37.0-47.0) % MCV 91.4 (80.0-100.0) fL MCH 30.3 (25.0-34.0) pg MCHC 33.2 (32.0-36.0) g/dL RDW Std Deviation 46.8 H (36.4-46.3) fL RDW Coeff of Tiffany 13.9 (11.5-14.5) % Plt Count 177 (130-400) K/uL MPV 12.5 H (9.4-12.4) fL Immature Gran % (Auto) 0.3 % Neut % (Auto) 70.3 % Lymph % (Auto) 19.7 % Powell % (Auto) 7.6 % Eos % (Auto) 1.1 % Baso % (Auto) 1.0 % Neut # (Auto) 6.44 (1.40-6.50) K/uL Lymph # (Auto) 1.80 (1.20-3.40) K/uL Powell # (Auto) 0.70 H (0.11-0.59) K/uL Eos # (Auto) 0.10 (0.00-0.50) K/uL Baso # (Auto) 0.09 (0.00-0.20) K/uL Immature Gran # (Auto) 0.03 (0.01-0.20) K/uL Sodium 138 (136-145) mmol/L Potassium 4.4 (3.5-5.1) mmol/L Chloride 109 H (98-107) mmol/L Carbon Dioxide 21 (21-32) mmol/L Anion Gap 8 (3-11) BUN 24 H (6-23) mg/dl Creatinine 0.83 (0.6-1.2) mg/dl Est Cr Clr Drug Dosing Not Reportable Est GFR ( Amer) 78.3 ml/min Est GFR (Non-Af Amer) 67.5 ml/min BUN/Creatinine Ratio 28.9 H (10-20) Glucose 139 H (70-99(Fasting)) mg/dl Calcium 9.1 (8.6-10.3) mg/dl Total Bilirubin 0.5 (0.2-1.0) mg/dl AST 32 (13-39) U/L ALT 32 (7-52) U/L Alkaline Phosphatase 61 (34-104) U/L Troponin I High Sens 28.3 H 33.8 H (0-14) pg/ml B-Natriuretic Peptide 2527 H (0-100) pg/ml Total Protein 6.1 (6.0-8.3) gm/dl Albumin 3.9 (3.4-5.0) gm/dl Globulin 2.2 L (2.5-4.0) gm/dl Albumin/Globulin Ratio 1.8 (0.9-2) Adenovirus (PCR) Not Detected (NotDetected) B. pertussis DNA (PCR) Not Detected (NotDetected) B.parapertussis DNA PCR Not Detected (NotDetected) C. pneumoniae DNA (PCR) Not Detected (NotDetected) Coronavirus OC43 (PCR) Not Detected (NotDetected) Coronavirus HKU1 (PCR) Not Detected (NotDetected) Coronavirus 229E (PCR) Not Detected (NotDetected) SARS-CoV-2 (PCR) Not Detected (NotDetected) Coronavirus NL63 (PCR) Not Detected (NotDetected) Human Metapneumovir PCR Not Detected (NotDetected) Influenza Type A (PCR) Not Detected (NotDetected) Influenza Type B (PCR) Not Detected (NotDetected) M. pneumoniae (PCR) Not Detected (NotDetected) Parainfluenza 1 (PCR) Not Detected (NotDetected) Parainfluenza 2 (PCR) Not Detected (NotDetected) Parainfluenza 3 (PCR) Not Detected (NotDetected) Parainfluenza 4 (PCR) Not Detected (NotDetected) RSV (PCR) Not Detected (NotDetected) Entero/Rhino (PCR) Not Detected (NotDetected) Administered Medications Calcium Carbonate (Calcium Carbonate 1250mg Tab) 1,250 mg PO BID [facility] Stop: 05/23/23 08:59 Last Admin: 04/23/23 21:03 Dose: 1,250 mg Documented By: Admin: 04/23/23 09:08 Dose: 1,250 mg Documented By: RANCHO Cyanocobalamin (Cyanocobalamin (B-12) 500 Mcg Tablet) 500 mcg PO DAILY [facility] Stop: 05/23/23 08:59 Last Admin: 04/23/23 12:13 Dose: 500 mcg Documented By: RANCHO Enoxaparin Sodium (Enoxaparin Inj 40 Mg/0.4 Ml Syr) 40 mg SQ Q24H [facility] Stop: 05/23/23 08:59 Last Admin: 04/23/23 09:09 Dose: 40 mg Documented By: RANCHO Fluticasone Propionate (Fluticasone Propionate Na Spr 16 Gm Btl) 2 sprays YELENA DAILY [facility] Stop: 05/23/23 08:59 Last Admin: 04/23/23 09:10 Dose: 2 sprays Documented By: RANCHO Furosemide (Furosemide 40 Mg/4 Ml Vial) 40 mg IV BID17 [facility] Stop: 05/23/23 08:59 Last Admin: 04/23/23 17:56 Dose: 40 mg Documented By: Admin: 04/23/23 09:10 Dose: 40 mg Documented By: RANCHO Piperacillin Sod/Tazobactam (Sod 4.5 gm/ Dextrose) 100 mls @ 25 mls/hr IV Q8H [facility]; Protocol Stop: 04/30/23 13:29 Last Admin: 04/24/23 06:04 Dose: 25 mls/hr Documented By: Infusion: 04/24/23 01:40 Dose: Infused Documented By: Admin: 04/23/23 21:04 Dose: 25 mls/hr Documented By: Infusion: 04/23/23 16:26 Dose: Infused Documented By: Admin: 04/23/23 13:33 Dose: 25 mls/hr Documented By: JOSE Losartan Potassium (Losartan Potassium 25 Mg Tab) [address] [facility] Stop: 05/23/23 08:59 Last Admin: 04/23/23 09:10 Dose: 25 mg Documented By: RANCHO Melatonin (Melatonin 3 Mg Tab) 3 mg PO HS PRN PRN Reason: Sleep Stop: 05/23/23 04:16 Last Admin: 04/23/23 04:38 Dose: 3 mg Documented By: HEVER Metoprolol Succinate (Metoprolol Succ 25mg Ext Rel Tab) 25 mg PO HS [facility] Stop: 05/23/23 20:59 Last Admin: 04/23/23 21:03 Dose: 25 mg Documented By: SUZANNE Metoprolol Succinate (Metoprolol Succ 50mg Ext Rel Tab) [address] [facility] Stop: 05/23/23 08:59 Last Admin: 04/23/23 09:11 Dose: 50 mg Documented By: RANCHO Montelukast Sodium (Montelukast Sodium 10 Mg Tablet) [facility] Stop: 05/23/23 08:59 Last Admin: 04/23/23 09:11 Dose: 10 mg Documented By: RANCHO Multivitamins (Multivitamin Tab) 1 tab PO DAILY [facility] Stop: 05/23/23 08:59 Last Admin: 04/23/23 09:11 Dose: 1 tab Documented By: RANCHO Potassium Chloride (Potassium Chloride Crtab 20 Meq Tabcr) 20 meq PO QAM [facility] Stop: 05/23/23 08:59 Last Admin: 04/23/23 09:11 Dose: 20 meq Documented By: RANCHO Tamoxifen Citrate (Tamoxifen Citrate 10 Mg Tablet) 20 mg PO QAM [facility] Stop: 05/23/23 08:59 Last Admin: 04/23/23 09:12 Dose: 20 mg Documented By: RANCHO Co-signed By: JOSE Vitamin D (Cholecalciferol 5,000 Units 125 Mcg Tab) 5,000 units PO QAM [facility] Stop: 05/23/23 08:59 Last Admin: 04/23/23 09:08 Dose: 5,000 units Documented By: RANCHO Discontinued Medications Furosemide (Furosemide 40 Mg/4 Ml Vial) 40 mg IV ONE STA Stop: 04/23/23 03:59 Last Admin: 04/23/23 04:14 Dose: 40 mg Documented By: HEVER Piperacillin Sod/Tazobactam (Sod 4.5 gm/ Dextrose) 100 mls @ 200 mls/hr IV NOW ONE; Protocol Stop: 04/23/23 07:29 Last Infusion: 04/23/23 09:26 Dose: Infused Documented By: Admin: 04/23/23 08:26 Dose: 200 mls/hr Documented By: RANCHO Ioversol (Optiray 320 100ml) 100 ml IV ONCE ONE Stop: 04/23/23 01:49 Last Admin: 04/23/23 01:48 Dose: 90 ml Documented By: CAS Imaging Data Radiologist's Impression: Chest CT 04/23/23 01:27 Exam(s): CT CHEST With Contrast IV Amt: 90 ML OPTIRAY 320 EXAM: CT Chest With Intravenous Contrast CLINICAL HISTORY: Reason for exam: pl effusions/pulm edema, ?infiltrate. TECHNIQUE: Axial computed tomography images of the chest with intravenous contrast. CTDI is 12.03 mGy and DLP is 364.39 mGy-cm. Automated exposure control was utilized for the study. A dose lowering technique was utilized adhering to the principles of ALARA. CONTRAST: Patient received 90 ML OPTIRAY 320 of IV contrast COMPARISON: No relevant prior studies available. FINDINGS: Lungs: Dependent airspace disease in the lungs which is favored to be due to compressive atelectasis. Superimposed sequelae of infection/aspiration also possible. Mild intralobular septal thickening. Findings can be seen with mild interstitial pulmonary edema. Pleural space: Large right and moderate left pleural effusions which may be due to volume overload. Given cardiomegaly, findings may be due to sequela of heart failure. No pneumothorax. Heart: Cardiomegaly. Bones/joints: Degenerative changes in the spine. Sclerotic mass noted within the T2 vertebral body which may relate to enostosis. Other etiologies possible. If there is further concern, consider further workup for metastatic disease. T7 and T10 compression fractures. These may be chronic in nature. Consider correlation with point tenderness. If there is further concern, consider MRI. No dislocation. Soft tissues: Unremarkable. Vasculature: Atherosclerotic disease. No thoracic aortic aneurysm. Lymph nodes: Unremarkable. No enlarged lymph nodes. IMPRESSION: 1. Dependent airspace disease in the lungs which is favored to be due to compressive atelectasis. Superimposed sequelae of infection/aspiration also possible. 2. Large right and moderate left pleural effusions which may be due to volume overload. Given cardiomegaly, findings may be due to sequela of heart failure. 3. Mild intralobular septal thickening. Findings can be seen with mild interstitial pulmonary edema. 4. Sclerotic mass noted within the T2 vertebral body which may relate to enostosis. Other etiologies possible. If there is further concern, consider further workup for metastatic disease. 5. T7 and T10 compression fractures. These may be chronic in nature. Consider correlation with point tenderness. If there is further concern, consider MRI. 6. No other acute findings. 7. Incidental findings as described. Electronically signed by: Mateusz Willis MD 04/23/23 05:41 AM Discharge Plan Visit Data Chief Complaint: Shortness of Breath/Dyspnea Stated Complaint: SOB, COUGH, CONGESTION ED Provider: Tara Stone Discharge Problem: Acute dyspnea, Pulmonary edema, Failure of outpatient treatment, Elevated troponin Patient Disposition: Admitted As Inpatient Discharge Instructions Interventions: ED Discharge Assessment Last Done: 04/23/23 05:25
[2023-04-23 01:57] LABS: Adenovirus PCR Not Detected (NotDetected); Bordetella parapertussis PCR Not Detected (NotDetected); Bordetella pertussis PCR Not Detected (NotDetected); Chlamydia pneumoniae PCR Not Detected (NotDetected); Coronavirus 229E PCR Not Detected (NotDetected); Coronavirus CoV-2 (COVID19)PCR Not Detected (NotDetected); Coronavirus HKU1 PCR Not Detected (NotDetected); Coronavirus NL63 PCR Not Detected (NotDetected); Coronavirus OC43PCR Not Detected (NotDetected); Human Metapneumovirus PCR Not Detected (NotDetected); Influenza A PCR Not Detected (NotDetected); Influenza B PCR Not Detected (NotDetected); Mycoplasma pneumoniae PCR Not Detected (NotDetected); Parainfluenza Virus 1 PCR Not Detected (NotDetected); Parainfluenza Virus 2 PCR Not Detected (NotDetected); Parainfluenza Virus 3 PCR Not Detected (NotDetected); Parainfluenza Virus 4 PCR Not Detected (NotDetected); Respiratory Syncytial VirusPCR Not Detected (NotDetected); Rhinovirus/Enterovirus PCR Not Detected (NotDetected)
[2023-04-23] MEDS ORDERED: FUROSEMIDE 40 MG/4 ML VIAL IV STA (03:58)
--- NOTE | 2023-04-23 04:23 | History & Physical Report ---
Date of Service April 23, 2023 Assessment & Plan (1) Acute on chronic systolic (congestive) heart failure: Plan: 77-year-old female with past med history significant for chronic systolic CHF, hypertension, history of PVCs, history of pericardial effusion, history of hyperlipidemia, osteoporosis, compression fracture of spine, migraine, history of cerebral meningioma, Alzheimer's dementia, history of left breast cancer s/p partial mastectomy and on tamoxifen who lives at home with her was brought in because of ongoing shortness of breath. Shortness of breath Mostly acute on chronic systolic CHF We will follow CT chest if any infiltrates we will add antibiotics Recently completed 10 days of p.o. doxycycline Symptoms not improving in spite of increasing Lasix as outpatient Echo done on 04/02/2023 showed EF of 35 to 39%. Moderate to severe mitral regurgitation. Left atrium is severely enlarged. We will give a dose of IV Lasix 40 mg and placed on IV Lasix 40 mg twice daily Daily weights I's and O's Continue oxygen supplementation Close monitoring telemetry Cardiology consult in a.m. for further recommendations. Possible aspiration pneumonia on ct scan added iv zosyn will monitor T4 Vertebral spine lesion on ct scan. needs followup. Hypertension Continue metoprolol succinate, losartan Continue diuretics We will monitor History of Alzheimer's dementia Monitor for delirium PT OT when stable History of left breast cancer S/p partial mastectomy On tamoxifen DVT prophylaxis Lovenox Disposition Telemetry floor Full code as per my discussion with the History of Present Illness Chief Complaint: Short of breath Primary Care Provider: David Olsen MD 77-year-old female with past med history significant for chronic systolic CHF, hypertension, history of PVCs, history of pericardial effusion, history of hyperlipidemia, osteoporosis, compression fracture of spine, migraine, history of cerebral meningioma, Alzheimer's dementia, history of left breast cancer s/p partial mastectomy and on tamoxifen who lives at home with her was brought in because of ongoing shortness of breath. Patient has some dementia is in the room who is helping with H&P. As per patient having shortness of breath and cough going on for last 2 weeks. Seen by PCP recently. A 10-day course of doxycycline was prescribed and also her Lasix dose was increased. Completed 10-day course of doxycycline. But her shortness of breath and cough is not getting better. She is not able to lie down flat. Has some swelling in the lower extremity. Can walk only short distance before she got short of breath. Denies any fevers. No chest pain. No headache. Vision is okay. No headache. No runny nose or sore throat. No nausea. No abdominal pain. Normal bowel and bladder movements. On presentation patient was tachypneic and tachycardic currently on high flow oxygen and her heart rates improved. Past medical history. As mentioned above Past surgical history. Left breast biopsy. Colonoscopy. Ligation of oviducts. Left breast partial mastectomy. Tonsillectomy. Social history. . No smoking. No alcohol. No drug use. Family history. Mother has COPD. Eye problems. Hypertension. Father had colon cancer. Eye problems. Maternal grandmother had cancer. Sister had cardiac stents. Brother has hypertension. Allergies Allergy/AdvReac Type Severity Reaction Status Date / Time bee venom protein (honey bee) Allergy Intermediate EXTRA Verified 10/18/20 20:45 SWELLING AT SITE Sulfa (Sulfonamide Allergy Mild Unknown Verified 10/18/20 20:45 Antibiotics) bupropion Allergy Unknown unknown Verified 10/18/20 20:45 pneumococcal vaccine Allergy Unknown FEVER, Verified 10/18/20 20:45 [From Pneumovax 23] CHILLS, BODY ACHES, VOMITING Home Medications Medication Instructions Recorded Confirmed Type losartan 25 mg tablet 25 mg PO QAM 06/29/19 04/23/23 History tamoxifen 20 mg tablet 20 mg PO QAM 06/29/19 04/23/23 History furosemide 20 mg tablet 20 mg PO QPM 09/04/20 04/23/23 History tramadol 50 mg tablet 50 mg PO TID PRN Pain 09/04/20 04/23/23 History calcium carbonate 600 mg calcium 600 mg PO BID 09/21/20 04/23/23 History (1,500 mg) tablet (Calcium) montelukast 10 mg tablet 10 mg PO QAM 10/18/20 04/23/23 History (Singulair) benzonatate 100 mg capsule 100 mg PO HS PRN Cough 04/23/23 04/23/23 History cholecalciferol (vitamin D3) 125 125 mcg PO QAM 04/23/23 04/23/23 History mcg (5,000 unit) tablet (Vitamin D3) cyanocobalamin (vitamin B-12) 500 500 mcg PO DAILY 04/23/23 04/23/23 History mcg lozenges (Vitamin B-12) fluticasone propionate 50 2 spray intranasal DAILY 04/23/23 04/23/23 History mcg/actuation nasal spray,suspension metoprolol succinate 25 mg 25 mg PO UD 04/23/23 04/23/23 History tablet,extended release 24 hr multivitamin 1 tab PO DAILY 04/23/23 04/23/23 History potassium chloride 20 mEq 20 meq PO QAM 04/23/23 04/23/23 History tablet,extended release(part/cryst) Past Med/Surg History Medical History Acute dyspnea Acute on chronic congestive heart failure Anemia Breast cancer NO CHEMO/RADIATION Hypertension Hypokalemia Hypoxemia Migraine HX NICM (nonischemic cardiomyopathy) Peptic ulcer disease HX Pleural effusion on left Pleural effusion on right PVC (premature ventricular contraction) Surgical History History of cataract surgery right History of colonoscopy History of tonsillectomy History of tooth extraction Hx of lumpectomy LEFT Family History Other No family history of adverse response to anesthesia Social History Smoking Status: Never smoker Second Hand Exposure: No; Do You Dip or Chew Tobacco: No; Hx Alcohol Use: No Hx Substance Use: No Preferred Language: Slovak Communication Ability: Effective Board Setter Required: No Beliefs That Will Affect Care: None Current Living Situation: Spouse Feels Safe at Home: Yes Assistive Devices: Glasses Assistive Devices Comment: glasses not with patient Review of Systems Review of Systems: All systems reviewed & are unremarkable except as noted in HPI & below Physical Exam Physical Exam: General- Not in distress Head- atraumatic Eyes- PERRL. ENT- oropharynx clear Neck- supple, no JVD. Lungs- clear to auscultation mild bibasilar crackles, no wheezing. Heart- regular rate and rhythm; no murmur, no gallop. Abdomen- normal bowel sounds, soft, nontender, no distension. Extremities- +1 pretibial edema, no calf tenderness; Neuro- alert, oriented . PERRL, Hard of hearing. no facial palsy; no dysarthria; obeys commands, moves extremities. Skin- warm & dry Results & Data Results & Data Vital Signs (Past 12 Hours) Vital Signs Temp Pulse Pulse Resp BP BP Pulse Ox 04/23/23 03:03 86 28 H 95 04/23/23 02:27 94 H 24 128/103 H 95 04/23/23 01:50 94 04/23/23 01:30 101 H 29 H 139/99 97 04/23/23 01:20 98 H 29 H 98 04/23/23 01:14 106 H 33 H 144/96 H 97 04/23/23 01:10 108 H 36 H 98 04/23/23 00:33 107 H 04/23/23 00:17 98 04/23/23 00:01 121 H 30 H 134/105 H 98 04/23/23 00:01 93 04/22/23 23:35 36.4 C L 116 H 24 152/103 H 93 O2 Del Method O2 Flow Rate FiO2 04/23/23 03:03 High Flow Nasal Cannula 30 30 04/23/23 02:27 04/23/23 01:50 04/23/23 01:30 04/23/23 01:20 04/23/23 01:14 04/23/23 01:10 04/23/23 00:33 04/23/23 00:17 Nasal Cannula 2 04/23/23 00:01 Nasal Cannula 2 04/23/23 00:01 Room Air 04/22/23 23:35 Room Air Diagnostic Findings Laboratory Results WBC 9.16 K/ul (4.8-10.8) 04/22/23 23:59 RBC 4.42 M/uL (4.20-5.40) 04/22/23 23:59 Hgb 13.4 g/dl (12.0-16.0) 04/22/23 23:59 Hct 40.4 % (37.0-47.0) 04/22/23 23:59 MCV 91.4 fL (80.0-100.0) 04/22/23 23:59 MCH 30.3 pg (25.0-34.0) 04/22/23 23:59 MCHC 33.2 g/dL (32.0-36.0) 04/22/23 23:59 RDW Std Deviation 46.8 fL (36.4-46.3) H 04/22/23 23:59 RDW Coeff of Tiffany 13.9 % (11.5-14.5) 04/22/23 23:59 Plt Count 177 K/uL (130-400) 04/22/23 23:59 MPV 12.5 fL (9.4-12.4) H 04/22/23 23:59 Immature Gran % (Auto) 0.3 % 04/22/23 23:59 Neut % (Auto) 70.3 % 04/22/23 23:59 Lymph % (Auto) 19.7 % 04/22/23 23:59 [place] % (Auto) 7.6 % 04/22/23 23:59 Eos % (Auto) 1.1 % 04/22/23 23:59 Baso % (Auto) 1.0 % 04/22/23 23:59 Neut # (Auto) 6.44 K/uL (1.40-6.50) 04/22/23 23:59 Lymph # (Auto) 1.80 K/uL (1.20-3.40) 04/22/23 23:59 [place] # (Auto) 0.70 K/uL (0.11-0.59) H 04/22/23 23:59 Eos # (Auto) 0.10 K/uL (0.00-0.50) 04/22/23 23:59 Baso # (Auto) 0.09 K/uL (0.00-0.20) 04/22/23 23:59 Immature Gran # (Auto) 0.03 K/uL (0.01-0.20) 04/22/23 23:59 Sodium 138 mmol/L (136-145) 04/22/23 23:59 Potassium 4.4 mmol/L (3.5-5.1) 04/22/23 23:59 Chloride 109 mmol/L (98-107) H 04/22/23 23:59 Carbon Dioxide 21 mmol/L (21-32) 04/22/23 23:59 Anion Gap 8 (3-11) 04/22/23 23:59 BUN 24 mg/dl (6-23) H 04/22/23 23:59 Creatinine 0.83 mg/dl (0.6-1.2) 04/22/23 23:59 Est Cr Clr Drug Dosing Not Reportable 04/22/23 23:59 Est GFR ( Amer) 78.3 ml/min 04/22/23 23:59 Est GFR (Non-Af Amer) 67.5 ml/min 04/22/23 23:59 BUN/Creatinine Ratio 28.9 (10-20) H 04/22/23 23:59 Glucose 139 mg/dl (70-99(Fasting)) H 04/22/23 23:59 Calcium 9.1 mg/dl (8.6-10.3) 04/22/23 23:59 Total Bilirubin 0.5 mg/dl (0.2-1.0) 04/22/23 23:59 AST 32 U/L (13-39) 04/22/23 23:59 ALT 32 U/L (7-52) 04/22/23 23:59 Alkaline Phosphatase 61 U/L (34-104) 04/22/23 23:59 Troponin I High Sens 33.8 pg/ml (0-14) H 04/23/23 01:58 B-Natriuretic Peptide 2527 pg/ml (0-100) H 04/22/23 23:59 Total Protein 6.1 gm/dl (6.0-8.3) 04/22/23 23:59 Albumin 3.9 gm/dl (3.4-5.0) 04/22/23 23:59 Globulin 2.2 gm/dl (2.5-4.0) L 04/22/23 23:59 Albumin/Globulin Ratio 1.8 (0.9-2) 04/22/23 23:59 Adenovirus (PCR) Not Detected (NotDetected) 04/23/23 00:30 B. pertussis DNA (PCR) Not Detected (NotDetected) 04/23/23 00:30 B.parapertussis DNA PCR Not Detected (NotDetected) 04/23/23 00:30 C. pneumoniae DNA (PCR) Not Detected (NotDetected) 04/23/23 00:30 Coronavirus OC43 (PCR) Not Detected (NotDetected) 04/23/23 00:30 Coronavirus HKU1 (PCR) Not Detected (NotDetected) 04/23/23 00:30 Coronavirus 229E (PCR) Not Detected (NotDetected) 04/23/23 00:30 SARS-CoV-2 (PCR) Not Detected (NotDetected) 04/23/23 00:30 Coronavirus NL63 (PCR) Not Detected (NotDetected) 04/23/23 00:30 Human Metapneumovir PCR Not Detected (NotDetected) 04/23/23 00:30 Influenza Type A (PCR) Not Detected (NotDetected) 04/23/23 00:30 Influenza Type B (PCR) Not Detected (NotDetected) 04/23/23 00:30 M. pneumoniae (PCR) Not Detected (NotDetected) 04/23/23 00:30 Parainfluenza 1 (PCR) Not Detected (NotDetected) 04/23/23 00:30 Parainfluenza 2 (PCR) Not Detected (NotDetected) 04/23/23 00:30 Parainfluenza 3 (PCR) Not Detected (NotDetected) 04/23/23 00:30 Parainfluenza 4 (PCR) Not Detected (NotDetected) 04/23/23 00:30 RSV (PCR) Not Detected (NotDetected) 04/23/23 00:30 Entero/Rhino (PCR) Not Detected (NotDetected) 04/23/23 00:30 ECG Additional Comments: ECG : Sinus tachycardia with occasional PVCs at a rate of 114. Possible left atrial enlargement. No significant change Code Status & VTE Plan VTE Prophylaxis Plan VTE Prophylaxis will be ordered: Yes
[2023-04-23] MEDS: MELATONIN 3 MG TAB PO PRN (04:38)
[2023-04-23 04:56] LABS: Appearance Urine Clear (Clear); Bacteria Urine Automated Negative (Negative); Bilirubin Urine Negative (Negative); Blood Urine Negative (Negative); Color Urine Yellow; Epithelial Cell Urine Auto >30 /lpf (0-5); Glucose Urine UA Negative (Negative); Ketones Urine Negative (Negative); Leukocyte Esterase Urine 2+ (Negative); Nitrite Urine Negative (Negative); Protein Urine Negative (Negative); RBC Urine Automated 0-4 /hpf (0-4); Specific Gravity Urine 1.043 (1.000-1.030); Urobilinogen Urine Negative (Negative)
--- NOTE | 2023-04-23 05:42 | CT Scan Report ---
Exam(s): CT CHEST With Contrast IV Amt: 90 ML OPTIRAY 320 EXAM: CT Chest With Intravenous Contrast CLINICAL HISTORY: Reason for exam: pl effusions/pulm edema, ?infiltrate. TECHNIQUE: Axial computed tomography images of the chest with intravenous contrast. CTDI is 12.03 mGy and DLP is 364.39 mGy-cm. Automated exposure control was utilized for the study. A dose lowering technique was utilized adhering to the principles of ALARA. CONTRAST: Patient received 90 ML OPTIRAY 320 of IV contrast COMPARISON: No relevant prior studies available. FINDINGS: Lungs: Dependent airspace disease in the lungs which is favored to be due to compressive atelectasis. Superimposed sequelae of infection/aspiration also possible. Mild intralobular septal thickening. Findings can be seen with mild interstitial pulmonary edema. Pleural space: Large right and moderate left pleural effusions which may be due to volume overload. Given cardiomegaly, findings may be due to sequela of heart failure. No pneumothorax. Heart: Cardiomegaly. Bones/joints: Degenerative changes in the spine. Sclerotic mass noted within the T2 vertebral body which may relate to enostosis. Other etiologies possible. If there is further concern, consider further workup for metastatic disease. T7 and T10 compression fractures. These may be chronic in nature. Consider correlation with point tenderness. If there is further concern, consider MRI. No dislocation. Soft tissues: Unremarkable. Vasculature: Atherosclerotic disease. No thoracic aortic aneurysm. Lymph nodes: Unremarkable. No enlarged lymph nodes. IMPRESSION: 1. Dependent airspace disease in the lungs which is favored to be due to compressive atelectasis. Superimposed sequelae of infection/aspiration also possible. 2. Large right and moderate left pleural effusions which may be due to volume overload. Given cardiomegaly, findings may be due to sequela of heart failure. 3. Mild intralobular septal thickening. Findings can be seen with mild interstitial pulmonary edema. 4. Sclerotic mass noted within the T2 vertebral body which may relate to enostosis. Other etiologies possible. If there is further concern, consider further workup for metastatic disease. 5. T7 and T10 compression fractures. These may be chronic in nature. Consider correlation with point tenderness. If there is further concern, consider MRI. 6. No other acute findings. 7. Incidental findings as described. Electronically signed by: Mtaeusz Willis MD 04/23/23 05:41 AM
[2023-04-23] MEDS ORDERED: POLYETHYLENE (MIRALAX) 17 GM PACK PO PRN (05:53)
[2023-04-23] MEDS ORDERED: BENZONATATE 100 MG CAPSULE PO PRN (05:53)
[2023-04-23] MEDS ORDERED: NITROGLYCERIN SL 0.4 MG/TAB TAB SL PRN (05:53)
[2023-04-23] MEDS ORDERED: ACETAMINOPHEN 325 MG TAB PO PRN (05:53)
[2023-04-23] MEDS ORDERED: traMADol HCL 50 MG TABLET PO PRN (05:53)
[2023-04-23] MEDS ORDERED: PIPER/TAZO 4.5g in D5W MINI-B 100 ML IV ONE (07:00)
--- NOTE | 2023-04-23 07:15 | Cardiology Consultation ---
Date of Consultation April 23, 2023 Assessment & Plan (1) Acute on chronic systolic (congestive) heart failure: (2) Pleural effusion: (3) Hypertension: (4) Dementia: Plan IMPRESSION: 77 year old female with PMH significant for chronic systolic CHF with LVEF mo derately reduced around 35 to 39% presented to [facility] emergency department with progressive vL overload after failed outpatient escalation of diuretic. CT of the chest revealed bilateral pulmonary effusions. PLAN: HFrEF: Agree with IV diuresis with Lasix 40 mg twice daily Monitor renal function electrolytes. Potassium goal of 4.0 and mag goal of 2.0, replace as needed Strict intake and output, daily standing weights, 2 g dietary sodium restriction. Pneumonia: Possible aspiration pneumonia seen on CT scan, covered with IV antibiotics per primary team Hypertension: Controlled-continue losartan and metoprolol as ordered. Case discussed with Dr. Scott. Supervising Physician Co-Signing Physician Notes Patient seen and examined chart reviewed personally 77-year-old female difficult historian secondary to underlying dementia Outpatient records reflect recent symptoms with increasing dyspnea and orthopnea transiently treated with for 5 days with increased oral diuretic intake (Lasix 20 mg to Lasix 40 mg p.o. daily) on 03/29/2023 Presents now with acute on chronic decompensated systolic heart failure Clinically appears to be responding to IV diuretics Chest x-ray with bilateral pleural effusions and heart failure superimposed on probable underlying interstitial lung disease Plan as above continue IV diuretics. Physical examination not consistent with profound volume overload. Repeat chest x-ray 1 to 2 days to reassess pleural effusion History of Present Illness Reason for Consultation: Acute on chronic CHF Requesting Physician: Irish diaz Attending Physician: Diomedes Morse MD History of Present Illness 77-year-old female who initially presented to [facility] emergency department due to progressive shortness of breath. Patient has known chronic systolic heart failure. Recently evaluated by her PCP mid March who increased her furosemide from 40 mg daily to 60 mg daily without significant improvement in symptoms. CT of the chest showed dependent airway disease with superimposed infection/aspiration, large right and moderate left pleural effusions and mild interstitial pulmonary edema. Patient was treated with 40 mg of IV Lasix in the emergency department and placed twice daily dosing. Tele: SR with PACs/PVCs 80-90s I&O: n/a Weight: 65.1 kg Upon entrance in to the room patient resting in bed. HOB elevated. ROS limited due to underlying dementia-- unsure why she is in the hospital. Appears visibly dyspneic with speaking has JETT. No chest pain. Denies lightheadedness or dizziness. Notes swelling in her lower extremities intermittently. helps with medications at home. Past medical history: Chronic systolic CHF--Suspected nonischemic cardiomyopathy related to breast cancer chemotherapy treatments LVEF 35-39%, 03/2023 echo History of sinus tachycardia with frequent PACs/PVCs Hypertension History of pericarditis Cerebral meningioma Alzheimer dementia History of breast cancer status post partial mastectomy and chemotherapy, on tamoxifen Allergies Allergy/AdvReac Type Severity Reaction Status Date / Time bee venom protein (honey bee) Allergy Intermediate EXTRA Verified 10/18/20 20:45 SWELLING AT SITE Sulfa (Sulfonamide Allergy Mild Unknown Verified 10/18/20 20:45 Antibiotics) bupropion Allergy Unknown unknown Verified 10/18/20 20:45 pneumococcal vaccine Allergy Unknown FEVER, Verified 10/18/20 20:45 [From Pneumovax 23] CHILLS, BODY ACHES, VOMITING Home Medications Medication Instructions Recorded Confirmed Type losartan 25 mg tablet 25 mg PO QAM 06/29/19 04/23/23 History tamoxifen 20 mg tablet 20 mg PO QAM 06/29/19 04/23/23 History furosemide 20 mg tablet 20 mg PO QPM 09/04/20 04/23/23 History tramadol 50 mg tablet 50 mg PO TID PRN Pain 09/04/20 04/23/23 History calcium carbonate 600 mg calcium 600 mg PO BID 09/21/20 04/23/23 History (1,500 mg) tablet (Calcium) montelukast 10 mg tablet 10 mg PO QAM 10/18/20 04/23/23 History (Singulair) benzonatate 100 mg capsule 100 mg PO HS PRN Cough 04/23/23 04/23/23 History cholecalciferol (vitamin D3) 125 125 mcg PO QAM 04/23/23 04/23/23 History mcg (5,000 unit) tablet (Vitamin D3) cyanocobalamin (vitamin B-12) 500 500 mcg PO DAILY 04/23/23 04/23/23 History mcg lozenges (Vitamin B-12) fluticasone propionate 50 2 spray intranasal DAILY 04/23/23 04/23/23 History mcg/actuation nasal spray,suspension metoprolol succinate 25 mg 25 mg PO UD 04/23/23 04/23/23 History tablet,extended release 24 hr multivitamin 1 tab PO DAILY 04/23/23 04/23/23 History potassium chloride 20 mEq 20 meq PO QAM 04/23/23 04/23/23 History tablet,extended release(part/cryst) Patient History Medical History Acute dyspnea Acute on chronic congestive heart failure Anemia Breast cancer NO CHEMO/RADIATION Hypertension Hypokalemia Hypoxemia Migraine HX NICM (nonischemic cardiomyopathy) Peptic ulcer disease HX Pleural effusion on left Pleural effusion on right PVC (premature ventricular contraction) Surgical History History of cataract surgery right History of colonoscopy History of tonsillectomy History of tooth extraction Hx of lumpectomy LEFT Family History Other No family history of adverse response to anesthesia Social History Smoking Status: Never smoker Second Hand Exposure: No; Do You Dip or Chew Tobacco: No; Hx Alcohol Use: No Hx Substance Use: No Preferred Language: Brazilian Communication Ability: Effective Psychiatric Tech Required: No Beliefs That Will Affect Care: None Current Living Situation: Spouse Feels Safe at Home: Yes Assistive Devices: Glasses Assistive Devices Comment: glasses not with patient Review of Systems Review of Systems: Unobtainable due to cognitive status (limited due to dementia ) Physical Exam Constitutional: WD/WN, vitals as above + ill appearing; no acute distress Neck: normal visual inspection and trachea midline Respiratory: + cough and + tachypneic; no respiratory distress Auscultation: + rales and + rhonchi; no wheezes Cardiovascular: Rate/Rhythm: regular rate and regular rhythm Heart Sounds: normal S1, normal S2 and + murmur (+systolic murmur) Vessels: no JVD Extremities: + edema (trace BLLE pitting edema) Gastrointestinal (Abdomen): normal bowel sounds, soft, nontender, no hepatosplenomegaly Psychiatric: Orientation: alert, oriented to person and cooperative; + not oriented to place and + not oriented to time Results & Data Vital Signs (Past 12 Hours) Vital Signs Temp Pulse Pulse Resp BP BP Pulse Ox 04/23/23 06:23 04/23/23 05:54 36.8 C 78 14 155/82 H 94 04/23/23 05:25 04/23/23 05:10 108 H 27 H 96 04/23/23 05:00 42 H 133/112 H 94 04/23/23 04:44 109 H 21 146/106 H 95 04/23/23 04:30 111 H 34 H 95 04/23/23 04:20 105 H 32 H 96 04/23/23 04:10 97 H 25 H 96 04/23/23 04:00 99 H 04/23/23 04:00 97 H 27 H 145/100 H 96 04/23/23 03:50 106 H 37 H 98 04/23/23 03:40 105 H 39 H 97 04/23/23 03:31 108 H 30 H 97 04/23/23 03:30 109 H 24 96 04/23/23 03:20 107 H 31 H 96 04/23/23 03:10 109 H 30 H 96 04/23/23 03:03 86 28 H 95 04/23/23 03:01 106 H 23 97 04/23/23 03:00 105 H 31 H 95 04/23/23 02:52 117 H 35 H 04/23/23 02:40 96 H 26 H 96 04/23/23 02:32 101 H 22 143/96 H 96 04/23/23 02:27 94 H 24 128/103 H 95 04/23/23 01:50 94 04/23/23 01:30 101 H 29 H 139/99 97 04/23/23 01:20 98 H 29 H 98 04/23/23 01:14 106 H 33 H 144/96 H 97 04/23/23 01:10 108 H 36 H 98 04/23/23 00:33 107 H 04/23/23 00:17 98 04/23/23 00:01 121 H 30 H 134/105 H 98 04/23/23 00:01 93 04/22/23 23:35 36.4 C L 116 H 24 152/103 H 93 O2 Del Method O2 Flow Rate FiO2 04/23/23 06:23 Nasal Cannula 2 04/23/23 05:54 Room Air 04/23/23 05:25 High Flow Nasal Cannula 30 04/23/23 05:10 04/23/23 05:00 04/23/23 04:44 04/23/23 04:30 04/23/23 04:20 04/23/23 04:10 04/23/23 04:00 04/23/23 04:00 04/23/23 03:50 04/23/23 03:40 04/23/23 03:31 04/23/23 03:30 04/23/23 03:20 04/23/23 03:10 04/23/23 03:03 High Flow Nasal Cannula 30 30 04/23/23 03:01 04/23/23 03:00 04/23/23 02:52 04/23/23 02:40 04/23/23 02:32 04/23/23 02:27 04/23/23 01:50 04/23/23 01:30 04/23/23 01:20 04/23/23 01:14 04/23/23 01:10 04/23/23 00:33 04/23/23 00:17 Nasal Cannula 2 04/23/23 00:01 Nasal Cannula 2 04/23/23 00:01 Room Air 04/22/23 23:35 Room Air Laboratory Results Cardiac Enzymes 04/22/23 04/23/23 04/23/23 Range/Units 23:59 01:58 07:15 AST 32 (13-39) U/L Troponin I High Sens 28.3 H 33.8 H 36.1 H (0-14) pg/ml B-Natriuretic Peptide 2527 H (0-100) pg/ml Coagulation 04/22/23 Range/Units 23:59 B-Natriuretic Peptide 2527 H (0-100) pg/ml CBC 04/22/23 04/23/23 Range/Units 23:59 07:15 WBC 9.16 7.58 (4.8-10.8) K/ul RBC 4.42 4.19 L (4.20-5.40) M/uL Hgb 13.4 12.7 (12.0-16.0) g/dl Hct 40.4 38.3 (37.0-47.0) % Plt Count 177 162 (130-400) K/uL Neut # (Auto) 6.44 5.81 (1.40-6.50) K/uL Lymph # (Auto) 1.80 1.07 L (1.20-3.40) K/uL [place] # (Auto) 0.70 H 0.62 H (0.11-0.59) K/uL Eos # (Auto) 0.10 0.01 (0.00-0.50) K/uL Baso # (Auto) 0.09 0.05 (0.00-0.20) K/uL Comprehensive Metabolic Panel 04/22/23 04/23/23 Range/Units 23:59 07:15 Sodium 138 141 (136-145) mmol/L Potassium 4.4 3.8 (3.5-5.1) mmol/L Chloride 109 H 107 (98-107) mmol/L Carbon Dioxide 21 27 (21-32) mmol/L BUN 24 H 20 (6-23) mg/dl Creatinine 0.83 0.79 (0.6-1.2) mg/dl Glucose 139 H 121 H (70-99(Fasting)) mg/dl Calcium 9.1 8.8 (8.6-10.3) mg/dl AST 32 (13-39) U/L ALT 32 (7-52) U/L Alkaline Phosphatase 61 (34-104) U/L Total Protein 6.1 (6.0-8.3) gm/dl Albumin 3.9 (3.4-5.0) gm/dl Intake and Output 04/22/23 04/23/23 04/23/23 22:59 06:59 14:59 Intake Total 100 / 100 Balance 100 / 100 Intake: IV 100 / 100 Piperacillin/Tazobactam 4.5 gm 100 / 100 In Dextrose 5% Mini-B 100 ml @ 200 mls/hr IV NOW ONE Rx#: [id number] Other: # Unmeasured Voids 1 Weight 65.1 kg Weight Measurement Method Built [facility] Diagnostic Findings Outpatient Echo 04/02/2023 Reason For Study: SOB, known cardiomyopathy Interpretation Summary The examination is adequate to evaluate the referral indication. The qualitative LV ejection fraction is 35-39% (moderately reduced). The left ventricular cavity size is mildly enlarged. The LV wall thickness is mildly increased (concentric). There is mild diffuse left ventricular hypokinesis. The left atrium is severely enlarged (>48 ml/m^2,). Moderate to severe mitral regurgitation is present. Mild aortic valve regurgitation is present. (3) Hypertension Hypertension type: primary hypertension Qualified Code(s): I10 - Essential (primary) hypertension (4) Dementia Alzheimer's disease onset: unspecified onset Dementia behavioral or psychological symptom: unspecified whether behavioral, psychotic, or mood disturbance or anxiety Dementia severity: unspecified severity Dementia type: Alzheimer's Qualified Code(s): G30.9 - Alzheimer's disease, unspecified; F02.80 - Dementia in other diseases classified elsewhere, unspecified severity, without behavioral disturbance, psychotic disturbance, mood disturbance, and anxiety
[2023-04-23 07:36] LABS: Basophils # (auto) 0.05 K/uL (0.00-0.20); Basophils % (auto) 0.7 %; Eosinophils # (auto) 0.01 K/uL (0.00-0.50); Eosinophils % (auto) 0.1 %; Hematocrit (blood only) 38.3 % (37.0-47.0); Hemoglobin 12.7 g/dl (12.0-16.0); Immature Granulocytes # (auto) 0.02 K/uL (0.01-0.20); Immature Granulocytes % (auto) 0.3 %; Lymphocytes # (auto) 1.07 K/uL (1.20-3.40); Lymphocytes % (auto) 14.1 %; Mean Corpuscular Hemoglobin 30.3 pg (25.0-34.0); Mean Corpuscular Hgb Conc 33.2 g/dL (32.0-36.0); Mean Corpuscular Volume 91.4 fL (80.0-100.0); Mean Platelet Volume 11.4 fL (9.4-12.4); Monocytes # (auto) 0.62 K/uL (0.11-0.59); Monocytes % (auto) 8.2 %; Neutrophils # (auto) 5.81 K/uL (1.40-6.50); Neutrophils % (auto) 76.6 %; Platelet Count 162 K/uL (130-400); RDW Standard Deviation 46.6 fL (36.4-46.3); Red Blood Count 4.19 M/uL (4.20-5.40); White Blood Count 7.58 K/ul (4.8-10.8)
[2023-04-23 07:57] LABS: BUN Creatinine Ratio 25.3 (10-20); Calcium 8.8 mg/dl (8.6-10.3); Est GFR (African American) 83.1 ml/min; Est GFR (Non-African American) 71.7 ml/min; Potassium 3.8 mmol/L (3.5-5.1)
[2023-04-23 08:02] LABS: Troponin I High Sensitivity 36.1 pg/ml (0-14)
--- NOTE | 2023-04-23 08:05 | XRay Report ---
XR chest 1V portable HISTORY: 77 years-old Female Dyspnea acute shortness of breath COMPARISON: Chest CT of same day TECHNIQUE: AP view of the chest FINDINGS: Cardiac silhouette is enlarged. Atherosclerosis of the aorta. Small to moderate layering pleural effu sions with bibasilar consolidation. Pulmonary vascular congestion with interstitial coarsening. Degen erative changes of the shoulders and spine. IMPRESSION: 1. Cardiomegaly with pulmonary edema. 2. [id number] pleural effusions with bibasilar consolidation suggestive of atelectasis. ACT 112: Negative or not required by law. The above report was generated using voice recognition software. It may contain grammatical, syntax o r spelling errors. Electronically signed by: Magen Rivera M.D. 04/23/2023 8:03 AM
[2023-04-23] MEDS: CALCIUM CARBONATE 1250MG TAB PO SCH ×2 (09:08→21:03)
[2023-04-23] MEDS: CHOLECALCIFEROL 5,000 UNITS 125 MCG TAB PO SCH (09:08)
[2023-04-23] MEDS: ENOXAPARIN INJ 40 MG/0.4 ML SYR SQ SCH (09:09)
[2023-04-23] MEDS: LOSARTAN POTASSIUM 25 MG TAB PO SCH (09:10)
[2023-04-23] MEDS: FUROSEMIDE 40 MG/4 ML VIAL IV SCH ×2 (09:10→17:56)
[2023-04-23] MEDS: FLUTICASONE PROPIONATE NA SPR 16 GM BTL NAE SCH (09:10)
[2023-04-23] MEDS: MONTELUKAST SODIUM 10 MG TABLET PO SCH (09:11)
[2023-04-23] MEDS: METOPROLOL SUCC 50MG EXT REL TAB PO SCH (09:11)
[2023-04-23] MEDS: MULTIVITAMIN TAB PO SCH (09:11)
[2023-04-23] MEDS: POTASSIUM CHLORIDE CRTAB 20 MEQ TABCR PO SCH (09:11)
[2023-04-23] MEDS: TAMOXIFEN CITRATE 10 MG TABLET PO SCH (09:12)
[2023-04-23] MEDS: CYANOCOBALAMIN (B-12) 500 MCG TABLET PO SCH (12:13)
--- NOTE | 2023-04-23 13:02 | Electrocardiogram Report ---
Test Reason : Blood Pressure : / mmHG Vent. Rate : 121 BPM Atrial Rate : 121 BPM P-R Int : 160 ms QRS Dur : 082 ms QT Int : 346 ms P-R-T Axes : 059 -37 079 degrees QTc Int : 491 ms Sinus tachycardia with occasional Premature ventricular complexes Possible Left atrial enlargement Left axis deviation Left ventricular hypertrophy ( R in aVL ) Nonspecific ST and T wave abnormality Abnormal ECG When compared with ECG of 19-OCT-2020 06:47, Premature ventricular complexes are now Present ST now depressed in Lateral leads T wave amplitude has increased in Anterior leads Confirmed by Gene Torres ([id number]) on 04/23/2023 1:02:25 PM Referred By: REFERRED SELF Confirmed By:Gene Torres
--- NOTE | 2023-04-23 13:03 | Electrocardiogram Report ---
Test Reason : Blood Pressure : / mmHG Vent. Rate : 114 BPM Atrial Rate : 114 BPM P-R Int : 158 ms QRS Dur : 082 ms QT Int : 338 ms P-R-T Axes : 050 -38 099 degrees QTc Int : 465 ms Sinus tachycardia with occasional Premature ventricular complexes Possible Left atrial enlargement Left axis deviation Left ventricular hypertrophy with repolarization abnormality ( R in aVL ) Abnormal ECG When compared with ECG of 22-APR-2023 23:49, (unconfirmed) No significant change was found Confirmed by Gene Torres ([id number]) on 04/23/2023 1:02:38 PM Referred By: REFERRED SELF Confirmed By:Gene Torres
--- NOTE | 2023-04-23 13:15 | Hospitalist Progress Note ---
Date of Service April 23, 2023 Assessment & Plan (1) Acute on chronic systolic (congestive) heart failure: Plan: 77-year-old female with past med history significant for chronic systolic CHF, hypertension, history of PVCs, history of pericardial effusion, history of hyperlipidemia, osteoporosis, compression fracture of spine, migraine, history of cerebral meningioma, Alzheimer's dementia, history of left breast cancer s/p partial mastectomy and on tamoxifen who lives at home with her was brought in because of ongoing shortness of breath. Acute on chronic systolic CHF B/L Pleural effusion ( likely secondary to CHF) Possible aspiration pneumonia Patient presented from home with shortness of breath. Also reports dry cough. Continues to have progressive symptoms even with escalating dose of Lasix as outpatient. She also completed antibiotic treatment as outpatient CT chest personally reviewed; dependent airspace disease in the lungs due to compressive atelectasis. Possible aspiration. Also in bilateral pleural effusion. BNP elevated to 2500 Respiratory viral panel negative Echo done on 04/02/2023 showed EF of 35 to 39%. Moderate to severe mitral regurgitation. Left atrium is severely enlarged. Continue diuresis with IV Lasix 40 mg twice daily Daily weights I's and O's Continue oxygen supplementation Close monitoring telemetry Possible aspiration pneumonia on ct scan added iv zosyn Swallow evaluation to rule out aspiration T4 Vertebral spine lesion on ct scan. T7 and T10 compression fracture Patient denies any symptoms at present time Hold off further imaging for the time being. Might need further work-up after resolution of acute issues. Hypertension Continue metoprolol succinate, losartan Continue diuretics We will monitor History of Alzheimer's dementia Monitor for delirium PT OT when stable History of left breast cancer S/p partial mastectomy On tamoxifen DVT prophylaxis Lovenox Disposition Telemetry floor Full code Please note the above document was generated using voice recognition software. It may contain grammatical, syntax or spelling errors. Any formal questions or concerns about the content, text or information contained within the body of this dictation should be directly addressed to the provider for clarification Admission and Anticipated Discharge Date Admission Date: April 23, 2023 Subjective Patient seen and examined at bedside. She is lying in the bed comfortably; not in distress. She denies shortness of breath presently. Review of Systems Review of Systems: All systems reviewed & are unremarkable except as noted in Subjective Physical Exam Physical Exam: Constitutional: Comfortable not in distress Respiratory: Decreased breath sound at bilateral bases Cardiovascular: RRR, no murmur, no edema Vessels: no JVD or carotid bruit Chest: normal inspection of chest Abdomen: normal bowel sounds, soft, nontender, no hepatosplenomegaly Musculoskeletal: no cyanosis or clubbing, extremities motor strength 5/5 Skin: no rashes, warm and dry normal turgor Neurologic: PERRL, EOMI, accommodation nl, no face palsy, no dysarthria CN's II- XI intact bilaterally and moves all extremities Results & Data Results & Data Vital Signs (Past 12 Hours) Vital Signs Temp Pulse Pulse Resp BP BP Pulse Ox 04/23/23 11:31 36.4 C L 81 20 119/77 95 04/23/23 09:00 88 04/23/23 09:00 04/23/23 07:44 36.2 C L 89 18 118/73 94 04/23/23 06:23 04/23/23 05:54 36.8 C 78 14 155/82 H 94 04/23/23 05:25 04/23/23 05:10 108 H 27 H 96 04/23/23 05:00 42 H 133/112 H 94 04/23/23 04:44 109 H 21 146/106 H 95 04/23/23 04:30 111 H 34 H 95 04/23/23 04:20 105 H 32 H 96 04/23/23 04:10 97 H 25 H 96 04/23/23 04:00 99 H 04/23/23 04:00 97 H 27 H 145/100 H 96 04/23/23 03:50 106 H 37 H 98 04/23/23 03:40 105 H 39 H 97 04/23/23 03:31 108 H 30 H 97 04/23/23 03:30 109 H 24 96 04/23/23 03:20 107 H 31 H 96 04/23/23 03:10 109 H 30 H 96 04/23/23 03:03 86 28 H 95 04/23/23 03:01 106 H 23 97 04/23/23 03:00 105 H 31 H 95 04/23/23 02:52 117 H 35 H 04/23/23 02:40 96 H 26 H 96 04/23/23 02:32 101 H 22 143/96 H 96 04/23/23 02:27 94 H 24 128/103 H 95 04/23/23 01:50 94 04/23/23 01:30 101 H 29 H 139/99 97 04/23/23 01:20 98 H 29 H 98 04/23/23 01:14 106 H 33 H 144/96 H 97 O2 Del Method O2 Flow Rate FiO2 04/23/23 11:31 Room Air 04/23/23 09:00 04/23/23 09:00 Room Air 04/23/23 07:44 Room Air 04/23/23 06:23 Nasal Cannula 2 04/23/23 05:54 Room Air 04/23/23 05:25 High Flow Nasal Cannula 30 04/23/23 05:10 04/23/23 05:00 04/23/23 04:44 04/23/23 04:30 04/23/23 04:20 04/23/23 04:10 04/23/23 04:00 04/23/23 04:00 04/23/23 03:50 04/23/23 03:40 04/23/23 03:31 04/23/23 03:30 04/23/23 03:20 04/23/23 03:10 04/23/23 03:03 High Flow Nasal Cannula 30 30 04/23/23 03:01 04/23/23 03:00 04/23/23 02:52 04/23/23 02:40 04/23/23 02:32 04/23/23 02:27 04/23/23 01:50 04/23/23 01:30 04/23/23 01:20 04/23/23 01:14 Laboratory Results Laboratory Results WBC 7.58 K/ul (4.8-10.8) 04/23/23 07:15 RBC 4.19 M/uL (4.20-5.40) L 04/23/23 07:15 Hgb 12.7 g/dl (12.0-16.0) 04/23/23 07:15 Hct 38.3 % (37.0-47.0) 04/23/23 07:15 MCV 91.4 fL (80.0-100.0) 04/23/23 07:15 MCH 30.3 pg (25.0-34.0) 04/23/23 07:15 MCHC 33.2 g/dL (32.0-36.0) 04/23/23 07:15 RDW Std Deviation 46.6 fL (36.4-46.3) H 04/23/23 07:15 RDW Coeff of [place] 14.0 % (11.5-14.5) 04/23/23 07:15 Plt Count 162 K/uL (130-400) 04/23/23 07:15 MPV 11.4 fL (9.4-12.4) 04/23/23 07:15 Immature Gran % (Auto) 0.3 % 04/23/23 07:15 Neut % (Auto) 76.6 % 04/23/23 07:15 Lymph % (Auto) 14.1 % 04/23/23 07:15 [place] % (Auto) 8.2 % 04/23/23 07:15 Eos % (Auto) 0.1 % 04/23/23 07:15 Baso % (Auto) 0.7 % 04/23/23 07:15 Neut # (Auto) 5.81 K/uL (1.40-6.50) 04/23/23 07:15 Lymph # (Auto) 1.07 K/uL (1.20-3.40) L 04/23/23 07:15 [place] # (Auto) 0.62 K/uL (0.11-0.59) H 04/23/23 07:15 Eos # (Auto) 0.01 K/uL (0.00-0.50) 04/23/23 07:15 Baso # (Auto) 0.05 K/uL (0.00-0.20) 04/23/23 07:15 Immature Gran # (Auto) 0.02 K/uL (0.01-0.20) 04/23/23 07:15 Sodium 141 mmol/L (136-145) 04/23/23 07:15 Potassium 3.8 mmol/L (3.5-5.1) 04/23/23 07:15 Chloride 107 mmol/L (98-107) 04/23/23 07:15 Carbon Dioxide 27 mmol/L (21-32) 04/23/23 07:15 Anion Gap 7 (3-11) 04/23/23 07:15 BUN 20 mg/dl (6-23) 04/23/23 07:15 Creatinine 0.79 mg/dl (0.6-1.2) 04/23/23 07:15 Est Cr Clr Drug Dosing 52.0 ml/min 04/23/23 07:15 Est GFR ( Amer) 83.1 ml/min 04/23/23 07:15 Est GFR (Non-Af Amer) 71.7 ml/min 04/23/23 07:15 BUN/Creatinine Ratio 25.3 (10-20) H 04/23/23 07:15 Glucose 121 mg/dl (70-99(Fasting)) H 04/23/23 07:15 Calcium 8.8 mg/dl (8.6-10.3) 04/23/23 07:15 Magnesium 2.0 mg/dl (1.7-2.4) 04/23/23 07:15 Total Bilirubin 0.5 mg/dl (0.2-1.0) 04/22/23 23:59 AST 32 U/L (13-39) 04/22/23 23:59 ALT 32 U/L (7-52) 04/22/23 23:59 Alkaline Phosphatase 61 U/L (34-104) 04/22/23 23:59 Troponin I High Sens 36.1 pg/ml (0-14) H 04/23/23 07:15 B-Natriuretic Peptide 2527 pg/ml (0-100) H 04/22/23 23:59 Total Protein 6.1 gm/dl (6.0-8.3) 04/22/23 23:59 Albumin 3.9 gm/dl (3.4-5.0) 04/22/23 23:59 Globulin 2.2 gm/dl (2.5-4.0) L 04/22/23 23:59 Albumin/Globulin Ratio 1.8 (0.9-2) 04/22/23 23:59 Urine Color Yellow 04/23/23 04:40 Urine Appearance Clear (Clear) 04/23/23 04:40 Urine pH 6.0 (4.5-7.5) 04/23/23 04:40 Ur Specific [place] 1.043 (1.000-1.030) H 04/23/23 04:40 Urine Protein Negative (Negative) 04/23/23 04:40 Urine Glucose (UA) Negative (Negative) 04/23/23 04:40 Urine Ketones Negative (Negative) 04/23/23 04:40 Urine Blood Negative (Negative) 04/23/23 04:40 Urine Nitrite Negative (Negative) 04/23/23 04:40 Urine Bilirubin Negative (Negative) 04/23/23 04:40 Urine Urobilinogen Negative (Negative) 04/23/23 04:40 Ur Leukocyte Esterase 2+ (Negative) H 04/23/23 04:40 Urine WBC (Auto) 10-30 /hpf (0-5) H 04/23/23 04:40 Urine RBC (Auto) 0-4 /hpf (0-4) 04/23/23 04:40 U Hyaline Cast (Auto) 1-5 /lpf (0-5) 04/23/23 04:40 U Epithel Cells (Auto) >30 /lpf (0-5) H 04/23/23 04:40 Urine Bacteria (Auto) Negative (Negative) 04/23/23 04:40 Adenovirus (PCR) Not Detected (NotDetected) 04/23/23 00:30 B. pertussis DNA (PCR) Not Detected (NotDetected) 04/23/23 00:30 B.parapertussis DNA PCR Not Detected (NotDetected) 04/23/23 00:30 C. pneumoniae DNA (PCR) Not Detected (NotDetected) 04/23/23 00:30 Coronavirus OC43 (PCR) Not Detected (NotDetected) 04/23/23 00:30 Coronavirus HKU1 (PCR) Not Detected (NotDetected) 04/23/23 00:30 Coronavirus 229E (PCR) Not Detected (NotDetected) 04/23/23 00:30 SARS-CoV-2 (PCR) Not Detected (NotDetected) 04/23/23 00:30 Coronavirus NL63 (PCR) Not Detected (NotDetected) 04/23/23 00:30 Human Metapneumovir PCR Not Detected (NotDetected) 04/23/23 00:30 Influenza Type A (PCR) Not Detected (NotDetected) 04/23/23 00:30 Influenza Type B (PCR) Not Detected (NotDetected) 04/23/23 00:30 M. pneumoniae (PCR) Not Detected (NotDetected) 04/23/23 00:30 Parainfluenza 1 (PCR) Not Detected (NotDetected) 04/23/23 00:30 Parainfluenza 2 (PCR) Not Detected (NotDetected) 04/23/23 00:30 Parainfluenza 3 (PCR) Not Detected (NotDetected) 04/23/23 00:30 Parainfluenza 4 (PCR) Not Detected (NotDetected) 04/23/23 00:30 RSV (PCR) Not Detected (NotDetected) 04/23/23 00:30 Entero/Rhino (PCR) Not Detected (NotDetected) 04/23/23 00:30 Impressions Chest X-Ray 04/22/23 23:58 XR chest 1V portable HISTORY: 77 years-old Female Dyspnea acute shortness of breath COMPARISON: Chest CT of same day TECHNIQUE: AP view of the chest FINDINGS: Cardiac silhouette is enlarged. Atherosclerosis of the aorta. Small to moderate layering pleural effusions with bibasilar consolidation. Pulmonary vascular congestion with interstitial coarsening. Degenerative changes of the shoulders and spine. IMPRESSION: 1. Cardiomegaly with pulmonary edema. 2. [id number] pleural effusions with bibasilar consolidation suggestive of atelectasis. ACT 112: Negative or not required by law. The above report was generated using voice recognition software. It may contain grammatical, syntax or spelling errors. Electronically signed by: Magen Rivera M.D. 04/23/2023 8:[address] 04/23/23 01:27 Exam(s): CT CHEST With Contrast IV Amt: 90 ML OPTIRAY 320 EXAM: CT Chest With Intravenous Contrast CLINICAL HISTORY: Reason for exam: pl effusions/pulm edema, ?infiltrate. TECHNIQUE: Axial computed tomography images of the chest with intravenous contrast. CTDI is 12.03 mGy and DLP is 364.39 mGy-cm. Automated exposure control was utilized for the study. A dose lowering technique was utilized adhering to the principles of ALARA. CONTRAST: Patient received 90 ML OPTIRAY 320 of IV contrast COMPARISON: No relevant prior studies available. FINDINGS: Lungs: Dependent airspace disease in the lungs which is favored to be due to compressive atelectasis. Superimposed sequelae of infection/aspiration also possible. Mild intralobular septal thickening. Findings can be seen with mild interstitial pulmonary edema. Pleural space: Large right and moderate left pleural effusions which may be due to volume overload. Given cardiomegaly, findings may be due to sequela of heart failure. No pneumothorax. Heart: Cardiomegaly. Bones/joints: Degenerative changes in the spine. Sclerotic mass noted within the T2 vertebral body which may relate to enostosis. Other etiologies possible. If there is further concern, consider further workup for metastatic disease. T7 and T10 compression fractures. These may be chronic in nature. Consider correlation with point tenderness. If there is further concern, consider MRI. No dislocation. Soft tissues: Unremarkable. Vasculature: Atherosclerotic disease. No thoracic aortic aneurysm. Lymph nodes: Unremarkable. No enlarged lymph nodes. IMPRESSION: 1. Dependent airspace disease in the lungs which is favored to be due to compressive atelectasis. Superimposed sequelae of infection/aspiration also possible. 2. Large right and moderate left pleural effusions which may be due to volume overload. Given cardiomegaly, findings may be due to sequela of heart failure. 3. Mild intralobular septal thickening. Findings can be seen with mild interstitial pulmonary edema. 4. Sclerotic mass noted within the T2 vertebral body which may relate to enostosis. Other etiologies possible. If there is further concern, consider further workup for metastatic disease. 5. T7 and T10 compression fractures. These may be chronic in nature. Consider correlation with point tenderness. If there is further concern, consider MRI. 6. No other acute findings. 7. Incidental findings as described. Electronically signed by: Mateusz Willis MD 04/23/23 05:41 AM
[2023-04-23] MEDS: PIPERACILLIN/TAZOBACTAM 4.5 GM in DEXTROSE 5% MINI-B 100 ML IV SCH ×2 (13:33→21:04)
[2023-04-23] MEDS: METOPROLOL SUCC 25MG EXT REL TAB PO SCH (21:03)
[2023-04-24] MEDS: PIPERACILLIN/TAZOBACTAM 4.5 GM in DEXTROSE 5% MINI-B 100 ML IV SCH ×2 (06:04→14:26)
[2023-04-24 07:37] LABS: Basophils # (auto) 0.06 K/uL (0.00-0.20); Basophils % (auto) 1.1 %; Eosinophils # (auto) 0.13 K/uL (0.00-0.50); Eosinophils % (auto) 2.4 %; Hematocrit (blood only) 36.2 % (37.0-47.0); Immature Granulocytes # (auto) 0.01 K/uL (0.01-0.20); Immature Granulocytes % (auto) 0.2 %; Lymphocytes # (auto) 1.35 K/uL (1.20-3.40); Lymphocytes % (auto) 25.4 %; Mean Corpuscular Hgb Conc 33.1 g/dL (32.0-36.0); Mean Corpuscular Volume 90.5 fL (80.0-100.0); Monocytes # (auto) 0.67 K/uL (0.11-0.59); Monocytes % (auto) 12.6 %; Neutrophils % (auto) 58.3 %; Platelet Count 152 K/uL (130-400); RDW Coefficient of Variation 14.1 % (11.5-14.5); RDW Standard Deviation 46.6 fL (36.4-46.3); White Blood Count 5.32 K/ul (4.8-10.8)
[2023-04-24 07:48] LABS: Albumin Globulin Ratio 2.1 (0.9-2); Albumin Level 3.3 gm/dl (3.4-5.0); BUN Creatinine Ratio 22.5 (10-20); Bilirubin,Total 0.7 mg/dl (0.2-1.0); Calcium 8.6 mg/dl (8.6-10.3); Creatinine Clr Calc Pharmacy 51.3 ml/min; Est GFR (African American) 81.8 ml/min; Est GFR (Non-African American) 70.6 ml/min; Globulin 1.6 gm/dl (2.5-4.0); Potassium 3.2 mmol/L (3.5-5.1); Total Protein 4.9 gm/dl (6.0-8.3)
[2023-04-24] MEDS: CALCIUM CARBONATE 1250MG TAB PO SCH ×2 (08:00→20:51)
[2023-04-24] MEDS: LOSARTAN POTASSIUM 25 MG TAB PO SCH (08:00)
[2023-04-24] MEDS: CYANOCOBALAMIN (B-12) 500 MCG TABLET PO SCH (08:00)
[2023-04-24] MEDS: MULTIVITAMIN TAB PO SCH (08:01)
[2023-04-24] MEDS: METOPROLOL SUCC 50MG EXT REL TAB PO SCH (08:01)
[2023-04-24] MEDS: MONTELUKAST SODIUM 10 MG TABLET PO SCH (08:01)
[2023-04-24] MEDS: CHOLECALCIFEROL 5,000 UNITS 125 MCG TAB PO SCH (08:01)
[2023-04-24] MEDS: POTASSIUM CHLORIDE CRTAB 20 MEQ TABCR PO SCH (08:01)
[2023-04-24] MEDS: TAMOXIFEN CITRATE 10 MG TABLET PO SCH (08:01)
[2023-04-24] MEDS: ENOXAPARIN INJ 40 MG/0.4 ML SYR SQ SCH (09:49)
[2023-04-24] MEDS: FUROSEMIDE 40 MG/4 ML VIAL IV SCH ×2 (09:50→17:55)
[2023-04-24] MEDS: FLUTICASONE PROPIONATE NA SPR 16 GM BTL NAE SCH (09:50)
--- NOTE | 2023-04-24 10:43 | Cardiology Progress Note ---
Date of Service April 24, 2023 Assessment & Plan (1) Acute on chronic systolic (congestive) heart failure: (2) Pleural effusion: (3) Hypertension: (4) Dementia: Plan IMPRESSION: 77 year old female with PMH significant for chronic systolic CHF with LVEF moderately reduced around 35-39% presented to [facility] emergency department with progressive vL overload after failed outpatient escalation of diuretic. CT of the chest revealed bilateral pulmonary effusions. PLAN: HFrEF: Agree with IV diuresis with Lasix 40 mg twice daily Monitor renal function electrolytes. Potassium goal of 4.0 and mag goal of 2.0, replace as needed Strict intake and output, daily standing weights, 2 g dietary sodium restriction. Pneumonia: Possible aspiration pneumonia seen on CT scan, covered with IV antibiotics per primary team Hypertension: Controlled-continue losartan and metoprolol as ordered. Admission and Anticipated Discharge Date Admission Date: April 23, 2023 Subjective Patient seen in cardiology follow-up. No acute complaint other than stating that she prefers to not be in the hospital. Physical Exam Constitutional: WD/WN, vitals as above no acute distress Neck: normal visual inspection and trachea midline Respiratory: no respiratory distress Auscultation: + rales and + rhonchi; no wheezes Cardiovascular: Rate/Rhythm: regular rate and regular rhythm Heart Sounds: normal S1, normal S2 and + murmur (+systolic murmur) Vessels: no JVD Extremities: no edema Gastrointestinal (Abdomen): normal bowel sounds, soft, nontender, no hepatosplenomegaly Psychiatric: Orientation: alert, oriented to person and cooperative; + not oriented to place and + not oriented to time Results & Data Vital Signs (Past 12 Hours) Vital Signs Temp Pulse Pulse Resp BP Pulse Ox O2 Del Method 04/24/23 08:36 36.6 C 74 18 117/78 92 Room Air 04/24/23 08:00 83 04/24/23 03:33 36.5 C 106 H 18 126/84 94 Room Air 04/23/23 23:57 36.6 C 84 18 117/72 92 Room Air 04/23/23 23:00 94 H Laboratory Results Cardiac Enzymes 04/23/23 04/24/23 Range/Units 12:45 06:51 AST 21 (13-39) U/L Troponin I High Sens 33.2 H (0-14) pg/ml CBC 04/24/23 Range/Units 06:51 WBC 5.32 (4.8-10.8) K/ul RBC 4.00 L (4.20-5.40) M/uL Hgb 12.0 (12.0-16.0) g/dl Hct 36.2 L (37.0-47.0) % Plt Count 152 (130-400) K/uL Neut # (Auto) 3.10 (1.40-6.50) K/uL Lymph # (Auto) 1.35 (1.20-3.40) K/uL [place] # (Auto) 0.67 H (0.11-0.59) K/uL Eos # (Auto) 0.13 (0.00-0.50) K/uL Baso # (Auto) 0.06 (0.00-0.20) K/uL Comprehensive Metabolic Panel 04/24/23 Range/Units 06:51 Sodium 141 (136-145) mmol/L Potassium 3.2 L (3.5-5.1) mmol/L Chloride 106 (98-107) mmol/L Carbon Dioxide 29 (21-32) mmol/L BUN 18 (6-23) mg/dl Creatinine 0.80 (0.6-1.2) mg/dl Glucose 95 (70-99(Fasting)) mg/dl Calcium 8.6 (8.6-10.3) mg/dl AST 21 (13-39) U/L ALT 27 (7-52) U/L Alkaline Phosphatase 45 (34-104) U/L Total Protein 4.9 L D (6.0-8.3) gm/dl Albumin 3.3 L (3.4-5.0) gm/dl Intake and Output 04/23/23 04/24/23 04/24/23 22:59 06:59 14:59 Intake Total 200 / 900 200 / 900 100 / 100 Output Total 1150 / 1500 150 / 150 Balance -950 / -600 200 / -600 -50 / -50 Intake: IV 100 / 300 100 / 300 100 / 100 Piperacillin/Tazobactam 4.5 gm 100 / 200 100 / 200 100 / 100 In Dextrose 5% Mini-B 100 ml @ 25 mls/hr IV Q8H [facility] Rx#: [id number] Oral 100 / 600 100 / 600 Output: Urine 1150 / 1500 150 / 150 Other: # Unmeasured Voids 5 1 2 Weight 65 kg Weight Measurement Method Built in [facility] (3) Hypertension Hypertension type: primary hypertension Qualified Code(s): I10 - Essential (primary) hypertension (4) Dementia Dementia type: Alzheimer's Alzheimer's disease onset: unspecified onset Dementia severity: unspecified severity Dementia behavioral or psychological symptom: unspecified whether behavioral, psychotic, or mood disturbance or anxiety Qualified Code(s): G30.9 - Alzheimer's disease, unspecified; F02.80 - Dementia in other diseases classified elsewhere, unspecified severity, without behavioral disturbance, psychotic disturbance, mood disturbance, and anxiety
--- NOTE | 2023-04-24 12:35 | Hospitalist Progress Note ---
Date of Service April 24, 2023 Assessment & Plan (1) Acute on chronic systolic (congestive) heart failure: Plan: 77-year-old female with past med history significant for chronic systolic CHF, hypertension, history of PVCs, history of pericardial effusion, history of hyperlipidemia, osteoporosis, compression fracture of spine, migraine, history of cerebral meningioma, Alzheimer's dementia, history of left breast cancer s/p partial mastectomy and on tamoxifen who lives at home with her was brought in because of ongoing shortness of breath. Acute on chronic systolic CHF B/L Pleural effusion ( likely secondary to CHF) Possible aspiration pneumonia Patient presented from home with shortness of breath. Also reports dry cough. Continues to have progressive symptoms even with escalating dose of Lasix as outpatient. She also completed antibiotic treatment as outpatient CT chest personally reviewed; dependent airspace disease in the lungs due to compressive atelectasis. Possible aspiration. Also in bilateral pleural effusion. BNP elevated to 2500 Respiratory viral panel negative Echo done on 04/02/2023 showed EF of 35 to 39%. Moderate to severe mitral regurgitation. Left atrium is severely enlarged. Continue diuresis with IV Lasix 40 mg twice daily Daily weights I's and O's Continue oxygen supplementation Close monitoring telemetry Possible aspiration pneumonia on ct scan added iv zosyn Swallow evaluation to rule out aspiration T4 Vertebral spine lesion on ct scan. T7 and T10 compression fracture Patient denies any symptoms at present time Hold off further imaging for the time being. Might need further work-up after resolution of acute issues. Hypertension Continue metoprolol succinate, losartan Continue diuretics We will monitor History of Alzheimer's dementia Monitor for delirium PT OT when stable History of left breast cancer S/p partial mastectomy On tamoxifen DVT prophylaxis Lovenox Disposition Telemetry floor Full code Time spent evaluating patient, direct bedside care, chart review, placing orders, interpretation of diagnostic studies, discussion with consultants, patient, and family members, as well as other required patient management activities is 60 minutes. Please note the above document was generated using voice recognition software. It may contain grammatical, syntax or spelling errors. Any formal questions or concerns about the content, text or information contained within the body of this dictation should be directly addressed to the provider for clarification Admission and Anticipated Discharge Date Admission Date: April 23, 2023 Subjective Patient seen and examined at bedside. she is lying on the bed comfortably; not in distress. Intermittently confused but able to follow directions Review of Systems Review of Systems: All systems reviewed & are unremarkable except as noted in Subjective Physical Exam Physical Exam: Constitutional: Comfortable not in distress Respiratory: Decreased breath sound at bilateral bases Cardiovascular: RRR, no murmur, no edema Vessels: no JVD or carotid bruit Chest: normal inspection of chest Abdomen: normal bowel sounds, soft, nontender, no hepatosplenomegaly Musculoskeletal: no cyanosis or clubbing, extremities motor strength 5/5 Skin: no rashes, warm and dry normal turgor Neurologic: PERRL, EOMI, accommodation nl, no face palsy, no dysarthria CN's II- XI intact bilaterally and moves all extremities Results & Data Results & Data Vital Signs (Past 12 Hours) Vital Signs Temp Pulse Pulse Resp BP Pulse Ox O2 Del Method 04/24/23 08:36 36.6 C 74 18 117/78 92 Room Air 04/24/23 08:00 83 04/24/23 03:33 36.5 C 106 H 18 126/84 94 Room Air Laboratory Results Laboratory Results WBC 5.32 K/ul (4.8-10.8) 04/24/23 06:51 RBC 4.00 M/uL (4.20-5.40) L 04/24/23 06:51 Hgb 12.0 g/dl (12.0-16.0) 04/24/23 06:51 Hct 36.2 % (37.0-47.0) L 04/24/23 06:51 MCV 90.5 fL (80.0-100.0) 04/24/23 06:51 MCH 30.0 pg (25.0-34.0) 04/24/23 06:51 MCHC 33.1 g/dL (32.0-36.0) 04/24/23 06:51 RDW Std Deviation 46.6 fL (36.4-46.3) H 04/24/23 06:51 RDW Coeff of Tiffany 14.1 % (11.5-14.5) 04/24/23 06:51 Plt Count 152 K/uL (130-400) 04/24/23 06:51 MPV 12.0 fL (9.4-12.4) 04/24/23 06:51 Immature Gran % (Auto) 0.2 % 04/24/23 06:51 Neut % (Auto) 58.3 % 04/24/23 06:51 Lymph % (Auto) 25.4 % 04/24/23 06:51 [place] % (Auto) 12.6 % 04/24/23 06:51 Eos % (Auto) 2.4 % 04/24/23 06:51 Baso % (Auto) 1.1 % 04/24/23 06:51 Neut # (Auto) 3.10 K/uL (1.40-6.50) 04/24/23 06:51 Lymph # (Auto) 1.35 K/uL (1.20-3.40) 04/24/23 06:51 [place] # (Auto) 0.67 K/uL (0.11-0.59) H 04/24/23 06:51 Eos # (Auto) 0.13 K/uL (0.00-0.50) 04/24/23 06:51 Baso # (Auto) 0.06 K/uL (0.00-0.20) 04/24/23 06:51 Immature Gran # (Auto) 0.01 K/uL (0.01-0.20) 04/24/23 06:51 Sodium 141 mmol/L (136-145) 04/24/23 06:51 Potassium 3.2 mmol/L (3.5-5.1) L 04/24/23 06:51 Chloride 106 mmol/L (98-107) 04/24/23 06:51 Carbon Dioxide 29 mmol/L (21-32) 04/24/23 06:51 Anion Gap 6 (3-11) 04/24/23 06:51 BUN 18 mg/dl (6-23) 04/24/23 06:51 Creatinine 0.80 mg/dl (0.6-1.2) 04/24/23 06:51 Est Cr Clr Drug Dosing 51.3 ml/min 04/24/23 06:51 Est GFR ( Amer) 81.8 ml/min 04/24/23 06:51 Est GFR (Non-Af Amer) 70.6 ml/min 04/24/23 06:51 BUN/Creatinine Ratio 22.5 (10-20) H 04/24/23 06:51 Glucose 95 mg/dl (70-99(Fasting)) 04/24/23 06:51 POC Glucose 103 mg/dl (70-99) H 04/24/23 07:44 Calcium 8.6 mg/dl (8.6-10.3) 04/24/23 06:51 Magnesium 2.0 mg/dl (1.7-2.4) 04/23/23 07:15 Total Bilirubin 0.7 mg/dl (0.2-1.0) 04/24/23 06:51 AST 21 U/L (13-39) 04/24/23 06:51 ALT 27 U/L (7-52) 04/24/23 06:51 Alkaline Phosphatase 45 U/L (34-104) 04/24/23 06:51 Troponin I High Sens 33.2 pg/ml (0-14) H 04/23/23 12:45 B-Natriuretic Peptide 2527 pg/ml (0-100) H 04/22/23 23:59 Total Protein 4.9 gm/dl (6.0-8.3) L D 04/24/23 06:51 Albumin 3.3 gm/dl (3.4-5.0) L 04/24/23 06:51 Globulin 1.6 gm/dl (2.5-4.0) L 04/24/23 06:51 Albumin/Globulin Ratio 2.1 (0.9-2) H 04/24/23 06:51 Urine Color Yellow 04/23/23 04:40 Urine Appearance Clear (Clear) 04/23/23 04:40 Urine pH 6.0 (4.5-7.5) 04/23/23 04:40 Ur Specific [place] 1.043 (1.000-1.030) H 04/23/23 04:40 Urine Protein Negative (Negative) 04/23/23 04:40 Urine Glucose (UA) Negative (Negative) 04/23/23 04:40 Urine Ketones Negative (Negative) 04/23/23 04:40 Urine Blood Negative (Negative) 04/23/23 04:40 Urine Nitrite Negative (Negative) 04/23/23 04:40 Urine Bilirubin Negative (Negative) 04/23/23 04:40 Urine Urobilinogen Negative (Negative) 04/23/23 04:40 Ur Leukocyte Esterase 2+ (Negative) H 04/23/23 04:40 Urine WBC (Auto) 10-30 /hpf (0-5) H 04/23/23 04:40 Urine RBC (Auto) 0-4 /hpf (0-4) 04/23/23 04:40 U Hyaline Cast (Auto) 1-5 /lpf (0-5) 04/23/23 04:40 U Epithel Cells (Auto) >30 /lpf (0-5) H 04/23/23 04:40 Urine Bacteria (Auto) Negative (Negative) 04/23/23 04:40 Adenovirus (PCR) Not Detected (NotDetected) 04/23/23 00:30 B. pertussis DNA (PCR) Not Detected (NotDetected) 04/23/23 00:30 B.parapertussis DNA PCR Not Detected (NotDetected) 04/23/23 00:30 C. pneumoniae DNA (PCR) Not Detected (NotDetected) 04/23/23 00:30 Coronavirus OC43 (PCR) Not Detected (NotDetected) 04/23/23 00:30 Coronavirus HKU1 (PCR) Not Detected (NotDetected) 04/23/23 00:30 Coronavirus 229E (PCR) Not Detected (NotDetected) 04/23/23 00:30 SARS-CoV-2 (PCR) Not Detected (NotDetected) 04/23/23 00:30 Coronavirus NL63 (PCR) Not Detected (NotDetected) 04/23/23 00:30 Human Metapneumovir PCR Not Detected (NotDetected) 04/23/23 00:30 Influenza Type A (PCR) Not Detected (NotDetected) 04/23/23 00:30 Influenza Type B (PCR) Not Detected (NotDetected) 04/23/23 00:30 M. pneumoniae (PCR) Not Detected (NotDetected) 04/23/23 00:30 Parainfluenza 1 (PCR) Not Detected (NotDetected) 04/23/23 00:30 Parainfluenza 2 (PCR) Not Detected (NotDetected) 04/23/23 00:30 Parainfluenza 3 (PCR) Not Detected (NotDetected) 04/23/23 00:30 Parainfluenza 4 (PCR) Not Detected (NotDetected) 04/23/23 00:30 RSV (PCR) Not Detected (NotDetected) 04/23/23 00:30 Entero/Rhino (PCR) Not Detected (NotDetected) 04/23/23 00:30 Impressions Chest X-Ray 04/22/23 23:58 XR chest 1V portable HISTORY: 77 years-old Female Dyspnea acute shortness of breath COMPARISON: Chest CT of same day TECHNIQUE: AP view of the chest FINDINGS: Cardiac silhouette is enlarged. Atherosclerosis of the aorta. Small to moderate layering pleural effusions with bibasilar consolidation. Pulmonary vascular congestion with interstitial coarsening. Degenerative changes of the shoulders and spine. IMPRESSION: 1. Cardiomegaly with pulmonary edema. 2. [id number] pleural effusions with bibasilar consolidation suggestive of atelectasis. ACT 112: Negative or not required by law. The above report was generated using voice recognition software. It may contain grammatical, syntax or spelling errors. Electronically signed by: Magne Rivera M.D. 04/23/2023 8:[address] 04/23/23 01:27 Exam(s): CT CHEST With Contrast IV Amt: 90 ML OPTIRAY 320 EXAM: CT Chest With Intravenous Contrast CLINICAL HISTORY: Reason for exam: pl effusions/pulm edema, ?infiltrate. TECHNIQUE: Axial computed tomography images of the chest with intravenous contrast. CTDI is 12.03 mGy and DLP is 364.39 mGy-cm. Automated exposure control was utilized for the study. A dose lowering technique was utilized adhering to the principles of ALARA. CONTRAST: Patient received 90 ML OPTIRAY 320 of IV contrast COMPARISON: No relevant prior studies available. FINDINGS: Lungs: Dependent airspace disease in the lungs which is favored to be due to compressive atelectasis. Superimposed sequelae of infection/aspiration also possible. Mild intralobular septal thickening. Findings can be seen with mild interstitial pulmonary edema. Pleural space: Large right and moderate left pleural effusions which may be due to volume overload. Given cardiomegaly, findings may be due to sequela of heart failure. No pneumothorax. Heart: Cardiomegaly. Bones/joints: Degenerative changes in the spine. Sclerotic mass noted within the T2 vertebral body which may relate to enostosis. Other etiologies possible. If there is further concern, consider further workup for metastatic disease. T7 and T10 compression fractures. These may be chronic in nature. Consider correlation with point tenderness. If there is further concern, consider MRI. No dislocation. Soft tissues: Unremarkable. Vasculature: Atherosclerotic disease. No thoracic aortic aneurysm. Lymph nodes: Unremarkable. No enlarged lymph nodes. IMPRESSION: 1. Dependent airspace disease in the lungs which is favored to be due to compressive atelectasis. Superimposed sequelae of infection/aspiration also possible. 2. Large right and moderate left pleural effusions which may be due to volume overload. Given cardiomegaly, findings may be due to sequela of heart failure. 3. Mild intralobular septal thickening. Findings can be seen with mild interstitial pulmonary edema. 4. Sclerotic mass noted within the T2 vertebral body which may relate to enostosis. Other etiologies possible. If there is further concern, consider further workup for metastatic disease. 5. T7 and T10 compression fractures. These may be chronic in nature. Consider correlation with point tenderness. If there is further concern, consider MRI. 6. No other acute findings. 7. Incidental findings as described. Electronically signed by: Mateusz Willis MD 04/23/23 05:41 AM
[2023-04-24] MEDS ORDERED: AD VAN IV ONE (14:30)
[2023-04-24] MEDS ORDERED: CEFTRIAXONE SODIUM IV ONE (14:30)
[2023-04-24] MEDS ORDERED: SODIUM CHLOR 0.9% IV ONE (14:30)
[2023-04-24] MEDS: MELATONIN 3 MG TAB PO PRN (20:50)
[2023-04-24] MEDS: METOPROLOL SUCC 25MG EXT REL TAB PO SCH (20:51)
[2023-04-25 05:20] LABS: Basophils # (auto) 0.09 K/uL (0.00-0.20); Basophils % (auto) 1.8 %; Eosinophils # (auto) 0.18 K/uL (0.00-0.50); Eosinophils % (auto) 3.5 %; Hematocrit (blood only) 36.7 % (37.0-47.0); Hemoglobin 12.2 g/dl (12.0-16.0); Immature Granulocytes # (auto) 0.01 K/uL (0.01-0.20); Immature Granulocytes % (auto) 0.2 %; Lymphocytes # (auto) 1.47 K/uL (1.20-3.40); Lymphocytes % (auto) 28.8 %; Mean Corpuscular Hgb Conc 33.2 g/dL (32.0-36.0); Mean Corpuscular Volume 90.4 fL (80.0-100.0); Mean Platelet Volume 11.7 fL (9.4-12.4); Monocytes # (auto) 0.66 K/uL (0.11-0.59); Monocytes % (auto) 12.9 %; Neutrophils % (auto) 52.8 %; Platelet Count 151 K/uL (130-400); RDW Standard Deviation 46.2 fL (36.4-46.3); Red Blood Count 4.06 M/uL (4.20-5.40); White Blood Count 5.11 K/ul (4.8-10.8)
[2023-04-25 05:33] LABS: Albumin Globulin Ratio 2.1 (0.9-2); Albumin Level 3.6 gm/dl (3.4-5.0); Bilirubin,Total 0.5 mg/dl (0.2-1.0); Creatinine Clr Calc Pharmacy 56.2 ml/min; Est GFR (African American) 91.4 ml/min; Est GFR (Non-African American) 78.9 ml/min; Globulin 1.7 gm/dl (2.5-4.0); Potassium 3.2 mmol/L (3.5-5.1); Total Protein 5.3 gm/dl (6.0-8.3)
[2023-04-25] MEDS: TAMOXIFEN CITRATE 10 MG TABLET PO SCH (08:38)
[2023-04-25] MEDS: CALCIUM CARBONATE 1250MG TAB PO SCH ×2 (08:38→20:16)
[2023-04-25] MEDS: LOSARTAN POTASSIUM 25 MG TAB PO SCH (08:38)
[2023-04-25] MEDS: POTASSIUM CHLORIDE CRTAB 20 MEQ TABCR PO SCH (08:39)
[2023-04-25] MEDS: CHOLECALCIFEROL 5,000 UNITS 125 MCG TAB PO SCH (08:39)
[2023-04-25] MEDS: CYANOCOBALAMIN (B-12) 500 MCG TABLET PO SCH (08:39)
[2023-04-25] MEDS: METOPROLOL SUCC 50MG EXT REL TAB PO SCH (08:39)
[2023-04-25] MEDS: MONTELUKAST SODIUM 10 MG TABLET PO SCH (08:39)
[2023-04-25] MEDS: ENOXAPARIN INJ 40 MG/0.4 ML SYR SQ SCH (08:40)
[2023-04-25] MEDS: FLUTICASONE PROPIONATE NA SPR 16 GM BTL NAE SCH (08:40)
[2023-04-25] MEDS: MULTIVITAMIN TAB PO SCH (08:40)
[2023-04-25] MEDS: FUROSEMIDE 40 MG/4 ML VIAL IV SCH ×2 (08:40→18:15)
--- NOTE | 2023-04-25 14:26 | Cardiology Progress Note ---
Date of Service April 25, 2023 Assessment & Plan (1) Acute on chronic systolic (congestive) heart failure: (2) Pleural effusion: (3) Hypertension: (4) Dementia: Plan IMPRESSION: 77 year old female with PMH significant for chronic systolic CHF with LVEF moderately reduced around 35-39% presented to [facility] emergency department with progressive vL overload after failed outpatient escalation of diuretic. CT of the chest revealed bilateral pulmonary effusions. Patient with history of moderate left ventricular systolic dysfunction, perhaps nonischemic and related to her previous therapy for breast carcinoma. First hospitalization for congestive heart failure was in May,. Cardiac catheterization not pursued due to dementia, in favor of medical therapy. 04/25/23: clinically improved. PLAN: HFrEF: IV diuresis with Lasix 40 mg twice daily Monitor renal function electrolytes. Potassium goal of 4.0 and mag goal of 2.0, replace as needed Strict intake and output, daily standing weights, 2 g dietary sodium restrict ion. Repeat PA/lat CXR for follow up of pleural effusions. Continue guideline directed medical therapy with metoprolol succinate. Transitioned from losartan to Entresto, cost may be a barrier however as an outpatient. Pneumonia: Possible aspiration pneumonia seen on CT scan, covered with IV antibiotics per primary team Consider de-escalating to oral regimen. Hypertension: Controlled-continue losartan and metoprolol as ordered. Admission and Anticipated Discharge Date Admission Date: April 23, 2023 Subjective Patient seen in cardiology follow-up. Cognitive impairment consistent with her history of dementia noted. She has no complaints today, and she is in a much better humor. Her is at the bedside. Telemetry reveals sinus rhythm in the 70s to 80s. Physical Exam Constitutional: WD/WN, vitals as above no acute distress Neck: normal visual inspection and trachea midline Respiratory: no respiratory distress Auscultation: + diminished lung sounds (Mildly decreased breath sounds at the bases); no rales, no rhonchi and no wheezes Cardiovascular: Rate/Rhythm: regular rate and regular rhythm Heart Sounds: normal S1, normal S2 and + murmur (+systolic murmur) Vessels: no JVD Extremities: no edema Gastrointestinal (Abdomen): normal bowel sounds, soft, nontender, no hepatosplenomegaly Psychiatric: Orientation: alert, oriented to person and cooperative; + not oriented to place and + not oriented to time Results & Data Vital Signs (Past 12 Hours) Vital Signs Temp Pulse Pulse Resp BP Pulse Ox O2 Del Method 04/25/23 11:16 36.6 C 88 16 122/83 94 Room Air 04/25/23 09:56 73 04/25/23 08:50 Room Air 04/25/23 08:26 36.7 C 75 18 126/73 95 Room Air 04/25/23 03:39 36.9 C 73 18 124/82 93 Room Air (3) Hypertension Hypertension type: primary hypertension Qualified Code(s): I10 - Essential ( primary) hypertension (4) Dementia Dementia type: Alzheimer's Alzheimer's disease onset: unspecified onset Dementia severity: unspecified severity Dementia behavioral or psychological symptom: unspecified whether behavioral, psychotic, or mood disturbance or anxiety Qualified Code(s): G30.9 - Alzheimer's disease, unspecified; F02.80 - Dementia in other diseases classified elsewhere, unspecified severity, without behavioral disturbance, psychotic disturbance, mood disturbance, and anxiety
[2023-04-25] MEDS ORDERED: cefTRIAXone SODIUM 2,000 MG in DEXTROSE 5 % MINI-B 50 ML IV SCH (14:30)
--- NOTE | 2023-04-25 14:35 | Hospitalist Progress Note ---
Date of Service April 25, 2023 Assessment & Plan (1) Acute on chronic systolic (congestive) heart failure: Plan: 77-year-old female with past med history significant for chronic systolic CHF, hypertension, history of PVCs, history of pericardial effusion, history of hyperlipidemia, osteoporosis, compression fracture of spine, migraine, history of cerebral meningioma, Alzheimer's dementia, history of left breast cancer s/p partial mastectomy and on tamoxifen who lives at home with her was brought in because of ongoing shortness of breath. Acute on chronic systolic CHF B/L Pleural effusion ( likely secondary to CHF) Possible aspiration pneumonia Patient presented from home with shortness of breath. Also reports dry cough. Continues to have progressive symptoms even with escalating dose of Lasix as outpatient. She also completed antibiotic treatment as outpatient CT chest personally reviewed; dependent airspace disease in the lungs due to compressive atelectasis. Possible aspiration. Also in bilateral pleural effusion. BNP elevated to 2500 Respiratory viral panel negative Echo done on 04/02/2023 showed EF of 35 to 39%. Moderate to severe mitral regurgitation. Left atrium is severely enlarged. Continue diuresis with IV Lasix 40 mg twice daily Daily weights I's and O's Continue oxygen supplementation Close monitoring telemetry Possible aspiration pneumonia on ct scan On ceftriaxone Speech evaluation done; no signs of aspiration on bedside evaluation. T4 Vertebral spine lesion on ct scan. T7 and T10 compression fracture Patient denies any symptoms at present time Hold off further imaging for the time being. Might need further work-up after resolution of acute issues. Hypertension Continue metoprolol succinate Started on Entresto Continue diuretics We will monitor History of Alzheimer's dementia Monitor for delirium PT OT when stable History of left breast cancer S/p partial mastectomy On tamoxifen DVT prophylaxis Lovenox Disposition Telemetry floor Full code Discussed with son and [id number] at bedside. Answered questions/queries. Time spent evaluating patient, direct bedside care, chart review, placing orders, interpretation of diagnostic studies, discussion with consultants, patient, and family members, as well as other required patient management activities is 60 minutes. Please note the above document was generated using voice recognition software. It may contain grammatical, syntax or spelling errors. Any formal questions or concerns about the content, text or information contained within the body of this dictation should be directly addressed to the provider for clarification Admission and Anticipated Discharge Date Admission Date: April 23, 2023 Subjective Patient seen and examined at bedside. Her son and [id number] at bedside. Patient reports that she is feeling much better; no shortness of breath. Review of Systems Review of Systems: All systems reviewed & are unremarkable except as noted in Subjective Physical Exam Physical Exam: Constitutional: Comfortable not in distress Respiratory: Decreased breath sound at bilateral bases Cardiovascular: RRR, no murmur, no edema Vessels: no JVD or carotid bruit Chest: normal inspection of chest Abdomen: normal bowel sounds, soft, nontender, no hepatosplenomegaly Musculoskeletal: no cyanosis or clubbing, extremities motor strength 5/5 Skin: no rashes, warm and dry normal turgor Neurologic: PERRL, EOMI, accommodation nl, no face palsy, no dysarthria CN's II- XI intact bilaterally and moves all extremities Results & Data Results & Data Vital Signs (Past 12 Hours) Vital Signs Temp Pulse Pulse Resp BP Pulse Ox O2 Del Method 04/25/23 11:16 36.6 C 88 16 122/83 94 Room Air 04/25/23 09:56 73 04/25/23 08:50 Room Air 04/25/23 08:26 36.7 C 75 18 126/73 95 Room Air 04/25/23 03:39 36.9 C 73 18 124/82 93 Room Air Laboratory Results Laboratory Results WBC 5.11 K/ul (4.8-10.8) 04/25/23 04:51 RBC 4.06 M/uL (4.20-5.40) L 04/25/23 04:51 Hgb 12.2 g/dl (12.0-16.0) 04/25/23 04:51 Hct 36.7 % (37.0-47.0) L 04/25/23 04:51 MCV 90.4 fL (80.0-100.0) 04/25/23 04:51 MCH 30.0 pg (25.0-34.0) 04/25/23 04:51 MCHC 33.2 g/dL (32.0-36.0) 04/25/23 04:51 RDW Std Deviation 46.2 fL (36.4-46.3) 04/25/23 04:51 RDW Coeff of Tiffany 14.0 % (11.5-14.5) 04/25/23 04:51 Plt Count 151 K/uL (130-400) 04/25/23 04:51 MPV 11.7 fL (9.4-12.4) 04/25/23 04:51 Immature Gran % (Auto) 0.2 % 04/25/23 04:51 Neut % (Auto) 52.8 % 04/25/23 04:51 Lymph % (Auto) 28.8 % 04/25/23 04:51 Meagher % (Auto) 12.9 % 04/25/23 04:51 Eos % (Auto) 3.5 % 04/25/23 04:51 Baso % (Auto) 1.8 % 04/25/23 04:51 Neut # (Auto) 2.70 K/uL (1.40-6.50) 04/25/23 04:51 Lymph # (Auto) 1.47 K/uL (1.20-3.40) 04/25/23 04:51 Meagher # (Auto) 0.66 K/uL (0.11-0.59) H 04/25/23 04:51 Eos # (Auto) 0.18 K/uL (0.00-0.50) 04/25/23 04:51 Baso # (Auto) 0.09 K/uL (0.00-0.20) 04/25/23 04:51 Immature Gran # (Auto) 0.01 K/uL (0.01-0.20) 04/25/23 04:51 Sodium 141 mmol/L (136-145) 04/25/23 04:50 Potassium 3.2 mmol/L (3.5-5.1) L 04/25/23 04:50 Chloride 106 mmol/L (98-107) 04/25/23 04:50 Carbon Dioxide 29 mmol/L (21-32) 04/25/23 04:50 Anion Gap 6 (3-11) 04/25/23 04:50 BUN 19 mg/dl (6-23) 04/25/23 04:50 Creatinine 0.73 mg/dl (0.6-1.2) 04/25/23 04:50 Est Cr Clr Drug Dosing 56.2 ml/min 04/25/23 04:50 Est GFR ( Amer) 91.4 ml/min 04/25/23 04:50 Est GFR (Non-Af Amer) 78.9 ml/min 04/25/23 04:50 BUN/Creatinine Ratio 26.0 (10-20) H 04/25/23 04:50 Glucose 103 mg/dl (70-99(Fasting)) H 04/25/23 04:50 POC Glucose 103 mg/dl (70-99) H 04/24/23 07:44 Calcium 9.0 mg/dl (8.6-10.3) 04/25/23 04:50 Magnesium 2.0 mg/dl (1.7-2.4) 04/23/23 07:15 Total Bilirubin 0.5 mg/dl (0.2-1.0) 04/25/23 04:50 AST 19 U/L (13-39) 04/25/23 04:50 ALT 27 U/L (7-52) 04/25/23 04:50 Alkaline Phosphatase 45 U/L (34-104) 04/25/23 04:50 Troponin I High Sens 33.2 pg/ml (0-14) H 04/23/23 12:45 B-Natriuretic Peptide 2527 pg/ml (0-100) H 04/22/23 23:59 Total Protein 5.3 gm/dl (6.0-8.3) L 04/25/23 04:50 Albumin 3.6 gm/dl (3.4-5.0) 04/25/23 04:50 Globulin 1.7 gm/dl (2.5-4.0) L 04/25/23 04:50 Albumin/Globulin Ratio 2.1 (0.9-2) H 04/25/23 04:50 Urine Color Yellow 04/23/23 04:40 Urine Appearance Clear (Clear) 04/23/23 04:40 Urine pH 6.0 (4.5-7.5) 04/23/23 04:40 Ur Specific [place] 1.043 (1.000-1.030) H 04/23/23 04:40 Urine Protein Negative (Negative) 04/23/23 04:40 Urine Glucose (UA) Negative (Negative) 04/23/23 04:40 Urine Ketones Negative (Negative) 04/23/23 04:40 Urine Blood Negative (Negative) 04/23/23 04:40 Urine Nitrite Negative (Negative) 04/23/23 04:40 Urine Bilirubin Negative (Negative) 04/23/23 04:40 Urine Urobilinogen Negative (Negative) 04/23/23 04:40 Ur Leukocyte Esterase 2+ (Negative) H 04/23/23 04:40 Urine WBC (Auto) 10-30 /hpf (0-5) H 04/23/23 04:40 Urine RBC (Auto) 0-4 /hpf (0-4) 04/23/23 04:40 U Hyaline Cast (Auto) 1-5 /lpf (0-5) 04/23/23 04:40 U Epithel Cells (Auto) >30 /lpf (0-5) H 04/23/23 04:40 Urine Bacteria (Auto) Negative (Negative) 04/23/23 04:40 Adenovirus (PCR) Not Detected (NotDetected) 04/23/23 00:30 B. pertussis DNA (PCR) Not Detected (NotDetected) 04/23/23 00:30 B.parapertussis DNA PCR Not Detected (NotDetected) 04/23/23 00:30 C. pneumoniae DNA (PCR) Not Detected (NotDetected) 04/23/23 00:30 Coronavirus OC43 (PCR) Not Detected (NotDetected) 04/23/23 00:30 Coronavirus HKU1 (PCR) Not Detected (NotDetected) 04/23/23 00:30 Coronavirus 229E (PCR) Not Detected (NotDetected) 04/23/23 00:30 SARS-CoV-2 (PCR) Not Detected (NotDetected) 04/23/23 00:30 Coronavirus NL63 (PCR) Not Detected (NotDetected) 04/23/23 00:30 Human Metapneumovir PCR Not Detected (NotDetected) 04/23/23 00:30 Influenza Type A (PCR) Not Detected (NotDetected) 04/23/23 00:30 Influenza Type B (PCR) Not Detected (NotDetected) 04/23/23 00:30 M. pneumoniae (PCR) Not Detected (NotDetected) 04/23/23 00:30 Parainfluenza 1 (PCR) Not Detected (NotDetected) 04/23/23 00:30 Parainfluenza 2 (PCR) Not Detected (NotDetected) 04/23/23 00:30 Parainfluenza 3 (PCR) Not Detected (NotDetected) 04/23/23 00:30 Parainfluenza 4 (PCR) Not Detected (NotDetected) 04/23/23 00:30 RSV (PCR) Not Detected (NotDetected) 04/23/23 00:30 Entero/Rhino (PCR) Not Detected (NotDetected) 04/23/23 00:30 Impressions Chest X-Ray 04/22/23 23:58 XR chest 1V portable HISTORY: 77 years-old Female Dyspnea acute shortness of breath COMPARISON: Chest CT of same day TECHNIQUE: AP view of the chest FINDINGS: Cardiac silhouette is enlarged. Atherosclerosis of the aorta. Small to moderate layering pleural effusions with bibasilar consolidation. Pulmonary vascular congestion with interstitial coarsening. Degenerative changes of the shoulders and spine. IMPRESSION: 1. Cardiomegaly with pulmonary edema. 2. [id number] pleural effusions with bibasilar consolidation suggestive of atelectasis. ACT 112: Negative or not required by law. The above report was generated using voice recognition software. It may contain grammatical, syntax or spelling errors. Electronically signed by: Magen Rivera M.D. 04/23/2023 8:[address] 04/23/23 01:27 Exam(s): CT CHEST With Contrast IV Amt: 90 ML OPTIRAY 320 EXAM: CT Chest With Intravenous Contrast CLINICAL HISTORY: Reason for exam: pl effusions/pulm edema, ?infiltrate. TECHNIQUE: Axial computed tomography images of the chest with intravenous contrast. CTDI is 12.03 mGy and DLP is 364.39 mGy-cm. Automated exposure control was utilized for the study. A dose lowering technique was utilized adhering to the principles of ALARA. CONTRAST: Patient received 90 ML OPTIRAY 320 of IV contrast COMPARISON: No relevant prior studies available. FINDINGS: Lungs: Dependent airspace disease in the lungs which is favored to be due to compressive atelectasis. Superimposed sequelae of infection/aspiration also possible. Mild intralobular septal thickening. Findings can be seen with mild interstitial pulmonary edema. Pleural space: Large right and moderate left pleural effusions which may be due to volume overload. Given cardiomegaly, findings may be due to sequela of heart failure. No pneumothorax. Heart: Cardiomegaly. Bones/joints: Degenerative changes in the spine. Sclerotic mass noted within the T2 vertebral body which may relate to enostosis. Other etiologies possible. If there is further concern, consider further workup for metastatic disease. T7 and T10 compression fractures. These may be chronic in nature. Consider correlation with point tenderness. If there is further concern, consider MRI. No dislocation. Soft tissues: Unremarkable. Vasculature: Atherosclerotic disease. No thoracic aortic aneurysm. Lymph nodes: Unremarkable. No enlarged lymph nodes. IMPRESSION: 1. Dependent airspace disease in the lungs which is favored to be due to compressive atelectasis. Superimposed sequelae of infection/aspiration also possible. 2. Large right and moderate left pleural effusions which may be due to volume overload. Given cardiomegaly, findings may be due to sequela of heart failure. 3. Mild intralobular septal thickening. Findings can be seen with mild interstitial pulmonary edema. 4. Sclerotic mass noted within the T2 vertebral body which may relate to enostosis. Other etiologies possible. If there is further concern, consider further workup for metastatic disease. 5. T7 and T10 compression fractures. These may be chronic in nature. Consider correlation with point tenderness. If there is further concern, consider MRI. 6. No other acute findings. 7. Incidental findings as described. Electronically signed by: Mateusz Willis MD 04/23/23 05:41 AM
--- NOTE | 2023-04-25 15:05 | XRay Report ---
XR chest 2V PA/lateral HISTORY: follow up CHF , pleural effusions COMPARISON: Chest 04/23/2023. FINDINGS: Significant improvement in the pulmonary edema and small bilateral pleural effusions which have almost completely resolved in the interval. A few bibasilar linear densities favor subsegmental atelectasis. The heart remains enlarged. Thoracic spine compression deformities again noted. IMPRESSION: Significant improvement in the pulmonary edema and bilateral pleural effusions. ACT 112: Negative or not required by law. Electronically signed by: Derrick Tran M.D. 04/25/2023 3:04 PM
[2023-04-25] MEDS: METOPROLOL SUCC 25MG EXT REL TAB PO SCH (20:16)
[2023-04-25] MEDS: MELATONIN 3 MG TAB PO PRN (20:16)
[2023-04-26] MEDS: CALCIUM CARBONATE 1250MG TAB PO SCH (07:58)
[2023-04-26] MEDS: POTASSIUM CHLORIDE CRTAB 20 MEQ TABCR PO SCH (07:58)
[2023-04-26] MEDS: CHOLECALCIFEROL 5,000 UNITS 125 MCG TAB PO SCH (07:58)
[2023-04-26] MEDS: MULTIVITAMIN TAB PO SCH (07:59)
[2023-04-26] MEDS: TAMOXIFEN CITRATE 10 MG TABLET PO SCH (07:59)
[2023-04-26] MEDS: CYANOCOBALAMIN (B-12) 500 MCG TABLET PO SCH (07:59)
[2023-04-26] MEDS: ENOXAPARIN INJ 40 MG/0.4 ML SYR SQ SCH (07:59)
[2023-04-26] MEDS: METOPROLOL SUCC 50MG EXT REL TAB PO SCH (07:59)
[2023-04-26] MEDS: FLUTICASONE PROPIONATE NA SPR 16 GM BTL NAE SCH (07:59)
[2023-04-26] MEDS: MONTELUKAST SODIUM 10 MG TABLET PO SCH (07:59)
[2023-04-26 08:04] LABS: Basophils # (auto) 0.06 K/uL (0.00-0.20); Basophils % (auto) 1.4 %; Eosinophils # (auto) 0.09 K/uL (0.00-0.50); Eosinophils % (auto) 2.1 %; Hematocrit (blood only) 37.4 % (37.0-47.0); Hemoglobin 12.3 g/dl (12.0-16.0); Immature Granulocytes # (auto) 0.01 K/uL (0.01-0.20); Immature Granulocytes % (auto) 0.2 %; Lymphocytes # (auto) 1.21 K/uL (1.20-3.40); Mean Corpuscular Hgb Conc 32.9 g/dL (32.0-36.0); Mean Corpuscular Volume 91.2 fL (80.0-100.0); Mean Platelet Volume 11.4 fL (9.4-12.4); Monocytes # (auto) 0.48 K/uL (0.11-0.59); Monocytes % (auto) 11.1 %; Neutrophils # (auto) 2.47 K/uL (1.40-6.50); Neutrophils % (auto) 57.2 %; Platelet Count 153 K/uL (130-400); RDW Coefficient of Variation 13.8 % (11.5-14.5); RDW Standard Deviation 46.5 fL (36.4-46.3); White Blood Count 4.32 K/ul (4.8-10.8)
[2023-04-26] MEDS: FUROSEMIDE 40 MG/4 ML VIAL IV SCH (08:13)
[2023-04-26 08:34] LABS: Albumin Level 3.6 gm/dl (3.4-5.0); BUN Creatinine Ratio 28.4 (10-20); Bilirubin,Total 0.4 mg/dl (0.2-1.0); Creatinine Clr Calc Pharmacy 60.5 ml/min; Est GFR (African American) 97.6 ml/min; Est GFR (Non-African American) 84.2 ml/min; Globulin 1.8 gm/dl (2.5-4.0); Potassium 3.6 mmol/L (3.5-5.1); Total Protein 5.4 gm/dl (6.0-8.3)
[2023-04-26] MEDS ORDERED: VALSARTAN/SACUBITRIL 26/24MG TAB PO SCH (09:00)
--- NOTE | 2023-04-26 10:47 | Cardiology Progress Note ---
Date of Service April 26, 2023 Assessment & Plan Admission and Anticipated Discharge Date Admission Date: April 23, 2023 Supervising Physician Co-Signing Physician Notes Attending Staff: 77 yo woman presenting with decompensated CHF Plans for discharge As an outpt: * Increase Entresto to 49/51 mg po BID * Start Aldactone 25 mg po per day * Continue Toprol XL 25 mg po per day * Plans for follow up with Cardiology at [facility] Subjective Events overnight: None reported Subjective: None reported Review of Systems Review of Systems: All systems reviewed & are unremarkable except as noted in HPI & below Physical Exam Physical Exam: Pt discharged before vist was completed Results & Data Vital Signs (Past 12 Hours) Vital Signs Temp Pulse Pulse Resp BP Pulse Ox O2 Del Method 04/26/23 08:19 36.4 C L 94 H 18 140/79 92 Room Air 04/26/23 08:00 85 04/26/23 08:00 Room Air 04/26/23 03:18 74 20 Room Air 04/26/23 01:18 36.6 C 77 18 118/72 96 Room Air 04/26/23 00:35 78 20 Room Air 04/25/23 23:01 84 Laboratory Results Cardiac Enzymes 04/26/23 Range/Units 07:32 AST 17 (13-39) U/L CBC 04/26/23 Range/Units 07:32 WBC 4.32 L (4.8-10.8) K/ul RBC 4.10 L (4.20-5.40) M/uL Hgb 12.3 (12.0-16.0) g/dl Hct 37.4 (37.0-47.0) % Plt Count 153 (130-400) K/uL Neut # (Auto) 2.47 (1.40-6.50) K/uL Lymph # (Auto) 1.21 (1.20-3.40) K/uL [place] # (Auto) 0.48 (0.11-0.59) K/uL Eos # (Auto) 0.09 (0.00-0.50) K/uL Baso # (Auto) 0.06 (0.00-0.20) K/uL Comprehensive Metabolic Panel 04/26/23 Range/Units 07:32 Sodium 141 (136-145) mmol/L Potassium 3.6 (3.5-5.1) mmol/L Chloride 106 (98-107) mmol/L Carbon Dioxide 29 (21-32) mmol/L BUN 19 (6-23) mg/dl Creatinine 0.67 (0.6-1.2) mg/dl Glucose 97 (70-99(Fasting)) mg/dl Calcium 9.0 (8.6-10.3) mg/dl AST 17 (13-39) U/L ALT 24 (7-52) U/L Alkaline Phosphatase 44 (34-104) U/L Total Protein 5.4 L (6.0-8.3) gm/dl Albumin 3.6 (3.4-5.0) gm/dl Intake and Output 04/25/23 04/26/23 04/26/23 22:59 06:59 14:59 Intake Total 50 / 170 120 / 170 Balance 50 / 170 120 / 170 Intake: IV 50 / 50 cefTRIAXone SODIUM 2,000 mg In 50 / 50 Dextrose 5 % Mini-B 50 ml @ 100 mls/hr IV Q24H [facility] Rx#: [id number] Oral 120 / 120 Other: # Unmeasured Voids 1 Weight 63.3 kg Weight Measurement Method Built in [facility] Diagnostic Findings ECHOcardiogram: 10/2020 * LVEF 35-40% * + concentric LVH (1.3 cm) * RV normal size * Aortic Sclerosis - no stenosis * Mild MR * Small Pericardial effusion * LVID 5 cm EK04/2023 * Sinus tachycardia * Left Noti Deviation * LA enlargement * PRWP * Persistent S waves in lateral leads Medications Administered Current Inpatient Medications Acetaminophen (Acetaminophen 325 Mg Tab) 650 mg PO Q4H PRN PRN Reason: Pain or Fever Stop: 05/23/23 05:52 Benzonatate (Benzonatate 100 Mg Capsule) 100 mg PO HS PRN PRN Reason: Cough Stop: 05/23/23 05:52 Last Admin: 04/24/23 20:50 Dose: 100 mg Calcium Carbonate (Calcium Carbonate 1250mg Tab) 1,250 mg PO BID ERICA Stop: 05/23/23 08:59 Last Admin: 04/26/23 07:58 Dose: 1,250 mg Cyanocobalamin (Cyanocobalamin (B-12) 500 Mcg Tablet) 500 mcg PO DAILY ERICA Stop: 05/23/23 08:59 Last Admin: 04/26/23 07:59 Dose: 500 mcg Enoxaparin Sodium (Enoxaparin Inj 40 Mg/0.4 Ml Syr) 40 mg SQ Q24H ERICA Stop: 05/23/23 08:59 Last Admin: 04/26/23 07:59 Dose: 40 mg Fluticasone Propionate (Fluticasone Propionate Na Spr 16 Gm Btl) 2 sprays YELENA DAILY ERICA Stop: 05/23/23 08:59 Last Admin: 04/26/23 07:59 Dose: 2 sprays Furosemide (Furosemide 40 Mg/4 Ml Vial) 40 mg IV [id number] ERICA Stop: 05/23/23 08:59 Last Admin: 04/26/23 08:13 Dose: 40 mg Ceftriaxone Sodium 2,000 mg/ (Dextrose) 50 mls @ 100 mls/hr IV Q24H ERICA; Protocol Stop: 05/01/23 14:29 Last Infusion: 04/25/23 15:18 Dose: Infused Melatonin (Melatonin 3 Mg Tab) 3 mg PO HS PRN PRN Reason: Sleep Stop: 05/23/23 04:16 Last Admin: 04/25/23 20:16 Dose: 3 mg Metoprolol Succinate (Metoprolol Succ 25mg Ext Rel Tab) 25 mg PO HS ERICA Stop: 05/23/23 20:59 Last Admin: 04/25/23 20:16 Dose: 25 mg Metoprolol Succinate (Metoprolol Succ 50mg Ext Rel Tab) 50 mg PO QAM ERICA Stop: 05/23/23 08:59 Last Admin: 04/26/23 07:59 Dose: 50 mg Montelukast Sodium (Montelukast Sodium 10 Mg Tablet) 10 mg PO QAM ERICA Stop: 05/23/23 08:59 Last Admin: 04/26/23 07:59 Dose: 10 mg Multivitamins (Multivitamin Tab) 1 tab PO DAILY ERICA Stop: 05/23/23 08:59 Last Admin: 04/26/23 07:59 Dose: 1 tab Nitroglycerin (Nitroglycerin Sl 0.4 Mg/Tab Tab) 0.4 mg SL Q5M PRN PRN Reason: Chest Pain Stop: 05/23/23 05:52 Polyethylene Glycol (Polyethylene (Miralax) 17 Gm Pack) 17 gm PO DAILY PRN PRN Reason: Constipation Stop: 05/23/23 05:52 Potassium Chloride (Potassium Chloride Crtab 20 Meq Tabcr) 20 meq PO QAM [facility] Stop: 05/23/23 08:59 Last Admin: 04/26/23 07:58 Dose: 20 meq Sacubitril/Valsartan (Valsartan/Sacubitril 26/24mg Tab) 1 tab PO BID [facility] Stop: 05/26/23 08:59 Last Admin: 04/26/23 07:58 Dose: 1 tab Tamoxifen Citrate (Tamoxifen Citrate 10 Mg Tablet) 20 mg PO QAM [facility] Stop: 05/23/23 08:59 Last Admin: 04/26/23 07:59 Dose: 20 mg Tramadol HCl (Tramadol Hcl 50 Mg Tablet) 50 mg PO TID PRN PRN Reason: Pain Stop: 05/23/23 05:52 Vitamin D (Cholecalciferol 5,000 Units 125 Mcg Tab) [facility] [place] Stop: 05/23/23 08:59 Last Admin: 04/26/23 07:58 Dose: 5,000 units
--- NOTE | 2023-04-26 15:15 | Discharge Summary ---
Date of Service April 26, 2023 Admission HPI Per Admitting Provider 77-year-old female with past med history significant for chronic systolic CHF, hypertension, history of PVCs, history of pericardial effusion, history of hyperlipidemia, osteoporosis, compression fracture of spine, migraine, history of cerebral meningioma, Alzheimer's dementia, history of left breast cancer s/p partial mastectomy and on tamoxifen who lives at home with her was brought in because of ongoing shortness of breath. Patient has some dementia is in the room who is helping with H&P. As per patient having shortness of breath and cough going on for last 2 weeks. Seen by PCP recently. A 10-day course of doxycycline was prescribed and also her Lasix dose was increased. Completed 10-day course of doxycycline. But her shortness of breath and cough is not getting better. She is not able to lie down flat. Has some swelling in the lower extremity. Can walk only short distance before she got short of breath. Denies any fevers. No chest pain. No headache. Vision is okay. No headache. No runny nose or sore throat. No nausea. No abdominal pain. Normal bowel and bladder movements. On presentation patient was tachypneic and tachycardic currently on high flow oxygen and her heart rates improved. Past medical history. As mentioned above Past surgical history. Left breast biopsy. Colonoscopy. Ligation of oviducts. Left breast partial mastectomy. Tonsillectomy. Social history. . No smoking. No alcohol. No drug use. Family history. Mother has COPD. Eye problems. Hypertension. Father had colon cancer. Eye problems. Maternal grandmother had cancer. Sister had cardiac stents. Brother has hypertension. Admission Exam Per Admitting Provider General- Not in distress Head- atraumatic Eyes- PERRL. ENT- oropharynx clear Neck- supple, no JVD. Lungs- clear to auscultation mild bibasilar crackles, no wheezing. Heart- regular rate and rhythm; no murmur, no gallop. Abdomen- normal bowel sounds, soft, nontender, no distension. Extremities- +1 pretibial edema, no calf tenderness; Neuro- alert, oriented . PERRL, Hard of hearing. no facial palsy; no dysarthria; obeys commands, moves extremities. Skin- warm & dry Principal Diagnosis Acute on chronic systolic (congestive) heart failure: Pneumonia Discharge Exam Constitutional: Comfortable not in distress Respiratory: Decreased breath sound at bilateral bases Cardiovascular: RRR, no murmur, no edema Vessels: no JVD or carotid bruit Chest: normal inspection of chest Abdomen: normal bowel sounds, soft, nontender, no hepatosplenomegaly Musculoskeletal: no cyanosis or clubbing, extremities motor strength 5/5 Skin: no rashes, warm and dry normal turgor Neurologic: PERRL, EOMI, accommodation nl, no face palsy, no dysarthria CN's II- XI intact bilaterally and moves all extremities Discharge Data Allergies Allergy/AdvReac Type Severity Reaction Status Date / Time bee venom protein (honey bee) Allergy Intermediate EXTRA Verified 10/18/20 20:45 SWELLING AT SITE Sulfa (Sulfonamide Allergy Mild Unknown Verified 10/18/20 20:45 Antibiotics) bupropion Allergy Unknown unknown Verified 10/18/20 20:45 pneumococcal vaccine Allergy Unknown FEVER, Verified 10/18/20 20:45 [From Pneumovax 23] CHILLS, BODY ACHES, VOMITING Consultations 04/23/23 03:00 ED Decision to Admit Stat 04/23/23 08:00 Consult Cardiology Routine Ordered Studies 04/23/23 01:27 CT chest diagnostic w con Stat Hospital Course (1) Acute on chronic systolic (congestive) heart failure: 77-year-old female with past med history significant for chronic systolic CHF, hypertension, history of PVCs, history of pericardial effusion, history of hyperlipidemia, osteoporosis, compression fracture of spine, migraine, history of cerebral meningioma, Alzheimer's dementia, history of left breast cancer s/p partial mastectomy and on tamoxifen who lives at home with her was brought in because of ongoing shortness of breath. Acute on chronic systolic CHF B/L Pleural effusion ( likely secondary to CHF) Possible aspiration pneumonia Patient presented from home with shortness of breath. Also reports dry cough. Continues to have progressive symptoms even with escalating dose of Lasix as outpatient. She also completed antibiotic treatment as outpatient CT chest personally reviewed; dependent airspace disease in the lungs due to compressive atelectasis. Possible aspiration. Also in bilateral pleural effusion. BNP elevated to 2500 Respiratory viral panel negative Echo done on 04/02/2023 showed EF of 35 to 39%. Moderate to severe mitral regurgitation. Left atrium is severely enlarged. During the hospitalization, patient was diuresed with IV Lasix 40 mg twice a day. She continued to show significant improvement throughout the hospitalization. Repeat chest x-ray showed significant improvement in the pulmonary edema and pleural effusion. At discharge, she was placed on Lasix 40 mg in the morning and 20 mg in the evening. She was also started on Entresto and spironolactone. Losartan was discontinued. Discussion was done with the patient regarding the cost of the Entresto; willing to try for a month and we will see the results. Outpatient follow-up with cardiology and primary care to uptitrated the Entresto and beta-howie. Possible aspiration pneumonia on ct scan Speech evaluation done; no signs of aspiration on bedside evaluation. Treated with IV antibiotics. T4 Vertebral spine lesion on ct scan. T7 and T10 compression fracture Patient denies any symptoms at present time Discussed with about the finding. He is aware of the findings. No further evaluation as patient is pain-free. Please note the above document was generated using voice recognition software. It may contain grammatical, syntax or spelling errors. Any formal questions or concerns about the content, text or information contained within the body of this dictation should be directly addressed to the provider for clarification Total Time Total Time Spent Total Time Spent (In Minutes): 45 Total Time Includes: Examination of the Patient, Discharge Planning, Medication Reconciliation, Communication With Other Providers and Other Discharge Plan Discharge Items Patient Disposition: Home - Self-Care Reason For Visit: ACUTE CHF Discharge Diagnosis: Acute on chronic systolic heart failure Pneumonia Activity: Resume your previous activity Non-emergency contact: Primary Care Provider Call non-emergency contact if: you have any medication questions and your symptoms worsen Follow-up/Referrals: David Olsen MD [Primary Care Provider] - (Date & Time 04/29/2023 10:20 AM Provider David Olsen MD Department [facility] ) Diet: Regular Addtl Attending Provider Instructions: You were admitted to the hospital due to heart failure exacerbation and pneumonia. You completed antibiotic course during the hospitalization. Cardiology evaluated you during the hospitalization. Following medication changes has been made: 1) Sop taking losartan. You were started on Entresto to be taken twice daily 2) Take lasix 40mg in am and lasix 20mg in the afternoon. Please measure your weight daily and keep a record of it. If you notice that your weight is going up by 3 to 5 pounds; please take extra dose of Lasix in the morning. Please contact your primary care doctor as well. Pending Studies at Discharge: No Stand-Alone Forms: My [facility], Smoking Cessation Medications and DC Order Prescriptions: New Entresto 24-26 mg Tablet 1 tab PO BID Qty: 60 0RF furosemide [Lasix] 20 mg tablet 20 mg PO .lunch Qty: 30 0RF melatonin 5 mg capsule 5 mg PO HS Qty: 30 0RF spironolactone 25 mg tablet 25 mg PO QAM Qty: 30 0RF Continued tramadol 50 mg tablet 50 mg PO TID PRN (Reason: Pain) tamoxifen 20 mg Tablet 20 mg PO QAM calcium carbonate [Calcium 600] 600 mg calcium (1,500 mg) Tablet 600 mg PO BID Rx Instructions: take with morning and evening meals montelukast [Singulair] 10 mg Tablet 10 mg PO QAM benzonatate 100 mg capsule 100 mg PO HS PRN (Reason: Cough) potassium chloride 20 mEq tablet,ER particles/crystals 20 meq PO QAM metoprolol succinate 25 mg tablet extended release 24 hr 25 mg PO UD Rx Instructions: take 2 tablets in the morning and 1 tablet in the evening multivitamin Tablet 1 tab PO DAILY cyanocobalamin (vitamin B-12) [Vitamin B-12] 500 mcg Lozenge 500 mcg PO DAILY cholecalciferol (vitamin D3) [Vitamin D3] 125 mcg (5,000 unit) Tablet 125 mcg PO QAM fluticasone propionate 50 mcg/actuation [place],Suspension 2 spray INTRANASAL DAILY Rx Instructions: administer into each nostril Changed furosemide 20 mg tablet 40 mg PO DAILY Qty: 60 0RF Rx Instructions: take between 2-4 pm Discontinued losartan 25 mg Tablet 25 mg PO QAM Discharge Orders: Discharge Order- CHF (Routine); Ordered 04/26/23 Ordered By: Diomedes Morse Admission Data Admit Date/Time: 04/23/23 04:03 Attending Provider: Diomedes Morse Admit Provider: Dell Gambino Primary Care Provider: David Olsen Other Providers: Dell Gambino; Lanette Benitez; Mihai Davila; Jerome Scott; Ysosi Teresa; Eduin Merchant; David Riley; Sabrina Cody; Yadira Goss; Lanette Cohn; Derrek Schneider; Leo Orellana; Shawna Barlow; Daiana Murguia; Dwight Emanuel; Jad Garcia Other Interventions: Discharge Summary Assessment (RN) Last Done: 04/26/23 10:59
--- OUTSIDE RECORDS SUMMARY | 2023-04-26 22:35 | External Medical Summary | Summary of Care ---
Author Name Unknown Organization [facility] Address [address] [place] [address] Phone [phone] Care Team Providers Care Casting Trucker Name Role Phone David Olsen MD Primary Care Provider Reason for Visit * Reason Onset Date Comments Advice 04/15/2023 Encounter Details Date Type Department Care Team (Late st Contact Info) Description 04/15/2023 Telephone [facility] [address] [place] [address] David Olsen MD [address] [place] [address] Advice Allergies Active Allergy Reactions Criticality Noted Date Comments Bupropion Itching Low 11/03/2010 Cephalexin Hives Low 04/29/2005 Nitrofurantoin Monohyd Macro Hives 012 Pneumococcal Vaccine Nausea/vomiting 08/03/2010 Sulfa Antibiotics Rash Low 02/28/1999 documented as of this encounter (statuses as of 04/15/2023) Medications Medication Sig Dispensed Refills Start Date End Date Status MULTI-VITAMIN PO TABS 1 daily 0 7 Active Aspirin 81 MG Oral Tablet Delayed Release Take by mouth. 100 5 8 Active Fluticasone Propionate 50 MCG/ACT Nasal SuspensionIndica tions:Post-nasal drip Administer 2 Sprays into each nostril daily. 16 g 1 0 Active Vitamin D3 125 MCG (5000 UT) Oral Capsule Take 1 Capsule by mouth in the morning. 3 Cap 0 1 Active B-12 500 MCG Sublingual Tablet Sublingual Place 1 Tablet under the tongue once. 30 Tab 0 1 Active Triamcinolone Acetonide 0.1 % External Ointment (Aristocort)Lissa cations:Dermatit is of lip Apply topically to affected area 2 times a day. Apply 2x daily (or more if itchy/painful instead of licking) to lips until resolved 30 g 0 1 Active Additional Information Patient not taking.Reported on 03/29/2023 Calcium Carbonate 600 MG Oral Tablet Take 1 Tablet by mouth 2 times a day with morning and evening meals. 0 Active Famotidine 20 MG Oral Tablet (Pepcid)Indicati ons:Gastroesopha geal reflux disease without esophagitis Take by mouth 1 Tablet in the morning. 30 Tablet 11 2 Active Additional Information Patient not taking.Reported on 03/29/2023 Tamoxifen Citrate 20 MG Oral TabletIndication s:Malignant neoplasm of upper-inner quadrant of left breast in female, estrogen receptor positive Take by mouth 1 Tablet in the morning. 90 Tablet 3 2 Active Metoprolol Succinate ER 25 MG Oral Tablet Extended Release 24 Hour (toPROL XL)Indications:P VC (premature ventricular contraction),Ess ential hypertension with goal blood pressure less than 140/90 Take 2 tablets in the morning and 1 tablet in the evening. 270 Tablet 3 2 Active traMADol HCl 50 MG Oral Tablet (Ultram)Indicati ons:Chronic pain disorder Take 1 Tablet by mouth 3 times a day as needed for Pain, Moderate. 60 Tablet 1 3 Active Benzonatate 100 MG Oral CapsuleIndicatio ns:Bronchitis, complicated Take 1-2 Capsules by mouth 3 times a day as needed for Cough. 45 Capsule 1 3 Active Potassium Chloride ER 10 MEQ Oral Capsule Extended ReleaseIndicatio ns:Hypokalemia One tab 4 days per week and two tabs 3 days per week. 120 Capsule 5 3 Active Furosemide 40 MG Oral Tablet (Lasix)Indicatio ns:Pleural effusion Take 1 Tablet by mouth in the morning. Take an additional tablet as needed or as directed for fluid retention.. 120 Tablet 3 3 Active Losartan Potassium 25 MG Oral Tablet (Cozaar)Indicati ons:HTN, goal below 140/90 Take 1 Tablet by mouth daily. 100 Tablet 3 3 Active Potassium Chloride Rimma ER 20 MEQ Oral Tablet Extended Release Take 1 Tablet by mouth in the morning. 30 Tablet 1 3 Active Furosemide 20 MG Oral Tablet (Lasix) Take 1 Tablet by mouth every evening. Around 2-4 pm 90 Tablet 3 3 Active Doxycycline Hyclate 100 MG Oral Capsule Take 1 Capsule by mouth in the morning and 1 Capsule before bedtime. Do all this for 10 days. Until gone.. 20 Capsule 0 3 04/18/20 23 Active guaiFENesin ER 600 MG Oral Tablet Extended Release 12 Hour (Mucinex) Take 1 Tablet by mouth 2 times a day as needed for Congestion. Take with plenty of water. Do not cut, crush or chew 40 Tablet 2 3 Active Montelukast Sodium 10 MG Oral Tablet (Singulair) Take 1 Tablet by mouth in the morning. 90 Tablet 3 3 Active Benzonatate 100 MG Oral Capsule Take 1 Capsule by mouth at bedtime as needed for Cough. 30 Capsule 1 3 Active Montelukast Sodium 10 MG Oral Tablet (Singulair) Take 1 Tab by mouth daily. 30 Tab 11 0 04/15/20 23 Discontinued(Ref ill) Benzonatate 100 MG Oral Capsule (Segundo Hammond)Indicatio ns:JETT (dyspnea on exertion),Cough Take 1 Capsule by mouth 3 times a day as needed for Cough. 60 Capsule 5 1 04/15/20 23 Discontinued documented as of this encounter (statuses as of 04/15/2023) Active Problems Problem Noted Date Diagnosed Date Hypertensive heart disease w ith chronic systolic congestive heart failure 10/26/2022 Alzheimer's dementia without behavioral disturba nce 09/29/2020 Overview: At least moderate as of 10/02 Chronic systolic heart failure 06/17/2020 MEDICATION USE AGREEMENT 01/18/2020 PVC (premature ventricular contraction) 12/28/19 18 Pericardial effusion 12/27/2017 Cardiomyopathy 12/27/2017 History of compression fracture of spine 018 Malignant neoplasm of upper- inner quadrant of left breast in female, estrogen receptor positive 08/03/2017 Cancer Staging:Clinical:Stage IB(ycT1b, cN0(sn), cM0, G3, ER: Positive, IA: Positive, HER2: Negative) - Unsigned History of adenomatous polyp of colon 07/07/2017 Cerebral meningioma 09/15/2016 Overview: cribriform plate Dyslipidemia, goal LDL below 70 05/22/2013 CLASSICAL MIGRAINE WITHOU MENTION OF INTRACTABLE MIGRAINE 02/28/1999 Senile osteoporosis 02/28/1999 Essential hypertension with goal blood pressure less than 140/90 02/28/1999 documented as of this encounter (statuses as of 04/15/2023) Resolved Problems Problem Noted Date Diagnosed Date Resolved Date Major depressive disorder wi th single episode, in full remission 11/03/2017 04/01/2020 S/P radiation therapy 08/03/20172017 Closed compression fracture of thoracolumbar vertebra 07/07/2017 11/03/2017 Mild cognitive impairment 12/29/2016 Acute URI 12/19/2012 11/25/2015 Acute URI 12/19/2012 11/25/2015 Sleep disturbance 06/23/2012 11/25/2015 Influenza-like illness 06/23/201211/24 Acute bronchitis, complicated 06/23/2012 11/25/2015 Chronic rhinitis 06/23/2012 11/03/2017 Palpitations 05/08/2012 07/01/2016 Urinary tract infection 10/06/201010/13 COUGH CHRONIC 10/03/2010 07/01/2016 Other nonspecific finding on examination of urine 10/03/2010 11/03/2010 ACUTE SINUSITIS NOS 04/29/2005 08/02/19 09 Overview: Resolved per Benign Acute Dxs Protocol #3 ACUTE RIGHT MAXILLARY SINUSITIS 04/26/2005 11/03/2010 Chronic rhinitis 04/26/2005 06/23/2012 Unspecified viral infection, in conditions classified elsewhere and of unspecified site 04/26/2005 11/03/2010 ACUTE PHARYNGITIS 04/26/2005 2008 Overview: Resolved per Benign Acute Dxs Protocol #3 ADVANCE DIRECTIVE INFORMATION 04/17/2005 07/07/2017 Overview: Yes, Patient instructed to provide copy of advance directive for provider to review and to be scanned into Electronic Medical Record BENIGN NEOPLASM LG BOWEL 04/17/2005 FAMILY HX-GI MALIGNANCY 03/31/200206/14 Dyslipidemia, goal to be determined 02/18/2001 05/22/2013 Pruritic disorder 10/22/1999 11/25/2015 Urticaria 06/12/1999 07/01/2016 Need for prophylactic hormon e replacement therapy (postmenopausal) 02/28/1999 07/01/2016 Malaise and fatigue 02/28/1999 11/04/19 11 DIFFUS CYSTIC MASTOPATHY ABN PAP SMEAR-CERVIX 017 documented as of this encounter (statuses as of 04/15/2023) Immunizations Name Administration Dates Next Due Diptheria/Tetanus (Adult) 02/01/1998 Pneumococcal Polysaccharide PPV23 (Pneumovax) 08/01/2010 SEASONAL INFLUENZA, PF, 6 M & Above, IM , (FLULAVAL or FLUZONE) 04/03/2019,05/03/2018,03/23/2017 Season Influenza, Quad, PF, Adjuvanted, 65+ Yrs, IM (FLUAD) 04/01/2020 Seasonal Influenza Virus Vac cine, Unspecified Formulation 05/13/2006,04/04/1998,03/30/1997,06/1994,04/14/1994,04/14/1993 Seasonal Influenza, Quadriva lent Hd (Fluzone Hd) 05/26/2022,03/19/2021 Seasonal Influenza, Quadriva lent, No Preserve, IM 04/14/2016,05/29/2015 Seasonal Influenza, Split, I IV3, With Preserve, Inj 05/23/2014,06/12/2013,05/19/2012,06/2010,03/28/2010,04/05/2009,04/16/20 08,04/22/2007,04/17/2005,04/03/2003,1 ,05/17/2001,07/12/2000,04/0305/23/2015 TD, Preservative Free 05/02/2020 TDAP (age 11 and older)(Adacel) 04/26/2008 documented as of this encounter Social History Tobacco Use Types Packs/Day Years Used Date Smoking Tobacco: Never Passive Smoke Exposure: Past Smokeless Tobacco: Never Alcohol Use Standard Drinks/Week Comments No 0 (1 standard drink = 0.6 oz pur e alcohol) PHQ-2 Answer Date Recorded PHQ-2 Score 0 04/01/2020 Hunger Vital Sign Answer Date Recorded Worried About Running Out of Food in the Last Ye ar Never true 02/28/2019 Ran Out of Food in the Last Year Never true 02/28/2019 Sex and Gender Information Value Date Recorded Sex Assigned at Female 07/24/2019 11:19 AM EST Gender Identity Female 07/24/2019 11:19 AM EST Sexual Orientation Straight 07/24/2019 11 :19 AM EST Job Start Date Occupation Industry Not on file Not on file Not on file documented as of this encounter Miscellaneous Notes * Addendum Note - Cande Salinas MD - 04/15/2023 12:33 PM EDTAddended by: CANDE SALINSA on: 04/15/2023 12:33 PM Modules accepted: Orders * Telephone Encounter - Cande Salinas MD - 04/15/2023 12:32 PM EDT Sent out singulair Should be daily use And sent out tesssalon cough cap but should use only at night This can suppress her cough , makes mucus plug in her chest worse * Telephone Encounter - Noemi Mulligan LPN - 04/15/2023 11:52 AM EDT Patient's aware and verbalized understanding States that pt has not had singulair for some time. Is asking for a script for tessalon perles for pt * Telephone Encounter - Cande Salinas MD - 04/15/2023 11:19 AM EDT Is currently taking doxycycline And she is supposed to take singulair for her chronic allergy Wonder if she has it or takes it ? And will send out mucinex for cough * Telephone Encounter - Madie Mendez OSA - 04/15/2023 9:59 AM EDT Pt's called & is concern that his still has a cough. The pt is on antibiotics, butwould like a stronger cough medicine. Please advise Gt() if another cough medicine can be prescribed documented in this encounter Plan of Treatment Upcoming Encounters Date Type Department Care Team (Late st Contact Info) Description 06/09/2023 10:30 AM EST Office Visit Cardiology, [facility] [address] [place] [id number] Sabrina Cody PA-C [address] [place] [phone] Scheduled Procedures Name Priority Associated Diagnoses Date/Ti me COLONOSCOPY FLEXIBLE PROXIMAL DIAGNOSTIC Recall FH: GI cancer Health Maintenance Due Date Last Done Comments COVID-19 Vaccine (#1) 02/06/1946 Zoster Vaccines (1 of 2) 1994 Pneumococcal Vaccine: 65+ Years (2 - PCV) 08/01/2011 08/01/2010 Depression Screening 04/01/2021 04/01/2020 *BISPHONATE OR OTHER ACCEPTABLE MEDICATION NEEDED FOR OSTEOPOROSIS (REFER TO SMARTSET #1146) 05/24/2021 DXA Scan 02/04/2022 02/05/2020, 09/12, 11/22/2014, Additional history exists Influenza Vaccine (FLU shot) (#1) 2023 05/26/2022, 03/19/2021, 04/01/2020, Additional history exists COLONOSCOPY-EVERY 5 YRS AGES 18-100 02/17/2024 02/16/2019, 02/16/2019, 09/16/2010, Additional history exists GFR 03/30/2024 03/30/2023, 10/12, 05/26/2022, Additional history exists Albumin/Creatinine Ratio 03/30/2026 03/30/2023 DTaP,Tdap,and Td Vaccines (3 - Td or Tdap) 05/02/2030 05/02/2020, 04/26/2008, 02/01/1998 VITAMIN D LEVEL ONCE IN A LIFETIME-USE SMARTSET# [id number] Completed 04/03/2019, 02/25/2018, 09/23/2009 GARDASIL-HPV IMMUNIZATION SERIES Aged Out No longer eligible based on patient's age to complete this topic Hepatitis B Aged Out No longer eligi ble based on patient's age to complete this topic MENINGOCOCCAL (MENACTRA/MENVEO) Aged Out No longer eligible based on patient's age to complete this topic documented as of this encounter Medical Devices Not on filedocumented as of this encounter Care Teams Casting Trucker Relationship Specialty Start Date End Date David Olsen MD [address] [place] [address] PCP - General Family Medicine 11/30/19 documented as of this encounter
--- OUTSIDE RECORDS SUMMARY | 2023-04-26 22:35 | External Medical Summary | Summary of Care ---
Author Name Unknown Organization [facility] Address [address] [place] [address] Phone [phone] Care Team Providers Care Telegraph Repeater Installer Name Role Phone David Olsen MD Primary Care Provider Encounter Details Date Type Department Care Team (Late st Contact Info) Description 04/06/2023 Telephone [facility] [address] [place] [address] Ozzy Salinas MD [address] [place] [address] Allergies Active Allergy Reactions Criticality Noted Date Comments Bupropion Itching Low 11/03/2010 Cephalexin Hives Low 04/29/2005 Nitrofurantoin Monohyd Macro Hives 012 Pneumococcal Vaccine Nausea/vomiting 08/03/2010 Sulfa Antibiotics Rash Low 02/28/1999 documented as of this encounter (statuses as of 04/08/2023) Medications Medication Sig Dispensed Refills Start Date End Date Status MULTI-VITAMIN PO TABS 1 daily 0 04/22/2007 Active Aspirin 81 MG Oral Tablet Delayed Release Take by mouth. 100 5 06/30/2007 Active Fluticasone Propionate 50 MCG/ACT Nasal SuspensionIndicati ons:Post-nasal drip Administer 2 Sprays into each nostril daily. 16 g 1 06/03/2020 Active Montelukast Sodium 10 MG Oral Tablet (Singulair) Take 1 Tab by mouth daily. 30 Tab 11 06/13/2020 Active Additional Information Patient not taking.Reported on 03/29/2023 Vitamin D3 125 MCG (5000 UT) Oral Capsule Take 1 Capsule by mouth in the morning. 3 Cap 0 06/17/2020 Active B-12 500 MCG Sublingual Tablet Sublingual Place 1 Tablet under the tongue once. 30 Tab 0 06/17/2020 Active Triamcinolone Acetonide 0.1 % External Ointment (Aristocort)Indica tions:Dermatitis of lip Apply topically to affected area 2 times a day. Apply 2x daily (or more if itchy/painful instead of licking) to lips until resolved 30 g 0 08/01/2020 Active Additional Information Patient not taking.Reported on 03/29/2023 Calcium Carbonate 600 MG Oral Tablet Take 1 Tablet by mouth 2 times a day with morning and evening meals. 0 Active Benzonatate 100 MG Oral Capsule (Segundo Hammond)Indications :JETT (dyspnea on exertion),Cough Take 1 Capsule by mouth 3 times a day as needed for Cough. 60 Capsule 5 05/29/2021 Active Famotidine 20 MG Oral Tablet (Pepcid)Indication s:Gastroesophageal reflux disease without esophagitis Take by mouth 1 Tablet in the morning. 30 Tablet 11 09/02/2021 Active Additional Information Patient not taking.Reported on 03/29/2023 Tamoxifen Citrate 20 MG Oral TabletIndications: Malignant neoplasm of upper-inner quadrant of left breast in female, estrogen receptor positive Take by mouth 1 Tablet in the morning. 90 Tablet 3 01/23/2022 Active Metoprolol Succinate ER 25 MG Oral Tablet Extended Release 24 Hour (toPROL XL)Indications:PVC (premature ventricular contraction),Essen tial hypertension with goal blood pressure less than 140/90 Take 2 tablets in the morning and 1 tablet in the evening. 270 Tablet 3 06/11/2022 Active traMADol HCl 50 MG Oral Tablet (Ultram)Indication s:Chronic pain disorder Take 1 Tablet by mouth 3 times a day as needed for Pain, Moderate. 60 Tablet 1 08/07/2022 Active Benzonatate 100 MG Oral CapsuleIndications :Bronchitis, complicated Take 1-2 Capsules by mouth 3 times a day as needed for Cough. 45 Capsule 1 10/12/2022 Active Potassium Chloride ER 10 MEQ Oral Capsule Extended ReleaseIndications :Hypokalemia One tab 4 days per week and two tabs 3 days per week. 120 Capsule 5 10/26/2022 Active Furosemide 40 MG Oral Tablet (Lasix)Indications :Pleural effusion Take 1 Tablet by mouth in the morning. Take an additional tablet as needed or as directed for fluid retention.. 120 Tablet 3 12/03/2022 Active Losartan Potassium 25 MG Oral Tablet (Cozaar)Indication s:HTN, goal below 140/90 Take 1 Tablet by mouth daily. 100 Tablet 3 12/03/2022 Active Potassium Chloride Rimma ER 20 MEQ Oral Tablet Extended Release Take 1 Tablet by mouth in the morning. 30 Tablet 1 03/29/2023 Active Furosemide 20 MG Oral Tablet (Lasix) Take 1 Tablet by mouth every evening. Around 2-4 pm 90 Tablet 3 04/08/2023 Active Doxycycline Hyclate 100 MG Oral Capsule Take 1 Capsule by mouth in the morning and 1 Capsule before bedtime. Do all this for 10 days. Until gone.. 20 Capsule 0 04/08/2023 04/18/2023 Active documented as of this encounter (statuses as of 04/08/2023) Active Problems Problem Noted Date Diagnosed Date [...] Staging:Clinical:Stage IB(ycT1b, cN0(sn), cM0, G3, ER: Positive, MO: Positive, HER2: Negative) - Unsigned History of adenomatous polyp of colon 07/07/2017 Cerebral meningioma 09/15/2016 Overview: cribriform plate Dyslipidemia, goal LDL below 70 05/22/2013 CLASSICAL MIGRAINE WITHOU MENTION OF INTRACTABLE MIGRAINE 02/28/1999 Senile osteoporosis 02/28/1999 Essential hypertension with goal blood pressure less than 140/90 02/28/1999 documented as of this encounter (statuses as of 04/08/2023) Resolved Problems Problem Noted Date Diagnosed Date [...] as of this encounter (statuses as of 04/08/2023) Immunizations Name Administration Dates Next Due Diptheria/Tetanus [...] as of this encounter Miscellaneous Notes * Telephone Encounter - Charley Alvarez LPN - 04/08/2023 1:22 PM EDT No answer, will try again later * Addendum Note - Ozzy Salinas MD - 04/08/2023 1:05 PM EDTAddended by: OZZY SALINAS on: 04/08/2023 01:05 PM Modules accepted: Orders * Telephone Encounter - Ozzy Salinas MD - 04/08/2023 1:05 PM EDT Sent out doxycycline * Telephone Encounter - Charley Alvarez LPN - 04/08/2023 1:00 PM EDT Patients spouse answered he states that her cough is not any worse but is not any better and would like ABX sent to the pharmacy. He was notified about the 20 mg lasix as well. * Addendum Note - Ozzy Salinas MD - 04/08/2023 12:49 PM EDTAddended by: OZZY SALINAS on: 04/08/2023 12:49 PM Modules accepted: Orders * Telephone Encounter - Ozzy Salinas MD - 04/08/2023 12:46 PM EDT CXR showed most likely atelectasis which is scarring Questionable infiltrate and without fever or worse cough , not sure if she is developing any infection If she has worse chest congestion, cough or fever, will start oral ABx And meanwhile , please take lasix 40 mg AM and 20 mg 2-4 PM Will send out 20 mg lasix tabs * Telephone Encounter - Valerie Valera LPN - 04/07/2023 1:59 PM EDT I identified pt by name and , verified by family member. Pt has been informed of below message and verbalized understanding. Patients would like to know the results of chest X-ray Patient has been taking the 40 mg furosemide for the past 6 months. Should they increase the dose? * Telephone Encounter - Ozzy Salinas MD - 04/06/2023 1:50 PM EDT Her 2D echo showed declining her heart function Not significant but def declining over a few years Which is causing her legs swelling, SOB She should f/u with cardio too And will see how she does with water pill higher dose documented in this encounter Plan of Treatment Upcoming Encounters Date Type Department Care Team (Late st Contact Info) Description 06/09/2023 10:30 AM EST Office Visit Cardiology, [facility] [address] [place] [address] Sabrina Cody PA-C [address] [place] [address] Scheduled Procedures Name Priority Associated Diagnoses Date/Ti [...] D LEVEL ONCE IN A LIFETIME-USE SMARTSET# [id number] Completed 04/03/2019, 02/25/2018, 09/23/2009 GARDASIL-HPV IMMUNIZATION SERIES [...] filedocumented as of this encounter Care Teams Telegraph Repeater Installer Relationship Specialty Start Date End Date David Olsen MD [address] [place] [address] PCP - General Family Medicine 11/30/19 documented as of this encounter
--- OUTSIDE RECORDS SUMMARY | 2023-04-26 22:35 | External Medical Summary | Summary of Care ---
Author Name Unknown Organization [facility] Address [address] [place] [address] Phone [phone] Care Team Providers Care Extension Service Specialist In Charge Name Role Phone David Olsen MD Primary Care Provider [phone] Encounter Details Date Type Department Care Team (Late st Contact Info) Description 04/13/2023 Orders Only [facility] [address] [place] [address] Italia Sevilla CHRA MyCode Research Other*[id number] Allergies Active Allergy Reactions Criticality Noted Date Comments Bupropion Itching Low 11/03/2010 Cephalexin Hives Low 04/29/2005 Nitrofurantoin Monohyd Macro Hives 012 Pneumococcal Vaccine Nausea/vomiting 08/03/2010 Sulfa Antibiotics Rash Low 02/28/1999 documented as of this encounter (statuses as of 04/13/2023) Medications Medication Sig Dispensed Refills Start Date [...] 0 Active Benzonatate 100 MG Oral Capsule (Tesimani Hammond)Indications :JETT (dyspnea on exertion),Cough Take 1 [...] as of this encounter (statuses as of 04/13/2023) Active Problems Problem Noted Date Diagnosed Date [...] Staging:Clinical:Stage IB(ycT1b, cN0(sn), cM0, G3, ER: Positive, [place]: Positive, HER2: Negative) - Unsigned History of adenomatous polyp of colon 07/07/2017 Cerebral meningioma 09/15/2016 Overview: cribriform plate Dyslipidemia, goal LDL below 70 05/22/2013 CLASSICAL MIGRAINE WITHOU MENTION OF INTRACTABLE MIGRAINE 02/28/1999 Senile osteoporosis 02/28/1999 Essential hypertension with goal blood pressure less than 140/90 02/28/1999 documented as of this encounter (statuses as of 04/13/2023) Resolved Problems Problem Noted Date Diagnosed Date [...] as of this encounter (statuses as of 04/13/2023) Immunizations Name Administration Dates Next Due Pneumococcal Polysaccharide PPV23 (Pneumovax) 08/01/2010 SEASONAL INFLUENZA, PF, 6 M & Above, IM , (FLULAVAL or FLUZONE) 04/03/2019,05/03/2018,03/23/2017 Season Influenza, Quad, PF, Adjuvanted, 65+ Yrs, IM (FLUAD) 04/01/2020 Seasonal Influenza Virus Vac cine, Unspecified Formulation 05/13/2006 Seasonal Influenza, Quadriva lent Hd (Fluzone Hd) 05/26/2022,03/19/2021 Seasonal Influenza, Quadriva lent, No Preserve, IM 04/14/2016,05/29/2015 Seasonal Influenza, Split, I IV3, With Preserve, Inj 05/23/2014,06/12/2013,05/19/2012,06/2010,03/28/2010,04/05/2009,04/16/20 08,04/22/2007 05/23/2015 TD, Preservative Free 05/02/2020 TDAP (age 10 [...] on file documented as of this encounter Plan of Treatment Upcoming Encounters Date Type Department Care Team (Late st Contact Info) Description 06/09/2023 10:30 AM EST Office Visit Cardiology, [facility] [address] [place] [address] Sabrina Cody PA-C [address] [place] [address] Scheduled Orders Name Type Priority Associated Diagnoses Orde r Schedule MYCODE SUBSEQUENT ADULT Lab Routine MyCode Research Other*[id number] Every 6 Months for 2 Occurrences starting 04/13/2023 until 05/02/2024 Scheduled Procedures Name Priority Associated Diagnoses Date/Ti [...] D LEVEL ONCE IN A LIFETIME-USE SMARTSET# [id number] Completed 04/03/2019, 02/25/2018, 09/23/2009 GARDASIL-HPV IMMUNIZATION SERIES [...] Not on filedocumented as of this encounter Visit Diagnoses Diagnosis MyCode Research Other*[id number] documented in this encounter Care Teams Extension Service Specialist In Charge Relationship Specialty Start Date End Date David Olsen MD [address] [facility] [place] [id number] PCP - General Family Medicine 11/30/19 documented as of this encounter
--- OUTSIDE RECORDS SUMMARY | 2023-04-26 22:35 | External Medical Summary | Summary of Care ---
Author Name Unknown Organization [facility] Address [address] [place] [address] Phone [phone] Care Team Providers Care Blower Room Attendant Name Role Phone David Olsen MD Primary Care Provider [phone] Reason for Visit * Reason Onset Date Comments Advice 04/15/2023 Encounter Details Date Type Department Care Team (Late st Contact Info) Description 04/15/2023 Telephone [facility] [address] [place] [address] David Olsen MD [address] [place] [address] Advice Allergies Active Allergy Reactions [...] gone.. 20 Capsule 0 04/08/2023 04/18/2023 Active guaiFENesin ER 600 MG Oral Tablet Extended Release 12 Hour (Mucinex) Take 1 Tablet by mouth 2 times a day as needed for Congestion. Take with plenty of water. Do not cut, crush or chew 40 Tablet 2 04/15/2023 Active documented as of this encounter (statuses [...] Seasonal Influenza Virus Vac cine, Unspecified Formulation 05/13/2006,04/04/1998,03/30/1997,1106/1994,04/14/1994,04/14/1993 Seasonal Influenza, Quadriva lent Hd (Fluzone Hd) 05/26/2022,03/19/2021 Seasonal Influenza, Quadriva lent, No Preserve, IM 04/14/2016,05/29/2015 Seasonal Influenza, Split, I IV3, With Preserve, Inj 05/23/2014,06/12/2013,05/19/2012,100 06/2010,03/28/2010,04/05/2009,04/16/20 08,04/22/2007,04/17/2005,04/03/2003,1 ,05/17/2001,07/12/2000,04/0305/23/2015 TD, Preservative Free 05/02/2020 TDAP [...] encounter Miscellaneous Notes * Telephone Encounter - Noemi Mulligan LPN [...] mucinex for cough * Telephone Encounter - Andrea MadieTRAY - 04/15/2023 9:59 AM EDT Pt's called & is concern that his still has a cough. The pt is on antibiotics, butwould like a stronger cough medicine. Please advise Gt() if another cough medicine can be prescribed documented in this encounter Plan of Treatment Upcoming Encounters Date Type Department Care Team (Late st Contact Info) Description 06/09/2023 10:30 AM EST Office Visit Cardiology, [facility] [address] [place] [address] Sabrina Cody PA-C [address] [place] [address] Scheduled Procedures Name Priority Associated Diagnoses Date/Ti [...] D LEVEL ONCE IN A LIFETIME-USE SMARTSET# [id number] Completed 04/03/2019, 02/25/2018, 09/23/2009 GARDASIL-HPV IMMUNIZATION SERIES [...] filedocumented as of this encounter Care Teams Blower Room Attendant Relationship Specialty Start Date End Date David Olsen MD [address] [facility] [place] [address] PCP - General Family Medicine 11/30/19 documented as of this encounter
--- OUTSIDE RECORDS SUMMARY | 2023-04-26 22:35 | External Medical Summary | Summary of Care ---
Author Name Unknown Organization [facility] Address [address] [place] [address] Phone [phone] Care Team Providers Care Narcotics Agent Name Role Phone David Olsen MD Primary Care Provider Encounter Details Date Type Department Care Team (Late st Contact Info) Description 04/06/2023 Telephone [facility] [address] [place] [address] Ozzy Salinas MD [address] [place] [address] Allergies Active Allergy Reactions Criticality [...] encounter Miscellaneous Notes * Addendum Note - Ozzy Salinas MD [...] 10:30 AM EST Office Visit Cardiology, [facility] [address] [place] [address] Sabrina Cody PA-C [address] [place] [address] Scheduled Procedures Name Priority Associated Diagnoses Date/Ti [...] D LEVEL ONCE IN A LIFETIME-USE SMARTSET# [id number] Completed 04/03/2019, 02/25/2018, 09/23/2009 GARDASIL-HPV IMMUNIZATION SERIES [...] filedocumented as of this encounter Care Teams Narcotics Agent Relationship Specialty Start Date End Date David Olsen MD [address] [place] [address] PCP - General Family Medicine 11/30/19 documented as of this encounter
--- OUTSIDE RECORDS SUMMARY | 2023-04-26 22:35 | External Medical Summary | Summary of Care ---
Author Name Unknown Organization [facility] Address [address] [place] [address] Phone [phone] Care Team Providers Care Assistant Child Care Teacher Name Role Phone David Olsen MD Primary Care Provider Reason for Visit * Reason Onset Date Comments Advice 04/15/2023 Encounter Details Date Type Department Care Team (Late st Contact Info) Description 04/15/2023 Telephone [facility] [address] [place] [address] David Olsen MD [address] [place] [address] Advice Allergies Active Allergy Reactions [...] Staging:Clinical:Stage IB(ycT1b, cN0(sn), cM0, G3, ER: Positive, TN: Positive, HER2: Negative) - Unsigned History of [...] 04/15/2023) Immunizations Name Administration Dates Next Due Pneumococcal [...] encounter Miscellaneous Notes * Telephone Encounter - Cande Salinas MD [...] 10:30 AM EST Office Visit Cardiology, [facility] [address] [place] [address] Sabrina Cody PA-C [address] [place] [address] Scheduled Procedures Name Priority Associated Diagnoses Date/Ti [...] D LEVEL ONCE IN A LIFETIME-USE SMARTSET# [id number] Completed 04/03/2019, 02/25/2018, 09/23/2009 GARDASIL-HPV IMMUNIZATION SERIES [...] filedocumented as of this encounter Care Teams Assistant Child Care Teacher Relationship Specialty Start Date End Date David Olsen MD [address] [place] [facility] [place] [address] PCP - General Family Medicine 11/30/19 documented as of this encounter
--- OUTSIDE RECORDS SUMMARY | 2023-04-26 22:35 | External Medical Summary | Summary of Care ---
Author Name Unknown Organization [facility] Address [address] [place] [address] Phone [phone] Care Team Providers Care Hot Tamale Worker Name Role Phone David Olsen MD Primary Care Provider Encounter Details Date Type Department Care Team (Late st Contact Info) Description 04/06/[address] [facility] [address] [place] [address] Ozzy Salinas MD [address] [place] [address] Allergies Active Allergy Reactions Criticality [...] 06/30/2007 Active Fluticasone Propionate 50 MCG/ACT Nasal SuspensionIndicatio ns:Post-nasal drip Administer 2 Sprays into each nostril [...] Active Triamcinolone Acetonide 0.1 % External Ointment (Aristocort)Indicat ions:Dermatitis of lip Apply topically to affected area [...] Active Benzonatate 100 MG Oral Capsule (Segundo Hammond)Indications: JETT (dyspnea on exertion),Cough Take 1 Capsule by mouth 3 times a day as needed for Cough. 60 Capsule 5 05/29/2021 Active Famotidine 20 MG Oral Tablet (Pepcid)Indications :Gastroesophageal reflux disease without esophagitis Take by mouth 1 Tablet in the morning. 30 Tablet 11 09/02/2021 Active Additional Information Patient not taking.Reported on 03/29/2023 Tamoxifen Citrate 20 MG Oral TabletIndications:M alignant neoplasm of upper-inner quadrant of left breast in female, estrogen receptor positive Take by mouth 1 Tablet in the morning. 90 Tablet 3 01/23/2022 Active Metoprolol Succinate ER 25 MG Oral Tablet Extended Release 24 Hour (toPROL XL)Indications:PVC (premature ventricular contraction),Essent ial hypertension with goal blood pressure less than 140/90 Take 2 tablets in the morning and 1 tablet in the evening. 270 Tablet 3 06/11/2022 Active traMADol HCl 50 MG Oral Tablet (Ultram)Indications :Chronic pain disorder Take 1 Tablet by mouth 3 times a day as needed for Pain, Moderate. 60 Tablet 1 08/07/2022 Active Benzonatate 100 MG Oral CapsuleIndications: Bronchitis, complicated Take 1-2 Capsules by mouth 3 times a day as needed for Cough. 45 Capsule 1 10/12/2022 Active Potassium Chloride ER 10 MEQ Oral Capsule Extended ReleaseIndications: Hypokalemia One tab 4 days per week and two tabs 3 days per week. 120 Capsule 5 10/26/2022 Active Furosemide 40 MG Oral Tablet (Lasix)Indications: Pleural effusion Take 1 Tablet by mouth in the morning. Take an additional tablet as needed or as directed for fluid retention.. 120 Tablet 3 12/03/2022 Active Losartan Potassium 25 MG Oral Tablet (Cozaar)Indications :HTN, goal below 140/90 Take 1 Tablet by mouth daily. 100 Tablet 3 12/03/2022 Active Potassium Chloride Rimma ER 20 MEQ Oral Tablet Extended Release Take 1 Tablet by mouth in the morning. 30 Tablet 1 03/29/2023 Active Furosemide 20 MG Oral Tablet (Lasix) Take 1 Tablet by mouth every evening. Around 2-4 pm 90 Tablet 3 04/08/2023 Active documented as of this encounter (statuses [...] Staging:Clinical:Stage IB(ycT1b, cN0(sn), cM0, G3, ER: Positive, [place]: Positive, HER2: Negative) - Unsigned History of [...] 06/09/2023 10:30 AM EST Office Visit Cardiology, [facility] [address] [place] [address] Sabrina Cody PA-C [address] [place] [address] Scheduled Procedures Name Priority Associated Diagnoses Date/Ti [...] D LEVEL ONCE IN A LIFETIME-USE SMARTSET# [id number] Completed 04/03/2019, 02/25/2018, 09/23/2009 GARDASIL-HPV IMMUNIZATION SERIES [...] filedocumented as of this encounter Care Teams Hot Tamale Worker Relationship Specialty Start Date End Date David Olsen MD [address] [place] [address] PCP - General Family Medicine 11/30/19 documented as of this encounter
--- OUTSIDE RECORDS SUMMARY | 2023-04-26 22:35 | External Medical Summary | Summary of Care ---
Author Name Unknown Organization [facility] Address [address] [place] [address] Phone [phone] Care Team Providers Care Kiln Packer Name Role Phone David Olsen MD Primary Care Provider [phone] Reason for Visit * Reason Onset Date Comments Advice 04/06/2023 Encounter Details Date Type Department Care Team (Late st Contact Info) Description 04/06/[address] [facility] [address] [place] [address] Cande Salinas MD [address] [place] [address] Advice Allergies Active Allergy Reactions Criticality Noted Date Comments Bupropion Itching Low 11/03/2010 Cephalexin Hives Low 04/29/2005 Nitrofurantoin Monohyd Macro Hives 012 Pneumococcal Vaccine Nausea/vomiting 08/03/2010 Sulfa Antibiotics Rash Low 02/28/1999 documented as of this encounter (statuses as of 04/19/2023) Medications Medication Sig Dispensed Refills Start Date [...] 2-4 pm 90 Tablet 3 3 Active Montelukast Sodium 10 MG Oral Tablet (Singulair) Take 1 Tab by mouth daily. 30 Tab 11 0 04/15/20 23 Discontinued(Ref ill) Benzonatate 100 MG Oral Capsule (Segundo Hammond)Indicatio ns:JETT (dyspnea on exertion),Cough Take 1 Capsule by mouth 3 times a day as needed for Cough. 60 Capsule 5 1 04/15/20 23 Discontinued Doxycycline Hyclate 100 MG Oral Capsule Take 1 Capsule by mouth in the morning and 1 Capsule before bedtime. Do all this for 10 days. Until gone.. 20 Capsule 0 3 04/18/20 23 documented as of this encounter (statuses as of 04/19/2023) Active Problems Problem Noted Date Diagnosed Date [...] as of this encounter (statuses as of 04/19/2023) Resolved Problems Problem Noted Date Diagnosed Date [...] as of this encounter (statuses as of 04/19/2023) Immunizations Name Administration Dates Next Due Diptheria/Tetanus [...] encounter Miscellaneous Notes * Telephone Encounter - Ann Dominguez MED ASSIST - 04/19/2023 2:17 PM EST Attempted to call pt . No answer. Left message to call back. * Telephone Encounter - Charley Alvarez LPN - 04/08/2023 1:22 PM EDT No answer, will try again later * Addendum Note - Cande Salinas MD - 04/08/2023 1:05 PM EDTAddended by: CANDE SALINAS on: 04/08/2023 01:05 PM Modules accepted: Orders * Telephone Encounter - Cande Salinas MD - 04/08/2023 1:05 PM EDT Sent out doxycycline * Telephone Encounter - Charley Alvarez LPN - 04/08/2023 1:00 PM EDT Patients spouse answered he states that her cough is not any worse but is not any better and would like ABX sent to the pharmacy. He was notified about the 20 mg lasix as well. * Addendum Note - Cande Salinas MD - 04/08/2023 12:49 PM EDTAddended by: CANED SALINAS on: 04/08/2023 12:49 PM Modules accepted: Orders * Telephone Encounter - Cande Salinas MD - 04/08/2023 12:46 PM EDT [...] increase the dose? * Telephone Encounter - Cande Salinas MD - 04/06/2023 1:50 PM EDT [...] 06/09/2023 10:30 AM EST Office Visit Cardiology, [facility] [address] [place] [address] Sabrina Cody PA-C [address] [place] [address] Scheduled Procedures Name Priority Associated Diagnoses Date/Ti [...] D LEVEL ONCE IN A LIFETIME-USE SMARTSET# [id number] Completed 04/03/2019, 02/25/2018, 09/23/2009 GARDASIL-HPV IMMUNIZATION SERIES [...] filedocumented as of this encounter Care Teams Kiln Packer Relationship Specialty Start Date End Date David Olsen MD [address] [facility] [place] [address] PCP - General Family Medicine 11/30/19 documented as of this encounter
--- OUTSIDE RECORDS SUMMARY | 2023-04-26 22:35 | External Medical Summary | Summary of Care ---
Author Name Unknown Organization [facility] Address [address] [place] [address] Phone [phone] Care Team Providers Care Ice Delivery Driver Name Role Phone David Olsen MD Primary Care Provider Reason for Visit * Reason Onset Date Comments Advice 04/15/2023 Encounter Details Date Type Department Care Team (Late st Contact Info) Description 04/15/2023 Telephone [facility] [address] [place] [address] David Olsen MD [address] [place] [address] Advice Allergies Active Allergy Reactions [...] Staging:Clinical:Stage IB(ycT1b, cN0(sn), cM0, G3, ER: Positive, UT: Positive, HER2: Negative) - Unsigned History of [...] encounter Miscellaneous Notes * Telephone Encounter - Chanel Finley LPN - 04/15/2023 2:26 PM EDT Called and spoke to pt's , verbalized understanding * Addendum Note - Cande Salinas MD - 04/15/2023 12:33 PM EDTAddended by: CANDE SALINAS on: 04/15/2023 12:33 PM Modules accepted: Orders [...] 06/09/2023 10:30 AM EST Office Visit Cardiology, [facility] [address] [place] [address] Sabrina Cody PA-C [address] [place] [address] Scheduled Procedures Name Priority Associated Diagnoses Date/Ti [...] D LEVEL ONCE IN A LIFETIME-USE SMARTSET# [id number] Completed 04/03/2019, 02/25/2018, 09/23/2009 GARDASIL-HPV IMMUNIZATION SERIES [...] filedocumented as of this encounter Care Teams Ice Delivery Driver Relationship Specialty Start Date End Date David Olsen MD [address] [place] [address] PCP - General Family Medicine 11/30/19 documented as of this encounter
--- OUTSIDE RECORDS SUMMARY | 2023-04-26 22:36 | External Medical Summary | Summary of Care ---
Author Name Unknown Organization [facility] Address [address] [place] [address] Phone [phone] Care Team Providers Care Criminal Attorney Name Role Phone David Olsen MD Primary Care Provider [phone] Encounter Details Date Type Department Care Team (Late st Contact Info) Description 04/06/2023 Telephone [facility] [address] [place] [address] Cande Salinas MD [address] [place] [address] Allergies Active Allergy Reactions Criticality Noted Date Comments Bupropion Itching Low 11/03/2010 Cephalexin Hives Low 04/29/2005 Nitrofurantoin Monohyd Macro Hives 012 Pneumococcal Vaccine Nausea/vomiting 08/03/2010 Sulfa Antibiotics Rash Low 02/28/1999 documented as of this encounter (statuses as of 04/07/2023) Medications Medication Sig Dispensed Refills Start Date [...] the morning. 30 Tablet 1 03/29/2023 Active documented as of this encounter (statuses as of 04/07/2023) Active Problems Problem Noted Date Diagnosed Date [...] Staging:Clinical:Stage IB(ycT1b, cN0(sn), cM0, G3, ER: Positive, [place]: Positive, HER2: Negative) - Unsigned History of adenomatous polyp of colon 07/07/2017 Cerebral meningioma 09/15/2016 Overview: cribriform plate Dyslipidemia, goal LDL below 70 05/22/2013 CLASSICAL MIGRAINE WITHOU MENTION OF INTRACTABLE MIGRAINE 02/28/1999 Senile osteoporosis 02/28/1999 Essential hypertension with goal blood pressure less than 140/90 02/28/1999 documented as of this encounter (statuses as of 04/07/2023) Resolved Problems Problem Noted Date Diagnosed Date [...] as of this encounter (statuses as of 04/07/2023) Immunizations Name Administration Dates Next Due Diptheria/Tetanus [...] encounter Miscellaneous Notes * Telephone Encounter - Valerie Valera LPN [...] 06/09/2023 10:30 AM EST Office Visit Cardiology, [facility] [address] [place] [address] Sabrina Cody PA-C [address] [place] [address] Scheduled Procedures Name Priority Associated Diagnoses Date/Ti [...] D LEVEL ONCE IN A LIFETIME-USE SMARTSET# [id number] Completed 04/03/2019, 02/25/2018, 09/23/2009 GARDASIL-HPV IMMUNIZATION SERIES [...] filedocumented as of this encounter Care Teams Criminal Attorney Relationship Specialty Start Date End Date David Olsen MD [address] [place] [address] PCP - General Family Medicine 11/30/19 documented as of this encounter
--- OUTSIDE RECORDS SUMMARY | 2023-04-26 22:36 | External Medical Summary ---
Author Name Unknown Address Unknown Organization K01:[facility] - [address] [place] [address] Laboratory Report Ordering Provider Test Date Status RIKI JENNINGS 03/30/2023 11:12:38 Final Normal: <30 mg/g creatinine< br/>High: 30-300 mg/g creatinine
Very High: >300 mg/g creatinine
Nephrotic: >2200 mg/g creatinine Observation Date Value Abnormality Reference (Units ) Status Albumin, Urine 03/30/2023 11:12:38 2.90 (mg/dL) Final Creatinine, Urine 03/30/2023 11:12:38 54 (mg/dL) Final Albumin/Creatinine [Mass Ratio] in Urine 03/30/2023 11:12:38 54 Above high normal <30 (mg/g Creat) Final Performing Location [facility] - Formerly named [facility] [address] [place] [id number]
--- OUTSIDE RECORDS SUMMARY | 2023-04-26 22:36 | External Medical Summary | Summary of Care ---
Author Name Unknown Organization [facility] Address [address] [place] [address] Phone [phone] Care Team Providers Care Department Of Natural Resources Officer Name Role Phone David Olsen MD Primary Care Provider Encounter Details Date Type Department Care Team (Late st Contact Info) Description 04/06/2023 Telephone [facility] [address] [place] [address] Ozzy Salinas MD [address] [place] [address] Allergies Active Allergy Reactions Criticality [...] - 04/08/2023 12:49 PM EDTAddended by: OZZY SALIANS on: 04/08/2023 12:49 PM Modules accepted: Orders [...] 06/09/2023 10:30 AM EST Office Visit Cardiology, [facility] [address] [place] [address] Sabrina Cody PA-C [address] [place] [address] Scheduled Procedures Name Priority Associated Diagnoses Date/Ti [...] D LEVEL ONCE IN A LIFETIME-USE SMARTSET# [id number] Completed 04/03/2019, 02/25/2018, 09/23/2009 GARDASIL-HPV IMMUNIZATION SERIES [...] filedocumented as of this encounter Care Teams Department Of Natural Resources Officer Relationship Specialty Start Date End Date David Olsen MD [address] [facility] [place] [address] PCP - General Family Medicine 11/30/19 documented as of this encounter
--- OUTSIDE RECORDS SUMMARY | 2023-04-26 22:36 | External Medical Summary | Summary of Care ---
Author Name Unknown Organization [facility] Address [address] [place] [address] Phone [phone] Care Team Providers Care Plastic Injection Mold Maker Name Role Phone David Olsen MD Primary Care Provider [phone] Reason for Visit * Reason Comments Outpatient Testing Encounter Details Date Type Department Care Team Description 03/30/2023 Laboratory [facility], [place] [address] [place] [address] [place] [address] [place] [address] Chronic systolic heart failure (HCC); PVC (premature ventricular contraction); Dyslipidemia, goal LDL below 70; Essential hypertension with goal blood pressure less than 140/90; SOB (shortness of breath); Irregular heart beats Allergies Active Allergy Reactions Severity Noted Date Comments Bupropion Itching Low 11/03/2010 Cephalexin Hives Low 04/29/2005 Nitrofurantoin Monohyd Macro Hives 012 Pneumococcal Vaccine Nausea/vomiting 08/03/2010 Sulfa Antibiotics Rash Low 02/28/1999 documented as of this encounter (statuses as of 03/30/2023) Medications Medication Sig Dispensed Refills Start Date [...] as of this encounter (statuses as of 03/30/2023) Active Problems Problem Noted Date Hypertensive heart disease with chronic systolic congestive heart failure 10/26/2022 Alzheimer's dementia without behavioral disturbance 09/29/2020 Overview: At least moderate as of 10/02 Chronic systolic heart failure MEDICATION USE AGREEMENT 01/18/2020 PVC (premature ventricular contraction) 12/27/2017 Pericardial effusion 12/27/2017 Cardiomyopathy 12/27/2017 History of compression fracture of spine 11/03/2017 Malignant neoplasm of upper- inner quadrant of left breast in female, estrogen receptor positive 08/03/2017 Cancer Staging:Clinical:Stage IB(ycT1b, cN0(sn), cM0, G3, ER: Positive, [place]: Positive, HER2: Negative) - Unsigned History of adenomatous polyp of colon Cerebral meningioma 09/15/2016 Overview: cribriform plate Dyslipidemia, goal LDL below 70 05/22/20 13 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 02/28/1999 Senile osteoporosis 02/28/1999 Essential hypertension with goal blood p ressure less than 140/90 02/28/1999 documented as of this encounter (statuses as of 03/30/2023) Resolved Problems Problem Noted Date Resolved Date Major depressive disorder wi th single episode, in full remission 11/03/2017 04/01/2020 S/P radiation therapy 08/03/2017 11/03/2017 Closed compression fracture of thoracolumbar kal tebra 07/07/2017 11/03/2017 Mild cognitive impairment 12/29/20162020 Acute URI 12/19/2012 11/25/2015 Acute URI 12/19/2012 11/25/2015 Sleep disturbance 06/23/2012 11/25/2015 Influenza-like illness 06/23/2012 6 Acute bronchitis, complicated 06/23/2012 Chronic rhinitis 06/23/2012 11/03/2017 Palpitations 05/08/2012 07/01/2016 Urinary tract infection 10/06/2010 11/04/19 11 COUGH CHRONIC 10/03/2010 07/01/2016 Other nonspecific finding on examination of urin e 10/03/2010 11/03/2010 ACUTE SINUSITIS NOS 04/29/2005 08/02/2008 Overview: Resolved per Benign Acute Dxs Protocol #3 ACUTE RIGHT MAXILLARY SINUSITIS 04/26/2005 11/03/2010 Chronic rhinitis 04/26/2005 06/23/2012 Unspecified viral infection, in conditions classified elsewhere and of unspecified site 04/26/2005 11/03/2010 ACUTE PHARYNGITIS 04/26/2005 2008 Overview: Resolved per Benign Acute Dxs Protocol #3 ADVANCE DIRECTIVE INFORMATION 04/17/2005 Overview: Yes, Patient instructed to provide copy of advance directive for provider to review and to be scanned into Electronic Medical Record BENIGN NEOPLASM LG BOWEL 04/17/2005 018 FAMILY HX-GI MALIGNANCY 03/31/2002 07/01/19 17 Dyslipidemia, goal to be determined 02/18/2001 05/22/2013 Pruritic disorder 10/22/1999 11/25/2015 Urticaria 06/12/1999 07/01/2016 Need for prophylactic hormon e replacement therapy (postmenopausal) 02/28/1999 07/01/2016 Malaise and fatigue 02/28/1999 11/03/2010 DIFFUS CYSTIC MASTOPATHY 017 ABN PAP SMEAR-CERVIX 12/29/2016 documented as of this encounter (statuses as of 03/30/2023) Immunizations Name Administration Dates Next Due Diptheria/Tetanus [...] drink = 0.6 oz pur e alcohol) Food Insecurity Answer Date Recorded Within the past 12 months, y ou worried that your food would run out before you got money to buy more. Never true 02/28/2019 Within the past 12 months, t he food you bought just didn't last and you didn't have money to get more. Never true 02/28/2019 Sex Assigned at Date Recorded Female 07/24/2019 11:19 AM EST Job Start Date Occupation Industry Not on file Not on file Not on file documented as of this encounter Plan of Treatment Upcoming Encounters Date Type Specialty Care Team Description 04/02/2023 Cardiac Studies Cardiac Studies 06/09/2023 Office Visit Cardiology Sabrina Cody PA-C [address] [place] [address] Pending Results Name Type Priority Associated Diagnoses Date /Time ALBUMIN / CREATININE RATIO, URINE Lab Routine Essential hypertension with goal blood pressure less than 140/90 03/30/2023 11:12 AM EDT TROPONIN T, HIGH SENSITIVITY Lab Routine SOB (shortness of breath) Chronic systolic heart failure (HCC) Irregular heart beats 03/30/2023 11:12 AM EDT D-DIMER Lab Routine SOB (shortness of breath) Chronic systolic heart failure (HCC) 03/30/2023 11:12 AM EDT BNP, NT-PRO Lab Routine SOB (shortness of breath) Chronic systolic heart failure (HCC) 03/30/2023 11:12 AM EDT CBC WITH WBC DIFFERENTIAL Lab Routine SOB (shortness of breath) Chronic systolic heart failure (HCC) 03/30/2023 11:12 AM EDT COMPREHENSIVE METABOLIC PANEL Lab Routine SOB (shortness of breath) Chronic systolic heart failure (HCC) 03/30/2023 11:12 AM EDT CBC Lab Routine SOB (shortness of breath) Chronic systolic heart failure (HCC) 03/30/2023 11:12 AM EDT DIFFERENTIAL, AUTOMATED Lab Routine SOB (shortness of breath) Chronic systolic heart failure (HCC) 03/30/2023 11:12 AM EDT Scheduled Procedures Name Priority Associated Diagnoses Date/Ti me COLONOSCOPY FLEXIBLE PROXIMAL DIAGNOSTIC Recall FH: GI cancer Health Maintenance Due Date Last Done Comments COVID-19 Vaccine (#1) 02/06/1946 Albumin/Creatinine Ratio 1962 Zoster Vaccines (1 of 2) 1994 Pneumococcal Vaccine: 65+ Years (2 - PCV) 08/01/2011 08/01/2010 Depression Screening 04/01/2021 04/01/2020 *BISPHONATE OR OTHER ACCEPTABLE MEDICATION NEEDED FOR OSTEOPOROSIS (REFER TO SMARTSET #1146) 05/24/2021 DXA Scan 02/04/2022 02/05/2020, 09/12, 11/22/2014, Additional history exists Influenza Vaccine (FLU shot) (#1) 2023 05/26/2022, 03/19/2021, 04/01/2020, Additional history exists GFR 10/23/2023 10/22/2022, 05/14, 09/02/2021, Additional history exists COLONOSCOPY-EVERY 5 YRS AGES 18-100 02/17/2024 02/16/2019, 02/16/2019, 09/16/2010, Additional history exists DTaP,Tdap,and Td Vaccines (3 - Td or Tdap) 05/02/2030 05/02/2020, 04/26/2008, 02/01/1998 VITAMIN D LEVEL ONCE IN A LIFETIME-USE SMARTSET# [id number] Completed 04/03/2019, 02/25/2018, 09/23/2009 GARDASIL-HPV IMMUNIZATION SERIES [...] as of this encounter Visit Diagnoses Diagnosis Chronic systolic heart failure (HCC) Chronic systolic heart failure PVC (premature ventricular contraction) Other premature beats Dyslipidemia, goal LDL below 70 Other and unspecified hyperlipidemia Essential hypertension with goal blood pressure less than 140/90 SOB (shortness of breath) Shortness of breath Irregular heart beats Cardiac dysrhythmia, unspecified documented in this encounter Care Teams Plastic Injection Mold Maker Relationship Specialty Start Date End Date David Olsen MD [address] [place] [address] PCP - General Family Medicine 11/30/19 documented as of this encounter
--- OUTSIDE RECORDS SUMMARY | 2023-04-26 22:36 | External Medical Summary | Summary of Care ---
Author Name Unknown Organization [facility] Address [address] [place] [address] Phone [phone] Care Team Providers Care [place] Utility Worker Name Role Phone David Olsen MD Primary Care Provider Encounter Details Date Type Department Care Team (Late st Contact Info) Description 04/06/2023 Telephone [facility] [address] [place] [address] Cande Salinas MD [address] [place] [address] Allergies Active Allergy Reactions Criticality Noted Date Comments Bupropion Itching Low 11/03/2010 Cephalexin Hives Low 04/29/2005 Nitrofurantoin Monohyd Macro Hives 012 Pneumococcal Vaccine Nausea/vomiting 08/03/2010 Sulfa Antibiotics Rash Low 02/28/1999 documented as of this encounter (statuses as of 04/06/2023) Medications Medication Sig Dispensed Refills Start Date [...] as of this encounter (statuses as of 04/06/2023) Active Problems Problem Noted Date Diagnosed Date [...] Staging:Clinical:Stage IB(ycT1b, cN0(sn), cM0, G3, ER: Positive, [place]: Positive, HER2: Negative) - Unsigned History of adenomatous polyp of colon 07/07/2017 Cerebral meningioma 09/15/2016 Overview: cribriform plate Dyslipidemia, goal LDL below 70 05/22/2013 CLASSICAL MIGRAINE WITHOU MENTION OF INTRACTABLE MIGRAINE 02/28/1999 Senile osteoporosis 02/28/1999 Essential hypertension with goal blood pressure less than 140/90 02/28/1999 documented as of this encounter (statuses as of 04/06/2023) Resolved Problems Problem Noted Date Diagnosed Date [...] as of this encounter (statuses as of 04/06/2023) Immunizations Name Administration Dates Next Due Pneumococcal [...] Influenza, Split, I IV3, With Preserve, Inj 05/23/2014,06/12/2013,05/19/2012,10/0 06/2010,03/28/2010,04/05/2009,04/16/20 08,04/22/2007 05/23/2015 TD, Preservative Free 05/02/2020 TDAP [...] 06/09/2023 10:30 AM EST Office Visit Cardiology, [facility] [address] [place] [address] Sabrina Cody PA-C [address] [place] [address] Scheduled Procedures Name Priority Associated Diagnoses Date/Ti [...] D LEVEL ONCE IN A LIFETIME-USE SMARTSET# [id number] Completed 04/03/2019, 02/25/2018, 09/23/2009 GARDASIL-HPV IMMUNIZATION SERIES [...] filedocumented as of this encounter Care Teams [place] [place] Utility Worker Relationship Specialty Start Date End Date David Olsen MD [address] [facility] [place] [address] PCP - General Family Medicine 11/30/19 documented as of this encounter
--- OUTSIDE RECORDS SUMMARY | 2023-04-26 22:36 | External Medical Summary | Summary of Care ---
Author Name Unknown Organization [facility] Address [address] [place] [address] Phone [phone] Care Team Providers Care Money Counter Name Role Phone David Olsen MD Primary Care Provider Encounter Details Date Type Department Care Team Description 12/16/2022 Telephone [facility] [address] [place] [address] David Olsen MD [address] [place] [address] Allergies Active Allergy Reactions Severity Noted Date Comments Bupropion Itching Low 11/03/2010 Cephalexin Hives Low 04/29/2005 Nitrofurantoin Monohyd Macro Hives 012 Pneumococcal Vaccine Nausea/vomiting 08/03/2010 Sulfa Antibiotics Rash Low 02/28/1999 documented as of this encounter (statuses as of 03/17/2023) Medications Medication Sig Dispensed Refills Start Date [...] mouth daily. 30 Tab 11 06/13/2020 Active Vitamin D3 125 MCG (5000 UT) [...] until resolved 30 g 0 08/01/2020 Active Calcium Carbonate 600 MG Oral Tablet Take [...] the morning. 30 Tablet 11 09/02/2021 Active Tamoxifen Citrate 20 MG Oral TabletIndications:M alignant [...] mouth daily. 100 Tablet 3 12/03/2022 Active documented as of this encounter (statuses as of 03/17/2023) Active Problems Problem Noted Date Hypertensive heart [...] Staging:Clinical:Stage IB(ycT1b, cN0(sn), cM0, G3, ER: Positive, [place]: Positive, HER2: Negative) - Unsigned History of adenomatous polyp of colon Cerebral meningioma 09/15/2016 Overview: cribriform plate Dyslipidemia, goal LDL below 70 05/22/20 13 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 02/28/1999 Senile osteoporosis 02/28/1999 Essential hypertension with goal blood p ressure less than 140/90 02/28/1999 documented as of this encounter (statuses as of 03/17/2023) Resolved Problems Problem Noted Date Resolved Date [...] as of this encounter (statuses as of 03/17/2023) Immunizations Name Administration Dates Next Due Pneumococcal [...] Influenza, Split, I IV3, With Preserve, Inj 05/23/2014,06/12/2013,05/19/2012,1006/2010,03/28/2010,04/05/2009,04/16/20 08,04/22/2007 05/23/2015 TD, Preservative Free 05/02/2020 TDAP (age 11 and older)(Adacel) 04/26/2008 documented as of this encounter Social History Tobacco Use Types Packs/Day Years Used Date Smoking Tobacco: Never Smokeless Tobacco: Never Alcohol Use Standard Drinks/Week [...] encounter Miscellaneous Notes * Telephone Encounter - TRAY Frank - 12/16/2022 12:12 PM EDT Pt called to confirm appt documented in this encounter Plan of Treatment Upcoming Encounters Date Type Specialty Care Team Description 06/09/2023 Office Visit Cardiology Sabrina Cody PA-C [address] [place] [address] Scheduled Procedures Name Priority Associated Diagnoses Date/Ti [...] D LEVEL ONCE IN A LIFETIME-USE SMARTSET# [id number] Completed 04/03/2019, 02/25/2018, 09/23/2009 GARDASIL-HPV IMMUNIZATION SERIES [...] filedocumented as of this encounter Care Teams Money Counter Relationship Specialty Start Date End Date David Olsen MD [address], [place] [id number] PCP - General Family Medicine 11/30/19 documented as of this encounter
--- OUTSIDE RECORDS SUMMARY | 2023-04-26 22:36 | External Medical Summary | Summary of Care ---
Author Name Unknown Organization [facility] Address [address] [place] [address] Phone [phone] Care Team Providers Care Gameroom Technician Name Role Phone Molly Olsen MD Primary Care Provider Reason for Visit * Reason Onset Date Comments Medication Refill 12/01/2022 Encounter Details Date Type Department Care Team Description 12/01/2022 Refill [facility] [address] [place] [address] Molly Olsen MD [address] [place] [address] Essential hypertension with goal blood pressure less than 140/90*; Pleural effusion; HTN, goal below 140/90 Allergies Active Allergy Reactions Severity Noted Date Comments Bupropion Itching Low 11/03/2010 Cephalexin Hives Low 04/29/2005 Nitrofurantoin Monohyd Macro Hives 012 Pneumococcal Vaccine Nausea/vomiting 08/03/2010 Sulfa Antibiotics Rash Low 02/28/1999 documented as of this encounter (statuses as of 12/03/2022) Medications Medication Sig Dispensed Refills Start Date End Date Status MULTI-VITAMIN PO TABS 1 daily 0 04/22/2007 Active Aspirin 81 MG Oral Tablet Delayed Release Take by mouth . 100 5 06/30/2007 Active Fluticasone Propionate 50 MCG/ACT Nasal SuspensionIndicat ions:Post-nasal drip Administer 2 Sprays into each nostril daily. 16 g 1 06/03/2020 Active Montelukast Sodium 10 MG Oral Tablet (Singulair) Take 1 Tab by mouth daily. 30 Tab 11 06/13/2020 Active Additional Information Patient not taking.Reported on 08/12/2022 Vitamin D3 125 MCG (5000 UT) Oral Capsule Take 1 Capsule by mouth in the morning. 3 Cap 0 06/17/2020 Active B-12 500 MCG Sublingual Tablet Sublingual Place 1 Tab under the tongue once for 1 dose. 30 Tab 0 06/17/2020 Active Triamcinolone Acetonide 0.1 % External Ointment (Aristocort)Indic ations:Dermatitis of lip Apply topically to affected area 2 times a day. Apply 2x daily (or more if itchy/painful instead of licking) to lips until resolved 30 g 0 08/01/2020 Active Additional Information Patient not taking.Reported on 05/29/2021 Calcium Carbonate 600 MG Oral Tablet Take 1 Tablet by mouth 2 times a day with morning and evening meals. 0 Active Benzonatate 100 MG Oral Capsule (Segundo Hammond)Indication s:JETT (dyspnea on exertion),Cough Take 1 Capsule by mouth 3 times a day as needed for Cough. 60 Capsule 5 05/29/2021 Active Additional Information Patient not taking.Reported on 08/12/2022 Famotidine 20 MG Oral Tablet (Pepcid)Indicatio ns:Gastroesophage al reflux disease without esophagitis Take by mouth 1 Tablet in the morning. 30 Tablet 11 09/02/2021 Active Tamoxifen Citrate 20 MG Oral TabletIndications :Malignant neoplasm of upper-inner quadrant of left breast in female, estrogen receptor positive (HCC) Take by mouth 1 Tablet in the morning. 90 Tablet 3 01/23/2022 Active Metoprolol Succinate ER 25 MG Oral Tablet Extended Release 24 Hour (toPROL XL)Indications:PV C (premature ventricular contraction),Esse ntial hypertension with goal blood pressure less than 140/90 Take 2 tablets in the morning and 1 tablet in the evening. 270 Tablet 3 06/11/2022 Active traMADol HCl 50 MG Oral Tablet (Ultram)Indicatio ns:Chronic pain disorder Take 1 Tablet by mouth 3 times a day as needed for Pain, Moderate. 60 Tablet 1 08/07/2022 Active Benzonatate 100 MG Oral CapsuleIndication s:Bronchitis, complicated Take 1-2 Capsules by mouth 3 times a day as needed for Cough. 45 Capsule 1 10/12/2022 Active Potassium Chloride ER 10 MEQ Oral Capsule Extended ReleaseIndication s:Hypokalemia One tab 4 days per week and two tabs 3 days per week. 120 Capsule 5 10/26/2022 Active Furosemide 40 MG Oral Tablet (Lasix)Indication s:Pleural effusion Take 1 Tablet by mouth in the morning. Take an additional tablet as needed or as directed for fluid retention.. 120 Tablet 3 12/03/2022 Active Losartan Potassium 25 MG Oral Tablet (Cozaar)Indicatio ns:HTN, goal below 140/90 Take 1 Tablet by mouth daily. 100 Tablet 3 12/03/2022 Active Losartan Potassium 25 MG Oral Tablet (Cozaar)Indicatio ns:HTN, goal below 140/90 Take 1 Tablet by mouth daily. 100 Tablet 3 07/25/2021 3 Discontinue d(Refill) Furosemide 40 MG Oral Tablet (Lasix)Indication s:Pleural effusion Take by mouth 1 Tablet in the morning. Take an additional tablet as needed or as directed for fluid retention.. 120 Tablet 3 09/02/2021 3 Discontinue d(Refill) documented as of this encounter (statuses as of 12/03/2022) Active Problems Problem Noted Date Hypertensive heart disease with chronic systolic congestive heart failure 10/26/2022 Alzheimer's dementia without behavioral disturbance 09/29/2020 Overview: At least moderate as of 10/02 Chronic systolic heart failure 1 MEDICATION USE AGREEMENT 01/18/2020 PVC (premature ventricular contraction) 12/27/2017 Pericardial effusion 12/27/2017 Cardiomyopathy 12/27/2017 History of compression fracture of spine 11/03/2017 Malignant neoplasm of upper- inner quadrant of left breast in female, estrogen receptor positive 08/03/2017 Cancer Staging:Clinical:Stage IB(ycT1b, cN0(sn), cM0, G3, ER: Positive, SC: Positive, HER2: Negative) - Unsigned History of adenomatous polyp of colon Cerebral meningioma 09/15/2016 Overview: cribriform plate Dyslipidemia, goal LDL below 70 05/22/20 13 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 02/28/1999 Senile osteoporosis 02/28/1999 Essential hypertension with goal blood p ressure less than 140/90 02/28/1999 documented as of this encounter (statuses as of 12/03/2022) Resolved Problems Problem Noted Date Resolved Date [...] as of this encounter (statuses as of 12/03/2022) Immunizations Name Administration Dates Next Due Pneumococcal Polysaccharide PPV23 (Pneumovax) 08/01/2010 Seasonal Influenza Virus Vac cine, Unspecified Formulation 05/13/2006 Seasonal Influenza, Quadriva lent Hd (Fluzone Hd) 05/26/2022,03/19/2021 Seasonal Influenza, Quadriva lent, No Preserve, 6 Mons & Above, IM 04/03/2019,05/03/2018,03/23/2017 Seasonal Influenza, Quadriva lent, No Preserve, Adjuvanted, 65+ Yrs, IM 04/01/2020 Seasonal Influenza, Quadriva lent, No Preserve, IM [...] encounter Miscellaneous Notes * Telephone Encounter - Molly Olsen MD - 12/03/2022 3:48 PM EDTSigned Prescriptions: Disp Refills Furosemide 40 MG Oral Tablet (Lasix) 120 Ta*3 Sig: Take 1 Tablet by mouth in the morning. Take an additional tablet as needed or as directed for fluid retention.. Authorizing Provider: MOLLY OLSEN Losartan Potassium 25 MG Oral Tablet (Coza*100 Ta*3 Sig: Take 1 Tablet by mouth daily. Authorizing Provider: MOLLY OLSEN * Telephone Encounter - Quinton Granger [facility] - 12/03/2022 10:33 AM EDT Pending Prescriptions: Disp Refills Furosemide 40 MG Oral Tablet (Lasix) 120 Ta*3 Sig: Take 1 Tablet by mouth in the morning. Take an additional tablet as needed or as directed for fluid retention.. Losartan Potassium 25 MG Oral Tablet (Coza*100 Ta*3 Sig: Take 1 Tablet by mouth daily. -- * Telephone Encounter - Quinton Granger [facility] - 12/03/2022 10:32 AM EDT Unable to authorize medication refills for pended medication(s) at this time. Part of the protocol criteria used for refill authorization was not satisfied. Patient needs potassium within protocol parameters. Potassium Results: Lab Results Component Value Date/Time POTASSIUM - [facility] 3.3 (L) 10/22/2022 12:42 PM POTASSIUM - [facility] 3.8 05/26/2022 02:13 PM POTASSIUM - [facility] 3.8 09/02/2021 11:00 AM POTASSIUM - [facility] 4.2 06/25/2020 04:36 PM POTASSIUM - [facility] 5.2 (H) 06/17/2020 04:38 PM POTASSIUM - [facility] 4.8 01/03/2020 08:43 AM POTASSIUM[facility] 3.9 09/21/2020 12:00 AM Please approve if appropriate. Thanks, Quinton Granger PharmD Clinical Pharmacist [facility](formerly telepharmacy) [phone] 12/03/2022, 10:32 AM * Telephone Encounter - MAIKEL Gonzalez Tech - 12/01/2022 4:40 PM EDT Did you pend patient's preferred pharmacy and medication before forwarding?yes [facility]: [facility] [address] [facility] Pending Prescriptions: Disp Refills Furosemide 40 MG Oral Tablet (Lasix) 120 Ta*3 Sig: Take 1 Tablet by mouth in the morning. Take an additional tablet as needed or as directed for fluid retention.. Losartan Potassium 25 MG Oral Tablet (Coz*100 Ta*3 Sig: Take 1 Tablet by mouth daily. Last Visit: 10/12/2022 (in office), 05/30/2020 (telemedicine) Next Visit: 12/16/2022 If no future appointments scheduled, and last appointment is greater than a year ago, please schedule patient for a follow-up appointment Last date the medication was ordered: 09/02/2021 07/25/2021 Is this request for a controlled substance?No Urine Drug Screen: Results for orders placed or performed in visit on 01/18/20 TOX SCREEN, URINE, W/O CONFIRMATION Result Value Amphetamine NEGATIVE Benzodiazepines NEGATIVE Cannabinoids NEGATIVE Cocaine Metabolite NEGATIVE HYDROCODONE NEGATIVE Morphine / Codeine NEGATIVE OXYCODONE NEGATIVE METHADONE METABOLITE NEGATIVE NOTE: THE ABOVE SCREENING RESULTS ARE PRESUMPTIVE AND CAN ONLY BE USED FOR MEDICAL PURPOSES. CONFIRMATORY TESTING IS AVAILABLE UPON REQUEST. Cutoff Concentration *Note: Due to a large number of results and/or encounters for the requested time period, some results have not been displayed. A complete set of results can be found in Results Review. Patient Phone Numbers Labs: Lab Results Component Value Date/Time CREAT 0.7 10/22/2022 12:42 PM CREAT 0.66 09/21/2020 12:00 AM CREAT 0.8 06/25/2020 04:36 PM POTASSIUM 3.3 (L) 10/22/2022 12:42 PM POTASSIUM 3.9 09/21/2020 12:00 AM POTASSIUM 4.2 06/25/2020 04:36 PM TSH 2.16 05/26/2022 02:13 PM TSH 1.79 11/24/2017 11:13 AM LDLCALC 133 (H) 03/22/2012 12:21 PM LDLDIRECT 60 01/03/2020 08:43 AM ALT 22 10/22/2022 12:42 PM ALT 11 01/03/2020 08:43 AM documented in this encounter Plan of Treatment Upcoming Encounters Date Type Specialty Care Team Description 12/16/2022 Office Visit Family Medicine Molly Olsen MD [address] [place] [address] 01/15/2023 Office Visit Family Medicine Molly Olsen MD [address] [address] 06/09/2023 Office Visit Cardiology Sabrina Cody PA-C [address] [place] [address] Scheduled Orders Name Type Priority Associated Diagnoses Orde r Schedule ALBUMIN / CREATININE RATIO, URINE Lab Routine Essential hypertension with goal blood pressure less than 140/90 Expected: 12/03/2022, Expires: 12/04/2023 Scheduled Procedures Name Priority Associated Diagnoses Date/Ti me COLONOSCOPY FLEXIBLE PROXIMAL DIAGNOSTIC Recall FH: GI cancer Health Maintenance Due Date Last Done Comments COVID-19 Vaccine (#1) 02/06/1946 Albumin/Creatinine Ratio 1962 Zoster Vaccines (1 of 2) 1994 Pneumococcal Vaccine: 65+ Years (2 - PCV) 08/01/2011 08/01/2010 Depression Screening, Annual for Pts 12 and Over 04/01/2021 04/01/2020 *BISPHONATE OR OTHER ACCEPTABLE MEDICATION NEEDED FOR OSTEOPOROSIS (REFER TO SMARTSET #1146) 05/24/2021 DXA Scan 02/04/2022 02/05/2020, 09/12, 11/22/2014, Additional history exists GFR 10/23/2023 10/22/2022, 05/14, 09/02/2021, Additional history exists COLONOSCOPY-EVERY 5 YRS AGES 18-100 02/17/2024 02/16/2019, 02/16/2019, 09/16/2010, Additional history exists DTaP,Tdap,and Td Vaccines (3 - Td or Tdap) 05/02/2030 05/02/2020, 04/26/2008, 02/01/1998 VITAMIN D LEVEL ONCE IN A LIFETIME-USE SMARTSET# 73813 Completed 04/03/2019, 02/25/2018, 09/23/2009 Influenza Vaccine (FLU shot) Completed , 03/19/2021, 04/01/2020, Additional history exists GARDASIL-HPV IMMUNIZATION SERIES Aged Out No longer [...] as of this encounter Visit Diagnoses Diagnosis Essential hypertension with goal blood pressure less than 140/90- Primary Pleural effusion Unspecified pleural effusion HTN, goal below 140/90 Unspecified essential hypertension documented in this encounter Care Teams Gameroom Technician Relationship Specialty Start Date End Date Molly Olsen MD [address] [place] [address] PCP - General Family Medicine 11/30/19 documented as of this encounter
--- OUTSIDE RECORDS SUMMARY | 2023-04-26 22:36 | External Medical Summary ---
Author Name Unknown Address Unknown Organization [id number]:[facility] [place] [address] [place] [address] Laboratory Report Ordering Provider Test Date Status JIMMY PREICADO 03/30/2023 11:12:38 Final Observation Date Value Abnormality Reference (Units ) Status Troponin T 03/30/2023 11:12:38 21 Above high normal < =14 (ng/L) Final Performing Location [facility] [place] [address] [place] [address]
--- OUTSIDE RECORDS SUMMARY | 2023-04-26 22:36 | External Medical Summary ---
Author Name Unknown Address Unknown Organization [id number]:[facility] [place] - [facility] [address] [facility] [address] Laboratory Report Ordering Provider Test Date Status JIMMY PRECIADO 03/30/2023 11:12:38 Final Observation Date Value Abnormality Reference (Units ) Status WBC, Total 03/30/2023 11:12:38 6.99 4.00-10.80 (K/uL) Final RBC 03/30/2023 11:12:38 4.29 3.85-5.15 (M/uL) Final Hemoglobin 03/30/2023 11:12:38 12.9 12.0-15.3 (g/dL) Final HCT 03/30/2023 11:12:38 40.6 36.0-45.2 (%) Final MCV 03/30/2023 11:12:38 94.6 81.5-97.5 (fL) Final MCH 03/30/2023 11:12:38 30.1 27.0-34.0 (pg) Final MCHC 03/30/2023 11:12:38 31.8 32.0-36.0 (g/dL) Final RDW 03/30/2023 11:12:38 13.2 11.5-15.5 (%) Final Platelets 03/30/2023 11:12:38 163 140-400 (K/uL) Final MPV 03/30/2023 11:12:38 11.5 6.6-11.1 (fL) Final Nucleated erythrocytes/100 leukocytes [Ratio] in Blood by Automated count 03/30/2023 11:12:38 0 <=0 (/100 WBCs) Final Performing Location [facility] [place] - [facility] [address] [facility] [facility] [address]
--- OUTSIDE RECORDS SUMMARY | 2023-04-26 22:36 | External Medical Summary ---
Author Name Unknown Address Unknown Organization K01:[facility] [place] [address] [facility] [place] [address] Laboratory Report Ordering Provider Test Date Status JIMMY PRECIADO 03/30/2023 11:12:38 Final Observation Date Value Abnormality Reference (Units ) Status BUN 03/30/2023 11:12:38 14 6-20 (mg/dL) Final Creatinine 03/30/2023 11:12:38 0.7 0.5-1.0 (mg/dL) Final Glomerular filtration rate/1.73 sq M.predicted [Volume Rate/Area] in Serum, Plasma or Blood by Creatinine-based formula (CKD-EPI) 03/30/2023 11:12:38 84 >=60 (mL/min) Final eGFR is calculated based on the CKD-EPI 2020 equation SODIUM 03/30/2023 11:12:38 143 135-146 (m mol/L) Final Potassium 03/30/2023 11:12:38 4.3 3.5-5.1 (m mol/L) Final Cl 03/30/2023 11:12:38 106 98-107 (mm ol/L) Final CO2 03/30/2023 11:12:38 26 22-32 (mmo l/L) Final Anion gap 03/30/2023 11:12:38 11 7-15 (mmol /L) Final Glucose 03/30/2023 11:12:38 102 70-120 (mg /dL) Final Albumin 03/30/2023 11:12:38 4.1 3.8-5.0 (g /dL) Final AST (Aspartate aminotransferase) 03/30/2023 11:12:38 18 10-35 (U/L) Fin al Alk Phos 03/30/2023 11:12:38 64 35-130 (U/ L) Final Bilirubin, Total 03/30/2023 11:12:38 0.4 <=1 .2 (mg/dL) Final Calcium 03/30/2023 11:12:38 8.7 8.4-10.2 ( mg/dL) Final Protein 03/30/2023 11:12:38 5.7 Below low normal 6.0 -8.3 (g/dL) Final ALT (Alanine aminotransferase) 03/30/2023 11:12:38 14 10-35 (U/L) Octavio arriaga Performing Location [facility] [place] [facility] [address] [facility] [address]
--- OUTSIDE RECORDS SUMMARY | 2023-04-26 22:36 | External Medical Summary | Summary of Care ---
Author Name Unknown Organization [facility] Address [address] [place] [address] Phone [phone] Care Team Providers Care Forest Fire Officer Name Role Phone David Olsen MD Primary Care Provider [phone] Reason for Visit * Reason Comments Outpatient Testing Encounter Details Date Type Department Care Team Description 03/30/2023 Laboratory Laboratory, [facility] [address] [place] [address] [facility] [address] [place] [address] Chronic systolic heart failure (HCC); [...] Staging:Clinical:Stage IB(ycT1b, cN0(sn), cM0, G3, ER: Positive, [place]: Positive, HER2: Negative) - Unsigned History of [...] 03/30/2023) Immunizations Name Administration Dates Next Due Pneumococcal [...] Cody PA-C [address] [place] [address] Pending Results Name Type Priority Associated Diagnoses [...] D LEVEL ONCE IN A LIFETIME-USE SMARTSET# [id number] Completed 04/03/2019, 02/25/2018, 09/23/2009 GARDASIL-HPV IMMUNIZATION SERIES [...] unspecified documented in this encounter Care Teams Forest Fire Officer Relationship Specialty Start Date End Date David Olsen MD [address], [place] [phone] PCP - General Family Medicine 11/30/19 documented as of this encounter
--- OUTSIDE RECORDS SUMMARY | 2023-04-26 22:36 | External Medical Summary | Summary of Care ---
Author Name Unknown Organization [facility] Address [address] [place] [address] Phone [phone] Care Team Providers Care Wildlife Conservationist Name Role Phone David Olsen MD Primary Care Provider [phone] Encounter Details Date Type Department Care Team Description 10/26/2022 Telephone [facility] [address] [place] [address] David Olsen MD [address] [place] [address] Allergies Active Allergy Reactions Severity Noted Date Comments Bupropion Itching Low 11/03/2010 Cephalexin Hives Low 04/29/2005 Nitrofurantoin Monohyd Macro Hives 012 Pneumococcal Vaccine Nausea/vomiting 08/03/2010 Sulfa Antibiotics Rash Low 02/28/1999 documented as of this encounter (statuses as of 10/27/2022) Medications Medication Sig Dispensed Refills Start Date End Date Status MULTI-VITAMIN PO TABS 1 daily 0 7 Active Aspirin 81 MG Oral Tablet Delayed Release Take by mouth . 100 5 8 Active Fluticasone Propionate 50 MCG/ACT Nasal SuspensionIndicat ions:Post-nasal drip Administer 2 Sprays into each nostril daily. 16 g 1 0 Active Additional Information Patient not taking.Reported on 06/26/2021 Montelukast Sodium 10 MG Oral Tablet (Singulair) Take 1 Tab by mouth daily. 30 Tab 11 0 Active Additional Information Patient not taking.Reported on 08/12/2022 Vitamin D3 125 MCG (5000 UT) Oral Capsule Take 1 Capsule by mouth in the morning. 3 Cap 0 1 Active B-12 500 MCG Sublingual Tablet Sublingual Place 1 Tab under the tongue once for 1 dose. 30 Tab 0 1 Active Triamcinolone Acetonide [...] Active Benzonatate 100 MG Oral Capsule (Tesimani Hammond)Indication s:JETT (dyspnea on exertion),Cough Take 1 Capsule by mouth 3 times a day as needed for Cough. 60 Capsule 5 1 Active Additional Information Patient not taking.Reported on 08/12/2022 Losartan Potassium 25 MG Oral Tablet (Cozaar)Indicatio ns:HTN, goal below 140/90 Take 1 Tablet by mouth daily. 100 Tablet 3 2 Active Furosemide 40 MG Oral Tablet (Lasix)Indication s:Pleural effusion Take by mouth 1 Tablet in the morning. Take an additional tablet as needed or as directed for fluid retention.. 120 Tablet 3 2 Active Famotidine 20 MG Oral Tablet (Pepcid)Indicatio ns:Gastroesophage al reflux disease without esophagitis Take by mouth 1 Tablet in the morning. 30 Tablet 11 2 Active Additional Information Patient not taking.Reported on 05/26/2022 Tamoxifen Citrate 20 MG Oral TabletIndications :Malignant [...] 1 3 Active Benzonatate 100 MG Oral CapsuleIndication s:Bronchitis, complicated Take 1-2 Capsules by mouth 3 times a day as needed for Cough. 45 Capsule 1 3 Active Azithromycin 250 MG Oral Tablet (Zithromax Z-Stu)Indications :Bronchitis, complicated Take two tablets by mouth on first day, then 1 tablet daily until gone 6 Tablet 0 3 Active Potassium Chloride ER 10 MEQ Oral Capsule Extended ReleaseIndication s:Hypokalemia One tab 4 days per week and two tabs 3 days per week. 120 Capsule 5 3 Active Potassium Chloride ER 10 MEQ Oral Capsule Extended Release Take 1 Capsule by mouth in the morning. 90 Capsule 0 3 10/27/19 23 Discontinued documented as of this encounter (statuses as of 10/27/2022) Active Problems Problem Noted Date Hypertensive heart [...] Staging:Clinical:Stage IB(ycT1b, cN0(sn), cM0, G3, ER: Positive, ND: Positive, HER2: Negative) - Unsigned History of adenomatous polyp of colon Cerebral meningioma 09/15/2016 Overview: cribriform plate Dyslipidemia, goal LDL below 70 05/22/20 13 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 02/28/1999 Senile osteoporosis 02/28/1999 Essential hypertension with goal blood p ressure less than 140/90 02/28/1999 documented as of this encounter (statuses as of 10/27/2022) Resolved Problems Problem Noted Date Resolved Date [...] as of this encounter (statuses as of 10/27/2022) Immunizations Name Administration Dates Next Due Pneumococcal [...] Miscellaneous Notes * Telephone Encounter - TRAY Gregory - 10/27/2022 10:08 AM EDT Patient already scheduled for December 16 but more than likely this will turn into Telemed (as it is scheduled for 5:40 in the evening) and patient doesn't want TeleMed appointment. Next available in person is WednesdayJan 15. Please advise date and time to see patient. 10/27/2022 * Telephone Encounter - David Olsen MD - 10/26/2022 5:15 PM EDT Can we cancel May apt but schedule again in 2 months. * Telephone Encounter - Malorie Pollock LPN - 10/26/2022 2:08 PM EDT Called pt, spoke with aric. Informed of message. He verbalized understanding. Pt is feeling better from appt last week, cough and concerstion has improved, almost gone. He is inquiring if will need to be seen on 10/28 still or if appt can be canceled. Please advise. * Telephone Encounter - David Olsen MD - 10/26/2022 8:46 AM EDT Recent blood work looks OK except Potassium is low . I suggest she take Potassium Chloride tablet -1 tab daily 4 days per week and 2 tabs 3 days per week. She had been taking 1 tab daily. documented in this encounter Plan of Treatment Upcoming Encounters Date Type Specialty Care Team Description 11/30/2022 Office Visit Cardiology Sabrina Cody PA-C [address] [place] [address] 11/30/2022 Office Visit Pain Medicine Kimani Montesinos MD [address] [facility] [place] [address] 12/16/2022 Office Visit Family Medicine David Olsen MD [address] [place] [address] 01/15/2023 Office Visit Family Medicine David Olsen MD [address] [place] [address] Scheduled Procedures Name Priority Associated Diagnoses Date/Ti [...] 02/05/2020, 09/12, 11/22/2014, Additional history exists GFR - Renal Function 10/23/2023 10/22/2022, 05/26/2022, 09/02/2021, Additional history exists COLONOSCOPY-EVERY 5 YRS AGES 18-100 02/17/2024 02/16/2019, 02/16/2019, 09/16/2010, Additional history exists DTaP,Tdap,and Td Vaccines (3 - Td or Tdap) 05/02/2030 05/02/2020, 04/26/2008, 02/01/1998 VITAMIN D LEVEL ONCE IN A LIFETIME-USE SMARTSET# [id number] Completed 04/03/2019, 02/25/2018, 09/23/2009 Influenza Vaccine (FLU [...] as of this encounter Visit Diagnoses Diagnosis Hypokalemia- Primary Hypopotassemia documented in this encounter Care Teams Wildlife Conservationist Relationship Specialty Start Date End Date David Olsen MD [address] [facility] [place] [phone] PCP - General Family Medicine 11/30/19 documented as of this encounter
--- OUTSIDE RECORDS SUMMARY | 2023-04-26 22:36 | External Medical Summary | Summary of Care ---
Author Name Unknown Organization [facility] [address] [address] Phone [phone] Care Team Providers Care Guide Escort Name Role Phone David Olsen MD Primary Care Provider [phone] Reason for Visit * Reason Comments Other Insect bite to left upper arm Encounter Details Date Type Department Care Team Description 01/23/2023 Convenient Care Visit [facility] [address] [address] Arlyn South PA-C [address] [id number] Insect bite of left upper arm with infection, initial encounter* Allergies Active Allergy Reactions Severity Noted Date Comments Bupropion Itching Low 11/03/2010 Cephalexin Hives Low 04/29/2005 Nitrofurantoin Monohyd Macro Hives 012 Pneumococcal Vaccine Nausea/vomiting 08/03/2010 Sulfa Antibiotics Rash Low 02/28/1999 documented as of this encounter (statuses as of 01/23/2023) Medications Medication Sig Dispensed Refills Start Date [...] mouth daily. 100 Tablet 3 12/03/2022 Active Doxycycline Hyclate 100 MG Oral CapsuleIndications: Insect bite of left upper arm with infection, initial encounter Take 1 Capsule by mouth in the morning and 1 Capsule before bedtime. Do all this for 10 days. Until gone.. 20 Capsule 0 01/23/2023 02/02/2023 Active documented as of this encounter (statuses as of 01/23/2023) Active Problems Problem Noted Date Hypertensive heart [...] Staging:Clinical:Stage IB(ycT1b, cN0(sn), cM0, G3, ER: Positive, VT: Positive, HER2: Negative) - Unsigned History of adenomatous polyp of colon Cerebral meningioma 09/15/2016 Overview: cribriform plate Dyslipidemia, goal LDL below 70 05/22/20 13 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 02/28/1999 Senile osteoporosis 02/28/1999 Essential hypertension with goal blood p ressure less than 140/90 02/28/1999 documented as of this encounter (statuses as of 01/23/2023) Resolved Problems Problem Noted Date Resolved Date [...] as of this encounter (statuses as of 01/23/2023) Immunizations Name Administration Dates Next Due Pneumococcal [...] on file documented as of this encounter Last Filed Vital Signs Vital Sign Reading Time Taken Comments Blood Pressure 124/70 01/23/2023 2:48 PM EDT Pulse 84 01/23/2023 2:48 PM EDT Temperature 37.1 C (98.8 F) 01/23/2023 2:48 PM ED T Respiratory Rate 20 01/23/2023 2:48 PM EDT Oxygen Saturation 94% 01/23/2023 2:48 PM EDT Inhaled Oxygen Concentration - - Weight 67.3 kg (148 lb 6.4 oz) 01/23/2023 2:48 P M EDT Height 157.5 cm (5' 2") 01/23/2023 2:48 PM EDT Body Mass Index 27.14 01/23/2023 2:48 PM EDT documented in this encounter Progress Notes * Arlyn South PA-C - 01/23/2023 3:06 PM EDT Savi Edmonds is a 77 year old year old female who presents for : Chief Complaint Patient presents with Other Insect bite to left upper arm HPI: Pt here in clinic c/o left upper arm with pain at the site of a bug bite that was red and hot. Happened about 3 weeks ago. Is less red and hot now but still pink and painful to touch. Denies fever. Unsure if could have been a tick but doesn't think so. Denies itchiness. REVIEW OF SYSTEMS: See HPI for pertinent positives and negatives. Patient denies addtional complaints. PAST MEDICAL HISTORY: Past Medical History: Diagnosis Date Abnormal Papanicolaou smear of cervix and cervical HPV condylomatous changes Anxiety Breast cancer, left (HCC) 2017 Dementia (HCC) Depression Diffuse cystic mastopathy Eczema Falls infrequently H/O left breast biopsy HTN, goal below 140/90 Insomnia Insomnia Left hip pain Lung nodule < 6cm on CT Meningioma (HCC) olfactory- s/p 1300cGy RT 05/04/17 Migraine with aura Other osteoporosis Wears glasses Past Surgical History: Procedure Laterality Date BX BREAST PERCUT W/O IMAGE Left 07/16/201707/16/2017 left breast ultrasound core bx dx infiltrating ductal carconoma , BCC BX LYMPH NODE DEEP AXIL Left 09/08/2017 BIOPSY LYMPH NODE DEEP AXILLARY OPEN performed by Ana Breen MD at OR [facility] COLONOSCOPY 07/20 Normal - repeat 5 yrs COLONOSCOPY, DIAGNOSTIC (RECTUM) 02/16/2019 diverticulosis, repeat 5 yrs/COLONOSCOPY FLEXIBLE PROXIMAL DIAGNOSTIC performed by Gene Castro MD at ENDOSCOPY [facility] COLORECTAL CANCER SCREEN; COLON 1999 polyp, path shows pseudopolyp COLORECTAL CANCER SCREEN; COLON 09/16/10 Normal EXPLORATION OF NIPPLE IDENTIFY SENTINEL NODE, RADIOACTIVE TRACER Left 09/08/2017 INJECTION PROCEDURE FOR IDENTIFICATION SENTINEL NODE performed by Ana Breen MD at OR [facility] LIGATE/CUT OVIDUCT(S) 1975 MASTECTOMY, PARTIAL Left 09/08/2017 09/08/2017 left MASTECTOMY PARTIAL performed by Ana Breen MD at OR [facility] REMOVE TONSILS & ADENOIDS, UNDER 12 US GUIDED BREAST BIOPSY 2002 L. benign Social History Tobacco Use Smoking status: Never Smokeless tobacco: Never Substance Use Topics Alcohol use: No Vaping/E-Cigarette Use Vaping/E-Cigarette Substances Vaping/E-Cigarette Devices Patient Active Problem List Diagnosis Code CLASSICAL MIGRAINE WITHOU MENTION OF INTRACTABLE MIGRAINE G43.109 Senile osteoporosis M81.0 Essential hypertension with goal blood pressure less than 140/90 I10 Dyslipidemia, goal LDL below 70 E78.5 Cerebral meningioma (HCC) D32.0 History of adenomatous polyp of colon Z86.010 Malignant neoplasm of upper-inner quadrant of left breast in female, estrogen receptor positive(HCC) C50.212, Z17.0 History of compression fracture of spine Z87.81 PVC (premature ventricular contraction) I49.3 Pericardial effusion I31.39 Cardiomyopathy (HCC) I42.9 MEDICATION USE AGREEMENT [id number] Chronic systolic heart failure (HCC) I50.22 Alzheimer's dementia without behavioral disturbance (HCC) G30.9, F02.80 Hypertensive heart disease with chronic systolic congestive heart failure (HCC) I11.0, I50.22 Family History Problem Relation Age of Onset Hypertension Mother Eye Problems Mother Asthma Mother COPD Cancer Father colon Ca in 1972; age 75 Eye Problems Father Cancer Grandmother (Maternal) Heart Disorder Sister stents age 61 Hypertension Brother Review of patient's allergies indicates: Allergen Reactions Nitrofurantoin Monohyd Macro Hives Pneumococcal Vaccine Nausea/vomiting Bupropion Itching Cephalexin Hives Sulfa Antibiotics Rash Current Outpatient Medications Medication Sig Dispense Refill MULTI-VITAMIN PO TABS 1 daily 0 Aspirin 81 MG Oral Tablet Delayed Release Take by mouth. 100 5 Fluticasone Propionate 50 MCG/ACT Nasal Suspension Administer 2 Sprays into each nostril daily.16 g 1 Montelukast Sodium 10 MG Oral Tablet (Singulair) Take 1 Tab by mouth daily. 30 Tab 11 B-12 500 MCG Sublingual Tablet Sublingual Place 1 Tablet under the tongue once. 30 Tab 0 Triamcinolone Acetonide 0.1 % External Ointment (Aristocort) Apply topically to affected area 2times a day. Apply 2x daily (or more if itchy/painful instead of licking) to lips until resolved 30g 0 Calcium Carbonate 600 MG Oral Tablet Take 1 Tablet by mouth 2 times a day with morning and evening meals. Benzonatate 100 MG Oral Capsule (Tessalon Perles) Take 1 Capsule by mouth 3 times a day as needed for Cough. 60 Capsule 5 Famotidine 20 MG Oral Tablet (Pepcid) Take by mouth 1 Tablet in the morning. 30 Tablet 11 Metoprolol Succinate ER 25 MG Oral Tablet Extended Release 24 Hour (toPROL XL) Take 2 tablets in the morning and 1 tablet in the evening. 270 Tablet 3 traMADol HCl 50 MG Oral Tablet (Ultram) Take 1 Tablet by mouth 3 times a day as needed for Pain, Moderate. 60 Tablet 1 Benzonatate 100 MG Oral Capsule Take 1-2 Capsules by mouth 3 times a day as needed for Cough. 45 Capsule 1 Potassium Chloride ER 10 MEQ Oral Capsule Extended Release One tab 4 days per week and two tabs3 days per week. 120 Capsule 5 Furosemide 40 MG Oral Tablet (Lasix) Take 1 Tablet by mouth in the morning. Take an additional tablet as needed or as directed for fluid retention.. 120 Tablet 3 Losartan Potassium 25 MG Oral Tablet (Cozaar) Take 1 Tablet by mouth daily. 100 Tablet 3 Doxycycline Hyclate 100 MG Oral Capsule Take 1 Capsule by mouth in the morning and 1 Capsule before bedtime. Do all this for 10 days. Until gone.. 20 Capsule 0 Vitamin D3 125 MCG (5000 UT) Oral Capsule Take 1 Capsule by mouth in the morning. 3 Cap 0 Tamoxifen Citrate 20 MG Oral Tablet Take by mouth 1 Tablet in the morning. 90 Tablet 3 No current facility-administered medications for this visit. Nursing Notes and Vital Signs reviewed. PHYSICAL EXAM: VITALS: BP 124/70 | Pulse 84 | Temp 37.1 C (98.8 F) (Tympanic) | Resp 20 | Ht 1.575 m (5' 2") |Wt 67.3 kg (148 lb 6.4 oz) | SpO2 94% | BMI 27.14 kg/m | BSA 1.72 m GENERAL: Patient is alert, no obvious distress HEAD: Normocephalic, no masses, lesions, or other abnormalities noted. HEART: RRR, no murmurs EXTREMITIES: left upper arm with pinkness noted to upper inner arm aspect. Some TTP noted. No increased warmth. No distinct bite visible currently. No bullseye lesion. Assessment: Insect bite of left upper arm with infection, initial encounter (Primary) - Doxycycline Hyclate 100 MG Oral Capsule; Take 1 Capsule by mouth in the morning and 1 Capsule before bedtime. Do all this for 10 days. Until gone.. Some improvement reported but not fully gone as would expect in this timeframe. Unclear what insectcaused the bite. Pt has little exposure to outdoors for ticks. Continue to monitor. Trial course ofdoxy as above. Follow up with PCP if not improving or suddenly worsens. Arlyn South PA-C [address] [id number] documented in this encounter Nursing Notes * Lata Oates LPN - 01/23/2023 2:47 PM EDT Savi Edmonds is a 77 year old female who presents to walk-in clinic today complaining of Chief Complaint Patient presents with Other Insect bite to left upper arm Main Symptoms:left upper arm swollen and red Cause: questionable insect bite How lon weeks Tried: nothing Pt accompanied by: documented in this encounter Plan of Treatment Upcoming Encounters Date Type Specialty Care Team Description 06/09/2023 Office Visit Cardiology Sabrina Cody PA-C [address] [phone] Scheduled Procedures Name Priority Associated Diagnoses Date/Ti [...] D LEVEL ONCE IN A LIFETIME-USE SMARTSET# [id number] Completed 04/03/2019, 02/25/2018, 09/23/2009 GARDASIL-HPV IMMUNIZATION SERIES [...] as of this encounter Visit Diagnoses Diagnosis Insect bite of left upper arm with infection, initial encounter- Primary documented in this encounter Care Teams Guide Escort Relationship Specialty Start Date End Date David Olsen MD [address], [place] [phone] PCP - General Family Medicine 11/30/19 documented as of this encounter
--- OUTSIDE RECORDS SUMMARY | 2023-04-26 22:36 | External Medical Summary | Summary of Care ---
Author Name Unknown Organization [facility] Address [address] [place] [address] Phone [phone] Care Team Providers Care Cook Fruit Name Role Phone David Olsen MD Primary Care Provider Reason for Visit * Reason Comments Follow Up 6 month follow up. D izziness/Off balance for few seconds when standing too quickly. Denies chest pain, palpitations, SOB and edema. Encounter Details Date Type Department Care Team Description 11/30/2022 Office Visit Cardiology, [facility] [address] [place] [id number] Sabrina Cody PA-C [address] [id number] Chronic systolic heart failure (HCC)*; PVC (premature ventricular contraction); Dyslipidemia, goal LDL below 70; Essential hypertension with goal blood pressure less than 140/90; Alzheimer's dementia without behavioral disturbance (HCC) Allergies Active Allergy Reactions Severity Noted Date Comments Bupropion Itching Low 11/03/2010 Cephalexin Hives Low 04/29/2005 Nitrofurantoin Monohyd Macro Hives 012 Pneumococcal Vaccine Nausea/vomiting 08/03/2010 Sulfa Antibiotics Rash Low 02/28/1999 documented as of this encounter (statuses as of 11/30/2022) Medications Medication Sig Dispensed Refills Start Date [...] 0 Active Benzonatate 100 MG Oral Capsule (Tessalon Perles)Indication s:JETT (dyspnea on exertion),Cough Take 1 Capsule by mouth 3 times a day as needed for Cough. 60 Capsule 5 05/29/2021 Active Additional Information Patient not taking.Reported on 08/12/2022 Losartan Potassium 25 MG Oral Tablet (Cozaar)Indicatio ns:HTN, goal below 140/90 Take 1 Tablet by mouth daily. 100 Tablet 3 07/25/2021 Active Furosemide 40 MG Oral Tablet (Lasix)Indication s:Pleural effusion Take by mouth 1 Tablet in the morning. Take an additional tablet as needed or as directed for fluid retention.. 120 Tablet 3 09/02/2021 Active Famotidine 20 MG Oral Tablet (Pepcid)Indicatio [...] per week. 120 Capsule 5 10/26/2022 Active Azithromycin 250 MG Oral Tablet (Zithromax Z-Stu)Indications :Bronchitis, complicated Take two tablets by mouth on first day, then 1 tablet daily until gone 6 Tablet 0 10/12/2022 3 Discontinue d(End of Procedure) documented as of this encounter (statuses as of 11/30/2022) Active Problems Problem Noted Date Hypertensive heart [...] Staging:Clinical:Stage IB(ycT1b, cN0(sn), cM0, G3, ER: Positive, NC: Positive, HER2: Negative) - Unsigned History of adenomatous polyp of colon Cerebral meningioma 09/15/2016 Overview: cribriform plate Dyslipidemia, goal LDL below 70 05/22/20 13 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 02/28/1999 Senile osteoporosis 02/28/1999 Essential hypertension with goal blood p ressure less than 140/90 02/28/1999 documented as of this encounter (statuses as of 11/30/2022) Resolved Problems Problem Noted Date Resolved Date [...] as of this encounter (statuses as of 11/30/2022) Immunizations Name Administration Dates Next Due Pneumococcal [...] Sign Reading Time Taken Comments Blood Pressure 128/74 11/30/2022 8:37 AM EDT Pulse 64 11/30/2022 8:37 AM EDT Temperature - - Respiratory Rate 16 11/30/2022 8:37 AM EDT Oxygen Saturation - - Inhaled Oxygen Concentration - - Weight 67.8 kg (149 lb 8 oz) 11/30/2022 8:37 AM EDT Height - - Body Mass Index 27.34 09/02/2021 10:02 AM EDT documented in this encounter Patient Instructions * Patient Instructions* Sabrina Cody PA-C - 11/30/2022 8:55 AM EDT Many times, dizziness with positional changes is caused by dehydration. Increase your water intake daily!!! At least 50-60 ounces of fluid per day. Blood work when you see Dr. Olsen to recheck potassium levels. No changes to medications documented in this encounter Progress Notes * Sabrina Cody PA-C - 11/30/2022 8:41 AM EDT 11/30/2022 Cardiology F/U: History of Present Illness: Patient is a 77 year old female who presents today for routine cardiology f/u visit. She is accompanied by her niece today. Last clinic evaluation approximately 6 months ago with the undersigned. History includes hypertension, chronic systolic heart failure with moderate LV dysfunction, managedconservatively given progressive dementia. In october 2020, patient admitted for chest pain with small pericardial effusion, without tamponade. SHe was treated for possible pericarditis with improvement with steroids and colchicine. No recurrence. Full ROS is not able to be performed due to dementia. Patient reports she "feels great". Niece reports issues with mild dizziness with positional changes. No associated falls, syncope or near syncope. SHe has long history of gait instability too. Niece reports poor intake of water. Always drinks Pepsi. Recently went to [place] and she walked all day without issues or complaints. No chest pain, shortness of breath, palpitations, syncope or near syncope. No orthopnea, PND, or increased lower extremity edema. No fever, chills, cough, hematochezia, melena, or hemoptysis. ROS: limited due to dementia Data: EKG performed May 2022 NSR with PAC's, possible wandering atrial pacemaker. LVH ST/T wave abnormality EKG performed Apr 2021: Sinus tachycardia with occasional Premature ventricular complexes Possible Left atrial enlargement Possible Anterior infarct , age undetermined Abnormal ECG When compared with ECG of 25-JUN-2020 15:14, Premature ventricular complexes are now Present Borderline criteria for Anterior infarct are now Present ST less depressed in Inferior leads Nonspecific T wave abnormality has replaced inverted T waves in Inferior leads Limited echo report reviewed dated November 04, 2020: Interpretation Summary A focused study was performed provider request in follow-up of pericardial effusion. Compared to the prior study performed at [facility] dated 10/19/2020 there has been improvement/resolution the small circumferential pericardial effusion. Fibrinous strands are still noted adjacent to the lateral right ventricular wall. There is no tamponade physiology. The remaining left ventricular wall segments are moderately hypokinetic. The left ventricular systolic function is moderately reduced. The calculated LV ejection Fraction = 38% (three dimensional volumes). Mild mitral regurgitation is present. Compared to the prior study dated 10/19/2020, the left ventricular systolic function is relatively unchanged. Echo report reviewed dated October 19, 2020 at [facility]: ECHO: Mild concentric LVH. Moderate diffuse left ventricular hypokinesis present. EF 35 to 39%. Left atrium moderately dilated. Small circumferential pericardial effusion. No tamponade. Significant fibrinous strands suggesting some degree of chronicity. EKG performed Jun 2020: Normal sinus rhythm Possible Left atrial enlargement ST & T wave abnormality, consider inferolateral ischemia Abnormal ECG When compared with ECG of 03-JAN-2020 08:17, T wave inversion more evident in Inferior leads Inverted T waves have replaced nonspecific T wave abnormality in Lateral leads Echo results reviewed from [facility] demonstrated Moderately reduced LV systolic function at 35%, grade 2 diastolic dysfunction. 2D echo report reviewed dated 04/2018: The examination is adequate to evaluate the referral indication. The LV wall thickness is mildly increased (concentric). There is mild diffuse left ventricular hypokinesis. The left ventricular systolic function is mildly reduced. Qualitative LV ejection Fraction = 45%. The left atrium is mildly enlarged. Mild aortic valve regurgitation is present. Mild mitral regurgitation is present. Compared to the images the prior study dated 11/23/2017, there has been interval improvement in thetrivial circumferential pericardial effusion noted that time. There is a trivial degree of residual fluid adjacent to the right ventricle, but the pericardial fluid collection specifically adjacent to the left lateral wall in the apical four-chamber has improved. Mild mitral regurgitation is noted on the present study. The overall LV systolic function is unchanged compared to 11/23/2017. The proximal ascending thoracic aorta is mildly enlarged. 24 hour Holter monitor report reviewed, dated 11/30/17: CONCLUSIONS: 1. Duration - 24 hours 2. Quality - good 3. Dominant rhythm - sinus rhythm, average rate 76 beats per minute 4. PAC's - occasional, 191 5. PVC's - occasional 1780 with 8 couplets, 1 triplet 6. Symptoms - none reported 7. No atrial or ventricular arrhythmias were observed impression: Sinus rhythm average rate 76 beats per minute with occasional atrial and ventricular ectopy PVC burden - 1.5% 2D echocardiogram report 11/24/2017: Calculated LV ejection Fraction = 46% (biplane method of discs). The left ventricular systolic function is mildly reduced. There is mild diffuse left ventricular hypokinesis. The left ventricular diastolic function is mildly abnormal (grade I). Mild aortic valve regurgitation is present. A trivial circumferential pericardial effusion is noted. Cardiac tamponade is absent. Compared to last available study changes are noted as follows: Mild left ventricular systolic dysfunction and trivial pericardial effusion now present Past Medical History: Patient Active Problem List Diagnosis Code CLASSICAL [...] I31.39 Cardiomyopathy (HCC) I42.9 MEDICATION USE AGREEMENT [id number] Chronic systolic heart failure (HCC) I50.22 Alzheimer's dementia without behavioral disturbance (HCC) G30.9, F02.80 Hypertensive heart disease with chronic systolic congestive heart failure (HCC) I11.0, I50.22 Past Surgical History: Procedure Laterality Date BX BREAST PERCUT W/O IMAGE Left 07/16/201707/16/2017 left breast ultrasound core bx dx infiltrating ductal carconoma , BCC BX LYMPH NODE DEEP AXIL Left 09/08/2017 BIOPSY LYMPH NODE DEEP AXILLARY OPEN performed by Ana Breen MD at OR [facility] COLONOSCOPY 07/20 Normal - repeat 5 yrs COLONOSCOPY, DIAGNOSTIC (RECTUM) 02/16/2019 diverticulosis, repeat 5 yrs/COLONOSCOPY FLEXIBLE PROXIMAL DIAGNOSTIC performed by Gene Castro MD at ENDOSCOPY [facility] COLORECTAL CANCER SCREEN; COLON 1999 polyp, path shows pseudopolyp COLORECTAL CANCER SCREEN; COLON 09/16/10 Normal EXPLORATION OF NIPPLE IDENTIFY SENTINEL NODE, RADIOACTIVE TRACER Left 09/08/2017 INJECTION PROCEDURE FOR IDENTIFICATION SENTINEL NODE performed by Ana Breen MD at OR [facility] LIGATE/CUT OVIDUCT(S) 1974 MASTECTOMY, PARTIAL Left 09/08/2017 09/08/2017 left MASTECTOMY PARTIAL performed by Ana Breen MD at OR [facility] REMOVE TONSILS & ADENOIDS, UNDER 12 US GUIDED BREAST BIOPSY 2001 L. benign Family History: Family History Problem Relation Age of Onset Hypertension Mother Eye Problems Mother Asthma Mother COPD Cancer Father colon Ca in 1972; age 75 Eye Problems Father Cancer Grandmother (Maternal) Heart Disorder Sister stents age 61 Hypertension Brother Social History: Lifelong nonsmoker Social History Tobacco Use Smoking status: Never Smokeless tobacco: Never Substance Use Topics Alcohol use: No Drug use: No Review of patient's allergies indicates: Allergen Reactions Nitrofurantoin Monohyd Macro Hives Pneumococcal Vaccine Nausea/vomiting Bupropion Itching Cephalexin Hives Sulfa Antibiotics Rash Current Outpatient Medications Medication Sig Dispense Refill MULTI-VITAMIN PO TABS 1 daily 0 Vitamin D3 125 MCG (5000 UT) Oral Capsule Take 1 Capsule by mouth in the morning. 3 Cap 0 Calcium Carbonate 600 MG Oral Tablet Take 1 Tablet by mouth 2 times a day with morning and evening meals. Losartan Potassium 25 MG Oral Tablet (Cozaar) Take 1 Tablet by mouth daily. 100 Tablet 3 Furosemide 40 MG Oral Tablet (Lasix) Take by mouth 1 Tablet in the morning. Take an additional tablet as needed or as directed for fluid retention.. 120 Tablet 3 Famotidine 20 MG Oral Tablet (Pepcid) Take by mouth 1 Tablet in the morning. 30 Tablet 11 Tamoxifen Citrate 20 MG Oral Tablet Take by mouth 1 Tablet in the morning. 90 Tablet 3 Metoprolol Succinate ER 25 MG Oral Tablet Extended Release 24 Hour (toPROL XL) Take 2 tablets in the morning and 1 tablet in the evening. 270 Tablet 3 Potassium Chloride ER 10 MEQ Oral Capsule Extended Release One tab 4 days per week and two tabs3 days per week. 120 Capsule 5 Aspirin 81 MG Oral Tablet Delayed Release Take by mouth . (Patient not taking: No sig reported) 100 5 Fluticasone Propionate 50 MCG/ACT Nasal Suspension Administer 2 Sprays into each nostril daily.16 g 1 Montelukast Sodium 10 MG Oral Tablet (Singulair) Take 1 Tab by mouth daily. (Patient not taking: Reported on 11/20/2021) 30 Tab 11 B-12 500 MCG Sublingual Tablet Sublingual Place 1 Tab under the tongue once for 1 dose. (Patient not taking: Reported on 08/12/2022) 30 Tab 0 Triamcinolone Acetonide 0.1 % External Ointment (Aristocort) Apply topically to affected area 2times a day. Apply 2x daily (or more if itchy/painful instead of licking) to lips until resolved (Patient not taking: Reported on 05/29/2021) 30 g 0 Benzonatate 100 MG Oral Capsule (Segundo Hammond) Take 1 Capsule by mouth 3 times a day as needed for Cough. (Patient not taking: Reported on 08/12/2022) 60 Capsule 5 traMADol HCl 50 MG Oral Tablet (Ultram) Take 1 Tablet by mouth 3 times a day as needed for Pain, Moderate. 60 Tablet 1 Benzonatate 100 MG Oral Capsule Take 1-2 Capsules by mouth 3 times a day as needed for Cough. 45 Capsule 1 No current facility-administered medications for this visit. OBJECTIVE/PHYSICAL EXAMINATION: BP 128/74 | Pulse 64 | Resp 16 | Wt 67.8 kg (149 lb 8 oz) | BMI 27.34 kg/m | BSA 1.72 m Blood pressure my repeat 132/72 sitting and 140/78 standing Wt Readings from Last 3 Encounters: 11/30/22 67.8 kg (149 lb 8 oz) 10/12/22 67.5 kg (148 lb 12.8 oz) 05/26/22 67.1 kg (148 lb) BP Readings from Last 4 Encounters: 11/30/22 128/74 10/12/22 130/70 08/12/22 130/76 05/26/22 142/86 General: NAD, AAO x3, well nourished. HEENT: Normocephalic. Atraumatic. Conjunctiva pink, no scleral icterus. No carotid bruits, the carotid upstrokes are brisk. No JVD. No HJR Heart: Regular normal S-1 and S-2 no S-3 or S-4 gallop. No murmurs or rubs appreciated. PMI is not displaced. No RV heave.Lungs: Clear bilateral without rales , rhonchi, or wheeze. Abdomen: Normal bowel sounds. Soft. Nontender. No masses or organomegaly. No abdominal bruits. Extremities: No edema. Pulses: radial=2/4, Dorsalis pedis =2/4, posterior tibial=2/4. Neuro: No focal deficits. Labs: Latest Reference Range & Units 10/22/22 12:42 Sodium 135 - 146 mmol/L 140 Potassium 3.5 - 5.1 mmol/L 3.3 (L) Chloride 98 - 107 mmol/L 101 CO2 22 - 32 mmol/L 28 BUN 6 - 20 mg/dL 9 Creatinine 0.5 - 1.0 mg/dL 0.7 Estimated Glomerular Filtration Rate >=60 mL/min 86 Anion Gap 7 - 15 mmol/L 11 Glucose 70 - 120 mg/dL 139 (H) Calcium 8.4 - 10.2 mg/dL 8.8 Protein 6.0 - 8.3 g/dL 5.5 (L) (L): Data is abnormally low (H): Data is abnormally high IMPRESSION: 77 year old female 1. chronic systolic HF - Appears euvolemic 2. History of Sinus tachycardia with frequent PAC's, HR improved today on metoprolol 3. History of pericarditis. No recurrent symptoms 4. Moderate left ventricular systolic dysfunction, LVEF 35%, previously 45%. 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 She preferred conservative management upon initial diagnosis. Now Due to progressive dementia, ongoing conservative therapies re commended. 5. History of frequent premature ventricular complexes, Asymptomatic. 6. HTN - controlled 7. Abnormal EKG - no anginal symptoms. Patient previously declined further work up 8. Dementia 9. Dizziness - possibly due to dehydration PLAN: Dizziness discussed. No current symptoms in the office. No reproducible orthostasis. Likely due to dehydration at times. Hesitant to reduce diuretics due to issues with CHF. Recommend increasing water intake. Niece admits she does not drink water. Potassium was supplemented. Repeat labs in 2 weeks Appears euvolemic. CHF tools discussed including daily weights, salt/sodium/fluid restriction, and use of diuretic protocol. Conservative therapies recommended. The patient is to continue all current medications as listed above. No changes were made at today'svisit. I spent a total of 35 minutes on the date of service in preparation, delivery, and documentation ofthe care provided to Savi Edmonds excluding any time spent in the performance of separately billed services. The patient agrees to the above plan and will call with additional questions or concerns. ER with all emergencies advised. Follow-up: Return in about 6 months (around 06/01/2023). | Check-out note: Print instructions Sabrina Cody PA-C Department of Cardiology This chart was completed in part utilizing [employer] Speech Voice Recognition Software. Grammatical errors, random word insertions, prounoun errors, and incomplete sentences are an occasional consequence of this system due to software limitations, ambient noise, and hardware issues. Any formal questions or concerns about the content, text, or information contained within the body of this dictation should be directly addressed to the provider for clarification. documented in this encounter Nursing Notes * Arron Camarena LPN - 11/30/2022 8:37 AM EDT Patient identified by full name and date of Chief Complaint Patient presents with Follow Up 6 month follow up. Dizziness/Off balance for few seconds when standing too quickly. Denies chest pain, palpitations, SOB and edema. Examination Room: 6 Name: Savi Edmonds Date of : (1945). Reason for Visit: 6 month follow up Interim Hospitalization(s): Denies Problems/Concerns: See chief complaint Chest Pain/SOB: Denies [facility] Discussed: Yes My [facility] is a way you can talk to your provider online through e-mail. Would you like to sign up? I can activate it for you? ALREADY ACTIVE Patient was instructed to not get up on the exam table until directed and assisted by their provider; patient is to remain seated in the chair/ wheelchair/ exam table for fall prevention and safety reasons. Patient is aware to have assistance to step down off exam table with personnel. Patient voiced full comprehension of instructions. documented in this encounter Plan of Treatment Upcoming Encounters Date Type Specialty Care Team Description 12/16/2022 Office Visit Family Medicine David Olsen MD [address] [place] [address] 01/15/2023 Office Visit Family Medicine David Olsen MD [address] [address] 06/09/2023 Office Visit Cardiology Sabrina Cody PA-C [address] [place] [id number] Scheduled Orders Name Type Priority Associated Diagnoses Orde r Schedule BASIC METABOLIC PANEL Lab Routine Chronic systolic heart failure (HCC) PVC (premature ventricular contraction) Dyslipidemia, goal LDL below 70 Essential hypertension with goal blood pressure less than 140/90 Expected: 12/07/2022, Expires: 12/01/2023 Scheduled Procedures Name Priority Associated Diagnoses Date/Ti [...] D LEVEL ONCE IN A LIFETIME-USE SMARTSET# [id number] Completed 04/03/2019, 02/25/2018, 09/23/2009 Influenza Vaccine (FLU [...] Visit Diagnoses Diagnosis Chronic systolic heart failure (HCC)- Primary Chronic systolic heart failure PVC (premature ventricular contraction) Other premature beats Dyslipidemia, goal LDL below 70 Other and unspecified hyperlipidemia Essential hypertension with goal blood pressure less than 140/90 Alzheimer's dementia without behavioral disturbance (HCC) Alzheimer's disease documented in this encounter Care Teams Cook Fruit Relationship Specialty Start Date End Date David Olsen MD [address], [place] [phone] PCP - General Family Medicine 11/30/19 documented as of this encounter
--- OUTSIDE RECORDS SUMMARY | 2023-04-26 22:36 | External Medical Summary ---
Author Name Unknown Address Unknown Organization [id number]:[place] [place] [facility] [address] [facility] [place] [address] Laboratory Report Ordering Provider Test Date Status JIMMY PRECIADO 03/30/2023 11:12:38 Final Rheumatoid factor at a level above 50 IU/mL may lead to an overestimation of the D-dimer level. A normal D-dimer result (<0.50 ug/mL FEU) has a negative predictive value of approximately 95% for the exclusion of acute pulmonary embolism (PE) or deep vein thrombosis when there is low or moderate pretest PE probability. Increased D-dimer values are abnormal but do not indicate a specific disease state and the D-dimer increase does not definitively correlate with clinical severity of disease. Observation Date Value Abnormality Reference (Units ) Status Fibrin D-dimer FEU [Mass/volume] in Platelet poor plasma by Immunoassay 03/30/2023 11:12:38 0.46 <0.50 (ug/mL FEU) Final Performing Location [facility] [place] [facility] [address] [facility] [address]
--- OUTSIDE RECORDS SUMMARY | 2023-04-26 22:36 | External Medical Summary ---
Author Name Unknown Address Unknown Organization K01:[facility] [place] [address] [place] [address] Laboratory Report Ordering Provider Test Date Status JIMMY PRECIADO 03/30/2023 11:12:38 Final Exclude Heart Failure: <300 pg/mL
Diagnose Heart Failure:
Age <50 yr: >450 pg/mL
50-75 yr: >900 pg/mL
>75 yr: >1800 pg/mL
GFR is 30-59 mL/min: >1200 pg/mL or Age- adjusted values
GFR <30 mL/min: do not use, not reliable

Prognostic threshold: 1000 pg/mL Observation Date Value Abnormality Reference (Units ) Status BNP, Pro-hormone 03/30/2023 11:12:38 [id number] Above high no rmal <300 (pg/mL) Final Performing Location [facility] [place] [facility] [place] [address] [place] [id number]
--- OUTSIDE RECORDS SUMMARY | 2023-04-26 22:36 | External Medical Summary | Summary of Care ---
Author Name Unknown Organization [facility] Address [address] [place] [address] Phone [phone] Care Team Providers Care Reinforced Ironworker Name Role Phone David Olsen MD Primary Care Provider [phone] Reason for Referral * Precert (Within 10 days (routine)) - Authorized Specialty Diagnoses / Procedures Referred By Contac t Referred To Contact Cardiac Studies Diagnoses SOB (shortness of breath) Chronic systolic heart failure (HCC) Cardiomyopathy, unspecified type (HCC) Hypertensive heart disease with chronic systolic congestive heart failure (HCC) Procedures ECHO, COMPLETE (2D), TRANS-THORACIC Cande Salinas MD [address] [place] [address] Referral ID Status Reason Start Date Expiration Date V isits Requested Visits Authorized [id number] Authorized Precert 03/29/2023 999 999 Reason for Visit * Reason Comments Acute Cough and trouble br eathing Encounter Details Date Type Department Care Team Description 03/29/2023 Office Visit [facility] [address] [place] [id number] Cande Salinas MD [address] [place] [address] SOB (shortness of breath)*; Chronic systolic heart failure (HCC); Cardiomyopathy, unspecified type (HCC); Hypertensive heart disease with chronic systolic congestive heart failure (HCC); Irregular heart beats Allergies Active Allergy Reactions [...] Active Benzonatate 100 MG Oral Capsule (Tessalon Perles)Indications: JETT (dyspnea on exertion),Cough Take 1 Capsule [...] Staging:Clinical:Stage IB(ycT1b, cN0(sn), cM0, G3, ER: Positive, GA: Positive, HER2: Negative) - Unsigned History of [...] Passive Smoke Exposure: Past Smokeless Tobacco: Never Tobacco Cessation:Counseling Given: Not Answered Alcohol Use Standard Drinks/Week Comments No 0 [...] Sign Reading Time Taken Comments Blood Pressure 118/56 03/29/2023 4:14 PM EDT Pulse 85 03/29/2023 4:14 PM EDT Temperature 35.8 C (96.4 F) 03/29/2023 4:14 PM ED T Respiratory Rate 20 03/29/2023 4:14 PM EDT Oxygen Saturation 95% 03/29/2023 4:14 PM EDT Inhaled Oxygen Concentration - - Weight 67.7 kg (149 lb 3.2 oz) 03/29/2023 4:14 P M EDT Height 149.2 cm (4' 10.75") 03/29/2023 4:14 PM E DT Body Mass Index 30.39 03/29/2023 4:14 PM EDT documented in this encounter Patient Instructions * Patient Instructions* Cande Salinas MD - 03/29/2023 4:29 PM EDT Increase lasix 40 mg to take twice daily for 5 days And potassium 20 meq daily for now And will follow up blood tests and 2D echo , chest xray documented in this encounter Progress Notes * Cande Salinas MD - 03/30/2023 3:34 PM EDT Subjective Savi Edmonds is a 77 year old female. Chief Complaint Patient presents with Acute Cough and trouble breathing HPI: Here for increasing SOB and leg swelling per Pt has known extensive heart condition, with systolic CMP, hx of pericardial effusion, CAD , HTN , HL, CHF Taking lasix 40 mg daily F/u with cardio Pt has mild dementia But noticed her leg swelling and labored breathing on mild exertion Cough is usually in the morning, known mild allergy, drainage But denies fever, sinus pain, chest congestion EKG done today - very frequent PVCs And also showed lateral lead ischemia , Denies CP per pt Will f/u blood tests lianne And 2D echo too Last 2D echo in 2020- EF 35-39 % PMH: Patient Active Problem List Diagnosis Code CLASSICAL MIGRAINE WITHOU MENTION OF INTRACTABLE MIGRAINE G43.109 Senile osteoporosis M81.0 Essential hypertension with goal blood pressure less than 140/90 I10 Dyslipidemia, goal LDL below 70 E78.5 Cerebral meningioma (HCC) D32.0 History of adenomatous polyp of colon Z86.010 Malignant neoplasm of upper-inner quadrant of left breast in female, estrogen receptor positive C50.212, Z17.0 History of compression fracture of spine Z87.81 PVC (premature ventricular contraction) I49.3 Pericardial effusion I31.39 Cardiomyopathy (HCC) I42.9 MEDICATION USE AGREEMENT [id number] Chronic systolic heart failure (HCC) I50.22 Alzheimer's dementia without behavioral disturbance (HCC) G30.9, F02.80 Hypertensive heart disease with chronic systolic congestive heart failure (HCC) I11.0, I50.22 Current Outpatient Medications Medication Sig Dispense Refill MULTI-VITAMIN PO TABS 1 daily 0 Fluticasone Propionate 50 MCG/ACT Nasal Suspension Administer 2 Sprays into each nostril daily. 16 g 1 Vitamin D3 125 MCG (5000 UT) Oral Capsule Take 1 Capsule by mouth in the morning. 3 Cap 0 B-12 500 MCG Sublingual Tablet Sublingual Place 1 Tablet under the tongue once. 30 Tab 0 Calcium Carbonate 600 MG Oral Tablet Take 1 Tablet by mouth 2 times a day with morning and evening meals. Benzonatate 100 MG Oral Capsule (Tessalon Perles) Take 1 Capsule by mouth 3 times a day as needed for Cough. 60 Capsule 5 Tamoxifen Citrate 20 MG Oral Tablet Take [...] needed for Pain, Moderate. 60 Tablet 1 Potassium Chloride ER 10 MEQ Oral Capsule Extended Release One tab 4 days per week and two tabs 3 days per week. 120 Capsule 5 Furosemide 40 MG Oral Tablet (Lasix) Take 1 Tablet by mouth in the morning. Take an additional tablet as needed or as directed for fluid retention.. 120 Tablet 3 Losartan Potassium 25 MG Oral Tablet (Cozaar) Take 1 Tablet by mouth daily. 100 Tablet 3 Potassium Chloride Rimma ER 20 MEQ Oral Tablet Extended Release Take 1 Tablet by mouth in the morning. 30 Tablet 1 Aspirin 81 MG Oral Tablet Delayed Release Take by mouth. (Patient not taking: Reported on 03/29/2023) 100 5 Montelukast Sodium 10 MG Oral Tablet (Singulair) Take 1 Tab by mouth daily. (Patient not taking: Reported on 03/29/2023) 30 Tab 11 Triamcinolone Acetonide 0.1 % External Ointment (Aristocort) Apply topically to affected area 2 times a day. Apply 2x daily (or more if itchy/painful instead of licking) to lips until resolved (Patient not taking: Reported on 03/29/2023) 30 g 0 Famotidine 20 MG Oral Tablet (Pepcid) Take by mouth 1 Tablet in the morning. (Patient not taking: Reported on 03/29/2023) 30 Tablet 11 Benzonatate 100 MG Oral Capsule Take 1-2 Capsules by mouth 3 times a day as needed for Cough. 45 Capsule 1 No current facility-administered medications for this visit. Past Medical History: Diagnosis Date Abnormal Papanicolaou [...] performed by Ana Breen MD at OR [facility] COLONOSCOPY 07/20 Normal - repeat 5 yrs COLONOSCOPY, DIAGNOSTIC (RECTUM) 02/16/2019 diverticulosis, repeat 5 yrs/COLONOSCOPY FLEXIBLE PROXIMAL DIAGNOSTIC performed by Gene Castro MD at ENDOSCOPY [facility] COLORECTAL CANCER SCREEN; COLON 1999 polyp, path shows pseudopolyp COLORECTAL CANCER SCREEN; COLON 09/16/10 Normal EXPLORATION OF NIPPLE IDENTIFY SENTINEL NODE, RADIOACTIVE TRACER Left 09/08/2017 INJECTION PROCEDURE FOR IDENTIFICATION SENTINEL NODE performed by Ana Breen MD at OR [facility] LIGATE/CUT OVIDUCT(S) 1975 MASTECTOMY, PARTIAL Left 09/08/2017 09/08/2017 left MASTECTOMY PARTIAL performed by Ana Breen MD at OR [facility] REMOVE TONSILS & ADENOIDS, UNDER 12 US GUIDED BREAST BIOPSY 2002 L. benign Review of patient's allergies indicates: Allergen Reactions Nitrofurantoin Monohyd Macro Hives Pneumococcal Vaccine Nausea/vomiting Bupropion Itching Cephalexin Hives Sulfa Antibiotics Rash Family History Problem Relation Age of Onset Hypertension Mother Eye Problems Mother Asthma Mother COPD Cancer Father colon Ca in 1972; age 75 Eye Problems Father Cancer Grandmother (Maternal) Heart Disorder Sister stents age 61 Hypertension Brother Family Status Relation Status Mo at age 75 Fa at age 74 MGMA (Not Specified) Sis (Not Specified) Bro (Not Specified) Social History Socioeconomic History Marital status: Spouse name: Gt Number of children: 2 Years of education: 12 Highest education level: Not on file Occupational History Occupation: legal collector and works with Comment: [employer] Tobacco Use Smoking status: Never Passive exposure: Past Smokeless tobacco: Never Substance and Sexual Activity Alcohol use: No Drug use: No Sexual activity: Not Currently Partners: Male Other Topics Concern Service Not Asked Blood Transfusions Not Asked Caffeine Concern Not Asked Occupational Exposure Not Asked Hobby Hazards Not Asked Sleep Concern Not Asked Stress Concern Not Asked Weight Concern No Special Diet Not Asked Back Care Not Asked Exercise Yes Comment: bowling, walks 3 miles daily weekdays Bike Helmet Not Asked Seat Belt Yes Self-Exams Not Asked Social History Narrative Patient has short term memory loss and her is her health advocate Social Determinants of Health Financial Resource Strain: Not on file Food Insecurity: Not on file Transportation Needs: Not on file Physical Activity: Not on file Stress: Not on file Social Connections: Not on file Intimate Partner Violence: Not on file Housing Stability: Not on file Review of Systems Constitutional: Positive for activity change and fatigue. Negative for appetite change, chills, diaphoresis, fever and unexpected weight change. HENT: Positive for postnasal drip. Respiratory: Positive for cough (occ) and shortness of breath (worse on minor exertion per ). Negative for chest tightness and wheezing. Cardiovascular: Positive for leg swelling (worse). Negative for chest pain and palpitations. Gastrointestinal: Negative for abdominal distention and abdominal pain. Endocrine: Negative. Allergic/Immunologic: Positive for environmental allergies. Neurological: Negative for dizziness and light-headedness. Psychiatric/Behavioral: Positive for confusion. Negative for agitation and behavioral problems. Mild dementia Objective BP 118/56 | Pulse 85 | Temp 35.8 C (96.4 F) (Infrared ) | Resp 20 | Ht 1.492 m (4' 10.75") | Wt67.7 kg (149 lb 3.2 oz) | SpO2 95% | BMI 30.39 kg/m | BSA 1.68 m Physical Exam Constitutional: General: She is not in acute distress. Appearance: Normal appearance. She is not ill-appearing, toxic-appearing or diaphoretic. HENT: Head: Normocephalic and atraumatic. Nose: Congestion and rhinorrhea present. Eyes: Extraocular Movements: Extraocular movements intact. Conjunctiva/sclera: Conjunctivae normal. Pupils: Pupils are equal, round, and reactive to light. Cardiovascular: Rate and Rhythm: Normal rate. Rhythm irregular. Heart sounds: Murmur heard. Comments: Frequent premature beats Pulmonary: Effort: Pulmonary effort is normal. No respiratory distress. Breath sounds: No stridor. No wheezing, rhonchi or rales. Chest: Chest wall: No tenderness. Musculoskeletal: Right lower leg: Edema present. Left lower leg: Edema (1+) present. Neurological: General: No focal deficit present. Mental Status: She is alert. Cranial Nerves: No cranial nerve deficit. Psychiatric: Behavior: Behavior normal. ASSESSMENT/PLAN: SOB (shortness of breath) (Primary) - ECHO, COMPLETE (2D), TRANS-THORACIC; Future; Expected date: 03/29/2023 - XR CHEST 2 VIEWS - TROPONIN T, HIGH SENSITIVITY; Future; Expected date: 03/29/2023 - D-DIMER; Future; Expected date: 03/29/2023 - BNP, NT-PRO; Future; Expected date: 03/29/2023 - CBC WITH WBC DIFFERENTIAL; Future; Expected date: 03/29/2023 - COMPREHENSIVE METABOLIC PANEL; Future; Expected date: 03/29/2023 - EKG; Future; Expected date: 03/29/2023 - EKG Chronic systolic heart failure (HCC) - ECHO, COMPLETE (2D), TRANS-THORACIC; Future; Expected date: 03/29/2023 - XR CHEST 2 VIEWS - TROPONIN T, HIGH SENSITIVITY; Future; Expected date: 03/29/2023 - D-DIMER; Future; Expected date: 03/29/2023 - BNP, NT-PRO; Future; Expected date: 03/29/2023 - CBC WITH WBC DIFFERENTIAL; Future; Expected date: 03/29/2023 - COMPREHENSIVE METABOLIC PANEL; Future; Expected date: 03/29/2023 Cardiomyopathy, unspecified type (HCC) - ECHO, COMPLETE (2D), TRANS-THORACIC; Future; Expected date: 03/29/2023 - XR CHEST 2 VIEWS Hypertensive heart disease with chronic systolic congestive heart failure (HCC) - ECHO, COMPLETE (2D), TRANS-THORACIC; Future; Expected date: 03/29/2023 - XR CHEST 2 VIEWS Irregular heart beats - TROPONIN T, HIGH SENSITIVITY; Future; Expected date: 03/29/2023 - EKG; Future; Expected date: 03/29/2023 - EKG Other orders - Potassium Chloride Rimma ER 20 MEQ Oral Tablet Extended Release; Take 1 Tablet by mouth in the morning. Patient Instructions Increase lasix 40 mg to take twice daily for 5 days And potassium 20 meq daily for now And will follow up blood tests and 2D echo , chest xray If SOB, leg swelling gets worse, should go to ER If CP happens, should go to ER Spent 45 min for test and management, etc Cande Salinas MD documented in this encounter Procedure Notes * Yossi Teresa DO - 03/29/2023 3:43 PM EDTAssociated Order(s): EKG REASON FOR STUDY: irregular heart beats, CONCLUSIONS: Sinus rhythm with frequent Premature ventricular complexes Possible Left atrial enlargement Left axis deviation ST & T wave abnormality, consider lateral ischemia Abnormal ECG When compared with ECG of 12-OCT-2022 11:40, Inverted T waves have replaced nonspecific T wave abnormality in Lateral leads Ventricular Rate: 85 Atrial Rate: 85 GA Interval: 156 QRS Duration: 88 QT/QTc: 390/464 ms P-R-T [place]: 74 : -40 : 114 degrees documented in this encounter Nursing Notes * Olimpia Chavis LPN - 03/29/2023 4:10 PM EDT Chief Complaint Patient presents with Acute Cough and trouble breathing documented in this encounter Plan of Treatment Upcoming Encounters Date Type Specialty Care Team Description 04/02/2023 Cardiac Studies Cardiac Studies 06/09/2023 Office Visit Cardiology Sabrina Cody PA-C [address] [place] [address] Pending Results Name Type Priority Associated Diagnoses Date /Time TROPONIN T, HIGH SENSITIVITY Lab Routine SOB [...] failure (HCC) 03/30/2023 11:12 AM EDT Scheduled Orders Name Type Priority Associated Diagnoses Orde r Schedule ECHO, COMPLETE (2D), TRANS-THORACIC Echocardiology Routine SOB (shortness of breath) Chronic systolic heart failure (HCC) Cardiomyopathy, unspecified type (HCC) Hypertensive heart disease with chronic systolic congestive heart failure (HCC) Expected: 03/29/2023, Expires: 04/29/2025 XR CHEST 2 VIEWS Medical Imaging Routine SOB (shortness of breath) Chronic systolic heart failure (HCC) Cardiomyopathy, unspecified type (HCC) Hypertensive heart disease with chronic systolic congestive heart failure (HCC) Ordered: 03/29/2023 TROPONIN T, HIGH SENSITIVITY Lab Routine SOB (shortness of breath) Chronic systolic heart failure (HCC) Irregular heart beats Expected: 03/29/2023 (Approximate), Expires: 03/28/2024 D-DIMER Lab Routine SOB (shortness of breath) Chronic systolic heart failure (HCC) Expected: 03/29/2023 (Approximate), Expires: 03/28/2024 BNP, NT-PRO Lab Routine SOB (shortness of breath) Chronic systolic heart failure (HCC) Expected: 03/29/2023 (Approximate), Expires: 03/28/2024 CBC WITH WBC DIFFERENTIAL Lab Routine SOB (shortness of breath) Chronic systolic heart failure (HCC) Expected: 03/29/2023 (Approximate), Expires: 03/29/2024 COMPREHENSIVE METABOLIC PANEL Lab Routine SOB (shortness of breath) Chronic systolic heart failure (HCC) Expected: 03/29/2023 (Approximate), Expires: 03/28/2024 Scheduled Procedures Name Priority Associated Diagnoses Date/Ti [...] D LEVEL ONCE IN A LIFETIME-USE SMARTSET# [id number] Completed 04/03/2019, 02/25/2018, 09/23/2009 GARDASIL-HPV IMMUNIZATION SERIES [...] Not on filedocumented as of this encounter Procedures Procedure Name Priority Date/Time Associated Diagnosis Comments GA ECG ROUTINE ECG W/LEAST 12 LDS I&R ONLY Routine 03/29/2023 3:43 PM EDT SOB (shortness of breath) Irregular heart beats documented in this encounter Results * EKG (03/29/2023 3:43 PM EDT) 03/29/2023 3:43 PM EDT Procedure Note Yossi Teresa DO - 03/29/2023 3:43 PM EDT REASON FOR STUDY: irregular heart beats, CONCLUSIONS: Sinus rhythm with frequent Premature ventricular complexes Possible Left atrial enlargement Left axis deviation ST & T wave abnormality, consider lateral ischemia Abnormal ECG When compared with ECG of 12-OCT-2022 11:40, Inverted T waves have replaced nonspecific T wave abnormality in [place] Ventricular Rate: 85 Atrial Rate: 85 GA Interval: 156 QRS Duration: 88 QT/QTc: 390/464 ms P-R-T [place]: 74 : -40 : 114 degrees Cande Salinas MD EKG [facility] documented in this encounter Visit Diagnoses Diagnosis SOB (shortness of breath)- Primary Shortness of breath Chronic systolic heart failure (HCC) Chronic systolic heart failure Cardiomyopathy, unspecified type (HCC) Hypertensive heart disease with chronic systolic congestive heart failure (HCC) Irregular heart beats Cardiac dysrhythmia, unspecified documented in this encounter Care Teams Reinforced Ironworker Relationship Specialty Start Date End Date David Olsen MD [address] [place], [place] [id number] PCP - General Family Medicine 11/30/19 documented as of this encounter
--- OUTSIDE RECORDS SUMMARY | 2023-04-26 22:37 | External Medical Summary | Summary of Care ---
Author Name Unknown Organization [facility] Address [address] [place] [address] Phone [phone] Care Team Providers Care Nursing Home Assistant Name Role Phone David Olsen MD Primary Care Provider [phone] Reason for Visit * Reason Comments Procedure Encounter Details Date Type Department Care Team Description 10/26/2022 Office Visit [facility] [address] [place], [place] [phone] Kimani Montesinos MD [address] [place], [place] [id number] Lumbar radiculitis* Allergies Active Allergy Reactions Severity Noted Date Comments Bupropion Itching Low 11/03/2010 Cephalexin Hives Low 04/29/2005 Nitrofurantoin Monohyd Macro Hives 012 Pneumococcal Vaccine Nausea/vomiting 08/03/2010 Sulfa Antibiotics Rash Low 02/28/1999 documented as of this encounter (statuses as of 10/26/2022) Medications Medication Sig Dispensed Refills Start Date End Date Status MULTI-VITAMIN PO TABS 1 daily 0 04/22/2007 Active Aspirin 81 MG Oral Tablet Delayed Release Take by mouth . 100 5 06/30/2007 Active Fluticasone Propionate 50 MCG/ACT Nasal SuspensionIndicatio ns:Post-nasal drip Administer 2 Sprays into each nostril daily. 16 g 1 06/03/2020 Active Additional Information Patient not taking.Reported on [...] Active Benzonatate 100 MG Oral Capsule (Tessalon Perlotto)Indications: JETT (dyspnea on exertion),Cough Take 1 Capsule by mouth 3 times a day as needed for Cough. 60 Capsule 5 05/29/2021 Active Additional Information Patient not taking.Reported on 08/12/2022 Losartan Potassium 25 MG Oral Tablet (Cozaar)Indications :HTN, goal below 140/90 Take 1 Tablet by mouth daily. 100 Tablet 3 07/25/2021 Active Furosemide 40 MG Oral Tablet (Lasix)Indications: Pleural effusion Take by mouth 1 Tablet in the morning. Take an additional tablet as needed or as directed for fluid retention.. 120 Tablet 3 09/02/2021 Active Famotidine 20 MG Oral Tablet (Pepcid)Indications :Gastroesophageal reflux disease without esophagitis Take by mouth 1 Tablet in the morning. 30 Tablet 11 09/02/2021 Active Additional Information Patient not taking.Reported on 05/26/2022 Tamoxifen Citrate 20 MG Oral TabletIndications:M alignant [...] for Cough. 45 Capsule 1 10/12/2022 Active Azithromycin 250 MG Oral Tablet (Zithromax Z-Stu)Indications:B ronchitis, complicated Take two tablets by mouth on first day, then 1 tablet daily until gone 6 Tablet 0 10/12/2022 Active Potassium Chloride ER 10 MEQ Oral Capsule Extended ReleaseIndications: Hypokalemia One tab 4 days per week and two tabs 3 days per week. 120 Capsule 5 10/26/2022 Active documented as of this encounter (statuses as of 10/26/2022) Active Problems Problem Noted Date Hypertensive heart [...] Staging:Clinical:Stage IB(ycT1b, cN0(sn), cM0, G3, ER: Positive, MN: Positive, HER2: Negative) - Unsigned History of adenomatous polyp of colon Cerebral meningioma 09/15/2016 Overview: cribriform plate Dyslipidemia, goal LDL below 70 05/22/20 13 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 02/28/1999 Senile osteoporosis 02/28/1999 Essential hypertension with goal blood p ressure less than 140/90 02/28/1999 documented as of this encounter (statuses as of 10/26/2022) Resolved Problems Problem Noted Date Resolved Date [...] as of this encounter (statuses as of 10/26/2022) Immunizations Name Administration Dates Next Due Pneumococcal [...] on file documented as of this encounter Progress Notes * Kimani Montesinos MD - 10/26/2022 9:48 AM EDT The patient reports that she's been resting in bed for several days from bronchitis and she has no pain today. We'll defer interventional treatment until her sx worsens. Kimani Montesinos MD 10/26/2022 10:16 AM 9:48 AM I spent a total of 3 minutes on the date of service in preparation, delivery, and documentation of the care provided to Savi Edmonds excluding any time spent in the performance of separately billed services. documented in this encounter Plan of Treatment Upcoming Encounters Date Type Specialty Care Team Description 10/28/2022 Office Visit Family Medicine David Olsen MD [address] [place] [address] 11/30/2022 Office Visit Cardiology Sabrina Cody PA-C [address] [place] [address] 11/30/2022 Office Visit Pain Medicine Kimani Montesinos MD [address] [place], [place] [phone] 12/16/2022 Office Visit Family David Davies MD [address] [place] [address] 01/15/2023 Office Visit Family David Davies MD [address] [place] [address] Scheduled Procedures Name Priority Associated Diagnoses Date/Ti [...] D LEVEL ONCE IN A LIFETIME-USE SMARTSET# [id number] Completed 04/03/2019, 02/25/2018, 09/23/2009 Influenza Vaccine (FLU [...] as of this encounter Visit Diagnoses Diagnosis Lumbar radiculitis- Primary Thoracic or lumbosacral neuritis or radiculitis, unspecified documented in this encounter Care Teams Nursing Home Assistant Relationship Specialty Start Date End Date David Olsen MD [address] [place] [address] PCP - General Family Medicine 11/30/19 documented as of this encounter
== END 2023-04-26 13:45 | disposition home or self-care (01) | DRG 291 ==
LOC: ED 23:29 → 4W 04-23 04:03

== ENCOUNTER 2024-01-03 11:22 | Inpatient (IN) ==
--- NOTE | 2024-01-03 11:35 | Emergency Department Note ---
Impression & Plan Sepsis, Generalized weakness, UTI (urinary tract infection) ED Provider Note NAME: STEFFANY MORAN AGE: 78 SEX: F : 1945 ARRIVES VIA: Walk-In INFORMANT: Patient, ED PROVIDER(S): Emiliano Collado MD CHIEF COMPLAINT: Feeling unwell MEDICAL DECISION MAKING: Patient presented due to concern for weakness fatigue and feeling generally unwell. IV was established and blood work was obtained. Patient does have a white count of 11 normal H&H and platelet count. The patient's kidney function is unremarkable. Mild hypokalemia 3.4. Pro-Cb is elevated at 1.5. Blood cultures and lactate were ordered. Urinalysis does show signs of likely UTI. This is likely because of the patient's symptoms. Bio fire negative. I did review prior cultures which showed sensitivity for E. coli to Rocephin. This was ordered 2 g IV. Patient initially did receive a 500 cc fluid bolus but not 30 cc/kg bolus given the patient's prior history of systolic heart failure. This did seem to improve the patient's tachycardia. Blood pressures have remained stable during her ED visit. Lactate normal. Calcium was noted to be low and 1 g IV was ordered. I did inform the patient as well as the patient's at bedside. The patient does have a history of dementia and is forgetful. states that she is about her baseline with regard to confusion. I did speak with the on-call hospitalist service Tracey Gauthier PA-C and the patient was admitted by Dr. Troncoso. Discussion w/ other healthcare providers: None Prior /Outside records reviewed: None Differential diagnosis: Infection, dehydration, metabolic abnormality, hypo/hyperglycemia, electrolyte imbalance, anemia, UTI, pneumonia, thyroid dysfunction among others were considered. Diagnostics, as interpreted by me: ECG: Sinus tach, rate of 106, normal intervals, left axis deviation, T wave inversions in the anterior lateral and high lateral leads. T wave versions in the lateral and high lateral leads appear to be old but the anterior and lateral may be new from comparison EKG from April 23, 2023. Cardiac monitoring: An order was placed for continuous cardiac monitoring. The monitor shows a rate of 92 with sinus rhythm. Patient was placed on pulse oximetry Medical decision rules: None Imaging studies: I informally interpreted the patient's chest x-ray does not show evidence of obvious pneumonia or pneumothorax. with formal report to follow. HPI: Patient presents due to concern for feeling generally unwell. Additional history was gathered from the states the patient does have a history of dementia. The patient reportedly was drinking fluids yesterday well but not eating anything although has not been eating or drinking anything today. Very vague complaints from the patient other than just not feeling well. No reported vomiting or diarrhea. The patient does not endorse any chest pain or headache no sore throat or ear pain. states that she does not seem to have as much energy as she typically does. No reports of any back pain or urinary symptoms. PAST MEDICAL HISTORY: See Below PAST SURGICAL HISTORY: See Below SOCIAL HISTORY: See Below HOME MEDICATIONS: See Below ALLERGIES: See Below VITALS: See Below PHYSICAL EXAMINATION: GENERAL: Mildly ill in appearance. Fatigable. EYE EXAM: Normal conjunctiva. PERRL, no anisocoria and EOM's grossly intact w/o pain. OROPHARYNX: Dry mucus membranes, grossly normal dentition. NECK: Trachea midline, no stridor. LUNGS: Clear to auscultation. Normal chest wall mechanics. HEART: Tachycardic and regular, no MRG. ABDOMEN: Abdomen soft, non-tender, no masses, no rebound or guarding. BACK: No CVA TTP. SKIN: No rashes and no bruising. UPPER EXTREMITIES: Upper extremities are grossly normal. LOWER EXTREMITIES: Grossly normal, no edema. NEURO EXAM: A&O x3, cranial nerves II-XII grossly intact, normal speech, moves all 4 extremities. Past Med/Surg History Problem List (Updated 01/04/24 @ 06:55 by Emiliano Collado MD) Sepsis (Acute) Generalized weakness (Acute) UTI (urinary tract infection) (Acute) Medical History History of breast cancer AD (Alzheimer's disease) HFrEF (heart failure with reduced ejection fraction) NICM (nonischemic cardiomyopathy) PVC (premature ventricular contraction) Hypertension Peptic ulcer disease HX Anemia Migraine HX Surgical History History of cataract surgery right S/P lumpectomy, left breast History of colonoscopy Hx of lumpectomy LEFT History of tonsillectomy History of tooth extraction Family History Other Cancer Hypertension Social History Smoking Status: Never smoker Second Hand Exposure: No; Do You Dip or Chew Tobacco: No; Hx Alcohol Use: No Hx Substance Use: No Preferred Language: Frisian Communication Ability: Impaired Bellperson Required: No Beliefs That Will Affect Care: None Current Living Situation: Spouse Other Information That Helps Us Care for You: No Feels Safe at Home: Yes Safety Concerns: Feels Safe At This Time Assistive Devices: None Allergies Allergies Allergy/AdvReac Type Severity Reaction Status Date / Time bee venom protein (honey bee) Allergy Intermediate EXTRA Verified 10/18/20 20:45 SWELLING AT SITE Sulfa (Sulfonamide Allergy Mild Unknown Verified 10/18/20 20:45 Antibiotics) bupropion Allergy Unknown unknown Verified 10/18/20 20:45 pneumococcal vaccine Allergy Unknown FEVER, Verified 10/18/20 20:45 [From Pneumovax 23] CHILLS, BODY ACHES, VOMITING Home Meds Home Medications Medication Instructions Recorded Confirmed tamoxifen 20 mg tablet 20 mg PO QAM 06/29/19 01/03/24 tramadol 50 mg tablet 50 mg PO TID PRN Moderate Pain 09/04/20 01/03/24 (Scale Score 5-6) calcium carbonate (Calcium 600) 600 mg PO BID 09/21/20 01/03/24 montelukast 10 mg tablet 10 mg PO QAM 10/18/20 01/03/24 (Singulair) benzonatate 100 mg capsule 100 mg PO HS PRN Cough 04/23/23 01/03/24 cholecalciferol (vitamin D3) 125 125 mcg PO QAM 04/23/23 01/03/24 mcg (5,000 unit) tablet (Vitamin D3) cyanocobalamin (vitamin B-12) 500 500 mcg PO DAILY 04/23/23 01/03/24 mcg lozenges (Vitamin B-12) fluticasone propionate 50 2 spray intranasal DAILY 04/23/23 01/03/24 mcg/actuation nasal spray,suspension metoprolol succinate 25 mg 25 mg PO UD 04/23/23 01/03/24 tablet,extended release 24 hr multivitamin 1 tab PO DAILY 04/23/23 01/03/24 potassium chloride 20 mEq 20 meq PO QAM 04/23/23 01/03/24 tablet,extended release(part/cryst) melatonin 5 mg capsule 5 mg PO HS PRN Insomnia 01/03/24 01/03/24 Previous Rx's Medication Instructions Recorded furosemide 20 mg tablet 40 mg (2 x 20 mg) PO DAILY #60 tabs 04/26/23 sacubitril 24 mg-valsartan 26 mg 1 tab PO BID #60 tabs 04/26/23 tablet (Entresto) Results & Data (ED) Vital Signs Vital Signs - 24 hr 01/03/24 11:23 01/03/24 11:23 01/03/24 11:27 Temperature 36.5 C Temperature Source Temporal Artery Scan Pulse Rate 97 H Pulse Rate [Right Finger] Respiratory Rate 22 Respiratory Effort / Characteristics Non-Labored Spontaneous Respiratory Depth Normal Blood Pressure 151/97 H Blood Pressure [Right Arm] Blood Pressure Mean 115 Blood Pressure Mean [Right Arm] Pulse Oximetry 92 98 Oxygen Delivery Method Room Air Room Air Room Air Oxygen Flow Rate 92 Sepsis Recent Fever Within 48 Hours No Sepsis New/Unexplained Change in Mental Status N/A Sepsis Action Taken by Nursing No Action Required 01/03/24 11:56 01/03/24 11:58 01/03/24 12:03 Temperature Temperature Source Pulse Rate 95 H 109 H 107 H Pulse Rate [Right Finger] Respiratory Rate 18 Respiratory Effort / Characteristics Respiratory Depth Blood Pressure 126/61 Blood Pressure [Right Arm] Blood Pressure Mean 82 Blood Pressure Mean [Right Arm] Pulse Oximetry 94 Oxygen Delivery Method Room Air Oxygen Flow Rate Sepsis Recent Fever Within 48 Hours Sepsis New/Unexplained Change in Mental Status Sepsis Action Taken by Nursing 01/03/24 14:17 Temperature Temperature Source Pulse Rate Pulse Rate [Right Finger] 77 Respiratory Rate 20 Respiratory Effort / Characteristics Respiratory Depth Blood Pressure Blood Pressure [Right Arm] 133/73 Blood Pressure Mean Blood Pressure Mean [Right Arm] 93 Pulse Oximetry 95 Oxygen Delivery Method Room Air Oxygen Flow Rate Sepsis Recent Fever Within 48 Hours Sepsis New/Unexplained Change in Mental Status Sepsis Action Taken by Half-Way Medications Current Medication List: was personally reviewed by me Laboratory Data Attestation: I reviewed the patient's lab results. 01/04/24 05:20 01/04/24 05:20 Lab Results 01/03/24 01/03/24 01/03/24 Range/Units 12:15 12:26 12:45 WBC 11.41 H (4.8-10.8) K/ul RBC 4.33 (4.20-5.40) M/uL Hgb 13.1 (12.0-16.0) g/dl Hct 39.1 (37.0-47.0) % MCV 90.3 (80.0-100.0) fL MCH 30.3 (25.0-34.0) pg MCHC 33.5 (32.0-36.0) g/dL RDW Std Deviation 43.5 (36.4-46.3) fL RDW Coeff of Itffany 13.2 (11.5-14.5) % Plt Count 139 (130-400) K/uL MPV 11.0 (9.4-12.4) fL Immature Gran % (Auto) 2.5 % Neut % (Auto) 81.1 % Lymph % (Auto) 5.8 % [place] % (Auto) 10.3 % Eos % (Auto) 0.1 % Baso % (Auto) 0.2 % Neut # (Auto) 9.26 H (1.40-6.50) K/uL Lymph # (Auto) 0.66 L (1.20-3.40) K/uL [place] # (Auto) 1.17 H (0.11-0.59) K/uL Eos # (Auto) 0.01 (0.00-0.50) K/uL Baso # (Auto) 0.02 (0.00-0.20) K/uL Immature Gran # (Auto) 0.29 H (0.01-0.20) K/uL Sodium 137 (136-145) mmol/L Potassium 3.4 L (3.5-5.1) mmol/L Chloride 105 (98-107) mmol/L Carbon Dioxide 22 (21-32) mmol/L Anion Gap 10 (3-11) BUN 15 (6-23) mg/dl Creatinine 0.95 (0.6-1.2) mg/dl Est Cr Clr Drug Dosing Not Reportable Est GFR ( Amer) 66.0 ml/min Est GFR (Non-Af Amer) 57.0 ml/min BUN/Creatinine Ratio 15.8 (10-20) Glucose 110 H (70-99(Fasting)) mg/dl Lactate (0.4-2.0) mmol/L Calcium 8.2 L (8.6-10.3) mg/dl Magnesium 1.8 (1.7-2.4) mg/dl Total Bilirubin 0.8 (0.2-1.0) mg/dl AST 12 L (13-39) U/L ALT 8 (7-52) U/L Alkaline Phosphatase 59 (34-104) U/L Total Protein 5.8 L (6.0-8.3) gm/dl Albumin 3.4 (3.4-5.0) gm/dl Globulin 2.4 L (2.5-4.0) gm/dl Albumin/Globulin Ratio 1.4 (0.9-2) Procalcitonin 1.56 H (0-0.5) ng/ml TSH 3.242 (0.300-4.500) uIu/ml Urine Color Yellow Urine Appearance Turbid A (Clear) Urine pH 5.5 (4.5-7.5) Ur Specific Felt 1.011 (1.000-1.030) Urine Protein 2+ H (Negative) Urine Glucose (UA) Negative (Negative) Urine Ketones Negative (Negative) Urine Blood 1+ H (Negative) Urine Nitrite Positive A (Negative) Urine Bilirubin Negative (Negative) Urine Urobilinogen Negative (Negative) Ur Leukocyte Esterase 3+ H (Negative) Urine WBC (Auto) >50 H (0-5) /hpf Urine RBC (Auto) 0-2 (0-2) /hpf U Hyaline Cast (Auto) 0-2 (0-2) /lpf U Epithel Cells (Auto) 3-5 H (0-2) /hpf Urine Bacteria (Auto) 4+ H (None Seen) Adenovirus (PCR) Not Detected (NotDetected) B. pertussis DNA (PCR) Not Detected (NotDetected) B.parapertussis DNA PCR Not Detected (NotDetected) C. pneumoniae DNA (PCR) Not Detected (NotDetected) Coronavirus OC43 (PCR) Not Detected (NotDetected) Coronavirus HKU1 (PCR) Not Detected (NotDetected) Coronavirus 229E (PCR) Not Detected (NotDetected) SARS-CoV-2 (PCR) Not Detected (NotDetected) Coronavirus NL63 (PCR) Not Detected (NotDetected) Enterobacterales (PCR) (NotDetected) E. coli (PCR) (NotDetected) Human Metapneumovir PCR Not Detected (NotDetected) Influenza Type A (PCR) Not Detected (NotDetected) Influenza Type B (PCR) Not Detected (NotDetected) M. pneumoniae (PCR) Not Detected (NotDetected) Parainfluenza 1 (PCR) Not Detected (NotDetected) Parainfluenza 2 (PCR) Not Detected (NotDetected) Parainfluenza 3 (PCR) Not Detected (NotDetected) Parainfluenza 4 (PCR) Not Detected (NotDetected) RSV (PCR) Not Detected (NotDetected) Entero/Rhino (PCR) Not Detected (NotDetected) mcr-1 Colistin Res Gene PCR (NotDetected) blaIMP Car res Gene PCR (NotDetected) KPC-Carbap Res Gene PCR (NotDetected) blaNDM Car Res Gene PCR (NotDetected) OXA-48 Carbapenem Resis Gene (PCR) (NotDetected) blaVIM Car Res Gene PCR (NotDetected) CTX-M Gene Resistance (PCR) (NotDetected) Bld Cult ID Panel PCR (NotDetected) 01/03/24 Range/Units 13:58 WBC (4.8-10.8) K/ul RBC (4.20-5.40) M/uL Hgb (12.0-16.0) g/dl Hct (37.0-47.0) % MCV (80.0-100.0) fL MCH (25.0-34.0) pg MCHC (32.0-36.0) g/dL RDW Std Deviation (36.4-46.3) fL RDW Coeff of Tiffany (11.5-14.5) % Plt Count (130-400) K/uL MPV (9.4-12.4) fL Immature Gran % (Auto) % Neut % (Auto) % Lymph % (Auto) % [place] % (Auto) % Eos % (Auto) % Baso % (Auto) % Neut # (Auto) (1.40-6.50) K/uL Lymph # (Auto) (1.20-3.40) K/uL [place] # (Auto) (0.11-0.59) K/uL Eos # (Auto) (0.00-0.50) K/uL Baso # (Auto) (0.00-0.20) K/uL Immature Gran # (Auto) (0.01-0.20) K/uL Sodium (136-145) mmol/L Potassium (3.5-5.1) mmol/L Chloride (98-107) mmol/L Carbon Dioxide (21-32) mmol/L Anion Gap (3-11) BUN (6-23) mg/dl Creatinine (0.6-1.2) mg/dl Est Cr Clr Drug Dosing Est GFR ( Amer) ml/min Est GFR (Non-Af Amer) ml/min BUN/Creatinine Ratio (10-20) Glucose (70-99(Fasting)) mg/dl Lactate 1.1 (0.4-2.0) mmol/L Calcium (8.6-10.3) mg/dl Magnesium (1.7-2.4) mg/dl Total Bilirubin (0.2-1.0) mg/dl AST (13-39) U/L ALT (7-52) U/L Alkaline Phosphatase (34-104) U/L Total Protein (6.0-8.3) gm/dl Albumin (3.4-5.0) gm/dl Globulin (2.5-4.0) gm/dl Albumin/Globulin Ratio (0.9-2) Procalcitonin (0-0.5) ng/ml TSH (0.300-4.500) uIu/ml Urine Color Urine Appearance (Clear) Urine pH (4.5-7.5) Ur Specific Felt (1.000-1.030) Urine Protein (Negative) Urine Glucose (UA) (Negative) Urine Ketones (Negative) Urine Blood (Negative) Urine Nitrite (Negative) Urine Bilirubin (Negative) Urine Urobilinogen (Negative) Ur Leukocyte Esterase (Negative) Urine WBC (Auto) (0-5) /hpf Urine RBC (Auto) (0-2) /hpf U Hyaline Cast (Auto) (0-2) /lpf U Epithel Cells (Auto) (0-2) /hpf Urine Bacteria (Auto) (None Seen) Adenovirus (PCR) (NotDetected) B. pertussis DNA (PCR) (NotDetected) B.parapertussis DNA PCR (NotDetected) C. pneumoniae DNA (PCR) (NotDetected) Coronavirus OC43 (PCR) (NotDetected) Coronavirus HKU1 (PCR) (NotDetected) Coronavirus 229E (PCR) (NotDetected) SARS-CoV-2 (PCR) (NotDetected) Coronavirus NL63 (PCR) (NotDetected) Enterobacterales (PCR) DETECTED A (NotDetected) E. coli (PCR) DETECTED A (NotDetected) Human Metapneumovir PCR (NotDetected) Influenza Type A (PCR) (NotDetected) Influenza Type B (PCR) (NotDetected) M. pneumoniae (PCR) (NotDetected) Parainfluenza 1 (PCR) (NotDetected) Parainfluenza 2 (PCR) (NotDetected) Parainfluenza 3 (PCR) (NotDetected) Parainfluenza 4 (PCR) (NotDetected) RSV (PCR) (NotDetected) Entero/Rhino (PCR) (NotDetected) mcr-1 Colistin Res Gene PCR Not Detected (NotDetected) blaIMP Car res Gene PCR Not Detected (NotDetected) KPC-Carbap Res Gene PCR Not Detected (NotDetected) blaNDM Car Res Gene PCR Not Detected (NotDetected) OXA-48 Carbapenem Resis Gene (PCR) Not Detected (NotDetected) blaVIM Car Res Gene PCR Not Detected (NotDetected) CTX-M Gene Resistance (PCR) Not Detected (NotDetected) Bld Cult ID Panel PCR See PCR Comment (NotDetected) Administered Medications Acetaminophen (Acetaminophen 325 Mg Tab) 650 mg PO Q4H PRN PRN Reason: pain/fever Stop: 02/02/24 16:30 Last Admin: 01/03/24 20:28 Dose: 650 mg Documented By: LULU Calcium Carbonate (Calcium Carbonate 500 Mg Chewable Tab) 500 mg PO BIDM ERICA Stop: 02/02/24 16:59 Last Admin: 01/03/24 18:09 Dose: 500 mg Documented By: TYSON Enoxaparin Sodium (Enoxaparin Inj 40 Mg/0.4 Ml Syr) 40 mg SQ Q24H ERICA Stop: 02/02/24 16:59 Last Admin: 01/03/24 18:09 Dose: 40 mg Documented By: TYSON Melatonin (Melatonin 3 Mg Tab) 6 mg PO HSZ PRN PRN Reason: Insomnia Stop: 02/02/24 16:36 Last Admin: 01/03/24 20:28 Dose: 6 mg Documented By: LULU Metoprolol Succinate (Metoprolol Succ 25mg Ext Rel Tab) 25 mg PO BID ERICA Stop: 02/02/24 20:59 Last Admin: 01/03/24 20:28 Dose: 25 mg Documented By: LULU Sacubitril/Valsartan (Valsartan/Sacubitril 26/24mg Tab) 1 tab PO BID ERICA Stop: 02/02/24 20:59 Last Admin: 01/03/24 20:28 Dose: 1 tab Documented By: LULU Discontinued Medications Sodium Chloride (Nss) 500 mls @ 500 mls/hr IV .Q1H ERICA Stop: 01/03/24 12:59 Last Infusion: 01/03/24 14:22 Dose: Infused Documented By: Admin: 01/03/24 12:27 Dose: 500 mls/hr Documented By: DEMARCUS Acetaminophen (Ofirmev) 1,000 mg in 100 mls @ 400 mls/hr IV NOW STA Stop: 01/03/24 12:10 Last Infusion: 01/03/24 14:20 Dose: Infused Documented By: Admin: 01/03/24 12:26 Dose: 400 mls/hr Documented By: DEMARCUS Calcium Gluconate () 1,000 mg in 60 mls @ 240 mls/hr IV NOW STA Stop: 01/03/24 13:24 Last Infusion: 01/03/24 14:21 Dose: Infused Documented By: Admin: 01/03/24 14:05 Dose: 240 mls/hr Documented By: DEMARCUS Ceftriaxone Sodium (Rocephin) 2,000 mg in 50 mls @ 100 mls/hr IV NOW STA Stop: 01/03/24 14:42 Last Infusion: 01/03/24 16:45 Dose: Infused Documented By: Admin: 01/03/24 14:35 Dose: 100 mls/hr Documented By: ALS Discharge Plan Visit Data Chief Complaint: Weakness Stated Complaint: WEAK, DIARRHEA, HAS DEMENTIA ED Provider: Emiliano Collado Discharge Problem: Sepsis, Generalized weakness, UTI (urinary tract infection) Patient Disposition: Admitted As Inpatient Discharge Instructions Interventions: ED Discharge Assessment Last Done: 01/03/24 16:02 Discharge Problem: Sepsis Qualifiers: Sepsis type: sepsis due to unspecified organism Sepsis acute organ dysfunction status: without acute organ dysfunction Qualified Code(s): A41.9 - Sepsis, unspecified organism UTI (urinary tract infection) Qualifiers: Urinary tract infection type: acute cystitis Hematuria presence: with hematuria Qualified Code(s): N30.01 - Acute cystitis with hematuria
[2024-01-03] MEDS: ACETAMINOPHEN 1,000 MG/100 ML VIAL IV STA (12:26)
[2024-01-03] MEDS: SODIUM CHLORIDE 0.9% 500 ML IV SCH (12:27)
--- NOTE | 2024-01-03 12:29 | XRay Report ---
XR chest 1V portable CLINICAL HISTORY: weakness COMPARISON STUDY: Chest CT April 23, 2023. Chest radiograph April 25, 2023. FINDINGS: There is no pneumothorax. Blunting of the left costophrenic angle is likely chronic. No def inite pleural effusion. Linear left basilar densities favor atelectasis. There is no consolidation to suggest pneumonia. Moderate cardiomegaly is again noted. There is no evidence for pulmonary edema. IMPRESSION: No acute cardiopulmonary findings. Cardiomegaly. ACT 112: Negative or not required by law. Electronically signed by: Heriberto Howard M.D. 01/03/2024 12:27 PM
[2024-01-03 13:00] LABS: Albumin Level 3.4 gm/dl (3.4-5.0); Anion Gap 10 (3-11); Bilirubin,Total 0.8 mg/dl (0.2-1.0); Calcium 8.2 mg/dl (8.6-10.3); Carbon Dioxide 22 mmol/L (21-32); Chloride 105 mmol/L (98-107); Magnesium 1.8 mg/dl (1.7-2.4); Potassium 3.4 mmol/L (3.5-5.1); Sodium 137 mmol/L (136-145)
[2024-01-03 13:01] LABS: Basophils # (auto) 0.02 K/uL (0.00-0.20); Basophils % (auto) 0.2 %; Eosinophils # (auto) 0.01 K/uL (0.00-0.50); Eosinophils % (auto) 0.1 %; Hematocrit (blood only) 39.1 % (37.0-47.0); Hemoglobin 13.1 g/dl (12.0-16.0); Immature Granulocytes # (auto) 0.29 K/uL (0.01-0.20); Immature Granulocytes % (auto) 2.5 %; Lymphocytes # (auto) 0.66 K/uL (1.20-3.40); Lymphocytes % (auto) 5.8 %; Mean Corpuscular Hemoglobin 30.3 pg (25.0-34.0); Mean Corpuscular Hgb Conc 33.5 g/dL (32.0-36.0); Mean Corpuscular Volume 90.3 fL (80.0-100.0); Monocytes # (auto) 1.17 K/uL (0.11-0.59); Monocytes % (auto) 10.3 %; Neutrophils # (auto) 9.26 K/uL (1.40-6.50); Neutrophils % (auto) 81.1 %; Platelet Count 139 K/uL (130-400); RDW Coefficient of Variation 13.2 % (11.5-14.5); RDW Standard Deviation 43.5 fL (36.4-46.3); Red Blood Count 4.33 M/uL (4.20-5.40); White Blood Count 11.41 K/ul (4.8-10.8)
[2024-01-03 13:06] LABS: Alanine Aminotransferase 8 U/L (7-52); Albumin Globulin Ratio 1.4 (0.9-2); Alkaline Phosphatase 59 U/L (34-104); Aspartate Aminotransferase 12 U/L (13-39); BUN Creatinine Ratio 15.8 (10-20); Blood Urea Nitrogen 15 mg/dl (6-23); Globulin 2.4 gm/dl (2.5-4.0); Glucose 110 mg/dl (70-99(Fasting)); Total Protein 5.8 gm/dl (6.0-8.3)
[2024-01-03 13:14] LABS: Appearance Urine Turbid (Clear); Bacteria Urine Automated 4+ (None Seen); Bilirubin Urine Negative (Negative); Blood Urine 1+ (Negative); Color Urine Yellow; Glucose Urine UA Negative (Negative); Ketones Urine Negative (Negative); Leukocyte Esterase Urine 3+ (Negative); Nitrite Urine Positive (Negative); Protein Urine 2+ (Negative); RBC Urine Automated 0-2 /hpf (0-2); Specific Gravity Urine 1.011 (1.000-1.030); Urobilinogen Urine Negative (Negative); WBC Urine Automated >50 /hpf (0-5); pH Urine 5.5 (4.5-7.5)
[2024-01-03 13:15] LABS: Cast Urine Automated 0-2 /lpf (0-2)
[2024-01-03 13:25] LABS: Adenovirus PCR Not Detected (NotDetected); Bordetella parapertussis PCR Not Detected (NotDetected); Bordetella pertussis PCR Not Detected (NotDetected); Chlamydia pneumoniae PCR Not Detected (NotDetected); Coronavirus 229E PCR Not Detected (NotDetected); Coronavirus CoV-2 (COVID19)PCR Not Detected (NotDetected); Coronavirus HKU1 PCR Not Detected (NotDetected); Coronavirus NL63 PCR Not Detected (NotDetected); Coronavirus OC43PCR Not Detected (NotDetected); Human Metapneumovirus PCR Not Detected (NotDetected); Influenza A PCR Not Detected (NotDetected); Influenza B PCR Not Detected (NotDetected); Mycoplasma pneumoniae PCR Not Detected (NotDetected); Parainfluenza Virus 1 PCR Not Detected (NotDetected); Parainfluenza Virus 2 PCR Not Detected (NotDetected); Parainfluenza Virus 3 PCR Not Detected (NotDetected); Parainfluenza Virus 4 PCR Not Detected (NotDetected); Respiratory Syncytial VirusPCR Not Detected (NotDetected); Rhinovirus/Enterovirus PCR Not Detected (NotDetected)
[2024-01-03 13:25] LABS: Thyroid Stimulating Hormone 3.242 uIu/ml (0.300-4.500)
[2024-01-03] MEDS: CALCIUM GLUCONATE 1,000 MG/60 ML BAG IV STA (14:05)
[2024-01-03] MEDS: cefTRIAXone SODIUM 2,000 MG/50 ML BAG IV STA (14:35)
--- NOTE | 2024-01-03 14:57 | History & Physical Report ---
Date of Service January 03, 2024 Assessment & Plan (1) UTI (urinary tract infection): (2) Generalized weakness: Plan: This is a 78 yo F with a PMH of HFrEF (EF 35% Mar 2023), HTN, PVCs, Alzheimer's dementia, history of breast cancer (h/o partial mastectomy) and other medical problems listed below who presents with generalized weakness and poor p.o. intake x 4 days and was found to have a UTI. Afebrile, WBC 11K Tachycardia noted on admission, improved with 500ml NSS in ED Caution with further fluids given underlying HFrEF with EF of 35% Non-toxic, does not meet sepsis criteria UA grossly abnormal Continue empiric Rocephin Follow urine culture (3) HFrEF (heart failure with reduced ejection fraction): (4) NICM (nonischemic cardiomyopathy): Plan: TTE from Mar 2023 with EF 35% Appears euvolemic on exam Continue lasix 40mg daily, Entresto, Toprol No longer taking spironolactone per (5) Hypertension: Plan: Continue Entresto, Toprol as above (6) PVC (premature ventricular contraction): Plan: Continue Toprol (7) AD (Alzheimer's disease): Plan: Oriented to person only, knows at bedside. Is at mentation baseline (8) History of breast cancer: Plan: H/o partial mastectomy. Continue Tamoxifen DVT Ppx: SQ lovenox Code status: FULL per discussion with /POA PCP: Raúl Dispo: admitted to med surg Patient seen in collaboration with Dr. Troncoso. Please see addendum. I spent a total of 75 minutes coordinating, documenting, and providing care for this patient excluding time spent in the performance of separately billed services. History of Present Illness Chief Complaint: urinary symptoms, diarrhea Primary Care Provider: David Olsen MD This is a 78 yo F with a PMH of HFrEF (EF 35% Mar 2023), HTN, PVCs, Alzheimer's dementia, history of breast cancer (h/o partial mastectomy) and other medical problems listed below who presents with generalized weakness and poor p.o. intake x 4 days. History primarily obtained from /POA at bedside due to patient's Alzheimer's dementia. States that she has been noticeably more generally weak over the past few days, requiring help with ambulation and not having much p.o. intake at all. Had 2 episodes of diarrhea overnight but none since arrival. denies any urinary incontinence but feels she has been urinating more than usual. Patient typically ambulates independently at baseline. manages medications. Has home care in the mornings for her and otherwise is her primary environmental inspector. Patient no longer taking spironolactone and reduced Lasix to 40 mg daily, per discussion with PCP. ROS unobtainable due to patient's cognitive state. Allergies Allergy/AdvReac Type Severity Reaction Status Date / Time bee venom protein (honey bee) Allergy Intermediate EXTRA Verified 10/18/20 20:45 SWELLING AT SITE Sulfa (Sulfonamide Allergy Mild Unknown Verified 10/18/20 20:45 Antibiotics) bupropion Allergy Unknown unknown Verified 10/18/20 20:45 pneumococcal vaccine Allergy Unknown FEVER, Verified 10/18/20 20:45 [From Pneumovax 23] CHILLS, BODY ACHES, VOMITING Home Medications Medication Instructions Recorded Confirmed Type tamoxifen 20 mg tablet 20 mg PO QAM 06/29/19 01/03/24 History tramadol 50 mg tablet 50 mg PO TID PRN Moderate Pain 09/04/20 01/03/24 History (Scale Score 5-6) calcium carbonate (Calcium 600) 600 mg PO BID 09/21/20 01/03/24 History montelukast 10 mg tablet 10 mg PO QAM 10/18/20 01/03/24 History (Singulair) benzonatate 100 mg capsule 100 mg PO HS PRN Cough 04/23/23 01/03/24 History cholecalciferol (vitamin D3) 125 125 mcg PO QAM 04/23/23 01/03/24 History mcg (5,000 unit) tablet (Vitamin D3) cyanocobalamin (vitamin B-12) 500 500 mcg PO DAILY 04/23/23 01/03/24 History mcg lozenges (Vitamin B-12) fluticasone propionate 50 2 spray intranasal DAILY 04/23/23 01/03/24 History mcg/actuation nasal spray,suspension metoprolol succinate 25 mg 25 mg PO UD 04/23/23 01/03/24 History tablet,extended release 24 hr multivitamin 1 tab PO DAILY 04/23/23 01/03/24 History potassium chloride 20 mEq 20 meq PO QAM 04/23/23 01/03/24 History tablet,extended release(part/cryst) furosemide 20 mg tablet 40 mg (2 x 20 mg) PO DAILY #60 tabs 04/26/23 01/03/24 Rx sacubitril 24 mg-valsartan 26 mg 1 tab PO BID #60 tabs 04/26/23 01/03/24 Rx tablet (Entresto) melatonin 5 mg capsule 5 mg PO HS PRN Insomnia 01/03/24 01/03/24 History Past Med/Surg History Problem List (Updated 01/03/24 @ 15:35 by Tracey Gauthier PA-C) Generalized weakness UTI (urinary tract infection) Medical History (Updated 01/03/24 @ 15:35 by Tracey Gauthier PA-C) History of breast cancer AD (Alzheimer's disease) HFrEF (heart failure with reduced ejection fraction) NICM (nonischemic cardiomyopathy) PVC (premature ventricular contraction) Hypertension Peptic ulcer disease HX Anemia Migraine HX Surgical History (Updated 01/03/24 @ 15:35 by Tracey Gauthier PA-C) History of cataract surgery right S/P lumpectomy, left breast History of colonoscopy Hx of lumpectomy LEFT History of tonsillectomy History of tooth extraction Family History Other Cancer Hypertension Social History Smoking Status: Never smoker Second Hand Exposure: No; Do You Dip or Chew Tobacco: No; Hx Alcohol Use: No Hx Substance Use: No Preferred Language: Belarusian Communication Ability: Impaired Early Childhood Coordinator Required: No Beliefs That Will Affect Care: None Current Living Situation: Spouse Other Information That Helps Us Care for You: No Feels Safe at Home: Yes Safety Concerns: Feels Safe At This Time Assistive Devices: None Review of Systems Review of Systems: Unobtainable due to cognitive status Physical Exam Physical Exam: General Appearance: WD/WN, vitals as above, NAD, sitting up in bed, pleasantly confused Head: normocephalic, atraumatic Eyes: normal inspection, PERRL, conjunctivae normal, anicteric sclerae ENT: external ear and nose normal, oropharynx normal Neck: normal visual inspection, trachea midline, no thyromegaly Respiratory: normal respiratory effort, lungs clear to auscultation, no wheeze, rales, rhonchi. No accessory muscle use Cardiovascular: regular rate with occasional ectopic beat, rhythm, normal peripheral pulses, no BLE edema. Vessels: no JVD Chest: normal inspection of chest Abdomen/GI: normal bowel sounds, soft, nontender, no hepatosplenomegaly Extremities/Musculoskeletal: no cyanosis or clubbing, extremities motor strength 5/5 Neurologic: PERRL, EOMI, accommodation nl, no face palsy, no dysarthria, CN's II-XI intact bilaterally and moves all extremities Psychiatric: A+Ox person, euthymic affect Skin: no rashes, normal color, warm/dry Results & Data Results & Data Vital Signs (Past 12 Hours) Vital Signs Temp Pulse Pulse Resp BP BP Pulse Ox 01/03/24 14:17 77 20 133/73 95 01/03/24 12:03 107 H 18 126/61 01/03/24 11:58 109 H 01/03/24 11:56 95 H 94 01/03/24 11:27 36.5 C 97 H 22 151/97 H 98 01/03/24 11:23 92 01/03/24 11:23 O2 Del Method O2 Flow Rate 01/03/24 14:17 Room Air 01/03/24 12:03 01/03/24 11:58 01/03/24 11:56 Room Air 01/03/24 11:27 Room Air 01/03/24 11:23 Room Air 01/03/24 11:23 Room Air 92 Laboratory Results Short CBC 01/03/24 Range/Units 12:26 WBC 11.41 H (4.8-10.8) K/ul Hgb 13.1 (12.0-16.0) g/dl Hct 39.1 (37.0-47.0) % Plt Count 139 (130-400) K/uL BMP 01/03/24 12:26 Sodium 137 Potassium 3.4 L Chloride 105 Carbon Dioxide 22 BUN 15 Creatinine 0.95 Glucose 110 H Calcium 8.2 L Liver Function 01/03/24 Range/Units 12:26 Total Bilirubin 0.8 (0.2-1.0) mg/dl AST 12 L (13-39) U/L ALT 8 (7-52) U/L Alkaline Phosphatase 59 (34-104) U/L Albumin 3.4 (3.4-5.0) gm/dl Urine 01/03/24 Range/Units 12:45 Urine Color Yellow Urine Appearance Turbid A (Clear) Urine pH 5.5 (4.5-7.5) Ur Specific [place] 1.011 (1.000-1.030) Urine Protein 2+ H (Negative) Urine Glucose (UA) Negative (Negative) Diagnostic Findings Chest X-Ray 01/03/24 11:56 XR chest 1V portable CLINICAL HISTORY: weakness COMPARISON STUDY: Chest CT April 23, 2023. Chest radiograph April 25, 2023. FINDINGS: There is no pneumothorax. Blunting of the left costophrenic angle is likely chronic. No definite pleural effusion. Linear left basilar densities favor atelectasis. There is no consolidation to suggest pneumonia. Moderate cardiomegaly is again noted. There is no evidence for pulmonary edema. IMPRESSION: No acute cardiopulmonary findings. Cardiomegaly. ACT 112: Negative or not required by law. Electronically signed by: Heriberto Howard M.D. 01/03/2024 12:27 PM ECG Additional Comments: EKG reviewed- sinus tach, LAD, no acute ST elevations Supervising Physician Co-Signing Physician Notes Pt was seen and examined by myself, Britta Troncoso MD on the day of service. Care was coordinated with Tracey Gauthier PA-C. 78yoF presenting with weakness, AAOx2. UA suggestive of infection, follow cx, continue rocephin until then Not septic at this time PT/OT Replete K with scheduled daily KCL and prn doses Otherwise as above. I spent a total [id number] coordinating, documenting, and providing care for this patient excluding time spent in the performance of separately billed services (5) Hypertension Hypertension type: primary hypertension Qualified Code(s): I10 - Essential (primary) hypertension
[2024-01-03] MEDS ORDERED: POLYETHYLENE (MIRALAX) 17 GM PACK PO PRN (16:31)
[2024-01-03] MEDS: ENOXAPARIN INJ 40 MG/0.4 ML SYR SQ SCH (18:09)
[2024-01-03] MEDS: CALCIUM CARBONATE 500 MG CHEWABLE TAB PO SCH (18:09)
[2024-01-03] MEDS: ACETAMINOPHEN 325 MG TAB PO PRN (20:28)
[2024-01-03] MEDS: METOPROLOL SUCC 25MG EXT REL TAB PO SCH (20:28)
[2024-01-03] MEDS: VALSARTAN/SACUBITRIL 26/24MG TAB PO SCH (20:28)
[2024-01-03] MEDS: MELATONIN 3 MG TAB PO PRN (20:28)
--- OUTSIDE RECORDS SUMMARY | 2024-01-03 21:10 | External Medical Summary | Summary of Care ---
Author Name Unknown Organization [facility] Address [address] [place] [address] Phone [phone] Care Team Providers Care Hunting And Fishing Guide Name Role Phone Molly Olsen MD Primary Care Provider Reason for Visit * Reason Onset Date Comments Medication Refill 12/31/2023 Encounter Details Date Type Department Care Team (Late st Contact Info) Description 12/31/2023 Refill [facility] [address] [place] [address] Molly Olsen MD [address] [place] [address] Allergies Active Allergy Reactions Criticality Noted Date Comments Bupropion Itching Low 11/03/2010 Cephalexin Hives Low 04/29/2005 Nitrofurantoin Monohyd Macro Hives 012 Pneumococcal Vaccine Nausea/vomiting 08/03/2010 Sulfa Antibiotics Rash Low 02/28/1999 documented as of this encounter (statuses as of 12/31/2023) Medications Medication Sig Dispensed Refills Start Date End Date Status MULTI-VITAMIN PO TABS 1 daily 0 04/22/2007 Active Fluticasone Propionate 50 MCG/ACT Nasal SuspensionIndicatio ns:Post-nasal drip Administer 2 Sprays into each nostril daily. 16 g 1 06/03/2020 Active Vitamin D3 125 MCG (5000 UT) Oral Capsule Take 1 Capsule by mouth in the morning. 3 Cap 06/17/2020 Active B-12 500 MCG Sublingual Tablet Sublingual Place 1 Tablet under the tongue once. 30 Tab 06/17/2020 Active Triamcinolone Acetonide 0.1 % External Ointment (Aristocort)Indicat ions:Dermatitis of lip Apply topically to affected area 2 times a day. Apply 2x daily (or more if itchy/painful instead of licking) to lips until resolved 30 g 08/01/2020 Active Additional Information Patient not taking.Reported on 09/22/2023 Calcium Carbonate 600 MG Oral Tablet Take 1 Tablet by mouth 2 times a day with morning and evening meals. Active Potassium Chloride Rimma ER 20 MEQ Oral Tablet Extended Release Take 1 Tablet by mouth in the morning. 30 Tablet 1 03/29/2023 Active Furosemide 20 MG Oral Tablet (Lasix) Take 1 Tablet by mouth every evening. Around 2-4 pm 90 Tablet 3 04/08/2023 Active guaiFENesin ER 600 MG Oral Tablet Extended Release 12 Hour (Mucinex) Take 1 Tablet by mouth 2 times a day as needed for Congestion. Take with plenty of water. Do not cut, crush or chew 40 Tablet 2 04/15/2023 Active Benzonatate 100 MG Oral Capsule Take 1 Capsule by mouth at bedtime as needed for Cough. 30 Capsule 1 04/15/2023 Active Additional Information Patient not taking.Reported on 09/22/2023 Melatonin 5 MG Oral Capsule Take 1 Capsule by mouth at bedtime. 04/26/2023 Active Spironolactone 25 MG Oral Tablet (Aldactone)Indicati ons:Cardiomyopathy, unspecified type (HCC) Take 1 Tablet by mouth in the morning. 90 Tablet 3 04/29/2023 Active Additional Information Patient not taking.Reported on 09/22/2023 traMADol HCl 50 MG Oral Tablet (Ultram)Indications :Chronic pain disorder Take 1 Tablet by mouth 3 times a day as needed for Pain, Moderate. 90 Tablet 1 04/29/2023 Active Montelukast Sodium 10 MG Oral Tablet (Singulair) Take 1 Tablet by mouth in the morning. 90 Tablet 3 05/12/2023 Active Furosemide 40 MG Oral Tablet (Lasix)Indications: Pleural effusion Take 1 Tablet by mouth in the morning. Take an additional tablet as needed or as directed for fluid retention.. 120 Tablet 3 05/12/2023 Active Ibuprofen 200 MG Oral Tablet (Advil) Take by mouth 2 times a day as needed for Pain, Moderate. Takes 1-2 tabs when needed Active Potassium Chloride ER 10 MEQ Oral Capsule Extended ReleaseIndications: Other cardiomyopathy (HCC) Take 2 Capsules by mouth in the morning. 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 90 Tablet 3 09/08/2023 Active Sacubitril-Valsarta n 24-26 MG Oral Tablet (Entresto) Take 1 Tablet by mouth in the morning and 1 Tablet before bedtime. 60 Tablet 3 12/31/2023 Active Sacubitril-Valsarta n 24-26 MG Oral Tablet (Entresto) Take 1 Tablet by mouth in the morning and 1 Tablet before bedtime. 60 Tablet 3 05/19/2023 12/31/19 24 Discontinu ed(Refill) documented as of this encounter (statuses as of 12/31/2023) Active Problems Problem Noted Date Diagnosed Date [...] Staging:Clinical:Stage IB(ycT1b, cN0(sn), cM0, G3, ER: Positive, NV: Positive, HER2: Negative) - Unsigned History of adenomatous polyp of colon 07/07/2017 Cerebral meningioma 09/15/2016 Overview: cribriform plate Dyslipidemia, goal LDL below 70 05/22/2013 CLASSICAL MIGRAINE WITHOU MENTION OF INTRACTABLE MIGRAINE 02/28/1999 Senile osteoporosis 02/28/1999 Essential hypertension with goal blood pressure less than 140/90 02/28/1999 documented as of this encounter (statuses as of 12/31/2023) Resolved Problems Problem Noted Date Diagnosed Date [...] as of this encounter (statuses as of 12/31/2023) Immunizations Name Administration Dates Next Due Pneumococcal Polysaccharide PPV23 (Pneumovax) 08/01/2010 Season Influenza, Quad, PF, Adjuvanted, 65+ Yrs, IM (FLUAD) 04/01/2020 Seasonal Influenza Virus Vac cine, Unspecified Formulation 05/13/2006 Seasonal Influenza, PF, 6 M & above, IM , (FluLaval or Fluzone) 04/03/2019,05/03/2018,03/23/2017 Seasonal Influenza, Quadriva lent Hd (Fluzone Hd) 05/26/2022,03/19/2021 Seasonal Influenza, Quadriva lent, No Preserve, IM 04/14/2016,05/29/2015 Seasonal Influenza, Split, I IV3, With Preserve, Inj 05/23/2014,06/12/2013,05/19/2012,06/2010,03/28/2010,04/05/2009,04/16/20 08,04/22/2007 05/23/2015 TD, Preservative Free 05/02/2020 TDAP, Age 7 and older, IM (Adacel) 04/26/2008 documented as of this encounter Social History Tobacco Use Types Packs/Day Years Used Date Smoking Tobacco: Never Passive Smoke Exposure: Past Smokeless Tobacco: Never Alcohol Use Standard Drinks/Week Comments No 0 (1 standard drink = 0.6 oz pur e alcohol) PHQ-2 Answer Date Recorded PHQ-2 Score 0 04/01/2020 Hunger Vital Sign Answer Date Recorded Within the past 12 months, y ou worried that your food would run out before you got the money to buy more. Never true 04/27/20 23 Within the past 12 months, t he food you bought just didn't last and you didn't have money to get more. Never true 04/27/2023 Childcare Answer Date Recorded Do you feel overwhelmed with taking care of a child, family member or friend? No 04/27/2023 Does your family need help f inding childcare? (Household - for ages 0-17 years) Not on file 04/27/2023 Clothing Answer Date Recorded Have you been unable to get clothing when it was really needed? No 04/27/2023 Is your family able to get c lothes or diapers when needed? (Household - for ages 0-17 years) Not on file 04/27/2023 Personal Safety Answer Date Recorded Do you feel unsafe or have concerns for your saf ety? No 04/27/2023 Do you have concerns for you r family's safety? (Household - for ages 0-17 years) Not on file 04/27/2023 Utilities Answer Date Recorded Do you have trouble paying y our heating, water, or electric bill? No 04/27/2023 Is your family able to pay t he heat, water, or electric bill? (Household - for ages 0-17 years) Not on file 04/27/2023 Does your family have access to good internet? (Household - for ages 0-17 years) Not on file 04/27/2023 Employment Status Answer Date Recorded Are you unemployed or without regular income? No 04/27/2023 Does the household have a re lar source of income? (Household - for ages 0-17 years) Not on file 04/27/2023 Social Connections Answer Date Recorded How often do you feel lonely or isolated from those around you? Sometimes 04/27/2023 Financial Resource Strain Answer Date R ecorded Do you have any trouble payi ng for your medications, or do you think you might in the future? No 04/27/2023 Does your family have troubl e paying for medicine? (Household - for ages 0-17 years) Not on file 04/27/2023 Transportation Needs Answer Date Record ed READ ONLY Do you have troubl e getting a ride to medical visits or work? Never True 04/27/2023 Does your family have a hard time getting a ride to doctors visits? (Household - for ages 0-17 years) Not on file 04/27/2023 Has lack of transportation k ept you from medical appointments, meetings, work, or from getting things needed for daily living? Check all that apply. (Adult - for ages 18 years and over) Not on file 04/27/2023 Do you (or your family) have trouble finding or paying for a ride (transportation)? (Household - for ages 0-17 years) Not on file 04/27/2023 Housing Stability Answer Date Recorded Do you currently live in a s helter or have no steady place to sleep at night? No 04/27/2023 READ ONLY Do you think you a re at risk of becoming homeless? No 04/27/2023 Does your family worry about paying for your home or becoming homeless? (Household - for ages 0-17 years) Not on file 1 06/27/2022 Are you homeless or worried that you might be in the future? (Adult - for ages 18 years and over) Not on file Are you (or your family) jessica eless or worried that you might be in the future? (Household - for ages 0-17 years) Not on file Food Insecurity Answer Date Recorded Do you need food for this week? No 04/27/2023 Are you able to get enough f ood for your family? (Household - for ages 0-17 years) Not on file 04/27/2023 Does your family need food t his week? (Household - for ages 0-17 years) Not on file 04/27/2023 Do you always have enough fo od for your family? (Household - for ages 0-17 years) Not on file 04/27/2023 Sex and Gender Information Value Date Recorded Sex Assigned at Female 07/24/2019 11:19 AM EST Gender Identity Female 07/24/2019 11:19 AM EST Sexual Orientation Straight 07/24/2019 11 :19 AM EST Job Start Date Occupation Industry Not on file Not on file Not on file documented as of this encounter Miscellaneous Notes * Telephone Encounter - Molly Olsen MD - 12/31/2023 2:05 PM EDTSigned Prescriptions: Disp Refills Sacubitril-Valsartan 24-26 MG Oral Tablet *60 Tab*3 Sig: Take 1 Tablet by mouth in the morning and 1 Tablet before bedtime. Authorizing Provider: MOLLY OLSEN * Telephone Encounter - Kisha Crandall [facility] - 12/31/2023 12:50 PM EDTPending Prescriptions: Disp Refills Sacubitril-Valsartan 24-26 MG Oral Tablet *60 Tab*3 Sig: Take 1 Tablet by mouth in the morning and 1 Tablet before bedtime. * Telephone Encounter - Kisha Crandall [facility] - 12/31/2023 12:49 PM EDT [facility] is currently not authorized to approve refills for the pended medication(s) per refill protocol. Please approve if appropriate. Did you pend patient's preferred pharmacy and medication before forwarding?yes Pharmacy: [facility] [id number] Pending Prescriptions: Disp Refills Sacubitril-Valsartan 24-26 MG Oral Tablet *60 Tab*3 Sig: Take 1 Tablet by mouth in the morning and 1 Tablet before bedtime. Last Visit: 09/22/2023 (in office), 05/30/2020 (telemedicine) Next Visit: 03/29/2024 If no future appointments scheduled, and last appointment is greater than a year ago, please schedule patient for a follow-up appointment Last date the medication was ordered: 05/19/23 Is this request for a controlled substance?No [...] Labs: Lab Results Component Value Date/Time CREAT 0.8 04/29/2023 11:35 AM CREAT 0.66 09/21/2020 12:00 AM CREAT 0.8 06/25/2020 04:36 PM POTASSIUM 4.5 04/29/2023 11:35 AM POTASSIUM 3.9 09/21/2020 12:00 AM POTASSIUM 4.2 06/25/2020 04:36 PM TSH 2.16 05/26/2022 02:13 PM TSH 1.79 11/24/2017 11:13 AM LDLCALC 133 (H) 03/22/2012 12:21 PM LDLDIRECT 60 01/03/2020 08:43 AM ALT 14 03/30/2023 11:12 AM ALT 11 01/03/2020 08:43 AM Thank You, Kisha Crandall [facility] Pharmacist Telepharmacy [phone] 12/31/2023, 12:49 PM * Telephone Encounter - Cande Bradley animal care assistant - 12/31/2023 9:05 AM EDT Did you pend patient's preferred pharmacy and medication before forwarding?yes Pharmacy: [facility] [id number] Pending Prescriptions: Disp Refills Sacubitril-Valsartan 24-26 MG Oral Tablet*60 Tab*3 Sig: Take 1 Tablet by mouth in the morning and 1 Tablet before bedtime. Last Visit: 09/22/2023 (in office), 05/30/2020 (telemedicine) Next Visit: 03/29/2024 If no future appointments scheduled, and last appointment is greater than a year ago, please schedule patient for a follow-up appointment Last date the medication was ordered: 05/19/2023 Is this request for a controlled substance?No [...] Labs: Lab Results Component Value Date/Time CREAT 0.8 04/29/2023 11:35 AM CREAT 0.66 09/21/2020 12:00 AM CREAT 0.8 06/25/2020 04:36 PM POTASSIUM 4.5 04/29/2023 11:35 AM POTASSIUM 3.9 09/21/2020 12:00 AM POTASSIUM 4.2 06/25/2020 04:36 PM TSH 2.16 05/26/2022 02:13 PM TSH 1.79 11/24/2017 11:13 AM LDLCALC 133 (H) 03/22/2012 12:21 PM LDLDIRECT 60 01/03/2020 08:43 AM ALT 14 03/30/2023 11:12 AM ALT 11 01/03/2020 08:43 AM documented in this encounter Plan of Treatment Upcoming Encounters Date Type Department Care Team (Late st Contact Info) Description 03/29/2024 4:20 PM EDT Office Visit [facility] [address] [place] [facility] [place] [address] Molly Olsen MD [address] [place] [facility] [address] Scheduled Procedures Name Priority Associated Diagnoses Date/Ti me COLONOSCOPY FLEXIBLE PROXIMAL DIAGNOSTIC Recall FH: GI cancer Health Maintenance Due Date Last Done Comments Zoster Vaccines (1 of 2) 1994 Pneumococcal Vaccine: 65+ Years (2 of 2 - PCV) 08/01/2011 08/01/2010 Depression Screening 04/01/2021 04/01/2020 *BISPHONATE OR OTHER ACCEPTABLE MEDICATION NEEDED FOR OSTEOPOROSIS (REFER TO SMARTSET #1146) 05/24/2021 DXA Scan 02/04/2022 02/05/2020, 09/12, 11/22/2014, Additional history exists COVID-19 Vaccine ( - 2022- season) 2023 Influenza Vaccine (FLU shot) (#1) 2024 05/26/2022, 03/19/2021, 04/01/2020, Additional history exists Colonoscopy 02/17/2024 02/16/2019, 10/2018, 09/16/2010, Additional history exists GFR 04/29/2024 04/29/2023, 03/14, 10/22/2022, Additional history exists Albumin/Creatinine Ratio 03/30/2026 03/30/2023 DTaP,Tdap,and Td Vaccines (3 - Td or Tdap) 05/02/2030 05/02/2020, 04/26/2008, 02/01/1998 RETIRED - COLONOSCOPY-EVERY 5 YRS AGES 18-100 Discontinued 02/16/2019, 02/16/2019, 09/16/2010, Additional history exists VITAMIN D LEVEL ONCE IN A LIFETIME-USE SMARTSET# 66665 Completed 04/03/2019, 02/25/2018, 09/23/2009 HPV (Gardasil) Vaccine Aged Out No lo nger eligible based on patient's age to complete this topic Hepatitis B Vaccine Aged Out No longe r eligible based on patient's age to complete this topic MENINGOCOCCAL (MENACTRA/MENVEO) Aged Out No longer eligible based on patient's age to complete this topic documented as of this encounter Medical Devices Not on filedocumented as of this encounter Care Teams Hunting And Fishing Guide Relationship Specialty Start Date End Date Molly Olsen MD [address] [place] [address] PCP - General Family Medicine 11/30/19 documented as of this encounter
--- OUTSIDE RECORDS SUMMARY | 2024-01-03 21:11 | External Medical Summary | Summary of Care ---
Author Name Unknown Organization [facility] Address [address] [place] [address] Phone [phone] Care Team Providers Care Multimedia Manager Name Role Phone David Olsen MD Primary Care Provider Reason for Visit * Reason Comments Status Check Increased confusion Encounter Details Date Type Department Care Team (Latest Contact Info) Description 09/22/2023 4:40 PM EDT Office Visit [facility] [address] [place] [address] David Olsen MD [address] [place] [address] Risk and functional assessment*; Dyslipidemia, goal LDL below 70; Essential hypertension with goal blood pressure less than 140/90; Chronic systolic heart failure (HCC); Other cardiomyopathy (HCC); Hyperglycemia Allergies Active Allergy Reactions Criticality Noted Date Comments Bupropion Itching Low 11/03/2010 Cephalexin Hives Low 04/29/2005 Nitrofurantoin Monohyd Macro Hives 012 Pneumococcal Vaccine Nausea/vomiting 08/03/2010 Sulfa Antibiotics Rash Low 02/28/1999 documented as of this encounter (statuses as of 09/22/2023) Medications Medication Sig Dispensed Refills Start Date End Date Status MULTI-VITAMIN PO TABS 1 daily 0 04/22/2007 Active Fluticasone Propionate 50 MCG/ACT Nasal SuspensionIndication s:Post-nasal drip Administer 2 Sprays into each nostril daily. 16 g 1 06/03/2020 Active Vitamin D3 125 MCG (5000 UT) Oral Capsule Take 1 Capsule by mouth in the morning. 3 Cap 0 06/17/2020 Active B-12 500 MCG Sublingual Tablet Sublingual Place 1 Tablet under the tongue once. 30 Tab 0 06/17/2020 Active Triamcinolone Acetonide 0.1 % External Ointment (Aristocort)Indicati ons:Dermatitis of lip Apply topically to affected area 2 times a day. Apply 2x daily (or more if itchy/painful instead of licking) to lips until resolved 30 g 0 08/01/2020 Active Additional Information Patient not taking.Reported on 09/22/2023 Calcium Carbonate 600 MG Oral Tablet Take 1 Tablet by mouth 2 times a day with morning and evening meals. 0 Active Potassium Chloride Rimma ER 20 MEQ [...] Take 1 Capsule by mouth at bedtime. 0 04/26/2023 Active Spironolactone 25 MG Oral Tablet (Aldactone)Indicatio ns:Cardiomyopathy, unspecified type (HCC) Take 1 Tablet by mouth in the morning. 90 Tablet 3 04/29/2023 Active Additional Information Patient not taking.Reported on 09/22/2023 traMADol HCl 50 MG Oral Tablet (Ultram)Indications: Chronic pain disorder Take 1 Tablet by mouth 3 times a day as needed for Pain, Moderate. 90 Tablet 1 04/29/2023 Active Montelukast Sodium 10 MG Oral Tablet (Singulair) Take 1 Tablet by mouth in the morning. 90 Tablet 3 05/12/2023 Active Furosemide 40 MG Oral Tablet (Lasix)Indications:P leural effusion Take 1 Tablet by mouth in the morning. Take an additional tablet as needed or as directed for fluid retention.. 120 Tablet 3 05/12/2023 Active Ibuprofen 200 MG Oral Tablet (Advil) Take by mouth 2 times a day as needed for Pain, Moderate. Takes 1-2 tabs when needed 0 Active Sacubitril-Valsartan 24-26 MG Oral Tablet (Entresto) Take 1 Tablet by mouth in the morning and 1 Tablet before bedtime. 60 Tablet 3 05/19/2023 Active Potassium Chloride ER 10 MEQ Oral Capsule Extended ReleaseIndications:O ther cardiomyopathy (HCC) Take 2 Capsules by mouth in the morning. 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 90 Tablet 3 09/08/2023 Active documented as of this encounter (statuses as of 09/22/2023) Active Problems Problem Noted Date Diagnosed Date [...] as of this encounter (statuses as of 09/22/2023) Resolved Problems Problem Noted Date Diagnosed Date [...] as of this encounter (statuses as of 09/22/2023) Immunizations Name Administration Dates Next Due Pneumococcal [...] money to get more. Never true 04/27/2023 Sex and Gender Information Value Date Recorded Sex Assigned at Female 07/24/2019 11:19 AM EST Gender Identity Female 07/24/2019 11:19 AM EST Sexual Orientation Straight 07/24/2019 11 :19 AM EST Job Start Date Occupation Industry Not on file Not on file Not on file documented as of this encounter Last Filed Vital Signs Vital Sign Reading Time Taken Comments Blood Pressure 110/60 09/22/2023 4:36 PM EDT Pulse 56 09/22/2023 4:36 PM EDT Temperature 36.3 C (97.4 F) 09/22/2023 4:36 PM ED T Respiratory Rate 18 09/22/2023 4:36 PM EDT Oxygen Saturation 97% 09/22/2023 4:36 PM EDT Inhaled Oxygen Concentration - - Weight 68.1 kg (150 lb 3.2 oz) 09/22/2023 4:36 P M EDT Height 149.2 cm (4' 10.75") 09/22/2023 4:36 PM E DT Body Mass Index 30.6 09/22/2023 4:36 PM EDT documented in this encounter Patient Instructions * Patient Instructions* Valerie Valera LPN - 09/22/2023 4:36 PM EDT Patient Instructions - Fall Prevention (This education is for all patients over 65 regardless of symptoms) Remember to take your current medications as prescribed. In order to prevent falls, you are encouraged to: Exercise Utilize assistive/adaptive devices Avoid multifocal lenses when walking Avoid hazards in home Maintain a regular toileting schedule Any questions please contact our office. Preventing Falls in the Home (This education is for all patients over 65 regardless of symptoms) As you get older, falls are more likely. Thats because your reaction time slows. Your muscles and joints may also get stiffer, making them less flexible. Illness, medications, and vision changes can also affect your balance. A fall could leave you unable to live on your own. To make your home safer, follow these tips: Floors Put nonskid pads under area rugs Remove throw rugs Replace worn floor coverings Tack carpets firmly to each step on carpeted stairs. Put nonskid strips on the edges of uncarpeted stairs Keep floors and stairs free of clutter and cords Arrange furniture so there are clear pathways Clean up any spills right away Bathrooms Install grab bars in the tub or shower Apply nonskid strips or put a nonskid rubber mat in the tub or shower Sit on a bath chair to bathe Use bathmats with nonskid backing Lighting Keep a flashlight in each room Put a nightlight along the pathway between the bedroom and the bathroom [employer] Patient Education Copyright 2008 - 2010 Amber except where otherwise noted Preventing Falls: Exercises to Improve Balance, Flexibility, Strength, and Staying Power (This education is for all patients over 65 regardless of symptoms) Certain types of exercises may help make you less likely to fall. Try the ones below. Or do other exercises that your healthcare provider suggests. Depending on your health, you may need to start slowly. Dont let that stop you. Even small amounts of exercise can help you. Be sure to talk to yourhealthcare provider before starting any exercise program. Improve Balance Many types of exercise can help improve balance. William chi and yoga are good examples. Heres another one to try. You can do it anytime and almost anywhere. Stand next to a counter or solid support. Push yourself up onto your tiptoes. Hold for 5 seconds. If you start to lose your balance, hold on to the counter. Rest and repeat 5 times. Work up to holding for 20 to 30 seconds, if you can. Increase Flexibility Being more flexible makes it easier for you to move around safely. Try exercises like the seated hamstring stretch. Sit in a chair and put one foot on a stool. Straighten your leg and reach with both hands down either side of your leg. Reach as far down your leg as you can. Hold for about 20 seconds. Go back to the starting position. Then repeat 5 times. Switch legs. Build Strength Resistance exercises help build strength. You can do them without equipment. Or you can use weights, elastic bands, or special machines. One such exercise is called the biceps curl. You can hold a 1 pound weight or even a can of soup. Do this exercise at least 3 times a week. Strive for everyday. Sit up straight in a chair. Keep your elbow close to your body and your wrist straight. Bend your arm, moving your hand up to your shoulder. Then slowly lower your arm. Repeat 5 times. Switch to the other arm. Build Your Staying Power Aerobic exercises make your heart and lungs stronger so you can keep moving longer. Walking and swimming are two of the best types of exercises you can do. Using a stationary bike is great, too. Find an aerobic exercise that you enjoy. Start slowly and build up. Even 5 minutes is helpful. Aimfor a goal of 30 minutes, at least 3 times a week. You dont have to do 30 minutes in one session. Break it up and walk a little throughout the day. More Helpful Tips Start easy. Slowly work up to doing more. Talk with your healthcare provider about the best exercises for you. Call senior centers or health clubs about exercise programs. If needed, have a family member watch you walk every so often to check your stability. Exercise with a friend. Choose an activity you both enjoy. Try exercises that you can do anytime, anywhere. Here are two examples. Have someone with you when you first try these: Practice walking by placing one foot right in front of the other. Stand up and sit down 10 times. Repeat this throughout the day. [facility] Patient Education Copyright 2009 - 2010 Amber except where otherwise noted. Preventing Falls: Moving Safely Using a Cane or Walker (This education is for all patients over 65 regardless of symptoms) Keep the cane away from your feet so you dont trip. A walking aid, such as a cane or walker, can help you stay more independent and avoid falls. Remember to keep your walking aid within easy reach when youre in a chair or in bed. And learn how to use it safely so you dont injure yourself. Using a Cane If you have a stronger side, hold the cane on that side. Get your balance. Move the cane and your weaker leg forward. Support your weight on both the cane and your weaker side. Step with your stronger leg. Start again from step 1. If youre using a folding walker, be sure you know how to lock it open. Check that its locked open before each use. Using a Walker Roll the walker (or lift it, if youre using one without wheels) forward about 12 inches. Step forward with your weaker leg first. Use the walker to help keep your balance. Bring your other foot forward to the center of the walker. Start again from step 1. Helpful Tips Check with your healthcare provider about the right walking aid to use. Ask about a walker with a seat attached. Check the tips of your cane or walker to make sure they have nonskid covers. Move slowly from room to room. Dont miner. Sit down to get dressed. Use a ady pack or backpack to keep your hands free. Get help for jobs that mean climbing, even on a stepstool. Amber Patient Education Copyright 2008 - 2010 Amber except where otherwise noted. Urinary Incontinence Plan of Care Documentation: (This education is for all patients over 65 regardless of symptoms) Current medications reconciled. Patient encouraged to: Practice kegal exercises Provide education materials Use the restroom every 2 hours throughout the day Limit caffeine, alcohol, spicy foods and acidic foods Keep a bladder diary Limit fluid intake 3-4 hours before bed Lose weight Prevent constipation Take fluid pills at a time when you can get to the bathroom quickly Control sugar better if diabetic Limit fluid intake to 60 oz. per day Wear support stockings (TEDs)if you have edema Valerie Valera LPN 09/22/2023 Kegel Exercises Kegel exercises dont require special clothing or equipment. Theyre easy to learn and simple to do. And if you do them right, no one can tell youre doing them, so they can be done almost anywhere. Your doctor, nurse, or physical therapist can answer any questions you have and help you get started. A Weak Pelvic Floor The pelvic floor muscles may weaken due to aging, and vaginal childbirth, injury, surgery, chronic cough, or lack of exercise. If the pelvic floor is weak, your bladder and other pelvic organs may sag out of place. The urethra may also open too easily and allow urine to leak out. Kegel exercises can help you strengthen your pelvic floor muscles so they can better support the pelvic organs and control urine flow. How Kegel Exercises Are Done Try each of the Kegel exercises described below. When youre doing them, try not to move your leg, buttock, or stomach muscles. While youre urinating, try to stop the flow of urine. Start and stop it as often as you can. Contract as if you were stopping your urine stream, but do it when youre not urinating. Tighten your rectum as if trying not to pass gas. Contract your anus, but dont move your buttocks. Helpful Hints Do your Kegels as often as you can. The more you do them, the faster youll feel the results. Pick an activity you do often as a reminder. For instance, do your Kegels every time you sit down. Tighten your pelvic floor before you sneeze, get up from a chair, cough, laugh, or lift. This protects your pelvic floor from injury and can help prevent urine leakage. Try to hold each Kegel for a slow count to five. You probably wont be able to hold them for thatlong at first, but keep practicing. It will get easier as your pelvic floor gets stronger. Eventually, special weights that you place in your vagina may be recommended to help make your Kegels even more effective. [employer] Patient Education Copyright 2008 - 2010 Amber except where otherwise noted. Here are some helpful tips for your urinary incontinence: (This education is for all patients over 65 regardless of symptoms) Practice Kegel exercises Use the restroom every 2 hours throughout the day Limit caffeine, alcohol, spicy foods, and acidic foods Keep a bladder diary Limit fluid intake 3-4 hours before bed Lose weight Prevent constipation Take fluid pills at a time when can get to the bathroom quickly Control sugar better if diabetic Limit fluid intake to 60 oz. per day Any questions, please feel free to contact our office. documented in this encounter Progress Notes * David Olsen MD - 09/22/2023 5:07 PM EDT Subjective: Savi Edmonds is a 78 year old female. Chief Complaint Patient presents with Status Check Increased confusion HPI: 78-year-old who has a known history of Alzheimer's dementia. She is seen for routine visit accompanied by her . He notes that or short-term memory continues to progressively worsened. Butdespite that, she remains in good mood. She recognizes and can name all of her family members. She has had no delusional thought or paranoia and no signs of aggressive activity. Her has video cameras in the rooms of the house and outside the house so when he is working in the [employer] not that far way he can check his smart phone in inspect those cameras. She was hospitalized in April with decompensation of cardiomyopathy/ heart failure. Review records show that her ejection fraction has slowly been declining dating back 10 years and most recent echo showed an ejection fraction in April of 2023 of 35%. She currently denies shortness of breath and orthopnea and paroxysmal nocturnal dyspnea. Does not have problems with increasing leg edema butshe always has a little bit of edema in the left ankle area. 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) I50.22 Alzheimer's dementia without behavioral disturbance ([facility]) G30.9, F02.80 Hypertensive heart disease with chronic [...] a day with morning and evening meals. Potassium Chloride Rimma ER 20 MEQ Oral Tablet Extended Release Take 1 Tablet by mouth in the morning. 30 Tablet 1 Furosemide 20 MG Oral Tablet (Lasix) Take 1 Tablet by mouth every evening. Around 2-4 pm 90 Tablet 3 guaiFENesin ER 600 MG Oral Tablet Extended Release 12 Hour (Mucinex) Take 1 Tablet by mouth 2 timesa day as needed for Congestion. Take with plenty of water. Do not cut, crush or chew 40 Tablet 2 traMADol HCl 50 MG Oral Tablet (Ultram) Take 1 Tablet by mouth 3 times a day as needed for Pain, Moderate. 90 Tablet 1 Montelukast Sodium 10 MG Oral Tablet (Singulair) Take 1 Tablet by mouth in the morning. 90 Tablet 3 Furosemide 40 MG Oral Tablet (Lasix) Take 1 Tablet by mouth in the morning. Take an additional tablet as needed or as directed for fluid retention.. 120 Tablet 3 Ibuprofen 200 MG Oral Tablet (Advil) Take by mouth 2 times a day as needed for Pain, Moderate. Takes 1-2 tabs when needed Sacubitril-Valsartan 24-26 MG Oral Tablet (Entresto) Take 1 Tablet by mouth in the morning and 1 Tablet before bedtime. 60 Tablet 3 Metoprolol Succinate ER 25 MG Oral Tablet Extended Release 24 Hour (toPROL XL) TAKE 2 TABLETS BY MOUTH IN THE MORNING AND 1 IN THE EVENING 270 Tablet 3 Tamoxifen Citrate 20 MG Oral Tablet Take 1 Tablet by mouth in the morning. 90 Tablet 3 Triamcinolone Acetonide 0.1 % External Ointment (Aristocort) Apply topically to affected area 2 times a day. Apply 2x daily (or more if itchy/painful instead of licking) to lips until resolved (Patient not taking: Reported on 09/22/2023) 30 g 0 Benzonatate 100 MG Oral Capsule Take 1 Capsule by mouth at bedtime as needed for Cough. (Patient not taking: Reported on 09/22/2023) 30 Capsule 1 Melatonin 5 MG Oral Capsule Take 1 Capsule by mouth at bedtime. (Patient not taking: Reported on 09/22/2023) Spironolactone 25 MG Oral Tablet (Aldactone) Take 1 Tablet by mouth in the morning. (Patient not taking: Reported on 09/22/2023) 90 Tablet 3 Potassium Chloride ER 10 MEQ Oral Capsule Extended Release Take 2 Capsules by mouth in the morning.(Patient not taking: Reported on 09/22/2023) 180 Capsule 3 No current facility-administered medications for this visit. Review of patient's allergies indicates: Allergen Reactions Nitrofurantoin Monohyd Macro Hives Pneumococcal Vaccine Nausea/vomiting Bupropion Itching Cephalexin Hives Sulfa Antibiotics Rash Objective: BP 110/60 | Pulse 56 | Temp 36.3 C (97.4 F) (Temporal Artery) | Resp 18 | Ht 1.492 m (4' 10.75") | Wt 68.1 kg (150 lb 3.2 oz) | SpO2 97% | BMI 30.60 kg/m | BSA 1.68 m Physical Exam: CONST: alert, pleasant, no acute distress Eyes - PERRLA, EOM'I OROPHARYNX: clear, no swelling or erythema, moist CV: regular rate and rhythm, no murmur CHEST: clear to auscultation bilaterally, no rales or wheezing ABD: soft, non tender, non distended, no masses or hepatosplenomegaly EXT: Trace left ankle edema NEURO: AAOx3, no gross focal deficits, cerebellar signs normal, affect appropriate MENTAL STATUS: patient was very pleasant. She had significant difficulty though with short-term memory. She repeated a number of items that had been covered few minutes Um prior. SKIN: no rash or significant lesions ASSESSMENT/PLAN: Alzheimer's dementia- progressively worsening. Right now it appears that she is doing okay. Her 's niece is spending about 3 hours with her in the morning 5 days a week. She then tends to watch soap operas for about 3 hours in the afternoon so most of the day she is content. Her thenhis home at suppertime. She is at some risk for falls as she sometimes has dizziness. She really has not had any falls. Sherefuses to use a walker. Dyslipidemia, goal LDL below 70 - 25-HYDROXY VITAMIN D; Future; Expected date: 09/22/2023 Essential hypertension with goal blood pressure less than 140/90 - COMPREHENSIVE METABOLIC PANEL; Future; Expected date: 09/22/2023 Chronic systolic heart failure (HCC) -Continue follow with cardiology. She remains on the Lasix 20 mg daily in the mid afternoon and 40 mg daily in the morning as well as spironolactone 25 mg daily in the morning Other cardiomyopathy (HCC) - LIPID PANEL WITH DIRECT LDL IF TG IS HIGH; Future; Expected date: 09/22/2023 Hyperglycemia - HEMOGLOBIN A1C; Future; Expected date: 09/22/2023 See back in 6 months. David Olsen MD documented in this encounter Nursing Notes * Valerie Valera LPN - 09/22/2023 4:36 PM EDT The patient has been properly identified by confirmation of name and date of . Chief Complaint Patient presents with Status Check Increased confusion Follow up from hospital visit. Dizziness/back pain documented in this encounter Plan of Treatment Upcoming Encounters Date Type Department Care Team (Late st Contact Info) Description 03/29/2024 4:20 PM EDT Office Visit [facility] [address] [facility] [place] [address] David Olsen MD [address] [place] [address] Scheduled Orders Name Type Priority Associated Diagnoses Orde r Schedule LIPID PANEL WITH DIRECT LDL IF TG IS HIGH Lab Routine Other cardiomyopathy (HCC) Expected: 09/22/2023, Expires: 09/21/2024 COMPREHENSIVE METABOLIC PANEL Lab Routine Essential hypertension with goal blood pressure less than 140/90 Expected: 09/22/2023 (Approximate), Expires: 09/21/2024 25-HYDROXY VITAMIN D Lab Routine Dyslipidemia, goal LDL below 70 Expected: 09/22/2023 (Approximate), Expires: 09/21/2024 HEMOGLOBIN A1C Lab Routine Hyperglycemia Expected: 09/22/2023 (Approximate), Expires: 09/21/2024 Scheduled Procedures Name Priority Associated Diagnoses Date/Ti [...] Additional history exists COVID-19 Vaccine ( - season) 2023 Influenza Vaccine (FLU shot) (Season Ended) 2024 05/26/2022, 03/19/2021, 04/01/2020, Additional history exists COLONOSCOPY-EVERY 5 YRS AGES 18-100 02/17/2024 02/16/2019, 02/16/2019, 09/16/2010, Additional history exists GFR 04/29/2024 04/29/2023, 03/14, 10/22/2022, Additional history exists Albumin/Creatinine Ratio 03/30/2026 03/30/2023 DTaP,Tdap,and Td Vaccines (3 - Td or Tdap) 05/02/2030 05/02/2020, 04/26/2008, 02/01/1998 VITAMIN D LEVEL ONCE IN A LIFETIME-USE SMARTSET# [id number] Completed 04/03/2019, 02/25/2018, 09/23/2009 GARDASIL-HPV IMMUNIZATION SERIES [...] as of this encounter Visit Diagnoses Diagnosis Risk and functional assessment- Primary Screening for unspecified condition Dyslipidemia, goal LDL below 70 Other and unspecified hyperlipidemia Essential hypertension with goal blood pressure less than 140/90 Chronic systolic heart failure (HCC) Chronic systolic heart failure Other cardiomyopathy (HCC) Hyperglycemia Other abnormal glucose documented in this encounter Care Teams Multimedia Manager Relationship Specialty Start Date End Date David Olsen MD [address] [place] [address] PCP - General Family Medicine 11/30/19 documented as of this encounter
--- OUTSIDE RECORDS SUMMARY | 2024-01-03 21:11 | External Medical Summary | Summary of Care ---
Author Name Unknown Organization [facility] Address [address] [place] [address] Phone [phone] Care Team Providers Care Hand Shaper Name Role Phone David Olsen MD Primary Care Provider Encounter Details Date Type Department Care Team (Late st Contact Info) Description 04/29/2023 Telephone [facility] [address] [place] [address] David Olsen MD [address] [place] [address] Allergies Active Allergy Reactions Criticality Noted Date Comments Bupropion Itching Low 11/03/2010 Cephalexin Hives Low 04/29/2005 Nitrofurantoin Monohyd Macro Hives 012 Pneumococcal Vaccine Nausea/vomiting 08/03/2010 Sulfa Antibiotics Rash Low 02/28/1999 documented as of this encounter (statuses as of 07/29/2023) Medications Medication Sig Dispensed Refills Start Date [...] with morning and evening meals. 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 90 Tablet 3 01/23/2022 Active Potassium Chloride Rimma ER 20 MEQ [...] for Cough. 30 Capsule 1 04/15/2023 Active Melatonin 5 MG Oral Capsule Take 1 Capsule by mouth at bedtime. 0 04/26/2023 Active Spironolactone 25 MG Oral Tablet (Aldactone)Indicati ons:Cardiomyopathy, unspecified type (HCC) Take 1 Tablet by mouth in the morning. 90 Tablet 3 04/29/2023 Active traMADol HCl 50 MG Oral Tablet (Ultram)Indications :Chronic pain disorder Take 1 Tablet by mouth 3 times a day as needed for Pain, Moderate. 90 Tablet 1 04/29/2023 Active documented as of this encounter (statuses as of 07/29/2023) Active Problems Problem Noted Date Diagnosed Date [...] Staging:Clinical:Stage IB(ycT1b, cN0(sn), cM0, G3, ER: Positive, MT: Positive, HER2: Negative) - Unsigned History of adenomatous polyp of colon 07/07/2017 Cerebral meningioma 09/15/2016 Overview: cribriform plate Dyslipidemia, goal LDL below 70 05/22/2013 CLASSICAL MIGRAINE WITHOU MENTION OF INTRACTABLE MIGRAINE 02/28/1999 Senile osteoporosis 02/28/1999 Essential hypertension with goal blood pressure less than 140/90 02/28/1999 documented as of this encounter (statuses as of 07/29/2023) Resolved Problems Problem Noted Date Diagnosed Date [...] as of this encounter (statuses as of 07/29/2023) Immunizations Name Administration Dates Next Due Pneumococcal [...] encounter Miscellaneous Notes * Telephone Encounter - Venessa Humphrey PHARM Tech - 04/29/2023 11:24 AM EST Pharmacy called stating they received rx for tramadol but since its a controlled substance they need date of last ov. Advised caller of date of last ov. Thanks, Venessa Humphrey Lunchroom Worker [facility] 04/29/2023,11:25 AM documented in this encounter Plan of Treatment Scheduled Procedures Name Priority Associated Diagnoses Date/Ti [...] D LEVEL ONCE IN A LIFETIME-USE SMARTSET# [id number] Completed 04/03/2019, 02/25/2018, 09/23/2009 GARDASIL-HPV IMMUNIZATION SERIES [...] filedocumented as of this encounter Care Teams Hand Shaper Relationship Specialty Start Date End Date David Olsen MD [address] [place] [address] PCP - General Family Medicine 11/30/19 documented as of this encounter
--- OUTSIDE RECORDS SUMMARY | 2024-01-03 21:11 | External Medical Summary | Summary of Care ---
Author Name Unknown Organization [facility] Address [address] [facility] [address] Phone [phone] Care Team Providers Care Cryptozoologist Name Role Phone David Olsen MD Primary Care Provider Encounter Details Date Type Department Care Team (Late st Contact Info) Description 09/24/2023 Orders Only PATIENT PORTAL DO NOT DELETE THIS DEPT USED BY [facility] [id number] Allergies Active Allergy Reactions Criticality Noted Date Comments Bupropion Itching Low 11/03/2010 Cephalexin Hives Low 04/29/2005 Nitrofurantoin Monohyd Macro Hives 012 Pneumococcal Vaccine Nausea/vomiting 08/03/2010 Sulfa Antibiotics Rash Low 02/28/1999 documented as of this encounter (statuses as of 09/24/2023) Medications Medication Sig Dispensed Refills Start Date [...] as of this encounter (statuses as of 09/24/2023) Active Problems Problem Noted Date Diagnosed Date [...] as of this encounter (statuses as of 09/24/2023) Resolved Problems Problem Noted Date Diagnosed Date [...] as of this encounter (statuses as of 09/24/2023) Immunizations Name Administration Dates Next Due Pneumococcal [...] Description 03/29/2024 4:20 PM EDT Office Visit Family [facility] [address] [place] [id number] David Olsen MD [address] [place] [address] Scheduled Procedures Name Priority Associated [...] D LEVEL ONCE IN A LIFETIME-USE SMARTSET# [id number] Completed 04/03/2019, 02/25/2018, 09/23/2009 GARDASIL-HPV IMMUNIZATION SERIES [...] filedocumented as of this encounter Care Teams Cryptozoologist Relationship Specialty Start Date End Date Rozick, David S, MD [address] [place] [address] PCP - General Family Medicine 11/30/19 documented as of this encounter
--- OUTSIDE RECORDS SUMMARY | 2024-01-03 21:11 | External Medical Summary | Summary of Care ---
Author Name Unknown Organization [facility] Address [address] [place] [address] Phone [phone] Care Team Providers Care Plastic Parts Designer Name Role Phone David Olsen MD Primary Care Provider Reason for Visit * Reason Onset Date Comments Medication Refill 09/08/2023 Encounter Details Date Type Department Care Team (Late st Contact Info) Description 09/08/2023 Refill [facility] [address], [place] [phone] Yadira Larsen RN [address], [place] [phone] Malignant neoplasm of upper-inner quadrant of left breast in female, estrogen receptor positive (HCC) Allergies Active Allergy Reactions Criticality Noted Date Comments Bupropion Itching Low 11/03/2010 Cephalexin Hives Low 04/29/2005 Nitrofurantoin Monohyd Macro Hives 012 Pneumococcal Vaccine Nausea/vomiting 08/03/2010 Sulfa Antibiotics Rash Low 02/28/1999 documented as of this encounter (statuses as of 09/08/2023) Medications Medication Sig Dispensed Refills Start Date [...] Takes 1-2 tabs when needed 0 Active Sacubitril-Valsarta n 24-26 MG Oral Tablet (Entresto) Take 1 Tablet by mouth in the morning and 1 Tablet before bedtime. 60 Tablet 3 05/19/2023 Active Potassium Chloride ER 10 MEQ Oral Capsule Extended ReleaseIndications: Other cardiomyopathy (HCC) Take 2 Capsules by mouth in the morning. 180 Capsule 3 05/25/2023 Active Metoprolol Succinate ER 25 MG Oral [...] the morning. 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 90 Tablet 3 01/23/2022 4 Discontinu ed(Refill) documented as of this encounter (statuses as of 09/08/2023) Active Problems Problem Noted Date Diagnosed Date [...] as of this encounter (statuses as of 09/08/2023) Resolved Problems Problem Noted Date Diagnosed Date [...] as of this encounter (statuses as of 09/08/2023) Immunizations Name Administration Dates Next Due Pneumococcal [...] encounter Miscellaneous Notes * Telephone Encounter - Suellen Valerio MD - 09/08/2023 5:16 PM EDT E-prescribed tamoxifen. * Telephone Encounter - Suellen Valerio MD - 09/08/2023 5:16 PM EDTSigned Prescriptions: Disp Refills Tamoxifen Citrate 20 MG Oral Tablet 90 Tab*3 Sig: Take 1 Tablet by mouth in the morning. Authorizing Provider: SUELLEN VALERIO * Telephone Encounter - Yadira Larsen RN - 09/08/2023 1:[address] Valerio, I spoke with [facility]i [facility] , he is asking for a refill on the Tamoxifen, says she has not been taking lately as she ran out. Gt seems confused about if she still needs to be on the medication-Please send to [facility] thanks Yadira Larsen, RN documented in this encounter Plan of Treatment Upcoming Encounters Date Type Department Care Team (Late st Contact Info) Description 09/22/2023 4:40 PM EDT Office Visit [facility] [address] [place] [address] David Olsen MD [address] [place] [address] Scheduled Procedures Name Priority Associated [...] 11/22/2014, Additional history exists COVID-19 Vaccine ( season) 2023 Influenza Vaccine (FLU shot) (#1) 2023 05/26/2022, 03/19/2021, 04/01/2020, Additional history exists COLONOSCOPY-EVERY 5 YRS AGES 18-100 02/17/2024 02/16/2019, 02/16/2019, 09/16/2010, Additional history exists GFR 04/29/2024 04/29/2023, 03/14, 10/22/2022, Additional history exists Albumin/Creatinine Ratio 03/30/2026 03/30/2023 DTaP,Tdap,and Td Vaccines (3 - Td or Tdap) 05/02/2030 05/02/2020, 04/26/2008, 02/01/1998 VITAMIN D LEVEL ONCE IN A LIFETIME-USE SMARTSET# [id number] Completed 04/03/2019, 02/25/2018, 09/23/2009 GARDASIL-HPV IMMUNIZATION SERIES [...] as of this encounter Visit Diagnoses Diagnosis Malignant neoplasm of upper-inner quadrant of left breast in female, estrogen receptor positive (HCC) documented in this encounter Care Teams Plastic Parts Designer Relationship Specialty Start Date End Date David Olsen MD [address] [place] [address] PCP - General Family Medicine 11/30/19 documented as of this encounter
[2024-01-04 05:33] LABS: A calco-baum cmplx NotReported Not Detected (NotDetected); Bact fragilis Not Reported Not Detected (NotDetected); Blood Culture Id Panel See PCR Comment (NotDetected); C auris Not Reported Not Detected (NotDetected); CTX-M Resistant Gene Not Detected (NotDetected); Calbicans Not Reported Not Detected (NotDetected); Candida glabrata Not Reported Not Detected (NotDetected); Candida krusei Not Reported Not Detected (NotDetected); Cneoformans/gatti Not Reported Not Detected (NotDetected); Cparapsilosis Not Reported Not Detected (NotDetected); E cloacae compx Not Reported Not Detected (NotDetected); Efaecalis Not Reported Not Detected (NotDetected); Efaecium Not Reported Not Detected (NotDetected); Enterobacterales DETECTED (NotDetected); Enterobacterales Not Reported DETECTED (NotDetected); Escherichia coli Not Reported DETECTED (NotDetected); H influenzae Not Reported Not Detected (NotDetected); IMP Resistant Gene Not Detected (NotDetected); K aerogenes Not Reported Not Detected (NotDetected); KPC Resistant Gene Not Detected (NotDetected); Koxytoca Not Reported Not Detected (NotDetected); Kpneumoniae grp Not Reported Not Detected (NotDetected); Lmonocyt Not Reported Not Detected (NotDetected); N meningitidis Not Reported Not Detected (NotDetected); NDM Resistant Gene Not Detected (NotDetected); OXA 48 Like Resistant Gene Not Detected (NotDetected); P aeruginosa Not Reported Not Detected (NotDetected); Proteus spp Not Reported Not Detected (NotDetected); Salmonella spp Not Reported Not Detected (NotDetected); Staph lugdunensis Not Reported Not Detected (NotDetected); Staph spp. Not Reported Not Detected (NotDetected); Staphaureus Not Reported Not Detected (NotDetected); Staphepi Not Reported Not Detected (NotDetected); Stenmaltophilia Not Reported Not Detected (NotDetected); Strep agal(GrpB) Not Reported Not Detected (NotDetected); Strep pneum Not Reported Not Detected (NotDetected); Strep pyog (GrpA) Not Reported Not Detected (NotDetected); Strep spp Not Reported Not Detected (NotDetected); VIM Resistant Gene Not Detected (NotDetected); mcr-1 Colistin Resistant Gene Not Detected (NotDetected)
[2024-01-04 06:28] LABS: Hematocrit (blood only) 35.4 % (37.0-47.0); Hemoglobin 12.1 g/dl (12.0-16.0); Mean Corpuscular Hemoglobin 30.1 pg (25.0-34.0); Mean Corpuscular Hgb Conc 34.2 g/dL (32.0-36.0); Mean Corpuscular Volume 88.1 fL (80.0-100.0); Mean Platelet Volume 11.7 fL (9.4-12.4); Platelet Count 138 K/uL (130-400); RDW Coefficient of Variation 13.1 % (11.5-14.5); RDW Standard Deviation 42.5 fL (36.4-46.3); Red Blood Count 4.02 M/uL (4.20-5.40); White Blood Count 11.46 K/ul (4.8-10.8)
[2024-01-04 06:45] LABS: BUN Creatinine Ratio 17.9 (10-20); Calcium 8.4 mg/dl (8.6-10.3); Creatinine Clr Calc Pharmacy 50.5 ml/min; Est GFR (African American) 76.6 ml/min; Est GFR (Non-African American) 66.1 ml/min; Potassium 2.9 mmol/L (3.5-5.1)
--- NOTE | 2024-01-04 07:08 | Electrocardiogram Report ---
Test Reason : Blood Pressure : / mmHG Vent. Rate : 106 BPM Atrial Rate : 106 BPM P-R Int : 156 ms QRS Dur : 082 ms QT Int : 332 ms P-R-T Axes : 064 -36 135 degrees QTc Int : 441 ms Sinus tachycardia with occasional Premature ventricular complexes Left axis deviation Left ventricular hypertrophy with repolarization abnormality ( R in aVL , Chilo product ) Abnormal ECG When compared with ECG of 23-APR-2023 01:06, T wave inversion more evident in Anterolateral leads Confirmed by Larry Jj ([id number]) on 01/04/2024 7:08:12 AM Referred By: REFERRED SELF Confirmed By:Larry Jj
[2024-01-04] MEDS: POTASSIUM CHLORIDE / WTR 10 MEQ/100 ML PLCT IV SCH (08:10)
[2024-01-04] MEDS: TAMOXIFEN CITRATE 10 MG TABLET PO SCH (08:14)
[2024-01-04] MEDS: POTASSIUM CHLORIDE CRTAB 20 MEQ TABCR PO SCH (08:14)
[2024-01-04] MEDS: MONTELUKAST SODIUM 10 MG TABLET PO SCH (08:14)
[2024-01-04] MEDS: CHOLECALCIFEROL 125 MCG (5,000 UNITS) TAB PO SCH (08:15)
[2024-01-04] MEDS: CYANOCOBALAMIN (B-12) 500 MCG TABLET PO SCH (08:15)
[2024-01-04] MEDS: MULTIVITAMIN TAB PO SCH (08:15)
[2024-01-04] MEDS: METOPROLOL SUCC 25MG EXT REL TAB PO SCH (08:19)
[2024-01-04] MEDS: FLUTICASONE PROPIONATE NA SPR 16 GM BTL NAE SCH (08:21)
[2024-01-04] MEDS ORDERED: FUROSEMIDE 40 MG TAB PO SCH (09:00)
--- NOTE | 2024-01-04 09:35 | Hospitalist Progress Note ---
Date of Service January 04, 2024 Assessment & Plan (1) Gram-negative bacteremia: (2) UTI (urinary tract infection): (3) Generalized weakness: Plan: Patient is a 78 yo F with a PMH of HFrEF (EF 35% Mar 2023), HTN, PVCs, Alzheimer's dementia, history of breast cancer (h/o partial mastectomy) and other medical problems listed below who presents with generalized weakness and poor p.o. intake x 4 days E. coli bacteremia Complicated UTI Patient presented with generalized weakness, poor oral intake for 4 days Leukocytosis present Urinalysis suggestive of infection Blood culture positive for gram-negative bacilli along with urine culture; PCR suggest E. coli. Continue on ceftriaxone 2 g; follow-up on final culture and sensitivity Will need to have IV antibiotic for next 3 to 4 days and repeat culture Will obtain renal ultrasound given urosepsis. (4) HFrEF (heart failure with reduced ejection fraction): (5) NICM (nonischemic cardiomyopathy): Plan: TTE from Mar 2023 with EF 35% Appears euvolemic on exam Continue lasix 40mg daily, Toprol No longer taking spironolactone per Hold Entresto (6) Hypertension: Plan: Continue Toprol as above Hold Entresto as blood pressure on lower side. (7) PVC (premature ventricular contraction): Plan: Continue Toprol (8) AD (Alzheimer's disease): Plan: Oriented to person only, knows at bedside. Is at mentation baseline (9) History of breast cancer: Plan: H/o partial mastectomy. Continue Tamoxifen DVT Ppx: SQ lovenox Code status: FULL per discussion with /POA PCP: Raúl Dispo: admitted to med surg. PT OT eval after resolution of medical issues. Updated patient's over the phone regarding patient's blood culture result. I discussed that given her comorbid condition and bacteremia; her prognosis is guarded. Answer questions/queries. Time spent evaluating patient, direct bedside care, chart review, placing orders, interpretation of diagnostic studies, discussion with consultants, patient, and family members, as well as other required patient management activities is 50 minutes Please note the above document was generated using voice recognition software. It may contain grammatical, syntax or spelling errors. Any formal questions or concerns about the content, text or information contained within the body of this dictation should be directly addressed to the provider for clarification Admission and Anticipated Discharge Date Admission Date: January 03, 2024 Subjective Patient seen and examined at bedside Is comfortable; not in distress Blood pressure slightly on the lower side simple 98/61 Other vitals are stable Review of Systems Review of Systems: All systems reviewed & are unremarkable except as noted in Subjective Physical Exam Physical Exam: General Appearance: WD/WN, vitals as above, NAD, sitting up in bed, pleasantly confused Respiratory: normal respiratory effort, lungs clear to auscultation, no wheeze, rales, rhonchi. No accessory muscle use Cardiovascular: regular rate with occasional ectopic beat, rhythm, normal peripheral pulses, no BLE edema. Vessels: no JVD Chest: normal inspection of chest Abdomen/GI: normal bowel sounds, soft, nontender, no hepatosplenomegaly Extremities/Musculoskeletal: no cyanosis or clubbing, extremities motor strength 5/5 Neurologic: PERRL, EOMI, accommodation nl, no face palsy, no dysarthria, CN's II-XI intact bilaterally and moves all extremities Psychiatric: A+Ox person, euthymic affect Skin: no rashes, normal color, warm/dry Results & Data Results & Data Vital Signs (Past 12 Hours) Vital Signs Temp Pulse Resp BP Pulse Ox O2 Del Method 01/04/24 07:34 36.7 C 71 16 98/61 L 93 Room Air (2) UTI (urinary tract infection) Hematuria presence: with hematuria Urinary tract infection type: acute cystitis Qualified Code(s): N30.01 - Acute cystitis with hematuria (6) Hypertension Hypertension type: primary hypertension Qualified Code(s): I10 - Essential (primary) hypertension
[2024-01-04] MEDS: LACTATED RINGER'S 1,000 ML IV SCH (09:57)
[2024-01-04 10:54] LABS: Adenovirus F 40/41 PCR Not Detected (NotDetected); Astrovirus PCR Not Detected (NotDetected); Campylobacter PCR Not Detected (NotDetected); Cryptosporidium PCR Not Detected (NotDetected); Cyclospora cayetanensis PCR Not Detected (NotDetected); Entamoeba histolytica PCR Not Detected (NotDetected); Enteroaggregative E.coli(EAEC) Not Detected (NotDetected); Enteropathogenic E.coli (EPEC) Not Detected (NotDetected); Enterotoxigenic E.coli (ETEC) Not Detected (NotDetected); Giardia lamblia PCR Not Detected (NotDetected); Norovirus GI/GII PCR Not Detected (NotDetected); Plesiomonas shigelloides PCR Not Detected (NotDetected); Rotavirus A PCR Not Detected (NotDetected); Salmonella PCR Not Detected (NotDetected); Sapovirus PCR Not Detected (NotDetected); Shiga-like Toxin E.coli (STEC) Not Detected (NotDetected); Shigella/Enteroinvasive E.coli Not Detected (NotDetected); Vibrio cholerae PCR Not Detected (NotDetected); Vibrio species PCR Not Detected (NotDetected); Yersinia enterocolitica PCR Not Detected (NotDetected)
[2024-01-04] MEDS: ONDANSETRON INJ 2 MG/ML 2 ML VIAL IV PRN (11:18)
[2024-01-04] MEDS: cefTRIAXone SODIUM 2,000 MG/50 ML BAG IV SCH (14:29)
[2024-01-04] MEDS: traMADol HCL 50 MG TABLET PO PRN (20:39)
[2024-01-04] MEDS: BENZONATATE 100 MG CAPSULE PO PRN (22:19)
[2024-01-05] MEDS: OLANZapine 10 MG/2.1 ML SDV IM STA (03:05)
[2024-01-05] MEDS: OLANZapine ZYDIS 5 MG ORALLY DIS. TAB PO STA (03:32)
--- NOTE | 2024-01-05 09:24 | Ultrasound Report ---
RENAL ULTRASOUND HISTORY: Acute sepsis with urinary tract infection Urosepsi, rule out obstruction COMPARISON: None. FINDINGS: Right kidney: 12.2 cm. No hydronephrosis. Mild nonspecific perinephric edema. Normal corticomedullary differentiation and cortical thickness. Left kidney: 12.2 cm. No hydronephrosis. Mild nonspecific perinephric edema. Normal corticomedullary differentiation and cortical thickness. Bladder: No bladder wall thickening. Nonvisualization of the ureteral jets. Probable fibroid uterus. Left adnexal cystic focus measures 3.2 cm. IMPRESSION: 1. No renal calculi or hydronephrosis identified by ultrasound. 2. Probable fibroid uterus. 3. 3.2 cm left adnexal cystic structure, favored to be benign. ACT 112: Negative or not required by law. Electronically signed by: Magen Rivera M.D. 01/05/2024 9:22 AM
[2024-01-05 11:37] LABS: Hematocrit (blood only) 32.8 % (37.0-47.0); Hemoglobin 10.9 g/dl (12.0-16.0); Mean Corpuscular Hemoglobin 29.4 pg (25.0-34.0); Mean Corpuscular Hgb Conc 33.2 g/dL (32.0-36.0); Mean Corpuscular Volume 88.4 fL (80.0-100.0); Mean Platelet Volume 11.8 fL (9.4-12.4); Platelet Count 136 K/uL (130-400); RDW Coefficient of Variation 13.2 % (11.5-14.5); RDW Standard Deviation 42.7 fL (36.4-46.3); Red Blood Count 3.71 M/uL (4.20-5.40); White Blood Count 6.19 K/ul (4.8-10.8)
[2024-01-05] MEDS: POTASSIUM CHLORIDE CRTAB 20 MEQ TABCR PO STA (11:37)
[2024-01-05 11:52] LABS: BUN Creatinine Ratio 15.1 (10-20); Calcium 8.6 mg/dl (8.6-10.3); Creatinine Clr Calc Pharmacy 58.3 ml/min; Est GFR (African American) 90.8 ml/min; Est GFR (Non-African American) 78.3 ml/min; Potassium 3.7 mmol/L (3.5-5.1)
--- NOTE | 2024-01-05 13:30 | XRay Report ---
XR chest 1V portable HISTORY: cough, r/o pneumonia COMPARISON: Chest 01/03/2024. FINDINGS: No pneumothorax. There are low lung volumes. The cardiac silhouette remains mildly enlarged . No evidence for pulmonary edema. Stable blunting of the left lateral costophrenic sulcus with a few small left basilar linear densities. This may represent atelectasis. No new focal lung consolidation s. No evidence for pulmonary edema. No acute fractures. IMPRESSION: No significant change compared to the prior study. No acute process. ACT 112: Negative or not required by law. Electronically signed by: Derrick Tran M.D. 01/05/2024 1:28 PM
[2024-01-05] MEDS: guaiFENesin 600 MG TABCR PO SCH (14:41)
[2024-01-05] MEDS: OPTIRAY 320 100ml IV ONE (15:28)
[2024-01-05] MEDS: SODIUM CHLORIDE 0.9% 500 ML IV SCH (15:57)
--- NOTE | 2024-01-05 17:16 | CT Scan Report ---
CT abd pelvis IV con only CLINICAL HISTORY: e coli bacteremia, r/o intraabdominal infection TECHNIQUE: Helical axial images of the abdomen and pelvis were obtained and displayed. Automated dose lowering techniques and/or adjustment according to patient size were utilized for this exam. This e xam was performed with intravenous contrast. CT DOSE: 1140.32 mGy.cm COMPARISON: Comparison is made to renal ultrasound 01/05/2024 FINDINGS: Lower chest: Cardiomegaly is partially visualized. Liver: Hepatic cysts are seen. Gallbladder and biliary tree: The gallbladder is contracted. No intra- or extrahepatic biliary ductal dilation. Pancreas: Unremarkable, no focal lesions. Spleen: Unremarkable. Adrenals: Unremarkable. Kidneys and ureters: Mild enhancement of the bilateral ureteral wall is noted. Possible wedge-shaped foci of hypoenhancement are seen in the left greater than right kidneys. Bladder: Unremarkable. Reproductive organs: Unremarkable. Bowel: Diverticulosis is seen without evidence of diverticulitis. Lymph nodes Retroperitoneal: Unremarkable. Pelvic: Unremarkable. Mesenteric: Unremarkable. Peritoneum: Normal. Vessels: Unremarkable. Abdominal wall: A left buttock lipoma is incidentally noted. Umbilical hernia is seen. Bones: Degenerative changes in the visualized spine. Compression deformity of T10 is seen. IMPRESSION: Enhancement of the ureteral wall and questionable wedge-shaped hypoenhancement in the kidneys are con cerning for ascending infection in this patient with urinary tract infection. Otherwise no acute abno rmalities are seen. ACT 112: Negative or not required by law. Electronically signed by: Clifford Ceballso M.D. 01/05/2024 5:14 PM
--- NOTE | 2024-01-05 18:42 | Hospitalist Progress Note ---
Date of Service January 05, 2024 Assessment & Plan (1) Gram-negative bacteremia: (2) UTI (urinary tract infection): (3) Generalized weakness: Plan: Patient is a 78 yo F with a PMH of HFrEF (EF 35% Mar 2023), HTN, PVCs, Alzheimer's dementia, history of breast cancer (h/o partial mastectomy) and other medical problems listed below who presents with generalized weakness and poor p.o. intake x 4 days E. coli bacteremia Complicated UTI Patient presented with generalized weakness, poor oral intake for 4 days Leukocytosis present Urinalysis suggestive of infection Blood culture positive for gram-negative bacilli along with urine culture; PCR suggest E. coli. Continue on ceftriaxone 2 g; follow-up on final culture and sensitivity Will need to have IV antibiotic for next 3 to 4 days and repeat culture Will obtain renal ultrasound given urosepsis. 01/04 Urine culture: Klebsiella Blood cultures: E. coli CT abdomen and pelvis: Enhancement of the ureteral wall and questionable wedge-shaped hypoenhancement in the kidneys are concerning for ascending infection in this patient with urinary tract infection. Otherwise no acute abnormalities are seen. Interestingly, patient growing 2 different organisms in urine culture and blood culture No other obvious source of infection at this point except for UTI Continue with IV ceftriaxone for now ID service consult Cough Chest x-ray no pneumonia Possible aspiration component? Speech therapist consult (4) HFrEF (heart failure with reduced ejection fraction): (5) NICM (nonischemic cardiomyopathy): Plan: TTE from Mar 2023 with EF 35% Appears euvolemic on exam Continue lasix 40mg daily, Toprol No longer taking spironolactone per Hold Entresto (6) Hypertension: Plan: Continue Toprol as above Hold Entresto as blood pressure on lower side. (7) PVC (premature ventricular contraction): Plan: Continue Toprol (8) AD (Alzheimer's disease): Plan: Mental status at baseline (9) History of breast cancer: Plan: H/o partial mastectomy. Continue Tamoxifen DVT Ppx: SQ lovenox Code status: FULL per discussion with /POA PCP: Raúl Dispo: admitted to med surg. PT OT eval after resolution of medical issues. Admission and Anticipated Discharge Date Admission Date: January 03, 2024 Subjective Follow-up for Klebsiella UTI, E. coli bacteremia, etc. Seen resting in bed, sitting up, just had PT States that she feels that she is improving overall No abdominal pain, back pain or flank pain No nausea vomiting fevers or chills, problems with urination Having intermittent cough, nonproductive, but no shortness of breath No other symptoms Review of Systems Review of Systems: all noted and negative except for above Physical Exam Physical Exam: General- oriented x 2, not in distress, speaks in sentences with no effort or accessory muscle use Eyes- anicteric Neck- no JVD Lungs- clear breath sounds bilaterally, no rales/wheezes Heart- normal rate, regular rhythm; no murmurs Abdomen- normal bowel sounds, nondistended, soft, nontender Extremities- no pretibial edema, no calf tenderness Neuro- alert, oriented x 2; no gross focal neurologic deficits Skin- warm & dry Results & Data Results & Data Vital Signs (Past 12 Hours) Vital Signs Temp Pulse Pulse Resp BP Pulse Ox O2 Del Method 01/05/24 16:02 36.6 C 83 17 142/83 H 95 Room Air 01/05/24 14:55 98 H 01/05/24 10:37 36.5 C 80 16 116/78 93 Room Air 01/05/24 08:14 36.7 C 101 H 18 172/84 H 96 Room Air all noted and reviewed including below (2) UTI (urinary tract infection) Hematuria presence: with hematuria Urinary tract infection type: acute cystitis Qualified Code(s): N30.01 - Acute cystitis with hematuria (6) Hypertension Hypertension type: primary hypertension Qualified Code(s): I10 - Essential (primary) hypertension
[2024-01-05 19:35] LABS: Adenovirus PCR Not Detected (NotDetected); Bordetella parapertussis PCR Not Detected (NotDetected); Bordetella pertussis PCR Not Detected (NotDetected); Chlamydia pneumoniae PCR Not Detected (NotDetected); Coronavirus 229E PCR Not Detected (NotDetected); Coronavirus CoV-2 (COVID19)PCR Not Detected (NotDetected); Coronavirus HKU1 PCR Not Detected (NotDetected); Coronavirus NL63 PCR Not Detected (NotDetected); Coronavirus OC43PCR Not Detected (NotDetected); Human Metapneumovirus PCR Not Detected (NotDetected); Influenza A PCR Not Detected (NotDetected); Influenza B PCR Not Detected (NotDetected); Mycoplasma pneumoniae PCR Not Detected (NotDetected); Parainfluenza Virus 1 PCR Not Detected (NotDetected); Parainfluenza Virus 2 PCR Not Detected (NotDetected); Parainfluenza Virus 3 PCR Not Detected (NotDetected); Parainfluenza Virus 4 PCR Not Detected (NotDetected); Respiratory Syncytial VirusPCR Not Detected (NotDetected); Rhinovirus/Enterovirus PCR Not Detected (NotDetected)
[2024-01-06 06:42] LABS: Basophils # (auto) 0.06 K/uL (0.00-0.20); Basophils % (auto) 1.1 %; Eosinophils # (auto) 0.14 K/uL (0.00-0.50); Eosinophils % (auto) 2.6 %; Hemoglobin 11.1 g/dl (12.0-16.0); Immature Granulocytes # (auto) 0.03 K/uL (0.01-0.20); Immature Granulocytes % (auto) 0.6 %; Lymphocytes # (auto) 1.05 K/uL (1.20-3.40); Lymphocytes % (auto) 19.3 %; Mean Corpuscular Hemoglobin 29.5 pg (25.0-34.0); Mean Corpuscular Hgb Conc 32.6 g/dL (32.0-36.0); Mean Corpuscular Volume 90.4 fL (80.0-100.0); Mean Platelet Volume 11.4 fL (9.4-12.4); Monocytes % (auto) 14.7 %; Neutrophils # (auto) 3.35 K/uL (1.40-6.50); Neutrophils % (auto) 61.7 %; Platelet Count 143 K/uL (130-400); RDW Coefficient of Variation 13.2 % (11.5-14.5); RDW Standard Deviation 44.2 fL (36.4-46.3); Red Blood Count 3.76 M/uL (4.20-5.40); White Blood Count 5.43 K/ul (4.8-10.8)
[2024-01-06 06:58] LABS: BUN Creatinine Ratio 19.1 (10-20); Calcium 8.4 mg/dl (8.6-10.3); Creatinine Clr Calc Pharmacy 62.6 ml/min; Est GFR (African American) 96.4 ml/min; Est GFR (Non-African American) 83.2 ml/min; Potassium 4.3 mmol/L (3.5-5.1)
--- NOTE | 2024-01-06 11:06 | Fluoroscopy Report ---
FL video swallow HISTORY: r/o aspiration TECHNIQUE: Video fluoroscopic evaluation of swallowing was performed in the AP and lateral projection s by the speech pathology staff. The patient is fed nectar-thick and thin liquid barium, a barium coa darshana wafer, and barium pudding. FLUOROSCOPY TIME: 1 minute and 13 seconds.. Ka,r: 4.7 mGy COMPARISON STUDY: None. FINDINGS: There is normal hyoid excursion and epiglottic deflection. A few episodes of penetration wi th the thin liquid barium only. This is due to the slight delayed initiation of swallowing. However, no aspiration demonstrated during the examination. There is mild esophageal dysmotility noted. IMPRESSION: 1. No aspiration identified. 2. Please see the speech pathologist report for detailed findings and recommendations. ACT 112: Negative or not required by law. Electronically signed by: Derrick Tran M.D. 01/06/2024 11:05 AM
--- NOTE | 2024-01-06 13:53 | Infectious Disease Consult ---
Date of Service January 06, 2024 Telehealth Information I performed this visit using a real-time telehealth connection between my location and the patients location ([facility]). After connecting through interactive tele-video, patient was identified by name and date of and/or wristband check.Patient (or authorized healthcare sales representative door to door) was informed that this was a telemedicine visit and it was being conducted confidentially over secure lines. My office door was closed and no one else was present in the room with me.Patient (or authorized healthcare sales representative door to door) provided consent to proceed with the visit, expressed an understanding of privacy and security of the telemedicine visit, and gave permission to have a hospital sales representative door to door in the room in order to assist with the visit and to conduct portions of the visit, as needed. I informed the patient (or authorized healthcare sales representative door to door) that I reviewed their record and presented the opportunity for them to ask any questions regarding the visit today. The patient agreed to participate. Assessment & Plan (1) Gram-negative bacteremia: (2) UTI (urinary tract infection): Plan Assessment: Pt is a 78 yo F with a PMH of HFrEF (EF 35% Mar 2023), HTN, PVCs, Alzheimer's dementia, history of breast cancer (h/o partial mastectomy) and other medical problems listed below who presented to [facility] on 01/03/2024 for generalized weakness and poor p.o. intake x 4 days and was found to have a UTI. Plan: 1. E. coli bacteremia and Klebsiella UTI - Recommend switching from Ceftriaxone to Cipro 500 mg PO BID on discharge for 10 days of total antibiotics. - we will sign off, no need for ID clinic appointment, please call with issues, concerns, or questions. History of Present Illness History of Present Illness Reason for consult: E coli bacteremia Pt is a 78 yo F with a PMH of HFrEF (EF 35% Mar 2023), HTN, PVCs, Alzheimer's dementia, history of breast cancer (h/o partial mastectomy) and other medical problems listed below who presented to [facility] on 01/03/2024 for generalized weakness and poor p.o. intake x 4 days and was found to have a UTI. ID consulted for evaluation and management. Allergies Allergy/AdvReac Type Severity Reaction Status Date / Time bee venom protein (honey bee) Allergy Intermediate EXTRA Verified 10/18/20 20:45 SWELLING AT SITE Sulfa (Sulfonamide Allergy Mild Unknown Verified 10/18/20 20:45 Antibiotics) bupropion Allergy Unknown unknown Verified 10/18/20 20:45 pneumococcal vaccine Allergy Unknown FEVER, Verified 10/18/20 20:45 [From Pneumovax 23] CHILLS, BODY ACHES, VOMITING Home Medications Medication Instructions Recorded Confirmed Type tamoxifen 20 mg tablet 20 mg PO QAM 06/29/19 01/03/24 History tramadol 50 mg tablet 50 mg PO TID PRN Moderate Pain 09/04/20 01/03/24 History (Scale Score 5-6) calcium carbonate (Calcium 600) 600 mg PO BID 09/21/20 01/03/24 History montelukast 10 mg tablet 10 mg PO QAM 10/18/20 01/03/24 History (Singulair) benzonatate 100 mg capsule 100 mg PO HS PRN Cough 04/23/23 01/03/24 History cholecalciferol (vitamin D3) 125 125 mcg PO QAM 04/23/23 01/03/24 History mcg (5,000 unit) tablet (Vitamin D3) cyanocobalamin (vitamin B-12) 500 500 mcg PO DAILY 04/23/23 01/03/24 History mcg lozenges (Vitamin B-12) fluticasone propionate 50 2 spray intranasal DAILY 04/23/23 01/03/24 History mcg/actuation nasal spray,suspension metoprolol succinate 25 mg 25 mg PO UD 04/23/23 01/03/24 History tablet,extended release 24 hr multivitamin 1 tab PO DAILY 04/23/23 01/03/24 History potassium chloride 20 mEq 20 meq PO QAM 04/23/23 01/03/24 History tablet,extended release(part/cryst) furosemide 20 mg tablet 40 mg (2 x 20 mg) PO DAILY #60 tabs 04/26/23 01/03/24 Rx sacubitril 24 mg-valsartan 26 mg 1 tab PO BID #60 tabs 04/26/23 01/03/24 Rx tablet (Entresto) melatonin 5 mg capsule 5 mg PO HS PRN Insomnia 01/03/24 01/03/24 History Patient History Medical History History of breast cancer AD (Alzheimer's disease) HFrEF (heart failure with reduced ejection fraction) NICM (nonischemic cardiomyopathy) PVC (premature ventricular contraction) Hypertension Peptic ulcer disease HX Anemia Migraine HX Surgical History History of cataract surgery right S/P lumpectomy, left breast History of colonoscopy Hx of lumpectomy LEFT History of tonsillectomy History of tooth extraction Family History Other Cancer Hypertension Social History Smoking Status: Never smoker Second Hand Exposure: No; Do You Dip or Chew Tobacco: No; Hx Alcohol Use: No Hx Substance Use: No Preferred Language: [place] Communication Ability: Impaired Exploration Manager Required: No Beliefs That Will Affect Care: None Current Living Situation: Spouse Other Information That Helps Us Care for You: No Feels Safe at Home: Yes Safety Concerns: Feels Safe At This Time Assistive Devices: Walker Review of Systems All ROS are negative Physical Exam NA Results & Data Vital Signs (Past 12 Hours) Vital Signs Temp Pulse Pulse Pulse Resp BP Pulse Ox 01/06/24 11:45 36.7 C 70 18 108/70 93 01/06/24 11:08 01/06/24 07:48 36.7 C 78 18 108/71 93 01/06/24 07:25 75 01/06/24 03:05 36.7 C 82 18 134/84 96 O2 Del Method 01/06/24 11:45 Room Air 01/06/24 11:08 Room Air 01/06/24 07:48 Room Air 01/06/24 07:25 01/06/24 03:05 Room Air Laboratory Results Blood culture on 01/03/2024 Blood Culture Aerobic Preliminary 01/05/24-1131 Organism 1 Escherichia coli Sens Sensitivities to Follow Blood Culture PCR Panel If viewing in EMR, results available under LAB Serology tab. Phoned positive Blood Culture Gram Stain report to HIRAL BAUM on 01/04/24 at 0545 [place] [id number]. [place] [id number]. E coli RX M.I.C. --- --------- Amox/Clav S <=8/4 Ampicillin R >16 Amp/Sul I 16 Cefazolin S <=2 Cefepime S <=2 Ceftriaxone S <=1 Ciprofloxacin S <=0.25 Ertapenem S <=0.5 Gentamicin S <=4 Levofloxacin S <=0.5 Meropenem S <=1 Tobramycin S <=4 Trimeth/Sulfa S <=2/38 Pip/Tazo S <=16 S = SENSITIVE I = INTERMEDIATE R = RESISTANT Urine culture on 01/03/2024 Urine Culture Final 01/05/24-1115 Organism 1 Klebsiella pneumoniae [place] Count >100,000 CFU/ml Sens Sensitivities to Follow +Mix Urine Plus Moderate Counts of Other Mixed [place] Kleb pneum RX M.I.C. --- --------- Amox/Clav S <=8/4 Amp/Sul S <=8/4 Cefazolin S <=2 Cefepime S <=2 Ceftriaxone S <=1 Ciprofloxacin S <=0.25 Ertapenem S <=0.5 Gentamicin S <=4 Levofloxacin S <=0.5 Meropenem S <=1 Nitrofurantoin S <=32 Tobramycin S <=4 Trimeth/Sulfa S <=2/38 Pip/Tazo S <=16 S = SENSITIVE I = INTERMEDIATE R = RESISTANT Diagnostic Findings CT abd/pelvis on 01/05/2024 IMPRESSION: Enhancement of the ureteral wall and questionable wedge-shaped hypoenhancement in the kidneys are concerning for ascending infection in this patient with urinary tract infection. Otherwise no acute abnormalities are seen. Medications Administered Home Medications Medication Instructions Recorded Confirmed Last Taken tamoxifen 20 mg tablet 20 mg PO QAM 06/29/19 01/03/24 10/18/20 tramadol 50 mg tablet 50 mg PO TID PRN Moderate Pain 09/04/20 01/03/24 09/20/20 (Scale Score 5-6) calcium carbonate (Calcium 600) 600 mg PO BID 09/21/20 01/03/24 10/18/20 08:00 montelukast 10 mg tablet 10 mg PO QAM 10/18/20 01/03/24 10/18/20 (Singulair) benzonatate 100 mg capsule 100 mg PO HS PRN Cough 04/23/23 01/03/24 Unknown cholecalciferol (vitamin D3) 125 125 mcg PO QAM 04/23/23 01/03/24 Unknown mcg (5,000 unit) tablet (Vitamin D3) cyanocobalamin (vitamin B-12) 500 500 mcg PO DAILY 04/23/23 01/03/24 Unknown mcg lozenges (Vitamin B-12) fluticasone propionate 50 2 spray intranasal DAILY 04/23/23 01/03/24 Unknown mcg/actuation nasal spray,suspension metoprolol succinate 25 mg 25 mg PO UD 04/23/23 01/03/24 Unknown tablet,extended release 24 hr multivitamin 1 tab PO DAILY 04/23/23 01/03/24 Unknown potassium chloride 20 mEq 20 meq PO QAM 04/23/23 01/03/24 Unknown tablet,extended release(part/cryst) furosemide 20 mg tablet 40 mg (2 x 20 mg) PO DAILY #60 tabs 04/26/23 01/03/24 Unknown sacubitril 24 mg-valsartan 26 mg 1 tab PO BID #60 tabs 04/26/23 01/03/24 Unknown tablet (Entresto) melatonin 5 mg capsule 5 mg PO HS PRN Insomnia 01/03/24 01/03/24 Unknown Active Medications Generic Name Dose Route Start Last Admin Trade Name Freq PRN Reason Stop Dose Admin Acetaminophen 650 mg 01/03/24 16:31 01/03/24 20:28 Acetaminophen 325 Mg Tab PO 02/02/24 16:30 650 mg Q4H PRN Administration pain/fever Benzonatate 100 mg 01/03/24 16:31 01/05/24 21:18 Benzonatate 100 Mg Capsule PO 02/02/24 16:30 100 mg HS PRN Administration Cough Calcium Carbonate 500 mg 01/03/24 17:00 01/06/24 08:17 Calcium Carbonate 500 Mg Chewable Tab PO 02/02/24 16:59 500 mg BIDM ERICA Administration Cyanocobalamin 500 mcg 01/04/24 09:00 01/06/24 08:18 Cyanocobalamin (B-12) 500 Mcg Tablet PO 02/03/24 08:59 500 mcg DAILY ERICA Administration Enoxaparin Sodium 40 mg 01/03/24 17:00 01/05/24 17:27 Enoxaparin Inj 40 Mg/0.4 Ml Syr SQ 02/02/24 16:59 40 mg Q24H ERICA Administration Fluticasone Propionate 2 sprays 01/04/24 09:00 01/06/24 08:18 Fluticasone Propionate Na Spr 16 Gm Btl YELENA 02/03/24 08:59 2 sprays DAILY ERICA Administration Guaifenesin 600 mg 01/05/24 12:50 01/06/24 09:28 Guaifenesin 600 Mg Tabcr PO 02/04/24 12:49 600 mg Q12 ERICA Administration Ceftriaxone Sodium 2,000 mg in 50 mls @ 100 mls/hr 01/04/24 14:30 01/05/24 16:58 Rocephin IV 01/13/24 14:29 Infused Q24H ERICA Infusion Melatonin 6 mg 01/03/24 16:37 01/05/24 21:18 Melatonin 3 Mg Tab PO 02/02/24 16:36 6 mg HSZ PRN Administration Insomnia Metoprolol Succinate 25 mg 01/03/24 21:00 01/06/24 09:28 Metoprolol Succ 25mg Ext Rel Tab PO 02/02/24 20:59 25 mg BID ERICA Administration Metoprolol Succinate 25 mg 01/04/24 09:00 01/06/24 09:29 Metoprolol Succ 25mg Ext Rel Tab PO 02/03/24 08:59 25 mg QAM ERICA Administration Montelukast Sodium 10 mg 01/04/24 09:00 01/06/24 08:20 Montelukast Sodium 10 Mg Tablet PO 02/03/24 08:59 10 mg QAM ERICA Administration Multivitamins 1 tab 01/04/24 09:00 01/06/24 08:21 Multivitamin Tab PO 02/03/24 08:59 1 tab DAILY ERICA Administration Ondansetron HCl 4 mg 01/03/24 16:31 01/04/24 11:18 Ondansetron Inj 2 Mg/Ml 2 Ml Vial IV 02/02/24 16:30 4 mg Q6H PRN Administration Nausea Potassium Chloride 20 meq 01/04/24 09:00 01/06/24 09:30 Potassium Chloride Crtab 20 Meq Tabcr PO 02/03/24 08:59 20 meq QAM ERICA Administration Sacubitril/Valsartan 1 tab 01/03/24 21:00 01/03/24 20:28 Valsartan/Sacubitril 26/24mg Tab PO 02/02/24 20:59 1 tab BID ERICA Administration Tamoxifen Citrate 20 mg 01/04/24 09:00 01/06/24 08:21 Tamoxifen Citrate 10 Mg Tablet PO 02/03/24 08:59 20 mg QAM ERICA Administration Tramadol HCl 50 mg 01/03/24 16:31 01/05/24 21:18 Tramadol Hcl 50 Mg Tablet PO 02/02/24 16:30 50 mg TID PRN Administration Moderate Pain (Scale Score 5-6) Vitamin D 125 mcg 01/04/24 09:00 01/06/24 08:18 Cholecalciferol 125 Mcg (5,000 Units) Tab PO 02/03/24 08:59 125 mcg QAM ERICA Administration (2) UTI (urinary tract infection) Hematuria presence: with hematuria Urinary tract infection type: acute cystitis Qualified Code(s): N30.01 - Acute cystitis with hematuria
[2024-01-06 16:09] LABS: Magnesium 1.9 mg/dl (1.7-2.4)
--- NOTE | 2024-01-06 17:00 | Hospitalist Progress Note ---
Date of Service January 06, 2024 Assessment & Plan (1) Gram-negative bacteremia: (2) UTI (urinary tract infection): (3) Generalized weakness: Plan: Patient is a 78 yo F with a PMH of HFrEF (EF 35% Mar 2023), HTN, PVCs, Alzheimer's dementia, history of breast cancer (h/o partial mastectomy) and other medical problems listed below who presents with generalized weakness and poor p.o. intake x 4 days E. coli bacteremia Complicated UTI Patient presented with generalized weakness, poor oral intake for 4 days Leukocytosis present Urinalysis suggestive of infection Blood culture positive for gram-negative bacilli along with urine culture; PCR suggest E. coli. Continue on ceftriaxone 2 g; follow-up on final culture and sensitivity Will need to have IV antibiotic for next 3 to 4 days and repeat culture Will obtain renal ultrasound given urosepsis. 01/04 Urine culture: Klebsiella Blood cultures: E. coli CT abdomen and pelvis: Enhancement of the ureteral wall and questionable wedge-shaped hypoenhancement in the kidneys are concerning for ascending infection in this patient with urinary tract infection. Otherwise no acute abnormalities are seen. Interestingly, patient growing 2 different organisms in urine culture and blood culture No other obvious source of infection at this point except for UTI Continue with IV ceftriaxone for now ID service consult 01/05 Clinically stable Repeat blood culture negative so far x 24 hours ID recommendations noted, will transition to ciprofloxacin twice daily starting tomorrow Cough Chest x-ray no pneumonia Possible aspiration component? Speech therapist consult noted (4) HFrEF (heart failure with reduced ejection fraction): (5) NICM (nonischemic cardiomyopathy): Plan: TTE from Mar 2023 with EF 35% Appears euvolemic on exam Continue lasix 40mg daily, Toprol No longer taking spironolactone per Hold Entresto (6) Hypertension: Plan: Continue Toprol as above Hold Entresto as blood pressure on lower side. (7) PVC (premature ventricular contraction): Plan: Continue Toprol (8) AD (Alzheimer's disease): Plan: Mental status at baseline (9) History of breast cancer: Plan: H/o partial mastectomy. Continue Tamoxifen DVT Ppx: SQ lovenox Code status: FULL per discussion with /POA PCP: Raúl Dispo: Patient's family prefers to have patient return home when medically stable Hopefully will be able to discharge her tomorrow Admission and Anticipated Discharge Date Admission Date: January 03, 2024 Subjective Patient follow-up for UTI, bacteremia, etc. Seen resting in bed, comfortable, not in distress States she feels fine overall Less cough, no shortness of breath No abdominal pain, nausea or vomiting No other new symptoms Review of Systems Review of Systems: all noted and negative except for above Physical Exam Physical Exam: General- oriented x 2, not in distress, speaks in sentences with no effort or accessory muscle use Eyes- anicteric Neck- no JVD Lungs- clear breath sounds bilaterally, no rales/wheezes Heart- normal rate, regular rhythm; no murmurs Abdomen- normal bowel sounds, nondistended, soft, nontender Extremities- no pretibial edema, no calf tenderness Neuro- alert, oriented x 2; no gross focal neurologic deficits Skin- warm & dry Results & Data Results & Data Vital Signs (Past 12 Hours) Vital Signs Temp Pulse Pulse Resp BP Pulse Ox O2 Del Method 01/06/24 15:25 36.5 C 85 18 114/71 96 Room Air 01/06/24 14:04 78 01/06/24 11:45 36.7 C 70 18 108/70 93 Room Air 01/06/24 11:08 Room Air 01/06/24 07:48 36.7 C 78 18 108/71 93 Room Air 01/06/24 07:25 75 all noted and reviewed including below (2) UTI (urinary tract infection) Hematuria presence: with hematuria Urinary tract infection type: acute cystitis Qualified Code(s): N30.01 - Acute cystitis with hematuria (6) Hypertension Hypertension type: primary hypertension Qualified Code(s): I10 - Essential (primary) hypertension
[2024-01-07 07:22] LABS: BUN Creatinine Ratio 23.1 (10-20); Calcium 8.7 mg/dl (8.6-10.3); Creatinine Clr Calc Pharmacy 65.5 ml/min; Est GFR (African American) 97.9 ml/min; Est GFR (Non-African American) 84.4 ml/min
[2024-01-07] MEDS: CIPROFLOXACIN 500 MG TAB PO SCH (10:00)
--- NOTE | 2024-01-07 17:28 | Discharge Summary ---
Discharge Summary Date of Service January 07, 2024 delayed entry date of service noted above Principal Dx & Hospital Course #1 = Principal Diagnosis (1) Gram-negative bacteremia: (2) UTI (urinary tract infection): (3) Generalized weakness: Patient is a 78 yo F with a PMH of HFrEF (EF 35% Mar 2023), HTN, PVCs, Alzheimer's dementia, history of breast cancer (h/o partial mastectomy) and other medical problems listed below who presents with generalized weakness and poor p.o. intake x 4 days E. coli bacteremia Complicated UTI Patient presented with generalized weakness, poor oral intake for 4 days Leukocytosis present Urinalysis suggestive of infection Blood culture positive for gram-negative bacilli along with urine culture; PCR suggest E. coli. 01/04 Urine culture: Klebsiella Blood cultures: E. coli CT abdomen and pelvis: Enhancement of the ureteral wall and questionable wedge-shaped hypoenhancement in the kidneys are concerning for ascending infection in this patient with urinary tract infection. Otherwise no acute abnormalities are seen. Interestingly, patient growing 2 different organisms in urine culture and blood culture No other obvious source of infection at this point except for UTI ID service consult 01/05 Clinically stable Repeat blood culture negativeX 48 hours ID recommendations noted, will transition from Ceftriaxone to ciprofloxacin twice daily starting tomorrow 01/06 Clinically improved Afebrile Leukocytosis resolved Discharge plan: Ciprofloxacin 5 mg p.o. twice daily x 10 days Cough Chest x-ray no pneumonia Biofire negative x 2 Video swallow study performed by speech therapist: No aspiration monitor Abnormal US Findings 2. Probable fibroid uterus. 3. 3.2 cm left adnexal cystic structure, favored to be benign. Further work up, management, and ff up as outpatient (4) HFrEF (heart failure with reduced ejection fraction): (5) NICM (nonischemic cardiomyopathy): TTE from Mar 2023 with EF 35% Appears euvolemic on exam Cardiomegaly on chest x-ray Continue lasix 40mg daily, Toprol No longer taking spironolactone per resume Entresto Follow-up with steam pipe fitter (6) Hypertension: Continue Toprol (7) PVC (premature ventricular contraction): Continue Toprol (8) AD (Alzheimer's disease): Mental status at baseline (9) History of breast cancer: H/o partial mastectomy. Continue Tamoxifen DVT Ppx: SQ lovenox Code status: FULL per discussion with /POA PCP: Raúl Dispo: d/c home ff up with PCP in 1 week Notes For Next Care Provider Medication Changes From Visit Ciprofloxacin-antibiotic for urinary tract infection, bloodstream infection Please take a probiotic daily for at least 1 month. Eat yogurt daily. Mucinex-for cough Admission HPI Per Admitting Provider This is a 78 yo F with a PMH of HFrEF (EF 35% Mar 2023), HTN, PVCs, Alzheimer's dementia, history of breast cancer (h/o partial mastectomy) and other medical problems listed below who presents with generalized weakness and poor p.o. intake x 4 days. History primarily obtained from /POA at bedside due to patient's Alzheimer's dementia. States that she has been noticeably more generally weak over the past few days, requiring help with ambulation and not having much p.o. intake at all. Had 2 episodes of diarrhea overnight but none since arrival. denies any urinary incontinence but feels she has been urinating more than usual. Patient typically ambulates independently at baseline. manages medications. Has home care in the mornings for her and otherwise is her primary child and family services worker. Patient no longer taking spironolactone and reduced Lasix to 40 mg daily, per discussion with PCP. ROS unobtainable due to patient's cognitive state. Admission Exam Per Admitting Provider General Appearance: WD/WN, vitals as above, NAD, sitting up in bed, pleasantly confused Head: normocephalic, atraumatic Eyes: normal inspection, PERRL, conjunctivae normal, anicteric sclerae ENT: external ear and nose normal, oropharynx normal Neck: normal visual inspection, trachea midline, no thyromegaly Respiratory: normal respiratory effort, lungs clear to auscultation, no wheeze, rales, rhonchi. No accessory muscle use Cardiovascular: regular rate with occasional ectopic beat, rhythm, normal peripheral pulses, no BLE edema. Vessels: no JVD Chest: normal inspection of chest Abdomen/GI: normal bowel sounds, soft, nontender, no hepatosplenomegaly Extremities/Musculoskeletal: no cyanosis or clubbing, extremities motor strength 5/5 Neurologic: PERRL, EOMI, accommodation nl, no face palsy, no dysarthria, CN's II-XI intact bilaterally and moves all extremities Psychiatric: A+Ox person, euthymic affect Skin: no rashes, normal color, warm/dry Discharge Exam General- oriented x 2-3, not in distress, speaks in sentences with no effort or accessory muscle use Eyes- anicteric Neck- no JVD Lungs- clear breath sounds bilaterally, no rales/wheezes Heart- normal rate, regular rhythm; no murmurs Abdomen- normal bowel sounds, nondistended, soft, nontender Extremities- no pretibial edema, no calf tenderness Neuro- alert, oriented x 3; no gross focal neurologic deficits Skin- warm & dry Updated Medication List Medication Instructions Recorded Confirmed Type tamoxifen 20 mg tablet 20 mg PO QAM 06/29/19 01/03/24 History tramadol 50 mg tablet 50 mg PO TID PRN Moderate Pain 09/04/20 01/03/24 History (Scale Score 5-6) calcium carbonate (Calcium 600) 600 mg PO BID 09/21/20 01/03/24 History montelukast 10 mg tablet 10 mg PO QAM 10/18/20 01/03/24 History (Singulair) benzonatate 100 mg capsule 100 mg PO HS PRN Cough 04/23/23 01/03/24 History cholecalciferol (vitamin D3) 125 125 mcg PO QAM 04/23/23 01/03/24 History mcg (5,000 unit) tablet (Vitamin D3) cyanocobalamin (vitamin B-12) 500 500 mcg PO DAILY 04/23/23 01/03/24 History mcg lozenges (Vitamin B-12) fluticasone propionate 50 2 spray intranasal DAILY 04/23/23 01/03/24 History mcg/actuation nasal spray,suspension metoprolol succinate 25 mg 25 mg PO UD 04/23/23 01/03/24 History tablet,extended release 24 hr multivitamin 1 tab PO DAILY 04/23/23 01/03/24 History potassium chloride 20 mEq 20 meq PO QAM 04/23/23 01/03/24 History tablet,extended release(part/cryst) furosemide 20 mg tablet 40 mg (2 x 20 mg) PO DAILY #60 tabs 04/26/23 01/03/24 Rx sacubitril 24 mg-valsartan 26 mg 1 tab PO BID #60 tabs 04/26/23 01/03/24 Rx tablet (Entresto) melatonin 5 mg capsule 5 mg PO HS PRN Insomnia 01/03/24 01/03/24 History ciprofloxacin HCl 500 mg tablet 500 mg PO BID 10 days #20 tabs 01/07/24 Rx guaifenesin 600 mg tablet, 600 mg PO Q12 7 days #14 tabs 01/07/24 Rx extended release 12 hr (Mucinex) Hospital Stay Data Consultations 01/03/24 14:23 ED Decision to Admit Stat 01/05/24 14:39 Consult Infectious Diseases Routine Diagnostic Imagining Performed Laboratory Results WBC 5.43 K/ul (4.8-10.8) 01/06/24 06:05 RBC 3.76 M/uL (4.20-5.40) L 01/06/24 06:05 Hgb 11.1 g/dl (12.0-16.0) L 01/06/24 06:05 Hct 34.0 % (37.0-47.0) L 01/06/24 06:05 MCV 90.4 fL (80.0-100.0) 01/06/24 06:05 MCH 29.5 pg (25.0-34.0) 01/06/24 06:05 MCHC 32.6 g/dL (32.0-36.0) 01/06/24 06:05 RDW Std Deviation 44.2 fL (36.4-46.3) 01/06/24 06:05 RDW Coeff of Tiffany 13.2 % (11.5-14.5) 01/06/24 06:05 Plt Count 143 K/uL (130-400) 01/06/24 06:05 MPV 11.4 fL (9.4-12.4) 01/06/24 06:05 Immature Gran % (Auto) 0.6 % 01/06/24 06:05 Neut % (Auto) 61.7 % 01/06/24 06:05 Lymph % (Auto) 19.3 % 01/06/24 06:05 [place]eld % (Auto) 14.7 % 01/06/24 06:05 Eos % (Auto) 2.6 % 01/06/24 06:05 Baso % (Auto) 1.1 % 01/06/24 06:05 Neut # (Auto) 3.35 K/uL (1.40-6.50) 01/06/24 06:05 Lymph # (Auto) 1.05 K/uL (1.20-3.40) L 01/06/24 06:05 Weld # (Auto) 0.80 K/uL (0.11-0.59) H 01/06/24 06:05 Eos # (Auto) 0.14 K/uL (0.00-0.50) 01/06/24 06:05 Baso # (Auto) 0.06 K/uL (0.00-0.20) 01/06/24 06:05 Immature Gran # (Auto) 0.03 K/uL (0.01-0.20) 01/06/24 06:05 Sodium 141 mmol/L (136-145) 01/07/24 05:51 Potassium 4.0 mmol/L (3.5-5.1) 01/07/24 05:51 Chloride 111 mmol/L (98-107) H 01/07/24 05:51 Carbon Dioxide 24 mmol/L (21-32) 01/07/24 05:51 Anion Gap 6 (3-11) 01/07/24 05:51 BUN 15 mg/dl (6-23) 01/07/24 05:51 Creatinine 0.65 mg/dl (0.6-1.2) 01/07/24 05:51 Est Cr Clr Drug Dosing 65.5 ml/min 01/07/24 05:51 Est GFR ( Amer) 97.9 ml/min 01/07/24 05:51 Est GFR (Non-Af Amer) 84.4 ml/min 01/07/24 05:51 BUN/Creatinine Ratio 23.1 (10-20) H 01/07/24 05:51 Glucose 88 mg/dl (70-99(Fasting)) 01/07/24 05:51 Lactate 1.1 mmol/L (0.4-2.0) 01/03/24 13:58 Calcium 8.7 mg/dl (8.6-10.3) 01/07/24 05:51 Magnesium 1.9 mg/dl (1.7-2.4) 01/06/24 06:05 Total Bilirubin 0.8 mg/dl (0.2-1.0) 01/03/24 12:26 AST 12 U/L (13-39) L 01/03/24 12:26 ALT 8 U/L (7-52) 01/03/24 12:26 Alkaline Phosphatase 59 U/L (34-104) 01/03/24 12: Total Protein 5.8 gm/dl (6.0-8.3) L 01/03/24 12: Albumin 3.4 gm/dl (3.4-5.0) 01/03/24 12: Globulin 2.4 gm/dl (2.5-4.0) L 01/03/24 12: Albumin/Globulin Ratio 1.4 (0.9-2) 01/03/24 12:26 Procalcitonin 1.56 ng/ml (0-0.5) H 01/03/24 12: TSH 3.242 uIu/ml (0.300-4.500) 01/03/24 12: Urine Color Yellow 01/03/24 12:45 Urine Appearance Turbid (Clear) A 01/03/24 12:45 Urine pH 5.5 (4.5-7.5) 01/03/24 12:45 Ur Specific [place] 1.011 (1.000-1.030) 01/03/24 12:45 Urine Protein 2+ (Negative) H 01/03/24 12:45 Urine Glucose (UA) Negative (Negative) 01/03/24 12:45 Urine Ketones Negative (Negative) 01/03/24 12:45 Urine Blood 1+ (Negative) H 01/03/24 12:45 Urine Nitrite Positive (Negative) A 01/03/24 12:45 Urine Bilirubin Negative (Negative) 01/03/24 12:45 Urine Urobilinogen Negative (Negative) 01/03/24 12:45 Ur Leukocyte Esterase 3+ (Negative) H 01/03/24 12:45 Urine WBC (Auto) >50 /hpf (0-5) H 01/03/24 12:45 Urine RBC (Auto) 0-2 /hpf (0-2) 01/03/24 12:45 U Hyaline Cast (Auto) 0-2 /lpf (0-2) 01/03/24 12:45 U Epithel Cells (Auto) 3-5 /hpf (0-2) H 01/03/24 12:45 Urine Bacteria (Auto) 4+ (None Seen) H 01/03/24 12:45 Stl C. cayetanensis PCR Not Detected (NotDetected) 01/04/24 08:45 Stool Rotavirus A PCR Not Detected (NotDetected) 01/04/24 08:45 Stl Adenov F 40/41 PCR Not Detected (NotDetected) 01/04/24 08:45 Stool Astrovirus (PCR) Not Detected (NotDetected) 01/04/24 08:45 Stool Campylobacter PCR Not Detected (NotDetected) 01/04/24 08:45 Stl C. diff Tox B Gene Negative Cdiff Gene (Neg) 01/04/24 08:45 Stool Cryptosporidium PCR Not Detected (NotDetected) 01/04/24 08:45 Stl E.coli Shiga Tox PCR Not Detected (NotDetected) 01/04/24 08:45 Stl Enterotoxigenic E PCR Not Detected (NotDetected) 01/04/24 08:45 Stool EPEC (PCR) Not Detected (NotDetected) 01/04/24 08:45 Stool EAEC (PCR) Not Detected (NotDetected) 01/04/24 08:45 Stl E. histolytica PCR Not Detected (NotDetected) 01/04/24 08:45 Stool Giardia Lamblia PCR Not Detected (NotDetected) 01/04/24 08:45 Stool Salmonella PCR Not Detected (NotDetected) 01/04/24 08:45 Stool Sapovirus (PCR) Not Detected (NotDetected) 01/04/24 08:45 Stl P. shigelloides PCR Not Detected (NotDetected) 01/04/24 08:45 Stl Shigella/EIEC PCR Not Detected (NotDetected) 01/04/24 08:45 St Y.enterocolitica PCR Not Detected (NotDetected) 01/04/24 08:45 Stool Vibrio (PCR) Not Detected (NotDetected) 01/04/24 08:45 Stl Vibrio cholerae PCR Not Detected (NotDetected) 01/04/24 08:45 Stl Norovirus GI/GII PCR Not Detected (NotDetected) 01/04/24 08:45 Adenovirus (PCR) Not Detected (NotDetected) 01/05/24 Unknown B. pertussis DNA (PCR) Not Detected (NotDetected) 01/05/24 Unknown B.parapertussis DNA PCR Not Detected (NotDetected) 01/05/24 Unknown C. pneumoniae DNA (PCR) Not Detected (NotDetected) 01/05/24 Unknown Coronavirus OC43 (PCR) Not Detected (NotDetected) 01/05/24 Unknown Coronavirus HKU1 (PCR) Not Detected (NotDetected) 01/05/24 Unknown Coronavirus 229E (PCR) Not Detected (NotDetected) 01/05/24 Unknown SARS-CoV-2 (PCR) Not Detected (NotDetected) 01/05/24 Unknown Coronavirus NL63 (PCR) Not Detected (NotDetected) 01/05/24 Unknown Enterobacterales (PCR) DETECTED (NotDetected) A 01/03/24 13:58 E. coli (PCR) DETECTED (NotDetected) A 01/03/24 13:58 Human Metapneumovir PCR Not Detected (NotDetected) 01/05/24 Unknown Influenza Type A (PCR) Not Detected (NotDetected) 01/05/24 Unknown Influenza Type B (PCR) Not Detected (NotDetected) 01/05/24 Unknown M. pneumoniae (PCR) Not Detected (NotDetected) 01/05/24 Unknown Parainfluenza 1 (PCR) Not Detected (NotDetected) 01/05/24 Unknown Parainfluenza 2 (PCR) Not Detected (NotDetected) 01/05/24 Unknown Parainfluenza 3 (PCR) Not Detected (NotDetected) 01/05/24 Unknown Parainfluenza 4 (PCR) Not Detected (NotDetected) 01/05/24 Unknown RSV (PCR) Not Detected (NotDetected) 01/05/24 Unknown Entero/Rhino (PCR) Not Detected (NotDetected) 01/05/24 Unknown mcr-1 Colistin Res Gene PCR Not Detected (NotDetected) 01/03/24 13:58 blaIMP Car res Gene PCR Not Detected (NotDetected) 01/03/24 13:58 KPC-Carbap Res Gene PCR Not Detected (NotDetected) 01/03/24 13:58 blaNDM Car Res Gene PCR Not Detected (NotDetected) 01/03/24 13:58 OXA-48 Carbapenem Resis Gene (PCR) Not Detected (NotDetected) 01/03/24 13:58 blaVIM Car Res Gene PCR Not Detected (NotDetected) 01/03/24 13:58 CTX-M Gene Resistance (PCR) Not Detected (NotDetected) 01/03/24 13:58 Bld Cult ID Panel PCR See PCR Comment (NotDetected) 01/03/24 13:58 Impressions Renal Ultrasound 01/05/24 08:00 RENAL ULTRASOUND HISTORY: Acute sepsis with urinary tract infection Urosepsi, rule out obstruction COMPARISON: None. FINDINGS: Right kidney: 12.2 cm. No hydronephrosis. Mild nonspecific perinephric edema. Normal corticomedullary differentiation and cortical thickness. Left kidney: 12.2 cm. No hydronephrosis. Mild nonspecific perinephric edema. Normal corticomedullary differentiation and cortical thickness. Bladder: No bladder wall thickening. Nonvisualization of the ureteral jets. Probable fibroid uterus. Left adnexal cystic focus measures 3.2 cm. IMPRESSION: 1. No renal calculi or hydronephrosis identified by ultrasound. 2. Probable fibroid uterus. 3. 3.2 cm left adnexal cystic structure, favored to be benign. ACT 112: Negative or not required by law. Electronically signed by: Magen Rivera M.D. 01/05/2024 9:22 AM Chest X-Ray 01/05/24 12:46 XR chest 1V portable HISTORY: cough, r/o pneumonia COMPARISON: Chest 01/03/2024. FINDINGS: No pneumothorax. There are low lung volumes. The cardiac silhouette remains mildly enlarged. No evidence for pulmonary edema. Stable blunting of the left lateral costophrenic sulcus with a few small left basilar linear densities. This may represent atelectasis. No new focal lung consolidations. No evidence for pulmonary edema. No acute fractures. IMPRESSION: No significant change compared to the prior study. No acute process. ACT 112: Negative or not required by law. Electronically signed by: Derrick Tran M.D. 01/05/2024 1:28 PM Abdomen/Pelvis CT 01/05/24 14:39 CT abd pelvis IV con only CLINICAL HISTORY: e coli bacteremia, r/o intraabdominal infection TECHNIQUE: Helical axial images of the abdomen and pelvis were obtained and displayed. Automated dose lowering techniques and/or adjustment according to patient size were utilized for this exam. This exam was performed with intravenous contrast. CT DOSE: 1140.32 mGy.cm COMPARISON: Comparison is made to renal ultrasound 01/05/2024 FINDINGS: Lower chest: Cardiomegaly is partially visualized. Liver: Hepatic cysts are seen. Gallbladder and biliary tree: The gallbladder is contracted. No intra- or extrahepatic biliary ductal dilation. Pancreas: Unremarkable, no focal lesions. Spleen: Unremarkable. Adrenals: Unremarkable. Kidneys and ureters: Mild enhancement of the bilateral ureteral wall is noted. Possible wedge-shaped foci of hypoenhancement are seen in the left greater than right kidneys. Bladder: Unremarkable. Reproductive organs: Unremarkable. Bowel: Diverticulosis is seen without evidence of diverticulitis. Lymph nodes Retroperitoneal: Unremarkable. Pelvic: Unremarkable. Mesenteric: Unremarkable. Peritoneum: Normal. Vessels: Unremarkable. Abdominal wall: A left buttock lipoma is incidentally noted. Umbilical hernia is seen. Bones: Degenerative changes in the visualized spine. Compression deformity of T10 is seen. IMPRESSION: Enhancement of the ureteral wall and questionable wedge-shaped hypoenhancement in the kidneys are concerning for ascending infection in this patient with urinary tract infection. Otherwise no acute abnormalities are seen. ACT 112: Negative or not required by law. Electronically signed by: Clifford Ceballos M.D. 01/05/2024 5:14 PM Videofluoroscopic Swallow 01/06/24 10:30 FL video swallow HISTORY: r/o aspiration TECHNIQUE: Video fluoroscopic evaluation of swallowing was performed in the AP and lateral projections by the speech pathology staff. The patient is fed nectar-thick and thin liquid barium, a barium coated wafer, and barium pudding. FLUOROSCOPY TIME: 1 minute and 13 seconds.. Ka,r: 4.7 mGy COMPARISON STUDY: None. FINDINGS: There is normal hyoid excursion and epiglottic deflection. A few episodes of penetration with the thin liquid barium only. This is due to the slight delayed initiation of swallowing. However, no aspiration demonstrated during the examination. There is mild esophageal dysmotility noted. IMPRESSION: 1. No aspiration identified. 2. Please see the speech pathologist report for detailed findings and recommendations. ACT 112: Negative or not required by law. Electronically signed by: Derrick Tran M.D. 01/06/2024 11:05 AM Pending Results Patient Have Any Pending Studies at Discharge: No Discharge Instructions Given to Patient (Per Discharging Provider) PLEASE REFER TO YOUR NEW MEDICATION LIST AND FOLLOW INSTRUCTIONS CAREFULLY. YOUR NEW MEDICATIONS INCLUDE: Ciprofloxacin-antibiotic for urinary tract infection, bloodstream infection Please take a probiotic daily for at least 1 month. Eat yogurt daily. Mucinex-for cough PLEASE CALL YOUR PRIMARY CARE PHYSICIAN OR RETURN TO THE ER IF WITH WORSENING OF SYMPTOMS, INCLUDING Fevers or chills, weakness, confusion, cough, shortness of breath, sputum production, diarrhea etc. FOLLOW UP WITH PRIMARY CARE PHYSICIAN OUTLINED ABOVE. Total Time Total Time Spent Total Time Spent (In Minutes): 45 minutes
== END 2024-01-07 13:50 | disposition home or self-care (01) | DRG 690 ==
LOC: ED 11:22 → SUATTDRO 14:59 → 3N 14:59 → 2N 01-04 15:07

== ENCOUNTER 2024-06-05 18:26 | Inpatient (IN) ==
--- NOTE | 2024-06-05 18:50 | Emergency Department Note ---
Impression & Plan SOB (shortness of breath), Pneumonia, Coronavirus infection, Tachycardia ED Provider Note NAME: STEFFANY MORAN AGE: 78 SEX: F : 1945 ARRIVES VIA: Walk-In INFORMANT: [Patient][] ED PROVIDER(S): [Frandy Morales MD] CHIEF COMPLAINT: Cough HISTORY OF PRESENT ILLNESS: The patient is a 78-year-old female who has been coughing for 3 days. The cough has worsened. This morning, she had a temperature of 101. The patient in the past has had heart failure. She had a cough when she was diagnosed with heart failure. No sick contacts, no vomiting, no abdominal pain. No stuffy nose or sore throat. PMHx/PSHx/Social Hx: See Below PHYSICAL EXAM: GENERAL: Patient is in no acute distress. Moist cough noted. HEENT: No acute trauma, normocephalic atraumatic, mucous membranes moist, no nasal congestion. NECK: No stridor, no adenopathy, no meningismus, trachea is midline. LUNGS: Moist cough noted, no respiratory distress, wheezing bilaterally with diminished breath sounds bilaterally. HEART: 2/6 systolic murmur, regular rate and rhythm. ABDOMEN: Soft, nontender, no peritonitis. EXTREMITIES: No cyanosis, full range of motion of all the joints without pain or difficulty. Mild bilateral pedal edema. NEUROLOGIC: Oriented x 3, no acute motor or sensory deficits, no focal weakness. SKIN: No jaundice, no diaphoresis. DIFFERENTIAL DIAGNOSIS: Bronchitis or pneumonia, viral illness, CHF, among others. EMERGENCY DEPARTMENT PROCEDURES: MEDICAL DECISION MAKING: There is no leukocytosis or concerning anemia. Platelet count somewhat low at 95. No coagulopathy. No renal failure or significant electrolyte abnormality. BNP is somewhat elevated consistent with fluid overload however, the value is lower than previous testing. The patient appeared to be in a euthyroid state. ECG showed a sinus tachycardia, no obvious ischemia. Chest x-ray does not show heart failure. There may be an early left base infiltrate. Respiratory bio fire was positive for a type of coronavirus. On exam, the patient was coughing and had a borderline low O2 saturation. She was tachycardic and had wheezing by auscultation. The patient was given a DuoNeb, oral Tessalon, IV ceftriaxone, oral doxycycline and IV Solu-Medrol. The patient presents with a cough. She has a low O2 saturation, she is tachycardic and wheezing. She may have an early pneumonia on x-ray. I do think a hospital stay is warranted. I spoke with the patient and case management. The on-call hospitalist was consulted. Prior/Outside records/notes reviewed: None ECG per my interpretation: Indication was shortness of breath. The ECG shows a sinus tachycardia with occasional PVCs. The rate was 108. LVH was present. There is some nonspecific ST change. No acute ST elevation. There were some inverted T waves in the high lateral leads. QTc was 460. Continuous Cardiac Monitoring per my interpretation: An order was placed for continuous cardiac monitoring. The monitor shows a rate of 107 with sinus tachycardia. Imaging/x-ray results per my interpretation: Chest x-ray shows what appears to be a potential left base infiltrate. No heart failure findings. Chronic Medical/Social conditions affecting care: Advanced age. Care/Management discussed with: Case management, the on-call hospitalist. Level of care consideration(s): After review of the information above and other included data: --I believe the patient requires escalation of care to admission DISPOSITION: Admission Past Med/Surg History Problem List Tachycardia (Acute) Coronavirus infection (Acute) Pneumonia (Acute) SOB (shortness of breath) (Acute) Gram-negative bacteremia Sepsis (Acute) Generalized weakness (Acute) UTI (urinary tract infection) (Acute) Medical History History of breast cancer AD (Alzheimer's disease) HFrEF (heart failure with reduced ejection fraction) NICM (nonischemic cardiomyopathy) PVC (premature ventricular contraction) Hypertension Peptic ulcer disease HX Anemia Migraine HX Surgical History History of cataract surgery right S/P lumpectomy, left breast History of colonoscopy Hx of lumpectomy LEFT History of tonsillectomy History of tooth extraction Family History Other Cancer Hypertension Social History Smoking Status: Never smoker Second Hand Exposure: No; Do You Dip or Chew Tobacco: No; Hx Alcohol Use: No Hx Substance Use: No Preferred Language: Tuvaluan Communication Ability: Impaired Oracle Technical Architect Required: No Beliefs That Will Affect Care: None Current Living Situation: Spouse Feels Safe at Home: Yes Assistive Devices: Walker Allergies Allergies Allergy/AdvReac Type Severity Reaction Status Date / Time bee venom protein (honey bee) Allergy Intermediate EXTRA Verified 10/18/20 20:45 SWELLING AT SITE Sulfa (Sulfonamide Allergy Mild Unknown Verified 10/18/20 20:45 Antibiotics) bupropion Allergy Unknown unknown Verified 10/18/20 20:45 pneumococcal vaccine Allergy Unknown FEVER, Verified 10/18/20 20:45 [From Pneumovax 23] CHILLS, BODY ACHES, VOMITING Home Meds Home Medications Medication Instructions Recorded Confirmed tamoxifen 20 mg tablet 20 mg PO QAM 06/29/19 01/03/24 tramadol 50 mg tablet 50 mg PO TID PRN Moderate Pain 09/04/20 01/03/24 (Scale Score 5-6) calcium carbonate (Calcium 600) 600 mg PO BID 09/21/20 01/03/24 montelukast 10 mg tablet 10 mg PO QAM 10/18/20 01/03/24 (Singulair) benzonatate 100 mg capsule 100 mg PO HS PRN Cough 04/23/23 01/03/24 cholecalciferol (vitamin D3) 125 125 mcg PO QAM 04/23/23 01/03/24 mcg (5,000 unit) tablet (Vitamin D3) cyanocobalamin (vitamin B-12) 500 500 mcg PO DAILY 04/23/23 01/03/24 mcg lozenges (Vitamin B-12) fluticasone propionate 50 2 spray intranasal DAILY 04/23/23 01/03/24 mcg/actuation nasal spray,suspension metoprolol succinate 25 mg 25 mg PO UD 04/23/23 01/03/24 tablet,extended release 24 hr multivitamin 1 tab PO DAILY 04/23/23 01/03/24 potassium chloride 20 mEq 20 meq PO QAM 04/23/23 01/03/24 tablet,extended release(part/cryst) melatonin 5 mg capsule 5 mg PO HS PRN Insomnia 01/03/24 01/03/24 Previous Rx's Medication Instructions Recorded furosemide 20 mg tablet 40 mg (2 x 20 mg) PO DAILY #60 tabs 04/26/23 sacubitril 24 mg-valsartan 26 mg 1 tab PO BID #60 tabs 04/26/23 tablet (Entresto) Results & Data (ED) Vital Signs Vital Signs - 24 hr 06/05/24 18:31 06/05/24 19:20 06/05/24 19:25 Temperature 36.5 C Temperature Source Temporal Artery Scan Pulse Rate 114 H 108 H Pulse Rate [Apical] 107 H Pulse Rate from SpO2 Sensor Respiratory Rate 18 Respiratory Effort / Characteristics Non-Labored Spontaneous Respiratory Depth Normal Blood Pressure 136/93 Blood Pressure Mean 107 Blood Pressure Position Sitting Pulse Oximetry 94 Oxygen Delivery Method Room Air Oxygen Flow Rate Sepsis Recent Fever Within 48 Hours No Sepsis New/Unexplained Change in Mental Status No Sepsis Action Taken by Nursing No Action Required 06/05/24 19:33 06/05/24 20:01 06/05/24 20:03 Temperature Temperature Source Pulse Rate 109 H 115 H Pulse Rate [Apical] Pulse Rate from SpO2 Sensor 114 H Respiratory Rate 20 24 Respiratory Effort / Characteristics Respiratory Depth Blood Pressure 161/94 H 161/94 H Blood Pressure Mean 108 116 Blood Pressure Position Pulse Oximetry 95 90 Oxygen Delivery Method Room Air Room Air Oxygen Flow Rate Sepsis Recent Fever Within 48 Hours Sepsis New/Unexplained Change in Mental Status Sepsis Action Taken by Nursing 06/05/24 20:30 06/05/24 21:00 06/05/24 22:25 Temperature Temperature Source Pulse Rate 114 H 108 H Pulse Rate [Apical] Pulse Rate from SpO2 Sensor 115 H Respiratory Rate 26 H 24 Respiratory Effort / Characteristics Respiratory Depth Blood Pressure 155/121 H Blood Pressure Mean 134 Blood Pressure Position Pulse Oximetry 95 93 87 L Oxygen Delivery Method Room Air Room Air Room Air Oxygen Flow Rate Sepsis Recent Fever Within 48 Hours Sepsis New/Unexplained Change in Mental Status Sepsis Action Taken by Nursing 06/05/24 22:29 Temperature Temperature Source Pulse Rate Pulse Rate [Apical] Pulse Rate from SpO2 Sensor Respiratory Rate Respiratory Effort / Characteristics Respiratory Depth Blood Pressure Blood Pressure Mean Blood Pressure Position Pulse Oximetry 93 Oxygen Delivery Method Nasal Cannula Oxygen Flow Rate 2.5 Sepsis Recent Fever Within 48 Hours Sepsis New/Unexplained Change in Mental Status Sepsis Action Taken by [facility] Medications Current Medication List: was personally reviewed by me Laboratory Data Attestation: I reviewed the patient's lab results. 06/05/24 19:00 06/05/24 19:00 Lab Results 06/05/24 06/05/24 Range/Units 18:56 19:00 WBC 6.01 (4.8-10.8) K/ul RBC 4.79 (4.20-5.40) M/uL Hgb 14.1 (12.0-16.0) g/dl Hct 41.8 (37.0-47.0) % MCV 87.3 (80.0-100.0) fL MCH 29.4 (25.0-34.0) pg MCHC 33.7 (32.0-36.0) g/dL RDW Std Deviation 41.0 (36.4-46.3) fL RDW Coeff of Tiffany 12.8 (11.5-14.5) % Plt Count 95 L (130-400) K/uL MPV 10.7 (9.4-12.4) fL Immature Gran % (Auto) 0.3 % Neut % (Auto) 74.1 % Lymph % (Auto) 13.3 % [place] % (Auto) 10.6 % Eos % (Auto) 1.0 % Baso % (Auto) 0.7 % Neut # (Auto) 4.45 (1.40-6.50) K/uL Lymph # (Auto) 0.80 L (1.20-3.40) K/uL [place] # (Auto) 0.64 H (0.11-0.59) K/uL Eos # (Auto) 0.06 (0.00-0.50) K/uL Baso # (Auto) 0.04 (0.00-0.20) K/uL Immature Gran # (Auto) 0.02 (0.01-0.20) K/uL Platelet Estimate Decreased L (Normal) PT 11.0 (9.0-12.0) Seconds INR 1.0 (0.9-1.1) APTT 26 (21-31) Seconds PTT Ratio 1.0 Sodium 141 (136-145) mmol/L Potassium 3.8 (3.5-5.1) mmol/L Chloride 107 (98-107) mmol/L Carbon Dioxide 24 (21-32) mmol/L Anion Gap 10 (3-11) BUN 12 (6-23) mg/dl Creatinine 0.76 (0.6-1.2) mg/dl Est Cr Clr Drug Dosing 56.4 ml/min eGFR 79.66 BUN/Creatinine Ratio 15.8 (10-20) Glucose 114 H (70-99(Fasting)) mg/dl Calcium 8.6 (8.6-10.3) mg/dl Magnesium 1.9 (1.7-2.4) mg/dl Total Bilirubin 0.6 (0.2-1.0) mg/dl AST 16 (13-39) U/L ALT 11 (7-52) U/L Alkaline Phosphatase 60 (34-104) U/L B-Natriuretic Peptide 877 H (0-100) pg/ml Total Protein 5.9 L (6.0-8.3) gm/dl Albumin 4.0 (3.4-5.0) gm/dl Globulin 1.9 L (2.5-4.0) gm/dl Albumin/Globulin Ratio 2.1 H (0.9-2) TSH 2.711 (0.300-4.500) uIu/ml Adenovirus (PCR) Not Detected (NotDetected) B. pertussis DNA (PCR) Not Detected (NotDetected) B.parapertussis DNA PCR Not Detected (NotDetected) C. pneumoniae DNA (PCR) Not Detected (NotDetected) Coronavirus OC43 (PCR) DETECTED A (NotDetected) Coronavirus HKU1 (PCR) Not Detected (NotDetected) Coronavirus 229E (PCR) Not Detected (NotDetected) SARS-CoV-2 (PCR) Not Detected (NotDetected) Coronavirus NL63 (PCR) Not Detected (NotDetected) Human Metapneumovir PCR Not Detected (NotDetected) Influenza Type A (PCR) Not Detected (NotDetected) Influenza Type B (PCR) Not Detected (NotDetected) M. pneumoniae (PCR) Not Detected (NotDetected) Parainfluenza 1 (PCR) Not Detected (NotDetected) Parainfluenza 2 (PCR) Not Detected (NotDetected) Parainfluenza 3 (PCR) Not Detected (NotDetected) Parainfluenza 4 (PCR) Not Detected (NotDetected) RSV (PCR) Not Detected (NotDetected) Entero/Rhino (PCR) Not Detected (NotDetected) Administered Medications Discontinued Medications Albuterol (Albut/Ipratrop 3mg/0.5mg Neb 3 Ml Vial) 3 ml NEB NOW STA; Protocol Stop: 06/05/24 18:51 Last Admin: 06/05/24 19:15 Dose: 3 ml Documented By: GAB Benzonatate (Benzonatate 100 Mg Capsule) 100 mg PO NOW ONE Stop: 06/05/24 18:51 Last Admin: 06/05/24 19:15 Dose: 100 mg Documented By: GAB Doxycycline Hyclate (Doxycycline Hyclate 100 Mg Cap) 100 mg PO NOW STA Stop: 06/05/24 21:16 Last Admin: 06/05/24 21:35 Dose: 100 mg Documented By: GAB Ceftriaxone Sodium (Rocephin) 2,000 mg in 50 mls @ 100 mls/hr IV NOW STA Stop: 06/05/24 21:44 Last Infusion: 06/05/24 22:06 Dose: Infused Documented By: Admin: 06/05/24 21:34 Dose: 100 mls/hr Documented By: GAB Methylprednisolone (Methylprednisolone 125 Mg/2 Ml Vial) 40 mg IV NOW STA Stop: 06/05/24 21:35 Last Admin: 06/05/24 22:17 Dose: 40 mg Documented By: GAB Imaging Data Radiologist's Impression: Chest X-Ray 06/05/24 18:38 Exam(s): XR CXR 1 VIEW EXAM: XR Chest, 1 View CLINICAL HISTORY: weakness. TECHNIQUE: Frontal view of the chest. COMPARISON: Portal chest 01/05/2024 FINDINGS: Lungs: No definite focal airspace consolidation. The pulmonary vasculature demonstrates no significant radiographic abnormality. Pleural space: Unremarkable. No pneumothorax. No large pleural effusion. Heart: Unremarkable. No cardiomegaly. Mediastinum: The mediastinal contours are thought to be stable, accounting for obliquity. No tracheal deviation. Bones/joints: Unremarkable. No acute fracture. IMPRESSION: No focal consolidation or acute cardiopulmonary process identified. Electronically signed by: Mateusz Ngo MD 06/05/24 22:09 PM Discharge Plan Visit Data Chief Complaint: Cough Stated Complaint: CHF, COUGH, WEAK, ED Provider: Frandy Morales Discharge Problem: SOB (shortness of breath), Pneumonia, Coronavirus infection, Tachycardia Patient Disposition: Admitted As Inpatient Condition: Fair Forms Stand Alone Forms: My [facility] Prescriptions Prescriptions: No Action tramadol 50 mg tablet 50 mg PO TID PRN (Reason: Moderate Pain (Scale Score 5-6)) tamoxifen 20 mg Tablet 20 mg PO QAM calcium carbonate [Calcium 600] 600 mg calcium (1,500 mg) Tablet 600 mg PO BID Rx Instructions: take with morning and evening meals montelukast [Singulair] 10 mg Tablet 10 mg PO QAM benzonatate 100 mg capsule 100 mg PO HS PRN (Reason: Cough) potassium chloride 20 mEq tablet,ER particles/crystals 20 meq PO QAM metoprolol succinate 25 mg tablet extended release 24 hr 25 mg PO UD Rx Instructions: take 2 tablets in the morning and 1 tablet in the evening multivitamin Tablet 1 tab PO DAILY cyanocobalamin (vitamin B-12) [Vitamin B-12] 500 mcg Lozenge 500 mcg PO DAILY cholecalciferol (vitamin D3) [Vitamin D3] 125 mcg (5,000 unit) Tablet 125 mcg PO QAM fluticasone propionate 50 mcg/actuation [place],Suspension 2 spray INTRANASAL DAILY Rx Instructions: administer into each nostril Entresto 24-26 mg Tablet 1 tab PO BID Qty: 60 0RF furosemide 20 mg tablet 40 mg PO DAILY Qty: 60 0RF Rx Instructions: take between 2-4 pm melatonin 5 mg capsule 5 mg PO HS PRN (Reason: Insomnia) Referrals Referrals: David Olsen MD [Primary Care Provider] - Discharge Problem: Pneumonia Qualifiers: Pneumonia type: due to unspecified organism Laterality: left Lung location: u pper lobe of lung Qualified Code(s): J18.9 - Pneumonia, unspecified organism
[2024-06-05] MEDS: ALBUT/IPRATROP 3MG/0.5MG NEB 3 ML VIAL NEB STA (19:15)
[2024-06-05] MEDS: BENZONATATE 100 MG CAPSULE PO ONE (19:15)
[2024-06-05 19:44] LABS: Albumin Globulin Ratio 2.1 (0.9-2); BUN Creatinine Ratio 15.8 (10-20); Bilirubin,Total 0.6 mg/dl (0.2-1.0); Calcium 8.6 mg/dl (8.6-10.3); Creatinine Clr Calc Pharmacy 56.4 ml/min; Globulin 1.9 gm/dl (2.5-4.0); Magnesium 1.9 mg/dl (1.7-2.4); Potassium 3.8 mmol/L (3.5-5.1); Total Protein 5.9 gm/dl (6.0-8.3)
[2024-06-05 19:55] LABS: Adenovirus PCR Not Detected (NotDetected); Bordetella parapertussis PCR Not Detected (NotDetected); Bordetella pertussis PCR Not Detected (NotDetected); Chlamydia pneumoniae PCR Not Detected (NotDetected); Coronavirus 229E PCR Not Detected (NotDetected); Coronavirus CoV-2 (COVID19)PCR Not Detected (NotDetected); Coronavirus HKU1 PCR Not Detected (NotDetected); Coronavirus NL63 PCR Not Detected (NotDetected); Coronavirus OC43PCR DETECTED (NotDetected); Human Metapneumovirus PCR Not Detected (NotDetected); Influenza A PCR Not Detected (NotDetected); Influenza B PCR Not Detected (NotDetected); Mycoplasma pneumoniae PCR Not Detected (NotDetected); Parainfluenza Virus 1 PCR Not Detected (NotDetected); Parainfluenza Virus 2 PCR Not Detected (NotDetected); Parainfluenza Virus 3 PCR Not Detected (NotDetected); Parainfluenza Virus 4 PCR Not Detected (NotDetected); Respiratory Syncytial VirusPCR Not Detected (NotDetected); Rhinovirus/Enterovirus PCR Not Detected (NotDetected)
[2024-06-05 19:56] LABS: Partial Thromboplastin Time 26 Seconds (21-31)
[2024-06-05 19:59] LABS: Thyroid Stimulating Hormone 2.711 uIu/ml (0.300-4.500)
[2024-06-05 20:01] LABS: Basophils # (auto) 0.04 K/uL (0.00-0.20); Basophils % (auto) 0.7 %; Eosinophils # (auto) 0.06 K/uL (0.00-0.50); Hematocrit (blood only) 41.8 % (37.0-47.0); Hemoglobin 14.1 g/dl (12.0-16.0); Immature Granulocytes # (auto) 0.02 K/uL (0.01-0.20); Immature Granulocytes % (auto) 0.3 %; Lymphocytes % (auto) 13.3 %; Mean Corpuscular Hemoglobin 29.4 pg (25.0-34.0); Mean Corpuscular Hgb Conc 33.7 g/dL (32.0-36.0); Mean Corpuscular Volume 87.3 fL (80.0-100.0); Mean Platelet Volume 10.7 fL (9.4-12.4); Monocytes # (auto) 0.64 K/uL (0.11-0.59); Monocytes % (auto) 10.6 %; Neutrophils # (auto) 4.45 K/uL (1.40-6.50); Neutrophils % (auto) 74.1 %; Platelet Count 95 K/uL (130-400); Platelet Estimate Decreased (Normal); RDW Coefficient of Variation 12.8 % (11.5-14.5); Red Blood Count 4.79 M/uL (4.20-5.40); White Blood Count 6.01 K/ul (4.8-10.8)
[2024-06-05] MEDS: cefTRIAXone SODIUM 2,000 MG/50 ML BAG IV STA (21:34)
[2024-06-05] MEDS: DOXYCYCLINE HYCLATE 100 MG CAP PO STA (21:35)
--- NOTE | 2024-06-05 22:10 | XRay Report ---
Exam(s): XR CXR 1 VIEW EXAM: XR Chest, 1 View CLINICAL HISTORY: weakness. TECHNIQUE: Frontal view of the chest. COMPARISON: Portal chest 01/05/2024 FINDINGS: Lungs: No definite focal airspace consolidation. The pulmonary vasculature demonstrates no significant radiographic abnormality. Pleural space: Unremarkable. No pneumothorax. No large pleural effusion. Heart: Unremarkable. No cardiomegaly. Mediastinum: The mediastinal contours are thought to be stable, accounting for obliquity. No tracheal deviation. Bones/joints: Unremarkable. No acute fracture. IMPRESSION: No focal consolidation or acute cardiopulmonary process identified. Electronically signed by: Mateusz Ngo MD 06/05/24 22:09 PM
[2024-06-05] MEDS: methylPREDNISolone 125 MG/2 ML VIAL IV STA (22:17)
--- NOTE | 2024-06-05 23:52 | History & Physical Report ---
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 Having lot of cough since last 3 days mostly dry cough. Patient lives at her home with her . As per when she is having coughing spells her oxygen levels are going down. She had a temperature 101 degrees today as per . Patient is somewhat hard of hearing. Patient has dementia. Denies any headache. No runny nose or sore throat. No chest pain. Currently denies any shortness of breath. No nausea. No abdominal pain. Normal bowel and bladder movements. Usually ambulates without support sometimes holds her. In the ER oxygen was 87% on room air. On 2 L saturating okay. Acute bronchitis Possible pneumonia Coronavirus 0C43 positive SARS COVID-negative Will get CT chest Received Rocephin and Doxy in ER which will be continued Short course of steroids Nebs [id number] and as needed Pulmicort inhaler Droplet precautions Close monitor Acute UTI Ua came back positive on Rocephin will follow cultures. Chronic systolic CHF EF 35% on echo done in 03/2023 Continue home Lasix with potassium supplement, Entresto, metoprolol succinate Monitor for volume overload Hypertension On metoprolol succinate Entresto and diuretics Will monitor Alzheimer's dementia Monitor for delirium History of meningioma On MRI scan 2021 unchanged from prior History of left breast cancer, involving the upper inner quadrant S/p lumpectomy and adjuvant radiation treatment Currently on tamoxifen Thrombocytopenia Platelets 95 Seems new finding Needs follow-up Will follow repeat labs DVT prophylaxis Heparin SQ twice daily Monitor platelets Disposition Med/telemetry Full code. 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 Having lot of cough since last 3 days mostly dry cough. Patient lives at her home with her . As per when she is having coughing spells her oxygen levels are going down. She had a temperature 101 degrees today as per . Patie nt is somewhat hard of hearing. Patient has dementia. Denies any headache. No runny nose or sore throat. No chest pain. Currently denies any shortness of breath. No nausea. No abdominal pain. Normal bowel and bladder movements. Usually ambulates without support sometimes holds her. In the ER oxygen was 87% on room air. On 2 L saturating okay. Past medical history. As mentioned above. Past surgical history. Left breast biopsy. Colonoscopy. Ligation of oviducts. Left partial mastectomy. Tonsillectomy and adenoidectomy. Social history. . No smoking. No alcohol use. No drug use. Family history. Mother had COPD, asthma and hypertension. Father had eye problems. Colon cancer. Maternal grandmother had cancer. Sister has cardiac stents. Allergies Allergy/AdvReac Type Severity Reaction Status Date / Time bee venom protein (honey bee) Allergy Intermediate EXTRA Verified 10/18/20 20:45 SWELLING AT SITE Sulfa (Sulfonamide Allergy Mild Unknown Verified 10/18/20 20:45 Antibiotics) bupropion Allergy Unknown unknown Verified 10/18/20 20:45 pneumococcal vaccine Allergy Unknown FEVER, Verified 10/18/20 20:45 [From Pneumovax 23] CHILLS, BODY ACHES, VOMITING Home Medications Medication Instructions Recorded Confirmed Type furosemide 40 mg tablet 40 mg PO DAILY 06/05/24 06/05/24 History metoprolol succinate 25 mg 25 mg PO UD 06/05/24 06/05/24 History tablet,extended release 24 hr montelukast 10 mg tablet 10 mg PO DAILY 06/05/24 06/05/24 History potassium chloride 10 mEq 20 meq PO DAILY 06/05/24 06/05/24 History capsule,extended release sacubitril 24 mg-valsartan 26 mg 1 tab PO BID 06/05/24 06/05/24 History tablet (Entresto) tamoxifen 20 mg tablet 20 mg PO DAILY 06/05/24 06/05/24 History tramadol 50 mg tablet 50 mg PO TID PRN Pain 06/05/24 06/05/24 History Past Med/Surg History Problem List (Updated 06/05/24 @ 23:55 by Dell Gambino MD) Acute bronchitis Tachycardia (Acute) Coronavirus infection (Acute) Pneumonia (Acute) SOB (shortness of breath) (Acute) Gram-negative bacteremia Sepsis (Acute) Generalized weakness (Acute) UTI (urinary tract infection) (Acute) Medical History History of breast cancer AD (Alzheimer's disease) HFrEF (heart failure with reduced ejection fraction) NICM (nonischemic cardiomyopathy) PVC (premature ventricular contraction) Hypertension Peptic ulcer disease HX Anemia Migraine HX Surgical History History of cataract surgery right S/P lumpectomy, left breast History of colonoscopy Hx of lumpectomy LEFT History of tonsillectomy History of tooth extraction Family History Other Cancer Hypertension Social History Smoking Status: Never smoker Second Hand Exposure: No; Do You Dip or Chew Tobacco: No; Hx Alcohol Use: No Hx Substance Use: No Preferred Language: Pakistani Communication Ability: Impaired Final Installer Inspector Required: No Beliefs That Will Affect Care: None Current Living Situation: Spouse Feels Safe at Home: Yes Safety Concerns: Feels Safe At This Time Assistive Devices: Glasses Review of Systems Review of Systems: All systems reviewed & are unremarkable except as noted in HPI & below Physical Exam Physical Exam: General- Not in acute distress Head- atraumatic Eyes- PERRL. ENT- oropharynx clear Neck- supple, no JVD. Lungs- clear to auscultation b/l mild wheezing and rhonchi heard. Heart- regular rate and rhythm; no murmur, no gallop. Abdomen- normal bowel sounds, soft, nontender, no distension. Extremities- no pretibial edema, no erythema seen. Neuro- alert, oriented PERRL, no facial palsy; no dysarthria; moves extremities Results & Data Results & Data Vital Signs (Past 12 Hours) Vital Signs Temp Pulse Pulse Resp BP Pulse Ox O2 Del Method 06/05/24 23:21 108 H 06/05/24 23:00 110 H 23 94 Nasal Cannula 06/05/24 22:29 93 Nasal Cannula 06/05/24 22:25 87 L Room Air 06/05/24 21:00 108 H 24 155/121 H 93 Room Air 06/05/24 20:30 114 H 26 H 95 Room Air 06/05/24 20:03 115 H 24 161/94 H 90 Room Air 06/05/24 20:01 161/94 H 06/05/24 19:33 109 H 20 95 Room Air 06/05/24 19:25 108 H 06/05/24 19:20 107 H 06/05/24 18:31 36.5 C 114 H 18 136/93 94 Room Air O2 Flow Rate 06/05/24 23:21 06/05/24 23:00 2 06/05/24 22:29 2.5 06/05/24 22:25 06/05/24 21:00 06/05/24 20:30 06/05/24 20:03 06/05/24 20:01 06/05/24 19:33 06/05/24 19:25 06/05/24 19:20 06/05/24 18:31 Diagnostic Findings Laboratory Results WBC 6.01 K/ul (4.8-10.8) 06/05/24 19:00 RBC 4.79 M/uL (4.20-5.40) 06/05/24 19:00 Hgb 14.1 g/dl (12.0-16.0) 06/05/24 19:00 Hct 41.8 % (37.0-47.0) 06/05/24 19:00 MCV 87.3 fL (80.0-100.0) 06/05/24 19:00 MCH 29.4 pg (25.0-34.0) 06/05/24 19:00 MCHC 33.7 g/dL (32.0-36.0) 06/05/24 19:00 RDW Std Deviation 41.0 fL (36.4-46.3) 06/05/24 19:00 RDW Coeff of Tiffany 12.8 % (11.5-14.5) 06/05/24 19:00 Plt Count 95 K/uL (130-400) L 06/05/24 19:00 MPV 10.7 fL (9.4-12.4) 06/05/24 19:00 Immature Gran % (Auto) 0.3 % 06/05/24 19:00 Neut % (Auto) 74.1 % 06/05/24 19:00 Lymph % (Auto) 13.3 % 06/05/24 19:00 Swift % (Auto) 10.6 % 06/05/24 19:00 Eos % (Auto) 1.0 % 06/05/24 19:00 Baso % (Auto) 0.7 % 06/05/24 19:00 Neut # (Auto) 4.45 K/uL (1.40-6.50) 06/05/24 19:00 Lymph # (Auto) 0.80 K/uL (1.20-3.40) L 06/05/24 19:00 Swift # (Auto) 0.64 K/uL (0.11-0.59) H 06/05/24 19:00 Eos # (Auto) 0.06 K/uL (0.00-0.50) 06/05/24 19:00 Baso # (Auto) 0.04 K/uL (0.00-0.20) 06/05/24 19:00 Immature Gran # (Auto) 0.02 K/uL (0.01-0.20) 06/05/24 19:00 Platelet Estimate Decreased (Normal) L 06/05/24 19:00 PT 11.0 Seconds (9.0-12.0) 06/05/24 19:00 INR 1.0 (0.9-1.1) 06/05/24 19:00 APTT 26 Seconds (21-31) 06/05/24 19:00 PTT Ratio 1.0 06/05/24 19:00 Sodium 141 mmol/L (136-145) 06/05/24 19:00 Potassium 3.8 mmol/L (3.5-5.1) 06/05/24 19:00 Chloride 107 mmol/L (98-107) 06/05/24 19:00 Carbon Dioxide 24 mmol/L (21-32) 06/05/24 19:00 Anion Gap 10 (3-11) 06/05/24 19:00 BUN 12 mg/dl (6-23) 06/05/24 19:00 Creatinine 0.76 mg/dl (0.6-1.2) 06/05/24 19:00 Est Cr Clr Drug Dosing 56.4 ml/min 06/05/24 19:00 eGFR 79.66 06/05/24 19:00 BUN/Creatinine Ratio 15.8 (10-20) 06/05/24 19:00 Glucose 114 mg/dl (70-99(Fasting)) H 06/05/24 19:00 Calcium 8.6 mg/dl (8.6-10.3) 06/05/24 19:00 Magnesium 1.9 mg/dl (1.7-2.4) 06/05/24 19:00 Total Bilirubin 0.6 mg/dl (0.2-1.0) 06/05/24 19:00 AST 16 U/L (13-39) 06/05/24 19:00 ALT 11 U/L (7-52) 06/05/24 19:00 Alkaline Phosphatase 60 U/L (34-104) 06/05/24 19:00 B-Natriuretic Peptide 877 pg/ml (0-100) H 06/05/24 19:00 Total Protein 5.9 gm/dl (6.0-8.3) L 06/05/24 19:00 Albumin 4.0 gm/dl (3.4-5.0) 06/05/24 19:00 Globulin 1.9 gm/dl (2.5-4.0) L 06/05/24 19:00 Albumin/Globulin Ratio 2.1 (0.9-2) H 06/05/24 19:00 TSH 2.711 uIu/ml (0.300-4.500) 06/05/24 19:00 Adenovirus (PCR) Not Detected (NotDetected) 06/05/24 18:56 B. pertussis DNA (PCR) Not Detected (NotDetected) 06/05/24 18:56 B.parapertussis DNA PCR Not Detected (NotDetected) 06/05/24 18:56 C. pneumoniae DNA (PCR) Not Detected (NotDetected) 06/05/24 18:56 Coronavirus OC43 (PCR) DETECTED (NotDetected) A 06/05/24 18:56 Coronavirus HKU1 (PCR) Not Detected (NotDetected) 06/05/24 18:56 Coronavirus 229E (PCR) Not Detected (NotDetected) 06/05/24 18:56 SARS-CoV-2 (PCR) Not Detected (NotDetected) 06/05/24 18:56 Coronavirus NL63 (PCR) Not Detected (NotDetected) 06/05/24 18:56 Human Metapneumovir PCR Not Detected (NotDetected) 06/05/24 18:56 Influenza Type A (PCR) Not Detected (NotDetected) 06/05/24 18:56 Influenza Type B (PCR) Not Detected (NotDetected) 06/05/24 18:56 M. pneumoniae (PCR) Not Detected (NotDetected) 06/05/24 18:56 Parainfluenza 1 (PCR) Not Detected (NotDetected) 06/05/24 18:56 Parainfluenza 2 (PCR) Not Detected (NotDetected) 06/05/24 18:56 Parainfluenza 3 (PCR) Not Detected (NotDetected) 06/05/24 18:56 Parainfluenza 4 (PCR) Not Detected (NotDetected) 06/05/24 18:56 RSV (PCR) Not Detected (NotDetected) 06/05/24 18:56 Entero/Rhino (PCR) Not Detected (NotDetected) 06/05/24 18:56 Impressions Chest X-Ray 06/05/24 18:38 Exam(s): XR CXR 1 VIEW EXAM: XR Chest, 1 View CLINICAL HISTORY: weakness. TECHNIQUE: Frontal view of the chest. COMPARISON: Portal chest 01/05/2024 FINDINGS: Lungs: No definite focal airspace consolidation. The pulmonary vasculature demonstrates no significant radiographic abnormality. Pleural space: Unremarkable. No pneumothorax. No large pleural effusion. Heart: Unremarkable. No cardiomegaly. Mediastinum: The mediastinal contours are thought to be stable, accounting for obliquity. No tracheal deviation. Bones/joints: Unremarkable. No acute fracture. IMPRESSION: No focal consolidation or acute cardiopulmonary process identified. Electronically signed by: Mateusz Ngo MD 06/05/24 22:09 PM ECG Additional Comments: ECG. Sinus tachycardia with occasional PVCs rate of 108. Possible left atrial enlargement. Left axis deviation. Left ventricle hypertrophy with repolarization abnormality. QTc 460 Code Status & VTE Plan VTE Prophylaxis Plan VTE Prophylaxis will be ordered: Yes
[2024-06-06 01:54] LABS: Appearance Urine Cloudy (Clear); Bacteria Urine Automated 4+ (None Seen); Bilirubin Urine Negative (Negative); Blood Urine 1+ (Negative); Color Urine Yellow; Glucose Urine UA Negative (Negative); Ketones Urine 2+ (Negative); Leukocyte Esterase Urine 3+ (Negative); Nitrite Urine Positive (Negative); Protein Urine 1+ (Negative); RBC Urine Automated 0-2 /hpf (0-2); Specific Gravity Urine 1.019 (1.000-1.030); Urobilinogen Urine Negative (Negative); WBC Urine Automated >50 /hpf (0-5); pH Urine 5.5 (4.5-7.5)
--- OUTSIDE RECORDS SUMMARY | 2024-06-06 02:08 | External Medical Summary | Summary of Care ---
Author Name Unknown Organization [facility] Address [address] [place] [address] Phone [phone] Care Team Providers Care Mosaic Tiler Name Role Phone David Olsen MD Primary Care Provider [phone] Encounter Details Date Type Department Care Team (Late st Contact Info) Description 05/08/2024 Orders Only Outcomes Research Department [address] [place] [address] Italia Sevilla CHRA MyCode Research Other*[id number] Allergies Active Allergy Reactions Criticality Noted Date Comments Bupropion Itching Low 11/03/2010 Cephalexin Hives Low 04/29/2005 Nitrofurantoin Monohyd Macro Hives 012 Pneumococcal Vaccine Nausea/vomiting 08/03/2010 Sulfa Antibiotics Rash Low 02/28/1999 documented as of this encounter (statuses as of 05/08/2024) Medications MULTI-VITAMIN PO TABS 1 daily 0 04/22/20 07 Active Fluticasone Propionate 50 MCG/ACT Nasal SuspensionIndicati ons:Post-nasal drip Administer 2 Sprays into each nostril daily. 16 g 1 06/03/20 20 Active Vitamin D3 125 MCG (5000 UT) Oral Capsule Take 1 Capsule by mouth in the morning. 3 Cap 06/17/19 21 Active B-12 500 MCG Sublingual Tablet Sublingual Place 1 Tablet under the tongue once. 30 Tab 06/17/19 21 Active Triamcinolone Acetonide 0.1 % External Ointment (Aristocort)Indica tions:Dermatitis of lip Apply topically to affected area 2 times a day. Apply 2x daily (or more if itchy/painful instead of licking) to lips until resolved 30 g 08/01/19 Active Additional Information Patient not taking.Reported on 09/22/2023 Calcium Carbonate 600 MG Oral Tablet Take 1 Tablet by mouth 2 times a day with morning and evening meals. Active Potassium Chloride Rimma ER 20 MEQ Oral Tablet Extended Release Take 1 Tablet by mouth in the morning. 30 Tablet 1 03/29/20 Active Furosemide 20 MG Oral Tablet (Lasix) Take 1 Tablet by mouth every evening. Around 2-4 pm 90 Tablet 3 04/08/20 Active guaiFENesin ER 600 MG Oral Tablet Extended Release 12 Hour (Mucinex) Take 1 Tablet by mouth 2 times a day as needed for Congestion. Take with plenty of water. Do not cut, crush or chew 40 Tablet 2 04/15/20 Active Benzonatate 100 MG Oral Capsule Take 1 Capsule by mouth at bedtime as needed for Cough. 30 Capsule 1 04/15/20 Active Additional Information Patient not taking.Reported on 09/22/2023 Melatonin 5 MG Oral Capsule Take 1 Capsule by mouth at bedtime. 04/26/20 Active Spironolactone 25 MG Oral Tablet (Aldactone)Indicat ions:Cardiomyopath y, unspecified type (HCC) Take 1 Tablet by mouth in the morning. 90 Tablet 3 04/29/20 Active Additional Information Patient not taking.Reported on 09/22/2023 traMADol HCl 50 MG Oral Tablet (Ultram)Indication s:Chronic pain disorder Take 1 Tablet by mouth 3 times a day as needed for Pain, Moderate. 90 Tablet 1 04/29/20 Active Montelukast Sodium 10 MG Oral Tablet (Singulair) Take 1 Tablet by mouth in the morning. 90 Tablet 3 05/12/20 Active Furosemide 40 MG Oral Tablet (Lasix)Indications :Pleural effusion Take 1 Tablet by mouth in the morning. Take an additional tablet as needed or as directed for fluid retention.. 120 Tablet 3 05/12/20 Active Ibuprofen 200 MG Oral Tablet (Advil) Take by mouth 2 times a day as needed for Pain, Moderate. Takes 1-2 tabs when needed Active Potassium Chloride ER 10 MEQ Oral Capsule Extended ReleaseIndications :Other cardiomyopathy (HCC) Take 2 Capsules by mouth in the morning. 180 Capsule 3 05/25/20 23 Active Additional Information Patient not taking.Reported on 09/22/2023 Metoprolol Succinate ER 25 MG Oral Tablet Extended Release 24 Hour (toPROL XL)Indications:PVC (premature ventricular contraction),Essen tial hypertension with goal blood pressure less than 140/90 TAKE 2 TABLETS BY MOUTH IN THE MORNING AND 1 IN THE EVENING 270 Tablet 3 06/30/19 24 Active Tamoxifen Citrate 20 MG Oral TabletIndications: Malignant neoplasm of upper-inner quadrant of left breast in female, estrogen receptor positive (HCC) Take 1 Tablet by mouth in the morning. 90 Tablet 3 09/08/19 24 Active Sacubitril-Valsart an 24-26 MG Oral Tablet (Entresto) Take 1 Tablet by mouth in the morning and 1 Tablet before bedtime. 60 Tablet 3 12/31/19 24 Active documented as of this encounter (statuses as of 05/08/2024) Active Problems Problem Noted Date Diagnosed Date Hypertensive heart disease w ith chronic systolic congestive heart failure 10/26/2022 Alzheimer's dementia without behavioral disturba nce 09/29/2020 Overview (09/29/2020): At least moderate as of 10/02 Chronic [...] polyp of colon 07/07/2017 Cerebral meningioma 09/15/2016 Overview (09/15/2016): cribriform plate Dyslipidemia, goal LDL below 70 05/22/2013 CLASSICAL MIGRAINE WITHOU MENTION OF INTRACTABLE MIGRAINE 02/28/1999 Senile osteoporosis 02/28/1999 Essential hypertension with goal blood pressure less than 140/90 02/28/1999 documented as of this encounter (statuses as of 05/08/2024) Resolved Problems Problem Noted Date Diagnosed Date [...] 11/03/2010 ACUTE SINUSITIS NOS 04/29/2005 08/02/19 09 Overview (08/02/2008): Resolved per Benign Acute Dxs Protocol #3 ACUTE RIGHT MAXILLARY SINUSITIS 04/26/2005 11/03/2010 Chronic rhinitis 04/26/2005 06/23/2012 Unspecified viral infection, in conditions classified elsewhere and of unspecified site 04/26/2005 11/03/2010 ACUTE PHARYNGITIS 04/26/2005 2008 Overview (2008): Resolved per Benign Acute Dxs Protocol #3 ADVANCE DIRECTIVE INFORMATION 04/17/2005 07/07/2017 Overview (04/17/2005): Yes, Patient instructed to provide copy of [...] as of this encounter (statuses as of 05/08/2024) Immunizations Name Administration Dates Next Due Pneumococcal Polysaccharide PPV23 (Pneumovax) 08/01/2010 Season Influenza, Quad, PF, Adjuvanted, 65+ Yrs, IM (FLUAD) 04/01/2020 Seasonal Influenza Vac., MDV , IM, 0.5 mL (Fluzone) 05/23/2014,06/12/2013,05/19/2012,06/2010,03/28/2010,04/05/2009,04/16/20 08,04/22/2007 05/23/2015 Seasonal Influenza Virus Vac cine, Unspecified Formulation 05/13/2006 Seasonal Influenza, High Dos e, Trivalent, PF, IM (Fluzone HD) 03/29/2024 Seasonal Influenza, PF, 6 M & above, IM , (FluLaval or Fluzone) 04/03/2019,05/03/2018,03/23/2017 Seasonal Influenza, Quadriva lent Hd (Fluzone Hd) 05/26/2022,03/19/2021 Seasonal Influenza, Quadriva lent, No Preserve, IM 04/14/2016,05/29/2015 TD, Preservative Free 05/02/2020 TDAP, Age 7 [...] the money to buy more. Never true 01/14/20 24 Within the past 12 months, t he food you bought just didn't last and you didn't have money to get more. Never true 01/14/2024 Childcare Answer Date Recorded Do you feel overwhelmed with taking care of a child, family member or friend? No 01/14/2024 Does your family need help f inding childcare? (Household - for ages 0-17 years) Not on file 01/14/2024 Clothing Answer Date Recorded Have you been unable to get clothing when it was really needed? No 01/14/2024 Is your family able to get c lothes or diapers when needed? (Household - for ages 0-17 years) Not on file 01/14/2024 Personal Safety Answer Date Recorded Do you feel unsafe or have concerns for your saf ety? No 01/14/2024 Do you have concerns for you r family's safety? (Household - for ages 0-17 years) Not on file 01/14/2024 Utilities Answer Date Recorded Do you have trouble paying y our heating, water, or electric bill? No 01/14/2024 Is your family able to pay t he heat, water, or electric bill? (Household - for ages 0-17 years) Not on file 01/14/2024 Does your family have access to good internet? (Household - for ages 0-17 years) Not on file 01/14/2024 Employment Status Answer Date Recorded Are you unemployed or without regular income? No 01/14/2024 Does the household have a re lar source of income? (Household - for ages 0-17 years) Not on file 01/14/2024 Social Connections Answer Date Recorded How often do you feel lonely or isolated from th ose around you? Never 01/14/2024 Financial Resource Strain Answer Date R ecorded Do you have any trouble payi ng for your medications, or do you think you might in the future? No 01/14/2024 Does your family have troubl e paying for medicine? (Household - for ages 0-17 years) Not on file 01/14/2024 Transportation Needs Answer Date Record ed Do you have trouble getting a ride to medical visits or work? (Adult - for ages 18 years and over) Not on file 01/14/2024 Does your family have a hard time getting a ride to doctors visits? (Household - for ages 0-17 years) Not on file 01/14/2024 Has lack of transportation k ept you from medical appointments, meetings, work, or from getting things needed for daily living? Check all that apply. No 01/14/2024 Do you (or your family) have trouble finding or paying for a ride (transportation)? (Household - for ages 0-17 years) Not on file 01/14/2024 Housing Stability Answer Date Recorded Do you currently live in a s helter or have no steady place to sleep at night? No 01/14/2024 Do you think you are at risk of becoming homeless? (Adult - for ages 18 years and over) Not on file 01/14/2024 Does your family worry about paying for your home or becoming homeless? (Household - for ages 0-17 years) Not on file 0 01/14/2024 Are you homeless or worried that you might be in the future? No 01/14/2024 Are you (or your family) jessica eless or worried that you might be in the future? (Household - for ages 0-17 years) Not on file Food Insecurity Answer Date Recorded Do you need food for this week? No 01/14/2024 Are you able to get enough f ood for your family? (Household - for ages 0-17 years) Not on file 01/14/2024 Does your family need food t his week? (Household - for ages 0-17 years) Not on file 01/14/2024 Do you always have enough fo od for your family? 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 Not on file Not on file Not on file documented as of this encounter Plan of Treatment Upcoming Encounters Date Type Department Care Team (Late st Contact Info) Description 08/01/2024 8:00 AM EST Office Visit Cardiology, [facility] [address] [address] Sabrina Cody PA-C [address] [address] 09/27/2024 5:40 PM EDT Office Visit [facility] [address] [facility] [place] [address] David Olsen MD [address] [place] [id number] Scheduled Orders Name Type Priority Associated Diagnoses Orde r Schedule MYCODE SUBSEQUENT ADULT Lab Routine MyCode Research Other*[id number] Every 6 Months for 2 Occurrences starting 05/08/2024 until 05/28/2025 Scheduled Procedures Name Priority Associated Diagnoses Date/Ti me COLONOSCOPY FLEXIBLE PROXIMAL DIAGNOSTIC Recall FH: GI cancer Health Maintenance Due Date Last Done Comments Zoster Vaccines (1 of 2) 1994 Pneumococcal Vaccine: 65+ Years (2 of 2 - PCV) 08/01/2011 08/01/2010 Adult Wellness Visit 03/23/2018 03/23/2017 Depression Screening 04/01/2021 04/01/2020 *BISPHONATE OR OTHER ACCEPTABLE MEDICATION NEEDED FOR OSTEOPOROSIS (REFER TO SMARTSET #1146) 05/24/2021 DXA Scan 02/04/2022 02/05/2020, 09/12, 11/22/2014, Additional history exists COVID-19 Vaccine ( season) 2024 Colonoscopy 02/17/2024 02/16/2019, 10/2018, 09/16/2010, Additional history exists GFR 04/29/2024 04/29/2023, 03/14, 10/22/2022, Additional history exists Albumin/Creatinine Ratio 03/30/2026 03/30/2023 DTap/Tdap Vaccines (3 - Td or Tdap) 05/02/2030 05/02/2020, 04/26/2008, 02/01/1998 RETIRED - COLONOSCOPY-EVERY 5 YRS AGES 18-100 Discontinued 02/16/2019, 02/16/2019, 09/16/2010, Additional history exists VITAMIN D LEVEL ONCE IN A LIFETIME-USE SMARTSET# 88090 Completed 04/03/2019, 02/25/2018, 09/23/2009 Influenza Vaccine (FLU shot) Completed 03/29/2024, 05/26/2022, 03/19/2021, Additional history exists HPV (Gardasil) Vaccine Aged Out No lo [...] this encounter Visit Diagnoses Diagnosis MyCode Research Other*[id number] documented in this encounter Care Teams Mosaic Tiler Relationship Specialty Start Date End Date David Olsen MD [address], [place] [id number] PCP - General Family Medicine 11/30/19 documented as of this encounter
--- OUTSIDE RECORDS SUMMARY | 2024-06-06 02:09 | External Medical Summary | Summary of Care ---
Author Name Unknown Organization [facility] Address [address] [place] [address] Phone [phone] Care Team Providers Care Switcher Name Role Phone David Olsen MD Primary Care Provider Reason for Visit * Reason Onset Date Comments Health Maintenance 05/04/2024 Encounter Details Date Type Department Care Team (Late st Contact Info) Description 05/04/2024 Telephone [facility] [address] [place] [address] David Olsen MD [address] [place] [address] Health Maintenance Allergies Active Allergy Reactions Criticality Noted Date Comments Bupropion Itching Low 11/03/2010 Cephalexin Hives Low 04/29/2005 Nitrofurantoin Monohyd Macro Hives 012 Pneumococcal Vaccine Nausea/vomiting 08/03/2010 Sulfa Antibiotics Rash Low 02/28/1999 documented as of this encounter (statuses as of 05/04/2024) Medications MULTI-VITAMIN PO TABS 1 daily 0 04/22/20 07 Active Fluticasone Propionate 50 MCG/ACT Nasal SuspensionIndicati ons:Post-nasal drip Administer 2 Sprays into each nostril daily. 16 g 1 06/03/20 20 Active Vitamin D3 125 MCG (5000 UT) Oral Capsule Take 1 Capsule by mouth in the morning. 3 Cap 01/04/20 21 Active B-12 500 MCG Sublingual Tablet Sublingual Place 1 Tablet under the tongue once. 30 Tab 06/17/19 Active Triamcinolone Acetonide 0.1 % External Ointment [...] in the morning. 180 Capsule 3 05/25/20 Active Additional Information Patient not taking.Reported on [...] as of this encounter (statuses as of 05/04/2024) Active Problems Problem Noted Date Diagnosed Date [...] Staging:Clinical:Stage IB(ycT1b, cN0(sn), cM0, G3, ER: Positive, SD: Positive, HER2: Negative) - Unsigned History of adenomatous polyp of colon 07/07/2017 Cerebral meningioma 09/15/2016 Overview (09/15/2016): cribriform plate Dyslipidemia, goal LDL below 70 05/22/2013 CLASSICAL MIGRAINE WITHOU MENTION OF INTRACTABLE MIGRAINE 02/28/1999 Senile osteoporosis 02/28/1999 Essential hypertension with goal blood pressure less than 140/90 02/28/1999 documented as of this encounter (statuses as of 05/04/2024) Resolved Problems Problem Noted Date Diagnosed Date [...] as of this encounter (statuses as of 05/04/2024) Immunizations Name Administration Dates Next Due Pneumococcal [...] 01/14/2024 Does the household have a re gular source of income? 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 Not on file Not on file Not on file documented as of this encounter Miscellaneous Notes * Telephone Encounter - Aliza Oleary LPN - 05/04/2024 8:38 AM EST Care Gaps Comprehensive Care Outreach Last Office/Telemedicine Visit: 03/29/2024 (in office), 05/30/2020 (telemedicine) Next Office Visit: Visit date not found Hemoglobin AIC Results: No results found for: "HEMOGLOBIN A1C" BP Readings from Last 1 Encounters: 03/29/24 108/78 Reviewed Health Maintenance below: Health Maintenance Topic Date Due Zoster Vaccines (1 of 2) Never done Pneumococcal Vaccine: 65+ Years (2 of 2 - PCV) 08/01/2011 Adult Wellness Visit 03/23/2018 Depression Screening 04/01/2021 *BISPHONATE OR OTHER ACCEPTABLE MEDICATION NEEDED FOR OSTEOPOROSIS (REFER TO SMARTSET #1146) Never done DXA Scan 02/04/2022 COVID-19 Vaccine () Never done Colonoscopy 02/17/2024 GFR 04/29/2024 Ov already scheduled Dexa Colon Lab already ordered Declined Care Gap Outreach Action Taken: Spoke to patient documented in this encounter Plan of Treatment Upcoming Encounters Date Type Department Care Team (Late st Contact Info) Description 08/01/2024 8:00 AM EST Office Visit Cardiology, [facility] [address] [place] [address] Sabrina Cody, PA-C [address] [place] [address] 09/27/2024 5:40 PM EDT Office Visit [facility] [address] [place] [id number] David Olsen MD [address] [place] [address] Scheduled Procedures Name Priority Associated Diagnoses Date/Ti [...] history exists COVID-19 Vaccine ( - season) 2024 Colonoscopy 02/17/2024 02/16/2019, 10/2018, 09/16/2010, Additional history exists GFR 04/29/2024 04/29/2023, 03/14, 10/22/2022, Additional history exists Albumin/Creatinine Ratio 03/30/2026 03/30/2023 DTap/Tdap Vaccines (3 - Td or Tdap) 05/02/2030 05/02/2020, 04/26/2008, 02/01/1998 RETIRED - COLONOSCOPY-EVERY 5 YRS AGES 18-100 Discontinued 02/16/2019, 02/16/2019, 09/16/2010, Additional history exists VITAMIN D LEVEL ONCE IN A LIFETIME-USE SMARTSET# 00230 Completed 04/03/2019, 02/25/2018, 09/23/2009 Influenza Vaccine (FLU [...] filedocumented as of this encounter Care Teams Switcher Relationship Specialty Start Date End Date David Olsen MD [address] [place] [address] PCP - General Family Medicine 11/30/19 documented as of this encounter
--- OUTSIDE RECORDS SUMMARY | 2024-06-06 02:09 | External Medical Summary | Summary of Care ---
Author Name Unknown Organization [facility] Address [address] [place] [address] Phone [phone] Care Team Providers Care Residential Program Worker Name Role Phone David Olsen MD Primary Care Provider Reason for Visit * Reason Onset Date Comments Follow Up Pt states that s he is here for a 6 month return Medication Administration 03/29/2024 Flu an d/or Pneumo Inj Encounter Details Date Type Department Care Team (Late st Contact Info) Description 03/29/2024 4:20 PM EDT Office Visit [facility] [address] [place] [address] David Olsen MD [address] [place] [address] Need for prophylactic vaccination and inoculation against influenza* Allergies Active Allergy Reactions Criticality Noted Date Comments Bupropion Itching Low 11/03/2010 Cephalexin Hives Low 04/29/2005 Nitrofurantoin Monohyd Macro Hives 012 Pneumococcal Vaccine Nausea/vomiting 08/03/2010 Sulfa Antibiotics Rash Low 02/28/1999 documented as of this encounter (statuses as of 03/29/2024) Medications Medication Sig Dispensed Refills Start Date [...] the morning. 90 Tablet 3 09/08/2023 Active Sacubitril-Valsartan 24-26 MG Oral Tablet (Entresto) Take 1 Tablet by mouth in the morning and 1 Tablet before bedtime. 60 Tablet 3 12/31/2023 Active documented as of this encounter (statuses as of 03/29/2024) Active Problems Problem Noted Date Diagnosed Date [...] as of this encounter (statuses as of 03/29/2024) Resolved Problems Problem Noted Date Diagnosed Date [...] as of this encounter (statuses as of 03/29/2024) Immunizations Name Administration Dates Next Due Pneumococcal [...] 01/14/2024 Transportation Needs Answer Date Record ed READ ONLY Do you have troubl e getting a ride to medical visits or work? Never True 01/14/2024 Does your family have a hard [...] place to sleep at night? No 01/14/2024 READ ONLY Do you think you a re at risk of becoming homeless? No 01/14/2024 Does your family worry about paying [...] ages 0-17 years) Not on file 01/14/2024 Sex and Gender Information Value Date Recorded Sex Assigned at Female 07/24/2019 11:19 AM EST Gender Identity Female 07/24/2019 11:19 AM EST Sexual Orientation Straight 07/24/2019 11 :19 AM EST Job Start Date Occupation Industry Not on file Not on file Not on file documented as of this encounter Last Filed Vital Signs Vital Sign Reading Time Taken Comments Blood Pressure 108/78 03/29/2024 4:26 PM EDT Pulse 85 03/29/2024 4:26 PM EDT Temperature 36 C (96.8 F) 03/29/2024 4:26 PM EDT Respiratory Rate 16 03/29/2024 4:26 PM EDT Oxygen Saturation 99% 03/29/2024 4:26 PM EDT Inhaled Oxygen Concentration - - Weight 72.5 kg (159 lb 12.8 oz) 03/29/2024 4:26 PM EDT Height 147.3 cm (4' 10") 03/29/2024 4:26 PM EDT Body Mass Index 33.4 03/29/2024 4:26 PM EDT documented in this encounter Progress Notes * Trinidad Nassar LPN - 03/29/2024 5:34 PM EDT PRE - ADMINISTRATION DOCUMENTATION Are you experiencing any cold symptoms or fever? No Have you had Guillain-Tiro Syndrome (an illness that causes paralysis) within the last 6 weeks? No Have you had the flu shot in the past? YES Have you ever had a reaction to the flu shot? No Trinidad Nassar LPN, 03/29/2024 5:34 PM Immunization Administration Documentation Time Out Procedure Performed: Yes Patient Identified (Ask Name/Date of ): Yes Does the patient have a fever greater than 101 degrees today? No Patient allergic to latex? No VFC Stock: No Immunization(s) verified: Yes, Immunization Name: Flu, VIS Sheet(s) given: Yes Verified Side and Site: Yes Verified Shot(s) with Parent(s)/Patient: Yes * David Olsen MD - 03/29/2024 4:33 PM EDT Subjective: Savi Edmonds is a 78 year old female. Chief Complaint Patient presents with Follow Up Pt states that she is here for a 6 month return HPI: 78-year-old seen today accompanied by her . She and her both had COVID about a month ago. They both got fairly sick but did not require Emergency Room visit or hospitalization. That was the 1st time they have ever had COVID at least that they know of. They feel pretty much recovered although they did have some ongoing symptoms-primarily tickle of a cough. She was hospitalized earlier in the summer with urinary tract infection and sepsis for couple days [facility]. That is not had any recurrence She has a known history of cardiomyopathy with last echocardiogram showing an ejection fraction of 35% which is stable. She has been following with Cardiology in particular Sabrina Russo but has not had an appointment Um in over a year. She has not had any hospitalizations for heart failure it least a year. She does have known dementia with significant short-term memory loss. Her points out that he thinks over the last year has gotten a little worse. My impression with her visit today in the office is that it is not that much different than a year ago. New line she tells me that she had a goodtime of the [employer] this year in did a lot of walking without difficulty including no chest painor shortness of breath. Spent a couple nights of the [employer] 2. She has been getting Q six-month IV Prolia therapy for osteoporosis but that has not been done in awhile. I do not think there is any specific reason other than she did not get scheduled in it never got caught Patient Active Problem List Diagnosis CLASSICAL MIGRAINE WITHOU MENTION OF INTRACTABLE MIGRAINE Senile osteoporosis Essential hypertension with goal blood pressure less than 140/90 Dyslipidemia, goal LDL below 70 Cerebral meningioma (HCC) History of adenomatous polyp of colon Malignant neoplasm of upper-inner quadrant of left breast in female, estrogen receptor positive (HCC) History of compression fracture of spine PVC (premature ventricular contraction) Pericardial effusion Cardiomyopathy (HCC) MEDICATION USE AGREEMENT Chronic systolic heart failure (HCC) Alzheimer's dementia without behavioral disturbance (HCC) Hypertensive heart disease with chronic systolic congestive heart failure (HCC) Current Outpatient Medications Medication Sig Dispense Refill [...] Pain, Moderate. Takes 1-2 tabs when needed Metoprolol Succinate ER 25 MG Oral Tablet Extended Release 24 Hour (toPROL XL) TAKE 2 TABLETS BY MOUTH IN THE MORNING AND 1 IN THE EVENING 270 Tablet 3 Tamoxifen Citrate 20 MG Oral Tablet Take 1 Tablet by mouth in the morning. 90 Tablet 3 Sacubitril-Valsartan 24-26 MG Oral Tablet (Entresto) Take 1 Tablet by mouth in the morning and 1 Tablet before bedtime. 60 Tablet 3 Triamcinolone Acetonide 0.1 % External [...] Cephalexin Hives Sulfa Antibiotics Rash Objective: BP 108/78 | Pulse 85 | Temp 36 C (96.8 F) (Tympanic) | Resp 16 | Ht 1.473 m (4' 10") | Wt 72.5 kg (159 lb 12.8 oz) | SpO2 99% | BMI 33.40 kg/m | BSA 1.72 m Physical Exam: CONST: alert, pleasant, no acute distress HEAD: normocephalic, atraumatic NECK: supple, soft, no adenopathy Eyes - PERRLA, EOM'I OROPHARYNX: clear, no swelling or erythema, moist CV: regular rate and rhythm, no murmur CHEST: clear to auscultation bilaterally, no rales or wheezing ABD: soft, non tender, non distended, no masses or hepatosplenomegaly EXT: Trace ankle bilateral edema, no joint swelling or deformities, NEURO: AAOx3, no gross focal deficits, cerebellar signs normal, affect appropriate. Clearly has Um short-term memory difficulties of significance. MENTAL STATUS:-she was in good spirits today SKIN: no rash or significant lesions ASSESSMENT/PLAN: Alzheimer's dementia-as expected there has been some progression but I think that worsening rate has slowed down a bit. She still able to live with her . She is able to stay at home during thedaytime with a family member 4 hours a day wire is working out of the house. Cardiomyopathy-get rescheduled with Cardiology. Savi's has been asked whether she might go back to valsartan instead of the Entresto 24- which was started with 1 of her hospitalizations. That change was made in hopes that it might lessen the chances of heart failure exacerbation. In actuality she has not been admitted for heart failure since that time. Were going to get her back with Cardiology which he has not seen over a year and I asked them to comment regarding the Entresto Routine health maintenance-she is going to get flu shot today and I highly recommended that she getRSV vaccine sometime in the next couple of weeks I do have orders in for blood work to include comprehensive metabolic panel as well as lipid panel and vitamin-D and hemoglobin A1c. That will be done sometime in the next month David Olsen MD documented in this encounter Nursing Notes * Trinidad Nassar LPN - 03/29/2024 4:26 PM EDT Savi Edmonds is a 78 year old female who presents today for Chief Complaint Patient presents with Follow Up Pt states that she is here for a 6 month return documented in this encounter Plan of Treatment Upcoming Encounters Date Type Department Care Team (Late st Contact Info) Description 08/01/2024 8:00 AM EST Office Visit Cardiology, [facility] [address] [place] [address] Sabrina Cody, KRISTI [address] [place] [address] 09/27/2024 5:40 PM EDT Office Visit [facility] [address] [place] [id number] David Olsen MD [address] [place], [place] [id number] Scheduled Procedures Name Priority Associated Diagnoses Date/Ti [...] D LEVEL ONCE IN A LIFETIME-USE SMARTSET# 49976 Completed 04/03/2019, 02/25/2018, 09/23/2009 Influenza Vaccine (FLU [...] as of this encounter Visit Diagnoses Diagnosis Need for prophylactic vaccination and inoculation against influenza- Primary documented in this encounter Care Teams Residential Program Worker Relationship Specialty Start Date End Date David Olsen MD [address] [place] [address] PCP - General Family Medicine 11/30/19 documented as of this encounter
[2024-06-06] MEDS ORDERED: LEVALBUTEROL 1.25 MG/3 ML NEB NEB PRN (02:23)
[2024-06-06] MEDS ORDERED: POLYETHYLENE (MIRALAX) 17 GM PACK PO PRN (02:23)
[2024-06-06] MEDS ORDERED: traMADol HCL 50 MG TABLET PO PRN (02:23)
[2024-06-06] MEDS ORDERED: NITROGLYCERIN SL 0.4 MG/TAB TAB SL PRN (02:23)
[2024-06-06] MEDS: guaiFENesin/CODEINE 100MG/10MG 5ML UDC PO PRN (02:43)
[2024-06-06 06:40] LABS: Basophils # (auto) 0.01 K/uL (0.00-0.20); Basophils % (auto) 0.2 %; Hematocrit (blood only) 38.5 % (37.0-47.0); Hemoglobin 13.3 g/dl (12.0-16.0); Immature Granulocytes # (auto) 0.02 K/uL (0.01-0.20); Immature Granulocytes % (auto) 0.4 %; Lymphocytes # (auto) 0.31 K/uL (1.20-3.40); Lymphocytes % (auto) 6.9 %; Mean Corpuscular Hemoglobin 30.4 pg (25.0-34.0); Mean Corpuscular Hgb Conc 34.5 g/dL (32.0-36.0); Mean Corpuscular Volume 87.9 fL (80.0-100.0); Mean Platelet Volume 10.8 fL (9.4-12.4); Monocytes # (auto) 0.13 K/uL (0.11-0.59); Monocytes % (auto) 2.9 %; Neutrophils # (auto) 4.05 K/uL (1.40-6.50); Neutrophils % (auto) 89.6 %; Platelet Count 95 K/uL (130-400); RDW Coefficient of Variation 12.7 % (11.5-14.5); RDW Standard Deviation 41.2 fL (36.4-46.3); Red Blood Count 4.38 M/uL (4.20-5.40); White Blood Count 4.52 K/ul (4.8-10.8)
[2024-06-06 06:49] LABS: BUN Creatinine Ratio 18.2 (10-20); Calcium 8.6 mg/dl (8.6-10.3); Creatinine Clr Calc Pharmacy 64.7 ml/min; Magnesium 1.9 mg/dl (1.7-2.4); Potassium 3.5 mmol/L (3.5-5.1)
[2024-06-06] MEDS: LEVALBUTEROL HCL 0.63 MG/3 ML NEB NEB SCH (07:00)
--- NOTE | 2024-06-06 08:08 | Hospitalist Progress Note ---
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 She a lot of cough since last 3 days mostly dry cough. Patient lives at her home with her . As per when she is having coughing spells her oxygen levels are going down. She had a temperature 101 degrees today as per . Patient is somewhat hard of hearing. Patient has dementia. Denies any headache. No runny nose or sore throat. No chest pain. Currently denies any shortness of breath. No nausea. No abdominal pain. Normal bowel and bladder movements. Usually ambulates without support sometimes holds her. In the ER oxygen was 87% on room air. On 2 L saturating okay. Acute bronchitis Possible pneumonia Coronavirus 0 C43 positive SARS COVID-negative CT chest IMPRESSION: 1. Interval resolution of previously noted pleural effusions and improvement in airspace opacities in the right upper lobe compatible with improving infectious/inflammatory process. No ronna consolidation to suggest pneumonia. 2. Bronchial wall thickening is seen compatible with infectious/inflammatory airways disease. 3. Previously noted pleural effusions have resolved. Stable atelectasis. Received Rocephin and Doxy in ER which will be continued Short course of steroids Nebs [id number] and as needed Pulmicort inhaler already on robitussin w/ codein - still struggling w/ cough, will add tessalon perles Droplet precautions Closely monitor UTI UA c/w UTI - already on abx as above - follow U cultx Chronic systolic CHF EF 35% on echo done in 03/2023 Continue home Lasix with potassium supplement, Entresto, metoprolol succinate Monitor for volume overload Hypertension On metoprolol succinate Entresto and diuretics Will monitor Alzheimer's dementia Monitor for delirium History of meningioma On MRI scan 2021 unchanged from prior History of left breast cancer, involving the upper inner quadrant S/p lumpectomy and adjuvant radiation treatment Currently on tamoxifen Thrombocytopenia Platelets 95 Seems new finding Needs follow-up Will follow repeat labs DVT prophylaxis Heparin SQ twice daily Monitor platelets Disposition Med/telemetry Full code. Admission and Anticipated Discharge Date Admission Date: June 05, 2024 Subjective Pt seen in follow up of cough, + coronavirus. Also UA c/w UTI Currently sitting up in bed in NAD, pt's present at the bedside, pt has hx of dementia Pt reports cough is not much improved and she is struggling with it - she has robitussin w/ codein ordered prn and received, will add tessalon perles otherwise no chest pain, abd. pain, n/v. Review of Systems Review of Systems: All systems reviewed & are unremarkable except as noted in Subjective Physical Exam Physical Exam: General- WD/WN elderly F in NAD Head- atraumatic Eyes- PERRL. Neck- supple, no JVD. Lungs- b/l mild wheezing and rhonchi heard, + cough Heart- regular rate and rhythm; no murmur Abdomen- normal bowel sounds, soft, nontender, no distension. Extremities- no pretibial edema, no erythema seen. Neuro- awake, alert, able to answer some simple questions appropriately but has hx of dementia. No facial palsy; no dysarthria; moves extremities Results & Data Results & Data Vital Signs (Past 12 Hours) Vital Signs Temp Pulse Pulse Resp BP BP Pulse Ox 06/06/24 07:18 36.7 C 85 17 149/92 H 94 06/06/24 07:00 102 H 16 93 06/06/24 02:51 06/06/24 02:23 37.1 C 103 H 16 157/97 H 98 06/06/24 02:16 102 H 06/06/24 01:39 98 H 26 H 94 06/06/24 01:31 112 H 24 95 06/06/24 00:00 102 H 31 H 129/96 92 06/05/24 23:21 108 H 06/05/24 23:00 110 H 23 94 06/05/24 22:29 93 06/05/24 22:25 87 L 06/05/24 21:00 108 H 24 155/121 H 93 06/05/24 20:30 114 H 26 H 95 O2 Del Method O2 Flow Rate 06/06/24 07:18 Nasal Cannula 2 06/06/24 07:00 Nasal Cannula 2 06/06/24 02:51 Nasal Cannula 2 06/06/24 02:23 Nasal Cannula 2 06/06/24 02:16 06/06/24 01:39 06/06/24 01:31 Nasal Cannula 2 06/06/24 00:00 Nasal Cannula 2 06/05/24 23:21 06/05/24 23:00 Nasal Cannula 2 06/05/24 22:29 Nasal Cannula 2.5 06/05/24 22:25 Room Air 06/05/24 21:00 Room Air 06/05/24 20:30 Room Air Laboratory Results 06/06/24 06/06/24 06/05/24 Range/Units 05:51 01:25 19:00 WBC 4.52 L 6.01 (4.8-10.8) K/ul RBC 4.38 4.79 (4.20-5.40) M/uL Hgb 13.3 14.1 (12.0-16.0) g/dl Hct 38.5 41.8 (37.0-47.0) % MCV 87.9 87.3 (80.0-100.0) fL MCH 30.4 29.4 (25.0-34.0) pg MCHC 34.5 33.7 (32.0-36.0) g/dL RDW Std Deviation 41.2 41.0 (36.4-46.3) fL RDW Coeff of Tiffany 12.7 12.8 (11.5-14.5) % Plt Count 95 L 95 L (130-400) K/uL MPV 10.8 10.7 (9.4-12.4) fL Immature Gran % (Auto) 0.4 0.3 % Neut % (Auto) 89.6 74.1 % Lymph % (Auto) 6.9 13.3 % Parmer % (Auto) 2.9 10.6 % Eos % (Auto) 0.0 1.0 % Baso % (Auto) 0.2 0.7 % Neut # (Auto) 4.05 4.45 (1.40-6.50) K/uL Lymph # (Auto) 0.31 L 0.80 L (1.20-3.40) K/uL Parmer # (Auto) 0.13 0.64 H (0.11-0.59) K/uL Eos # (Auto) 0.00 0.06 (0.00-0.50) K/uL Baso # (Auto) 0.01 0.04 (0.00-0.20) K/uL Immature Gran # (Auto) 0.02 0.02 (0.01-0.20) K/uL Platelet Estimate Decreased L (Normal) PT 11.0 (9.0-12.0) Seconds INR 1.0 (0.9-1.1) APTT 26 (21-31) Seconds PTT Ratio 1.0 Sodium 142 141 (136-145) mmol/L Potassium 3.5 3.8 (3.5-5.1) mmol/L Chloride 109 H 107 (98-107) mmol/L Carbon Dioxide 25 24 (21-32) mmol/L Anion Gap 8 10 (3-11) BUN 12 12 (6-23) mg/dl Creatinine 0.66 0.76 (0.6-1.2) mg/dl Est Cr Clr Drug Dosing 64.7 56.4 ml/min eGFR 89.18 79.66 BUN/Creatinine Ratio 18.2 15.8 (10-20) Glucose 165 H 114 H (70-99(Fasting)) mg/dl Calcium 8.6 8.6 (8.6-10.3) mg/dl Magnesium 1.9 1.9 (1.7-2.4) mg/dl Total Bilirubin 0.6 (0.2-1.0) mg/dl AST 16 (13-39) U/L ALT 11 (7-52) U/L Alkaline Phosphatase 60 (34-104) U/L B-Natriuretic Peptide 877 H (0-100) pg/ml Total Protein 5.9 L (6.0-8.3) gm/dl Albumin 4.0 (3.4-5.0) gm/dl Globulin 1.9 L (2.5-4.0) gm/dl Albumin/Globulin Ratio 2.1 H (0.9-2) TSH 2.711 (0.300-4.500) uIu/ml Urine Color Yellow Urine Appearance Cloudy A (Clear) Urine pH 5.5 (4.5-7.5) Ur Specific [place] 1.019 (1.000-1.030) Urine Protein 1+ H (Negative) Urine Glucose (UA) Negative (Negative) Urine Ketones 2+ H (Negative) Urine Blood 1+ H (Negative) Urine Nitrite Positive A (Negative) Urine Bilirubin Negative (Negative) Urine Urobilinogen Negative (Negative) Ur Leukocyte Esterase 3+ H (Negative) Urine WBC (Auto) >50 H (0-5) /hpf Urine RBC (Auto) 0-2 (0-2) /hpf U Hyaline Cast (Auto) 3-5 H (0-2) /lpf U Epithel Cells (Auto) 6-10 H (0-2) /hpf Urine Bacteria (Auto) 4+ H (None Seen) Adenovirus (PCR) (NotDetected) B. pertussis DNA (PCR) (NotDetected) B.parapertussis DNA PCR (NotDetected) C. pneumoniae DNA (PCR) (NotDetected) Coronavirus OC43 (PCR) (NotDetected) Coronavirus HKU1 (PCR) (NotDetected) Coronavirus 229E (PCR) (NotDetected) SARS-CoV-2 (PCR) (NotDetected) Coronavirus NL63 (PCR) (NotDetected) Human Metapneumovir PCR (NotDetected) Influenza Type A (PCR) (NotDetected) Influenza Type B (PCR) (NotDetected) M. pneumoniae (PCR) (NotDetected) Parainfluenza 1 (PCR) (NotDetected) Parainfluenza 2 (PCR) (NotDetected) Parainfluenza 3 (PCR) (NotDetected) Parainfluenza 4 (PCR) (NotDetected) RSV (PCR) (NotDetected) Entero/Rhino (PCR) (NotDetected) 06/05/24 Range/Units 18:56 WBC (4.8-10.8) K/ul RBC (4.20-5.40) M/uL Hgb (12.0-16.0) g/dl Hct (37.0-47.0) % MCV (80.0-100.0) fL MCH (25.0-34.0) pg MCHC (32.0-36.0) g/dL RDW Std Deviation (36.4-46.3) fL RDW Coeff of Tiffany (11.5-14.5) % Plt Count (130-400) K/uL MPV (9.4-12.4) fL Immature Gran % (Auto) % Neut % (Auto) % Lymph % (Auto) % Parmer % (Auto) % Eos % (Auto) % Baso % (Auto) % Neut # (Auto) (1.40-6.50) K/uL Lymph # (Auto) (1.20-3.40) K/uL Parmer # (Auto) (0.11-0.59) K/uL Eos # (Auto) (0.00-0.50) K/uL Baso # (Auto) (0.00-0.20) K/uL Immature Gran # (Auto) (0.01-0.20) K/uL Platelet Estimate (Normal) PT (9.0-12.0) Seconds INR (0.9-1.1) APTT (21-31) Seconds PTT Ratio Sodium (136-145) mmol/L Potassium (3.5-5.1) mmol/L Chloride (98-107) mmol/L Carbon Dioxide (21-32) mmol/L Anion Gap (3-11) BUN (6-23) mg/dl Creatinine (0.6-1.2) mg/dl Est Cr Clr Drug Dosing ml/min eGFR BUN/Creatinine Ratio (10-20) Glucose (70-99(Fasting)) mg/dl Calcium (8.6-10.3) mg/dl Magnesium (1.7-2.4) mg/dl Total Bilirubin (0.2-1.0) mg/dl AST (13-39) U/L ALT (7-52) U/L Alkaline Phosphatase (34-104) U/L B-Natriuretic Peptide (0-100) pg/ml Total Protein (6.0-8.3) gm/dl Albumin (3.4-5.0) gm/dl Globulin (2.5-4.0) gm/dl Albumin/Globulin Ratio (0.9-2) TSH (0.300-4.500) uIu/ml Urine Color Urine Appearance (Clear) Urine pH (4.5-7.5) Ur Specific [place] (1.000-1.030) Urine Protein (Negative) Urine Glucose (UA) (Negative) Urine Ketones (Negative) Urine Blood (Negative) Urine Nitrite (Negative) Urine Bilirubin (Negative) Urine Urobilinogen (Negative) Ur Leukocyte Esterase (Negative) Urine WBC (Auto) (0-5) /hpf Urine RBC (Auto) (0-2) /hpf U Hyaline Cast (Auto) (0-2) /lpf U Epithel Cells (Auto) (0-2) /hpf Urine Bacteria (Auto) (None Seen) Adenovirus (PCR) Not Detected (NotDetected) B. pertussis DNA (PCR) Not Detected (NotDetected) B.parapertussis DNA PCR Not Detected (NotDetected) C. pneumoniae DNA (PCR) Not Detected (NotDetected) Coronavirus OC43 (PCR) DETECTED A (NotDetected) Coronavirus HKU1 (PCR) Not Detected (NotDetected) Coronavirus 229E (PCR) Not Detected (NotDetected) SARS-CoV-2 (PCR) Not Detected (NotDetected) Coronavirus NL63 (PCR) Not Detected (NotDetected) Human Metapneumovir PCR Not Detected (NotDetected) Influenza Type A (PCR) Not Detected (NotDetected) Influenza Type B (PCR) Not Detected (NotDetected) M. pneumoniae (PCR) Not Detected (NotDetected) Parainfluenza 1 (PCR) Not Detected (NotDetected) Parainfluenza 2 (PCR) Not Detected (NotDetected) Parainfluenza 3 (PCR) Not Detected (NotDetected) Parainfluenza 4 (PCR) Not Detected (NotDetected) RSV (PCR) Not Detected (NotDetected) Entero/Rhino (PCR) Not Detected (NotDetected) Medications Administered Current Inpatient Medications Acetaminophen (Acetaminophen 325 Mg Tab) 650 mg PO Q4H PRN PRN Reason: Pain or Fever Stop: 07/06/24 02:22 Fluticasone Furoate (Fluticasone Furoate 100mcg 14 Puffs/Inhaler) 1 puffs INH DAILY ERICA Stop: 07/06/24 08:59 Furosemide (Furosemide 40 Mg Tab) 40 mg PO DAILY ERICA Stop: 07/06/24 08:59 Guaifenesin/Codeine Phosphate (Guaifenesin/Codeine 100mg/10mg 5ml Udc) 5 ml PO Q6H PRN PRN Reason: Cough Stop: 07/06/24 02:22 Last Admin: 06/06/24 02:43 Dose: 5 ml Heparin Sodium (Porcine) (Heparin Sod 5,000 Unit/0.5 Ml Vial) 5,000 units SQ Q12 [facility] Stop: 07/06/24 08:59 Doxycycline Hyclate 100 mg/ (Dextrose) 100 mls @ 50 mls/hr IV Q12H ERICA Stop: 06/11/24 08:59 Ceftriaxone Sodium (Rocephin) 2,000 mg in 50 mls @ 100 mls/hr IV Q24H ERICA Stop: 06/11/24 20:59 Levalbuterol HCl (Levalbuterol 1.25 Mg/3 Ml Neb) 1.25 mg NEB Q4H PRN PRN Reason: Shortness Of Breath Or Wheezing Stop: 07/06/24 02:22 Levalbuterol HCl (Levalbuterol Hcl 0.63 Mg/3 Ml Neb) 0.63 mg NEB Q8R [facility]; Protocol Stop: 07/06/24 06:59 Last Admin: 06/06/24 07:00 Dose: 0.63 mg Metoprolol Succinate (Metoprolol Succ 25mg Ext Rel Tab) 25 mg PO HS [facility] Stop: 07/06/24 20:59 Metoprolol Succinate (Metoprolol Succ 25mg Ext Rel Tab) 50 mg PO QAM [facility] Stop: 07/06/24 08:59 Montelukast Sodium (Montelukast Sodium 10 Mg Tablet) 10 mg PO DAILY [facility] Stop: 07/06/24 08:59 Nitroglycerin (Nitroglycerin Sl 0.4 Mg/Tab Tab) 0.4 mg SL Q5M PRN PRN Reason: Chest Pain Stop: 07/06/24 02:22 Polyethylene Glycol (Polyethylene (Miralax) 17 Gm Pack) 17 gm PO DAILY PRN PRN Reason: Constipation Stop: 07/06/24 02:22 Potassium Chloride (Potassium Chloride Crtab 20 Meq Tabcr) 20 meq PO DAILY [facility] Stop: 07/06/24 08:59 Prednisone (Prednisone 20 Mg Tab) 40 mg PO DAILY [facility] Stop: 07/06/24 08:59 Sacubitril/Valsartan (Valsartan/Sacubitril 26/24mg Tab) 1 tab PO BID [facility] Stop: 07/06/24 08:59 Tamoxifen Citrate (Tamoxifen Citrate 10 Mg Tablet) 20 mg PO DAILY ERICA Stop: 07/06/24 08:59 Tramadol HCl (Tramadol Hcl 50 Mg Tablet) 50 mg PO TID PRN PRN Reason: Pain Stop: 07/06/24 02:22
[2024-06-06] MEDS: FLUTICASONE FUROATE 100MCG 14 PUFFS/INHALER INH SCH (08:44)
[2024-06-06] MEDS: TAMOXIFEN CITRATE 10 MG TABLET PO SCH (08:46)
[2024-06-06] MEDS: FUROSEMIDE 40 MG TAB PO SCH (08:48)
[2024-06-06] MEDS: METOPROLOL SUCC 25MG EXT REL TAB PO SCH ×2 (08:49→20:59)
[2024-06-06] MEDS: MONTELUKAST SODIUM 10 MG TABLET PO SCH (08:49)
[2024-06-06] MEDS: VALSARTAN/SACUBITRIL 26/24MG TAB PO SCH (08:49)
[2024-06-06] MEDS: DOXYCYCLINE HYCLATE 100 MG in DEXTROSE 5% MINI-B 100 ML IV SCH (08:50)
--- NOTE | 2024-06-06 09:15 | CT Scan Report ---
CT chest diagnostic wo con CLINICAL HISTORY: cough, possible pneumonia TECHNIQUE: Multidetector row helical CT of the chest was performed. Coronal and sagittal reformations were obtained. Automated dose lowering techniques and/or adjustment according to patient size were u tilized for this exam. CT DOSE: 256.13 mGy.cm Comparison: Comparison is made to CT chest 04/23/2023 FINDINGS: Lungs and pleura: Biapical scarring is seen. Bronchial wall thickening is seen. Atelectasis is noted. Interval decrease in right upper lobe groundglass opacity which now measures 7 mm. Previously noted pleural effusion has resolved. Heart and pericardium: Cardiomegaly is seen with biatrial enlargement. Physiologic pericardial fluid is seen. Vessels: Unremarkable. Mediastinum and seamus: Subcentimeter lymph nodes are seen. Chest wall and lower neck: 12 mm fluid density lesion in the left axilla is unchanged, nonspecific bu t may represent a cyst. No lymphadenopathy. Abdomen: A hiatal hernia is seen. Left hepatic cyst is seen. Bones: Multilevel compression deformities are unchanged from prior exam. IMPRESSION: 1. Interval resolution of previously noted pleural effusions and improvement in airspace opacities i n the right upper lobe compatible with improving infectious/inflammatory process. No ronna consolidat ion to suggest pneumonia. 2. Bronchial wall thickening is seen compatible with infectious/inflammatory airways disease. 3. Previously noted pleural effusions have resolved. Stable atelectasis. ACT 112: Negative or not required by law. Electronically signed by: Clifford Ceballos M.D. 06/06/2024 9:13 AM
[2024-06-06] MEDS: POTASSIUM CHLORIDE CRTAB 20 MEQ TABCR PO SCH (09:29)
[2024-06-06] MEDS: HEPARIN SOD 5,000 UNIT/0.5 ML VIAL SQ SCH (09:29)
[2024-06-06] MEDS: predniSONE 20 MG TAB PO SCH (09:29)
[2024-06-06] MEDS: BENZONATATE 100 MG CAPSULE PO SCH (13:02)
--- NOTE | 2024-06-06 16:16 | Electrocardiogram Report ---
Test Reason : Blood Pressure : */* mmHG Vent. Rate : 108 BPM Atrial Rate : 108 BPM P-R Int : 162 ms QRS Dur : 84 ms QT Int : 344 ms P-R-T Axes : 53 -39 116 degrees QTcB Int : 460 ms Sinus tachycardia with occasional Premature ventricular complexes Possible Left atrial enlargement Nonspecific ST abnormality Left axis deviation Left ventricular hypertrophy with repolarization abnormality Abnormal ECG When compared with ECG of 03-Jan-2024 12:23, T wave inversion less evident in Anterolateral leads Confirmed by Kurt Kam ([id number]) on 06/06/2024 4:15:56 PM Referred By: REFERRED SELF Confirmed By: Kurt Kam
[2024-06-06] MEDS: cefTRIAXone SODIUM 2,000 MG/50 ML BAG IV SCH (20:58)
[2024-06-06] MEDS: ACETAMINOPHEN 325 MG TAB PO PRN (22:13)
[2024-06-07] MEDS ORDERED: predniSONE 20 MG TAB PO SCH
[2024-06-07] MEDS: OLANZapine 10 MG/2.1 ML SDV IM STA (06:04)
[2024-06-07 09:52] LABS: BUN Creatinine Ratio 23.3 (10-20); Creatinine Clr Calc Pharmacy 47.4 ml/min; Magnesium 1.9 mg/dl (1.7-2.4); Phosphorus 2.9 mg/dl (2.5-4.9); Potassium 3.7 mmol/L (3.5-5.1)
[2024-06-07 10:12] LABS: Hematocrit (blood only) 42.9 % (37.0-47.0); Hemoglobin 14.6 g/dl (12.0-16.0); Mean Corpuscular Volume 88.3 fL (80.0-100.0); Mean Platelet Volume 11.1 fL (9.4-12.4); Platelet Count 123 K/uL (130-400); RDW Standard Deviation 41.9 fL (36.4-46.3); Red Blood Count 4.86 M/uL (4.20-5.40); White Blood Count 10.04 K/ul (4.8-10.8)
[2024-06-07 11:42] VITALS: BP 118/69; TEMP 98.2
--- NOTE | 2024-06-07 14:35 | Discharge Summary ---
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 Having lot of cough since last 3 days mostly dry cough. Patient lives at her home with her . As per when she is having coughing spells her oxygen levels are going down. She had a temperature 101 degrees today as per . Patient is somewhat hard of hearing. Patient has dementia. Denies any headache. No runny nose or sore throat. No chest pain. Currently denies any shortness of breath. No nausea. No abdominal pain. Normal bowel and bladder movements. Usually ambulates without support sometimes holds her. In the ER oxygen was 87% on room air. On 2 L saturating okay. Past medical history. As mentioned above. Past surgical history. Left breast biopsy. Colonoscopy. Ligation of oviducts. Left partial mastectomy. Tonsillectomy and adenoidectomy. Social history. . No smoking. No alcohol use. No drug use. Family history. Mother had COPD, asthma and hypertension. Father had eye problems. Colon cancer. Maternal grandmother had cancer. Sister has cardiac stents. Admission Exam Per Admitting Provider General- Not in acute distress Head- atraumatic Eyes- PERRL. ENT- oropharynx clear Neck- supple, no JVD. Lungs- clear to auscultation b/l mild wheezing and rhonchi heard. Heart- regular rate and rhythm; no murmur, no gallop. Abdomen- normal bowel sounds, soft, nontender, no distension. Extremities- no pretibial edema, no erythema seen. Neuro- alert, oriented PERRL, no facial palsy; no dysarthria; moves extremities Principal Diagnosis Acute bronchitis Possible pneumonia Concern for UTI Discharge Exam General- WD/WN elderly F in NAD Head- atraumatic Eyes- PERRL. Neck- supple, no JVD. Lungs- no wheeze, no crackles Heart- regular rate and rhythm; no murmur Abdomen- normal bowel sounds, soft, nontender, no distension. Extremities- no pretibial edema, no erythema seen. Neuro- awake, alert, able to answer some simple questions appropriately but has hx of dementia. No facial palsy; no dysarthria; moves extremities Discharge Data Allergies Allergy/AdvReac Type Severity Reaction Status Date / Time bee venom protein (honey bee) Allergy Intermediate EXTRA Verified 10/18/20 20:45 SWELLING AT SITE Sulfa (Sulfonamide Allergy Mild Unknown Verified 10/18/20 20:45 Antibiotics) bupropion Allergy Unknown unknown Verified 10/18/20 20:45 pneumococcal vaccine Allergy Unknown FEVER, Verified 10/18/20 20:45 [From Pneumovax 23] CHILLS, BODY ACHES, VOMITING Consultations 06/05/24 21:34 ED Decision to Admit Stat Ordered Studies 06/06/24 02:23 CT chest diagnostic wo con Routine Hospital Course (1) Acute bronchitis: Per prior attending with addendum: 78-year-old female with past medical history significant for hyperlipidemia, chronic systolic CHF, hypertension, history of PVCs, history of pericarditis, history of pericardial effusion, osteoporosis, compression fracture of spine, migraine, history of cerebral meningioma, history of Alzheimer's dementia without behavioral disturbance, 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 She a lot of cough since last 3 days mostly dry cough. Patient lives at her home with her . As per when she is having coughing spells her oxygen levels are going down. She had a temperature 101 degrees today as per . Patient is somewhat hard of hearing. Patient has dementia. Denies any headache. No runny nose or sore throat. No chest pain. Currently denies any shortness of breath. No nausea. No abdominal pain. Normal bowel and bladder movements. Usually ambulates without support sometimes holds her. In the ER oxygen was 87% on room air. On 2 L saturating okay. Acute bronchitis Possible pneumonia Coronavirus 0 C43 positive SARS COVID-negative CT chest IMPRESSION: 1. Interval resolution of previously noted pleural effusions and improvement in airspace opacities in the right upper lobe compatible with improving infectious/inflammatory process. No ronna consolidation to suggest pneumonia. 2. Bronchial wall thickening is seen compatible with infectious/inflammatory airways disease. 3. Previously noted pleural effusions have resolved. Stable atelectasis. Received Rocephin and Doxy in ER which will be continued Short course of steroids Nebs [id number] and as needed Pulmicort inhaler already on robitussin w/ codein - still struggling w/ cough, will add tessalon perles Droplet precautions Closely monitor UTI UA c/w UTI - already on abx as above - follow U cultx Chronic systolic CHF EF 35% on echo done in 03/2023 Continue home Lasix with potassium supplement, Entresto, metoprolol succinate Monitor for volume overload Hypertension On metoprolol succinate Entresto and diuretics Will monitor Alzheimer's dementia Monitor for delirium History of meningioma On MRI scan 2021 unchanged from prior History of left breast cancer, involving the upper inner quadrant S/p lumpectomy and adjuvant radiation treatment Currently on tamoxifen Thrombocytopenia Platelets 95 Seems new finding Needs follow-up Will follow repeat labs DVT prophylaxis Heparin SQ twice daily Monitor platelets Disposition Med/telemetry Full code. Addendum 06/07/2024: Patient was seen and examined at bedside as a follow-up of acute bronchitis ISO viral upper respiratory tract infection, possible pneumonia, concern for UTI. Patient was sitting up in bed, on room air, NAD, hemodynamically stable, patient's at bedside. Per patient's , patient's mentation is at her baseline and patient's strength is at her baseline. Patient has been moving in the room and in the hallway per RN with no issues. Patient was confused/agitated in the morning with need for IM Zyprexa but has improved significantly after patient's has come in the morning. Pt's does state that pt is at her baseline mentation. No further agitation while in the hospital since morning until now. Patient would rather benefit from being at home to prevent hospital induced delirium. Otherwise patient reports improvement in her cough significantly, no crackles or wheezing heard on lung exam. Patient has been eating okay. Patient's feels that she is ready for discharge. Patient is being discharged to home with following instruction at the point of discharge: Follow-up with your primary care physician within a week time and likely you will need labs CBC/CMP/magnesium/phosphorus. You were evaluated and treated for acute bronchitis and possible pneumonia, you were found to have coronavirus infection [not COVID-19 virus infection]. Complete the antibiotic course as prescribed. Take your medications as prescribed. Please make sure that you are able to get your medications today by calling your pharmacy before you leave the hospital so that your treatment continuity is not broken. Home Health Attestation I certify that this patient is under my care and that I, or a physicians psychology assistant working with me, had a face to-face encounter that meets the home health [id number] encounter requirements with this patient. The encounter with the patient was in whole, or in part, for the following medical condition, which is the primary reason for home health care (list medical condition): I certify that, based on my findings, the following services are medically necessary home health services: My clinical findings support the need for the above services because: Further, I certify that my clinical findings support that this patient is homebound (i.e. absences from home require considerable and taxing effort and are for medical reasons or christianity services or infrequently or of short duration when for other reasons) because: Certification for Home Health Services: Based on the above findings, I certify that this patient is confined to the home and needs intermittent senior care care, physical therapy and/or speech therapy or continues to need occupational therapy. The patient is under my care, and I have initiated the establishment of the plan of care. This patient will be followed by a physician who will periodically review the plan of care. Total Time Total Time Spent Total Time Spent (In Minutes): 40 Discharge Plan Discharge Items Patient Disposition: Home - Self-Care Reason For Visit: ACUTE BRONCHITIS, PNEUMONIA? Discharge Diagnosis: Acute bronchitis Possible pneumonia Concern for UTI Condition on Discharge: Fair Activity: Resume your previous activity Non-emergency contact: Primary Care Provider Call non-emergency contact if: you have any medication questions and your symptoms worsen Follow-up/Referrals: David Olsen MD [Primary Care Provider] - Diet: Heart Healthy Diet Texture: Easy to Chew Addtl Attending Provider Instructions: Follow-up with your primary care physician within a week time and likely you will need labs CBC/CMP/magnesium/phosphorus. You were evaluated and treated for acute bronchitis and possible pneumonia, you were found to have coronavirus infection [not COVID-19 virus infection]. Complete the antibiotic course as prescribed. Take your medications as prescribed. Please make sure that you are able to get your medications today by calling your pharmacy before you leave the hospital so that your treatment continuity is not broken. Pending Studies at Discharge: No Stand-Alone Forms: My [facility], Smoking Cessation Medications and DC Order Prescriptions: New cefdinir 300 mg Capsule 300 mg PO BID 5 Days Qty: 10 0RF doxycycline hyclate 100 mg Capsule 100 mg PO BID 5 Days Qty: 10 0RF prednisone 20 mg Tablet 20 mg PO DAILY 3 Days Qty: 3 0RF benzonatate 100 mg Capsule 100 mg PO TID PRN (Reason: cough) 5 Days Qty: 15 0RF codeine-guaifenesin [Guaifenesin AC] 10-100 mg/5 mL Liquid 5 ml PO Q6H PRN (Reason: cough) 5 Days Qty: 118 0RF L. acidophilus/Bifid. animalis 2 billion cell capsule 1 cap PO DAILY 7 Days Qty: 7 0RF Continued furosemide 40 mg tablet 40 mg PO DAILY tramadol 50 mg tablet 50 mg PO TID PRN (Reason: Pain) metoprolol succinate 25 mg tablet extended release 24 hr 25 mg PO UD Rx Instructions: 50mg in AM and 25mg in PM tamoxifen 20 mg tablet 20 mg PO DAILY sacubitril-valsartan [Entresto] 24-26 mg tablet 1 tab PO BID potassium chloride 10 mEq Capsule, Extended Release 20 meq PO DAILY montelukast 10 mg Tablet 10 mg PO DAILY Discharge Orders: Discharge Order (Routine); Ordered 06/07/24 Ordered By: Beryl Wilson Admission Data Admit Date/Time: 06/05/24 23:40 Attending Provider: Beryl Wilson Admit Provider: Dell Gambino Primary Care Provider: David Olsen Other Providers: Dell Gambino Other Interventions: Discharge Summary Assessment (RN) Last Done: 06/07/24 14:18
[2024-06-07 14:37] VITALS: PULSE 89; RESP 12; O2SAT 90
[2024-06-07] MEDS ORDERED: CEFDINIR 300 MG CAP PO SCH ×2 (14:45→21:00)
[2024-06-07] MEDS ORDERED: Nursing to Pharmacy Communication SCH (14:45)
[2024-06-07] MEDS ORDERED: DOXYCYCLINE HYCLATE 100 MG CAP PO SCH ×2 (14:45→21:00)
[2024-06-07] MEDS: ADVANCED PROBIOTIC 625 MG CAPSULE PO SCH (15:19)
== END 2024-06-07 15:42 | disposition home or self-care (01) | DRG 202 ==
LOC: ED 18:26 → SUATTDRO 23:40 → 2W 23:40